=== PATIENT | female | born 1945 | race Caucasian/White ===

== ENCOUNTER 2020-04-29 17:09 | Outpatient (REF) | payer MEDICARE, SELFPAY | END 2020-04-29 17:10 | disposition home or self-care (01) | LOC: HO.LAB 17:09 | PROVIDERS: PCP Internal Medicine; Visit Provider Internal Medicine | DX: Z20.828 Contact with and (suspected) exposure to other viral communicable diseases (principal) | CPT/HCPCS: C9803; U0003 ==

== ENCOUNTER 2020-05-06 10:59 | Outpatient (REF) | payer MEDICARE, SELFPAY | END 2020-05-06 11:00 | disposition home or self-care (01) | LOC: HO.LAB 10:59 | PROVIDERS: Visit Provider Internal Medicine | DX: Z20.828 Contact with and (suspected) exposure to other viral communicable diseases (principal) | CPT/HCPCS: C9803; U0003 ==

== ENCOUNTER 2020-06-14 08:43 | Outpatient (REF) | payer MEDICARE, SELFPAY ==
[2020-06-14 09:10] LABS: MANUAL DIFF FLAG NO
[2020-06-14 09:14] LABS: Basophils Absolute Auto 0.1 X10*3/uL (0.0-0.2); Eosinophils Absolute Auto 0.2 X10*3/uL (0.0-0.4); Eosinophils Percent Auto 2.9 % (0-4); Hematocrit 40.3 % (37-47); Imm Gran Abs Auto 0.02 X10*3/uL (0.00-0.03); Imm Gran Pct Auto 0.2 % (0.0-0.4); Lymphocytes Absolute Auto 2.4 X10*3/uL (1.2-4.9); Lymphocytes Percent Auto 29.7 % (20-40); Mean Corpuscular HGB Conc 32.3 g/dl (31.0-35.0); Mean Corpuscular Hemoglobin 29.6 pg (27.0-33.0); Mean Corpuscular Volume 91.8 fL (80-98); Mean Platelet Volume 9.2 fL (9.4-12.3); Monocytes Absolute Auto 0.6 X10*3/uL (0.1-1.2); Monocytes Percent Auto 7.2 % (2-11); Neutrophils Absolute Auto 4.8 X10*3/uL (2.0-8.3); Platelet Count 314 X10*3/uL (160-400); Red Blood Count 4.39 X10*6/uL (4.20-5.50); Red Cell Distribution Width 14.6 % (11.0-16.0); White Blood Count 8.2 X10*3/uL (4.8-10.8)
[2020-06-14 09:29] LABS: Estimated Average Glucose 148 mg/dL; Hemoglobin A1c % 6.8 %
[2020-06-14 09:30] LABS: Glucose Urine UA NEG (NEG); Leukocyte Esterase Urine NEG (NEG); Nitrite Urine NEG (NEG); Urine Blood NEG (NEG); Urine Ketones NEG (NEG); Urine Protein NEG (NEG-TRACE)
[2020-06-14 09:33] LABS: Appearance Urine CLEAR; Color Urine YELLOW
[2020-06-14 09:46] LABS: Alanine Aminotransferase 21 U/L (0-31); Albumin Level 4.1 g/dL (3.5-5.0); Alkaline Phosphatase 68 U/L (39-117); Anion Gap 13 (12-20); Bilirubin Total 0.5 mg/dL (0.0-1.0); Blood Urea Nitrogen 17 mg/dL (9-16); Calcium 9.4 mg/dL (8.4-10.2); Carbon Dioxide 30 mmol/L (22-29); Chloride 103 mmol/L (96-108); Cholesterol 178 mg/dL; Estimated Glomerular Filt Rate 58; Glucose Fasting 132 mg/dL (60-99); HDL Cholesterol 36 mg/dL; LDL Cholesterol Calculated 98 mg/dl; Potassium 4.1 mmol/l (3.3-5.1); Sodium 142 mmol/L (135-145); Total Protein 6.9 g/dL (6.5-8.0); Triglycerides 222 mg/dL
[2020-06-14 09:47] LABS: Aspartate Amino Transferase 16 U/L (5-31)
[2020-06-14 09:52] LABS: Creatinine Urine 142.93 mg/dL; Microalbum/Creatinine Ratio Ur 3.4 ug/mg cr
[2020-06-14 10:12] LABS: Vitamin D 25-OH Total 60.1 ng/mL (>30)
[2020-06-14 10:44] LABS: Reflex LDLD? No
== END 2020-06-14 08:44 | disposition home or self-care (01) ==
LOC: HO.LAB 08:43
PROVIDERS: PCP Internal Medicine; Visit Provider Internal Medicine
DX: I10 Essential (primary) hypertension (principal); E78.00 Pure hypercholesterolemia, unspecified; E11.40 Type 2 diabetes mellitus with diabetic neuropathy, unspecified
CPT/HCPCS: 36415; 80053; 80061; 81003; 82043; 82306; 83036; 85025

== ENCOUNTER 2020-11-09 08:01 | Outpatient (REF) | payer MEDICARE, SELFPAY ==
--- NOTE | ~2020-11-09 | MM_ITS ---
EXAMINATION: BONE DENSITOMETRY CLINICAL INDICATION: Osteopenia. COMPARISON: Previous BD dated 11/05/2018 and baseline BD dated 06/14/2016. TECHNIQUE: Using a Magnetic DXA System (software version: 13.1) manufactured by [employer], dual-energy x-ray absorptiometry was performed of the lumbar spine and left hip. The images are of good technical quality. Summary results are attached. FINDINGS: AP SPINE L1-L4: Current: BMD 1.296 g/cm2, Z-score 1.5, T-score 1.0, normal, 3.0% decrease from previous, 0.2% decrease from baseline (<5% change is not significant). Prior: BMD 1.336 g/cm2. Baseline: BMD 1.298 g/cm2. LEFT FEMUR, NECK: Current: BMD 0.871 g/cm2, Z-score -0.1, T-score -1.2, osteopenia. Prior: BMD 0.830 g/cm2. Baseline: BMD 0.854 g/cm2. LEFT FEMUR, TOTAL: Current: BMD 1.102 g/cm2, Z-score 1.6, T-score 0.7, normal, 2.6% increase from previous, 4.6% increase from baseline (<5% change is not significant). Prior: BMD 1.074 g/cm2. Baseline: BMD 1.054 g/cm2. IDENTIFIED RISK FACTORS: Menopause, anticonvulsant, bilateral oophorectomy, hysterectomy, Thiazide. HISTORY OF FRACTURE: None listed. MEDICATIONS: Calcium or multivitamin. Vitamin D. MM/XR DEXA axial skeleton IMPRESSION: 1. DIAGNOSIS: Osteopenia based on the lowest T-score value of -1.2 in the femoral neck applying World Health Organization criteria. 2. 10-YEAR FRACTURE RISK PREDICTION, FRAX: Major osteoporotic fracture (clinical spine, forearm, hip or shoulder) 9.1%. Hip fracture 1.4%. 3. Treatment Recommendations: NOF guidelines recommend consideration for treatment in postmenopausal women and men age 50 and older presenting with the following: -A hip or vertebral (clinical or morphometric) fracture. -T-score less than or equal to -2.5 at the femoral neck or spine after appropriate evaluation to exclude secondary causes. -Low bone mass at the hip or spine and a 10-year fracture probability by FRAX of greater than or equal to 3% for hip fracture or greater than or equal to 20% for major osteoporotic fracture based on the [place] adapted WHO algorithm. 4. Other Recommendations: All treatment decisions require clinical judgment and consideration of individual patient factors, including patient preferences, comorbidities, previous drug use, risk factors not captured in the FRAX model (e.g. frailty, falls, vitamin D deficiency, increased bone turnover, interval significant decline in bone density) and possible under or overestimation of fracture risk by FRAX. Additional medical evaluation for secondary cause of low bone mineral density may be appropriate. FUTURE SCAN RECOMMENDATION: People with diagnosed cases of osteoporosis or at high risk for fracture should have regular bone mineral density tests. For patients eligible for Medicare, routine testing is allowed once every 2 years. The testing frequency can be increased to one year for patients who have rapidly progressing disease, those who are receiving or discontinuing medical therapy to restore bone mass, or have additional risk factors.
== END 2020-11-09 08:02 | disposition home or self-care (01) ==
LOC: HO.MAMMO 08:01
PROVIDERS: PCP Internal Medicine; Visit Provider Internal Medicine
DX: Z13.820 Encounter for screening for osteoporosis (principal); M85.80 Other specified disorders of bone density and structure, unspecified site; Z78.0 Asymptomatic menopausal state; Z79.899 Other long term (current) drug therapy; Z98.890 Other specified postprocedural states; Z90.722 Acquired absence of ovaries, bilateral
CPT/HCPCS: 77080

== ENCOUNTER 2020-12-21 07:42 | Outpatient (REF) | payer MEDICARE, SELFPAY ==
--- NOTE | ~2020-12-21 | MM_ITS ---
EXAMINATION: MM SCREENING DIGITAL BREAST TOMOSYNTHESIS, BILATERAL CLINICAL INFORMATION: Screening. Asymptomatic. The lifetime risk of breast cancer based on the Tyrer-Cuzick Model is 5%. COMPARISON: Mammography: 12/16/2019, 12/10/2018, 11/26/2017 TECHNIQUE: Digital breast tomosynthesis is performed in both the craniocaudal and mediolateral oblique views along with computer-aided detection (CAD). Synthesized 2D images are generated from the tomosynthesis. FINDINGS: There are scattered areas of fibroglandular density (ACR BI-RADS breast composition Category b). Parenchymal pattern is similar to prior studies. There is a stable small circumscribed nodule anterior central right breast. There are scattered bilateral benign round and rim calcifications. There is no interval mass or architectural abnormality or abnormal calcifications. No developing density. Known intradermal lesion posterior medial left breast is again noted. There are 2 dermal lesions seen overlying lower left breast. The axilla are unremarkable. MM/MM tomosynthesis screening BI IMPRESSION: No significant changes from prior studies. ASSESSMENT: BI-RADS 2: Benign RECOMMENDATION: Routine annual mammography screening. This patient's information was entered into a reminder system with a target due date for their next mammogram.
== END 2020-12-21 07:43 | disposition home or self-care (01) ==
LOC: HO.MAMMO 07:42
PROVIDERS: Visit Provider Internal Medicine
DX: Z12.31 Encounter for screening mammogram for malignant neoplasm of breast (principal)
CPT/HCPCS: 77063; 77067

== ENCOUNTER 2020-12-22 10:27 | Outpatient (REF) | payer MEDICARE, SELFPAY ==
[2020-12-22 10:57] LABS: Estimated Average Glucose 148 mg/dL; Hemoglobin A1c % 6.8 %
[2020-12-22 11:31] LABS: Alanine Aminotransferase 21 U/L (0-31); Albumin Level 3.9 g/dL (3.5-5.0); Alkaline Phosphatase 71 U/L (39-117); Aspartate Amino Transferase 16 U/L (5-31); Bilirubin Direct 0.2 mg/dL (0.0-0.5); Bilirubin Total 0.5 mg/dL (0.0-1.0); Cholesterol 176 mg/dL; Glucose Fasting 138 mg/dL (60-99); HDL Cholesterol 36 mg/dL; LDL Cholesterol Calculated 91 mg/dl; Total Protein 6.8 g/dL (6.5-8.0); Triglycerides 247 mg/dL
[2020-12-22 13:03] LABS: Reflex LDLD? No
== END 2020-12-22 10:28 | disposition home or self-care (01) ==
LOC: HO.LNP 10:27
PROVIDERS: Visit Provider Internal Medicine
DX: E78.00 Pure hypercholesterolemia, unspecified (principal); R73.03 Prediabetes
CPT/HCPCS: 80061; 80076; 82947; 83036

== ENCOUNTER 2021-05-11 08:10 | Outpatient (REF) | payer MEDICARE, SELFPAY ==
[2021-05-11 11:47] LABS: COVID-19 Test Negative (Negative)
== END 2021-05-11 08:11 | disposition home or self-care (01) ==
LOC: HO.LAB 08:10
PROVIDERS: Visit Provider Internal Medicine
DX: Z20.822 Contact with and (suspected) exposure to COVID-19 (principal)
CPT/HCPCS: 36415; 87635; C9803

== ENCOUNTER 2021-05-26 08:42 | Outpatient (REF) | payer MEDICARE, SELFPAY ==
[2021-05-26 10:19] LABS: Binax Internal Control QC Valid; Binax Now Covid-19 Ag Negative (Negative)
== END 2021-05-26 08:43 | disposition home or self-care (01) ==
LOC: HO.LAB 08:42
PROVIDERS: Visit Provider Internal Medicine
DX: Z20.822 Contact with and (suspected) exposure to COVID-19 (principal)
CPT/HCPCS: 36415; C9803

== ENCOUNTER 2021-06-26 10:47 | Outpatient (REF) | payer MEDICARE, SELFPAY ==
[2021-06-26 10:51] LABS: MANUAL DIFF FLAG NO
[2021-06-26 11:02] LABS: Basophils Absolute Auto 0.1 X10*3/uL (0.0-0.2); Basophils Percent Auto 0.8 % (0-2); Eosinophils Absolute Auto 0.2 X10*3/uL (0.0-0.4); Eosinophils Percent Auto 1.8 % (0-4); Hemoglobin 12.5 g/dl (12.0-16.0); Imm Gran Abs Auto 0.03 X10*3/uL (0.00-0.03); Imm Gran Pct Auto 0.3 % (0.0-0.4); Lymphocytes Percent Auto 34.1 % (20-40); Mean Corpuscular HGB Conc 31.3 g/dl (31.0-35.0); Mean Corpuscular Volume 92.8 fL (80.0-98.0); Mean Platelet Volume 9.6 fL (9.4-12.3); Monocytes Absolute Auto 0.6 X10*3/uL (0.1-1.2); Monocytes Percent Auto 6.4 % (2-11); Neutrophils Absolute Auto 4.9 x10*3/uL (2.0-8.3); Neutrophils Percent Auto 56.6 % (45-73); Platelet Count 354 X10*3/uL (160-400); Red Blood Count 4.31 X10*6/uL (4.20-5.50); Red Cell Distribution Width 14.7 % (11.0-16.0); White Blood Count 8.7 X10*3/uL (4.8-10.8)
[2021-06-26 11:07] LABS: Appearance Urine HAZY; Color Urine YELLOW; Glucose Urine UA NEG (NEG); Leukocyte Esterase Urine 1+ (NEG); Nitrite Urine NEG (NEG); Urine Blood NEG (NEG); Urine Ketones NEG (NEG); Urine Protein NEG (NEG-TRACE)
[2021-06-26 11:15] LABS: Alanine Aminotransferase 22 U/L (0-31); Alkaline Phosphatase 68 U/L (39-117); Anion Gap 12 (12-20); Aspartate Amino Transferase 15 U/L (5-31); Bilirubin Total 0.8 mg/dL (0.0-1.0); Blood Urea Nitrogen 14 mg/dL (9-16); Calcium 9.9 mg/dL (8.4-10.2); Carbon Dioxide 30 mmol/L (22-29); Chloride 103 mmol/L (96-108); Cholesterol 177 mg/dL; Estimated Glomerular Filt Rate 59; Glucose Fasting 125 mg/dL (60-99); HDL Cholesterol 35 mg/dL; LDL Cholesterol Calculated 100 mg/dl; Potassium 3.9 mmol/L (3.3-5.1); Sodium 141 mmol/L (135-145); Total Protein 6.8 g/dL (6.5-8.0); Triglycerides 213 mg/dL
[2021-06-26 11:40] LABS: Squamous Epithelial Cell Urine 1+ /LPF
[2021-06-26 11:41] LABS: Bacteria Urine 2+ /LPF; WBC Urine 0-2 /HPF (0-4)
[2021-06-26 11:43] LABS: RBC Urine 0-2 /HPF (0)
[2021-06-26 11:45] LABS: Creatinine Urine 163.83 mg/dL; Microalbum/Creatinine Ratio Ur 12.8 ug/mg cr; Oval Fat Bodies Urine NOTED; Renal Epithelial Cells Urine TRACE /LPF
[2021-06-26 12:10] LABS: Estimated Average Glucose 154 mg/dL
== END 2021-06-26 10:48 | disposition home or self-care (01) ==
LOC: HO.LNP 10:47
PROVIDERS: PCP Internal Medicine; Visit Provider Internal Medicine
DX: I10 Essential (primary) hypertension (principal); E78.00 Pure hypercholesterolemia, unspecified; E11.49 Type 2 diabetes mellitus with other diabetic neurological complication
CPT/HCPCS: 80053; 80061; 81001; 81003; 82043; 83036; 85025

== ENCOUNTER 2021-10-19 07:38 | Outpatient (REF) | payer MEDICARE, SELFPAY ==
[2021-10-19 08:08] LABS: COVID-19 Test Negative (Negative); IDNOW Serial# 08D9AD1C
== END 2021-10-19 07:39 | disposition home or self-care (01) ==
LOC: HO.LAB 07:38
PROVIDERS: Visit Provider Internal Medicine
DX: Z20.822 Contact with and (suspected) exposure to COVID-19 (principal)
CPT/HCPCS: 87635; C9803

== ENCOUNTER 2021-11-28 10:07 | Outpatient (REF) | payer MEDICARE, SELFPAY ==
[2021-11-28 11:03] LABS: COVID-19 Test Negative (Negative); IDNOW Serial# 08D9AD1C
== END 2021-11-28 10:08 | disposition home or self-care (01) ==
LOC: HO.LAB 10:07
PROVIDERS: Visit Provider Internal Medicine
DX: Z20.822 Contact with and (suspected) exposure to COVID-19 (principal)
CPT/HCPCS: 87635; C9803

== ENCOUNTER 2021-12-22 08:15 | Outpatient (REF) | payer MEDICARE, SELFPAY ==
--- NOTE | ~2021-12-22 | MM_ITS ---
EXAMINATION: MM SCREENING DIGITAL BREAST TOMOSYNTHESIS, BILATERAL CLINICAL INFORMATION: Screening. Asymptomatic. The lifetime risk of breast cancer based on the Tyrer-Cuzick Model is 5%. COMPARISON: Mammography: 12/21/2020, 12/16/2019, 12/10/2018 TECHNIQUE: Digital breast tomosynthesis is performed in both the craniocaudal and mediolateral oblique views along with computer-aided detection (CAD). Synthesized 2D images are generated from the tomosynthesis. FINDINGS: There are scattered areas of fibroglandular density (ACR BI-RADS breast composition Category b). Parenchymal pattern is similar to prior studies. No developing density or interval mass or architectural abnormality. No abnormal calcifications. There are dermal lesions again seen overlying the posterior upper and lower left breast. Stable circumscribed nodule again seen central retroareolar right breast. The axilla and skin contours are unremarkable. MM/MM tomosynthesis screening BI IMPRESSION: No significant changes from prior studies. ASSESSMENT: BI-RADS 2: Benign RECOMMENDATION: Routine annual mammography screening. This patient's information was entered into a reminder system with a target due date for their next mammogram.
== END 2021-12-22 08:16 | disposition home or self-care (01) ==
LOC: HO.MAMMO 08:15
PROVIDERS: Visit Provider Internal Medicine
DX: Z12.31 Encounter for screening mammogram for malignant neoplasm of breast (principal)
CPT/HCPCS: 77063; 77067

== ENCOUNTER 2021-12-26 10:38 | Outpatient (REF) | payer MEDICARE, SELFPAY ==
[2021-12-26 11:39] LABS: Estimated Average Glucose 174 mg/dL; Hemoglobin A1c % 7.7 %
[2021-12-26 11:44] LABS: Alanine Aminotransferase 42 U/L (0-31); Albumin Level 4.1 g/dL (3.5-5.0); Alkaline Phosphatase 52 U/L (39-117); Aspartate Amino Transferase 13 U/L (5-31); Bilirubin Direct 0.3 mg/dL (0.0-0.5); Bilirubin Total 0.8 mg/dL (0.0-1.0); Cholesterol 240 mg/dL; Glucose Fasting 128 mg/dL (60-99); HDL Cholesterol 58 mg/dL; LDL Cholesterol Calculated 154 mg/dl; Total Protein 6.9 g/dL (6.5-8.0); Triglycerides 141 mg/dL
[2021-12-26 11:50] LABS: Reflex LDLD? No
== END 2021-12-26 10:39 | disposition home or self-care (01) ==
LOC: HO.LNP 10:38
PROVIDERS: Visit Provider Internal Medicine
DX: E11.40 Type 2 diabetes mellitus with diabetic neuropathy, unspecified (principal); E78.00 Pure hypercholesterolemia, unspecified
CPT/HCPCS: 80061; 80076; 82947; 83036

== ENCOUNTER 2022-01-01 10:26 | Outpatient (REF) | payer MEDICARE, SELFPAY ==
--- NOTE | ~2022-01-01 | XR_ITS ---
EXAMINATION: XR CHEST CLINICAL INFORMATION: Shortness of breath COMPARISON: Shortness of breath. [place] TECHNIQUE: 2 views of the chest were obtained. FINDINGS: The lungs are well-expanded and clear of acute process. The heart size and pulmonary vascularity is normal. There is moderate spondylosis dorsal spine. No lytic process seen XR/XR chest 2V IMPRESSION: Unremarkable chest examination.
== END 2022-01-01 10:27 | disposition home or self-care (01) ==
LOC: HO.XRAY 10:26
PROVIDERS: PCP Internal Medicine; Visit Provider Internal Medicine
DX: R06.02 Shortness of breath (principal)
CPT/HCPCS: 71046

== ENCOUNTER 2022-01-03 14:54 | Outpatient (REF) | payer MEDICARE, SELFPAY ==
[2022-01-03 15:37] LABS: COVID-19 Test Positive (Negative); IDNOW Serial# 9DD0AD1C
== END 2022-01-03 14:55 | disposition home or self-care (01) ==
LOC: HO.LAB 14:54
PROVIDERS: Visit Provider Internal Medicine
DX: Z20.822 Contact with and (suspected) exposure to COVID-19 (principal)
CPT/HCPCS: 87635; C9803

== ENCOUNTER 2022-06-28 11:33 | Outpatient (REF) | payer MEDICARE, SELFPAY ==
[2022-06-28 11:39] LABS: MANUAL DIFF FLAG NO
[2022-06-28 12:05] LABS: Basophils Absolute Auto 0.1 X10*3/uL (0.0-0.2); Basophils Percent Auto 0.7 % (0-2); Eosinophils Absolute Auto 0.2 X10*3/uL (0.0-0.4); Eosinophils Percent Auto 1.9 % (0-4); Hematocrit 40.1 % (37.0-47.0); Hemoglobin 12.9 g/dl (12.0-16.0); Imm Gran Abs Auto 0.03 X10*3/uL (0.00-0.03); Imm Gran Pct Auto 0.3 % (0.0-0.4); Lymphocytes Absolute Auto 3.5 X10*3/uL (1.2-4.9); Mean Corpuscular HGB Conc 32.2 g/dl (31.0-35.0); Mean Corpuscular Hemoglobin 28.7 pg (27.0-33.0); Mean Corpuscular Volume 89.1 fL (80.0-98.0); Mean Platelet Volume 9.6 fL (9.4-12.3); Monocytes Absolute Auto 0.6 X10*3/uL (0.1-1.2); Neutrophils Absolute Auto 5.5 x10*3/uL (2.0-8.3); Neutrophils Percent Auto 56.1 % (45-73); Platelet Count 341 X10*3/uL (160-400); Red Cell Distribution Width 14.6 % (11.0-16.0); White Blood Count 9.9 X10*3/uL (4.8-10.8)
[2022-06-28 12:44] LABS: Alanine Aminotransferase 27 U/L (0-31); Albumin Level 3.8 g/dL (3.5-5.0); Alkaline Phosphatase 84 U/L (39-117); Anion Gap 13 (12-20); Aspartate Amino Transferase 18 U/L (5-31); Bilirubin Total 0.6 mg/dL (0.0-1.0); Blood Urea Nitrogen 15 mg/dL (9-16); Calcium 9.9 mg/dL (8.4-10.2); Carbon Dioxide 32 mmol/L (22-29); Chloride 103 mmol/L (96-108); Cholesterol 147 mg/dL; Estimated Glomerular Filt Rate > 60; Glucose Fasting 112 mg/dL (60-99); HDL Cholesterol 29 mg/dL; LDL Cholesterol Calculated 79 mg/dl; Potassium 4.3 mmol/L (3.3-5.1); Sodium 144 mmol/L (135-145); Total Protein 6.5 g/dL (6.5-8.0); Triglycerides 195 mg/dL
[2022-06-28 12:45] LABS: Appearance Urine Turbid; Color Urine Yellow; Glucose Urine UA Negative (Negative); Leukocyte Esterase Urine Small (1+) (Negative); Nitrite Urine Negative (Negative); PH 7.5 (5.0-9.0); UMIC TRIGGER UACC YES; Urine Blood Negative (Negative); Urine Ketones Negative (Negative); Urine Protein Negative (Neg-Trace)
[2022-06-28 12:52] LABS: Bacteria Urine None Seen (None Seen); Hyaline Casts Urine 0-2 /LPF (0-2); RBC Urine 0-2 /HPF (0-2); Squamous Epithelial Cell Urine 0-2 /HPF (0-2); UACC Culture Trigger YES
[2022-06-28 12:53] LABS: Estimated Average Glucose 146 mg/dL; Hemoglobin A1c % 6.7 %
[2022-06-28 13:10] LABS: Creatinine Urine 150.21 mg/dL; Microalbum/Creatinine Ratio Ur 5.9 ug/mg cr
[2022-06-28 13:38] LABS: Granular Casts Urine Present
== END 2022-06-28 11:34 | disposition home or self-care (01) ==
LOC: HO.LNP 11:33
PROVIDERS: Visit Provider Internal Medicine
DX: I10 Essential (primary) hypertension (principal); E78.00 Pure hypercholesterolemia, unspecified; E11.49 Type 2 diabetes mellitus with other diabetic neurological complication; E83.52 Hypercalcemia
CPT/HCPCS: 80053; 80061; 81001; 82043; 83036; 85025; 87086

== ENCOUNTER 2022-08-08 12:06 | Outpatient (REF) | payer MEDICARE, SELFPAY ==
--- NOTE | ~2022-08-08 | XR_ITS ---
EXAMINATION: XR ANKLE, LEFT CLINICAL INFORMATION: Arthritis. COMPARISON: None available. TECHNIQUE: AP, lateral, and mortise views of the left ankle. FINDINGS: Bony alignment and mineralization are normal. The ankle mortise is intact. There are chronic-appearing, well-corticated avulsion fragments noted adjacent to the medial malleolus. No dislocation or left ankle joint effusion is seen. Boehler's angle is normal. There are large posterior and plantar calcaneal spurs. There is mild generalized soft tissue swelling. No soft tissue gas or foreign body is seen. XR/XR ankle LT min 3V IMPRESSION: 1. There are chronic-appearing, well-corticated avulsion fragments noted of the medial malleolus. Please correlate clinically. 2. There is generalized soft tissue swelling of the left ankle. No joint effusion is noted. 3. There are large calcaneal spurs.
== END 2022-08-08 12:07 | disposition home or self-care (01) ==
LOC: HO.XRAY 12:06
PROVIDERS: PCP Internal Medicine; Visit Provider Psychiatry & Neurology Neurology
DX: M19.072 Primary osteoarthritis, left ankle and foot (principal)
CPT/HCPCS: 73610

== ENCOUNTER 2022-10-24 14:07 | Emergency (ER) | payer MEDICARE, SELFPAY ==
--- NOTE | ~2022-10-24 | US_ITS ---
EXAMINATION: US VENOUS ULTRASOUND WITH DOPPLER LOWER EXTREMITY, BILATERAL CLINICAL INFORMATION: Swelling. COMPARISON: None available. TECHNIQUE: Ultrasound of the deep veins is performed from the hip to the calf with compression sonography and color and pulse Doppler assessment. Spectral analysis with color-flow imaging is performed. FINDINGS: RIGHT: The visualized common femoral vein, superficial femoral vein, profunda femoral vein and popliteal vein shows no evidence of deep venous thrombosis. Limited visualization of the calf veins due to overlying soft tissue thickening.There is no significant popliteal fossa cyst. LEFT: The visualized common femoral vein, superficial femoral vein, profunda femoral vein and popliteal vein shows no evidence of deep venous thrombosis. Limited evaluation of the calf veins due to overlying soft tissue thickening. There is no significant popliteal fossa cyst. US/US venous duplex LE BI IMPRESSION: No DVT demonstrated in the bilateral lower extremities with the caveat of limited evaluation of the calf veins due to overlying soft tissue thickening. If the patient's symptoms persist, followup ultrasound in 5 days 7 days might be of value to exclude proximal propagation from a non-visualized calf vein.
[2022-10-24 14:16] VITALS: BP 156/63; PULSE 74; RESP 16; TEMP 37.2; O2SAT 95; BMI 41.1
--- NOTE | 2022-10-24 14:16 | ED.GENADULT ---
HPI - General Adult General Chief complaint: Extremity Problem Stated complaint: L leg pain/ swelling Time Seen by Provider: 10/24/22 15:36 Source: patient and RN notes reviewed Mode of arrival: ambulatory Limitations: no limitations History of Present Illness HPI narrative: This is a [id number], with a past medical history of hypertension, presenting to the emergency department with complaints of intermittent bilateral lower leg swelling and redness for the last several months, worsening over the last several days. Patient denies any fevers, chills, chest pain, shortness of breath, nausea, vomiting, or diarrhea. Patient reports that she typically gets swelling on her lower legs and has been using compression stockings which is provided her with some relief. she reports that typically the swelling in her legs resolved after laying in bed, and her legs are no longer swollen in the morning however this was not the case this morning which is why she reported to the emergency department today. She has not informed her primary care physician regarding the symptoms. No other complaints or concerns at this time. MD complaint: LE edema, redness Onset (ago): month(s) Location: lower extremity Radiation: non-radiation Quality: aching Pain Consistency: constant Relieving factors: none Exacerbating factors: none Associated symptoms: denies other symptoms Treatments prior to arrival: none Related Data Previous Rx's Medication Instructions Recorded cephalexin 500 mg capsule 500 mg PO QID 5 days #20 caps 10/24/22 Allergies Allergy/AdvReac Type Severity Reaction Status Date / Time latex [LATEX] Allergy Unknown REDNESS Verified 10/24/22 14:15 Review of Systems Review of Systems: Constitutional: No Weight loss, No Fever, No Chills ENT/Mouth: No Ear Pain, No Nasal Congestion, No Sinus Pain, No Hoarseness, No sore throat, No Rhinorrhea, No Swallowing Difficulty Cardiovascular: No Chest Pain, No SOB Respiratory: No Cough, No Sputum, No Wheezing Gastrointestinal: No Nausea, No Vomiting, No Diarrhea, No Constipation, No Abdominal pain Genitourinary: No Dysuria, No Urinary Frequency, No Hematuria, No Urinary Incontinence/retention, No Urgency, No Flank Pain Musculoskeletal: No joint pain, No Myalgias, No Joint Swelling Skin: No Skin Lesions, No rash Neuro: No Weakness, No Numbness, No Paresthesias PMFSH Social History Social History Smoked in Last 30 Days: No Use of substances other than those prescribed or required for medical reasons: No Advance Directives: No Advance Directives Information Provided: Yes Physical Exam ED Vital Signs: Vital Signs - 24 hr 10/24/22 14:16 Temperature 98.9 F Pulse Rate 74 Respiratory Rate 16 Blood Pressure 156/63 H Pulse Oximetry 95 Oxygen Delivery Method Room Air BMI result Body Mass Index 41.1 General: Awake, alert, and oriented X3. No acute distress. HEENT: Normal inspection CVS: Normal heart rate and rhythm. Pulses normal. S1-S2 regular Respiratory: No respiratory distress, lungs clear to auscultation bilaterally, no wheezes, rales, or rhonchi. Skin: Warm, dry, no rashes noted to exposed skin. Normal skin color. Normal skin turgor. Extremities: Bilateral lower extremities with 3+ pitting edema, with scant erythema, no warmth. There is a 3 cm x 3 cm circular area on the left medial aspect of the ankle that is more erythematous, no drainage, no warmth Neuro: Oriented X 3. No motor deficit. No sensory deficit. Course Course Course Narrative: 77-year-old female presents for evaluation of bilateral lower extremity swelling, left greater than right. Patient reports on and off edema to lower extremities for a few months but constant over the last 2 weeks. Denies fevers. Plan for labs, ultrasound to rule out DVT Medical Decision Making Medical Decision Making MDM Narrative: 77-year-old female with a history of hypertension, presenting to the emergency department for evaluation of lower leg edema and redness. Her symptoms have been intermittent for the last several months however reports over the last several days she has noticed increasing swelling and the swelling has not improved overnight. On examination, patient mildly hypertensive at 156/63, otherwise afebrile, 95% on room air. patient reports no shortness of breath, orthopnea or dyspnea on exertion. Lower legs with 3+ pitting edema noted bilaterally, scant erythema noted to extremities. no leukocytosis, ESR elevated at 38, CRP 1.11. BNP is 17. US negative for DVT. Symptoms likely due to dependent edema or lymphedema. Does not appear to be cellulitic however will cover for underlying infection. Given strict return precautions. Advised to follow up with her PCP. Stressed the importance of applying compression socks. Patient understand and agrees with plan. Stable for discharge. Differential Diagnosis Differential Diagnoses: The differential diagnosis associated with the presentation includes Dependent edema, cellulitis, edema, CHF - less likely Lab Data MDM Lab Attestation statement: I reviewed the patient's lab results. 10/24/22 15:31 10/24/22 15:31 Labs: Lab Results 10/24/22 10/24/22 10/24/22 Range/Units 15:31 15:31 15:31 WBC 9.9 (4.8-10.8) X10*3/uL RBC 4.37 (4.20-5.50) X10*6/uL Hgb 12.7 (12.0-16.0) g/dl Hct 39.0 (37.0-47.0) % MCV 89.2 (80.0-98.0) fL MCH 29.1 (27.0-33.0) pg MCHC 32.6 (31.0-35.0) g/dl RDW 14.8 (11.0-16.0) % Plt Count 262 (160-400) X10*3/uL MPV 9.7 (9.4-12.3) fL Immature Gran % (Auto) 0.3 (0.0-0.4) % Neut % (Auto) 70.9 (45-73) % Lymph % (Auto) 20.2 (20-40) % [place] % (Auto) 6.0 (2-11) % Eos % (Auto) 1.8 (0-4) % Baso % (Auto) 0.8 (0-2) % Lymph # (Auto) 2.0 (1.2-4.9) X10*3/uL [place] # (Auto) 0.6 (0.1-1.2) X10*3/uL Eos # (Auto) 0.2 (0.0-0.4) X10*3/uL Baso # (Auto) 0.1 (0.0-0.2) X10*3/uL Abs Immat Gran (auto) 0.03 (0.00-0.03) X10*3/uL Absolute Neuts (auto) 7.0 (2.0-8.3) x10*3/uL Absolute Nucleated RBC 0.000 (0.0-0.012) X10*3/uL Nucleated RBC % (auto) 0.0 (0.0-0.2) /100WBC ESR 38 H (0-20) MM/HR Sodium 141 (135-145) mmol/L Potassium 3.9 (3.3-5.1) mmol/L Chloride 104 (96-108) mmol/L Carbon Dioxide 28 (22-29) mmol/L Anion Gap 13 (12-20) BUN 12 (9-16) mg/dL Creatinine 0.88 (0.5-1.4) mg/dL Estim Creat Clear Calc 67.7 Estimated GFR > 60 Random Glucose 179 H (60-115) mg/dL Calcium 10.1 (8.4-10.2) mg/dL Total Bilirubin 0.5 (0.0-1.0) mg/dL AST 16 (5-31) U/L ALT 24 (0-31) U/L Alkaline Phosphatase 85 (39-117) U/L C-Reactive Protein 1.11 H (< or = 0.50) mg/dL B-Natriuretic Peptide (<100) pg/mL Total Protein 6.6 (6.5-8.0) g/dL Albumin 3.8 (3.5-5.0) g/dL 10/24/22 Range/Units 15:31 WBC (4.8-10.8) X10*3/uL RBC (4.20-5.50) X10*6/uL Hgb (12.0-16.0) g/dl Hct (37.0-47.0) % MCV (80.0-98.0) fL MCH (27.0-33.0) pg MCHC (31.0-35.0) g/dl RDW (11.0-16.0) % Plt Count (160-400) X10*3/uL MPV (9.4-12.3) fL Immature Gran % (Auto) (0.0-0.4) % Neut % (Auto) (45-73) % Lymph % (Auto) (20-40) % [place] % (Auto) (2-11) % Eos % (Auto) (0-4) % Baso % (Auto) (0-2) % Lymph # (Auto) (1.2-4.9) X10*3/uL [place] # (Auto) (0.1-1.2) X10*3/uL Eos # (Auto) (0.0-0.4) X10*3/uL Baso # (Auto) (0.0-0.2) X10*3/uL Abs Immat Gran (auto) (0.00-0.03) X10*3/uL Absolute Neuts (auto) (2.0-8.3) x10*3/uL Absolute Nucleated RBC (0.0-0.012) X10*3/uL Nucleated RBC % (auto) (0.0-0.2) /100WBC ESR (0-20) MM/HR Sodium (135-145) mmol/L Potassium (3.3-5.1) mmol/L Chloride (96-108) mmol/L Carbon Dioxide (22-29) mmol/L Anion Gap (12-20) BUN (9-16) mg/dL Creatinine (0.5-1.4) mg/dL Estim Creat Clear Calc Estimated GFR Random Glucose (60-115) mg/dL Calcium (8.4-10.2) mg/dL Total Bilirubin (0.0-1.0) mg/dL AST (5-31) U/L ALT (0-31) U/L Alkaline Phosphatase (39-117) U/L C-Reactive Protein (< or = 0.50) mg/dL B-Natriuretic Peptide 17 (<100) pg/mL Total Protein (6.5-8.0) g/dL Albumin (3.5-5.0) g/dL Independent Interpretation I performed an independent interpretation of an: Ultrasound Interpretation: EXAMINATION:? US VENOUS ULTRASOUND WITH DOPPLER LOWER EXTREMITY, BILATERAL CLINICAL INFORMATION:? Swelling. COMPARISON:? None available. TECHNIQUE: Ultrasound of the deep veins is performed from the hip to the calf with compression sonography and color and pulse Doppler assessment. Spectral analysis with color-flow imaging is performed. FINDINGS: RIGHT: The visualized common femoral vein, superficial femoral vein, profunda femoral vein and popliteal vein shows no evidence of deep venous thrombosis. Limited visualization of the calf veins due to overlying soft tissue thickening.There is no significant popliteal fossa cyst. LEFT: The visualized common femoral vein, superficial femoral vein, profunda femoral vein and popliteal vein shows no evidence of deep venous thrombosis. Limited evaluation of the calf veins due to overlying soft tissue thickening. There is no significant popliteal fossa cyst. US/US venous duplex LE BI IMPRESSION: No DVT demonstrated in the bilateral lower extremities with the caveat of limited evaluation of the calf veins due to overlying soft tissue thickening. If the patient's symptoms persist, followup ultrasound in 5 days 7 days might be of value to exclude proximal propagation from a non-visualized calf vein. ? Dictated By: Jihan Nina Discharge Plan Discharge Clinical Impression: Edema of both lower legs, Cellulitis Patient Disposition: Home, Self-Care Instructions: Cellulitis (ED), Leg Edema (ED) Additional Instructions: Your bloodwork today was reassuring today. Your US showed no blood clots. Please use compression stockings and elevate your legs to reduce the swelling. Take prescribed antibiotic as directed, finish the entire course. We are covering you for an overlying skin infection. Follow up with your primary care physician. If any new or worsening symptoms occur including worsening lower leg redness or swelling, shortness of breath, or chest pain, return for re-evaluation. Prescriptions: New cephalexin 500 mg capsule 500 mg PO QID 5 Days Qty: 20 0RF Interventions: ED Discharge Assessment Last Done: 10/24/22 17:30 Discharge Date/Time: 10/24/22 17:31
--- NOTE | 2022-10-24 15:39 | PC.NURSE ---
LABS DRAWN IN TRIAGE, PT CHANGED INTO HOSPTAL ATTIRE
[2022-10-24 15:41] LABS: MANUAL DIFF FLAG NO
[2022-10-24 15:42] LABS: Basophils Absolute Auto 0.1 X10*3/uL (0.0-0.2); Basophils Percent Auto 0.8 % (0-2); Eosinophils Absolute Auto 0.2 X10*3/uL (0.0-0.4); Eosinophils Percent Auto 1.8 % (0-4); Hemoglobin 12.7 g/dl (12.0-16.0); Imm Gran Abs Auto 0.03 X10*3/uL (0.00-0.03); Imm Gran Pct Auto 0.3 % (0.0-0.4); Lymphocytes Percent Auto 20.2 % (20-40); Mean Corpuscular HGB Conc 32.6 g/dl (31.0-35.0); Mean Corpuscular Hemoglobin 29.1 pg (27.0-33.0); Mean Corpuscular Volume 89.2 fL (80.0-98.0); Mean Platelet Volume 9.7 fL (9.4-12.3); Monocytes Absolute Auto 0.6 X10*3/uL (0.1-1.2); Neutrophils Percent Auto 70.9 % (45-73); Platelet Count 262 X10*3/uL (160-400); Red Blood Count 4.37 X10*6/uL (4.20-5.50); Red Cell Distribution Width 14.8 % (11.0-16.0); White Blood Count 9.9 X10*3/uL (4.8-10.8)
[2022-10-24 16:03] LABS: Alanine Aminotransferase 24 U/L (0-31); Albumin Level 3.8 g/dL (3.5-5.0); Alkaline Phosphatase 85 U/L (39-117); Anion Gap 13 (12-20); Aspartate Amino Transferase 16 U/L (5-31); Bilirubin Total 0.5 mg/dL (0.0-1.0); Blood Urea Nitrogen 12 mg/dL (9-16); C Reactive Protein 1.11 mg/dL (< or = 0.50); Calcium 10.1 mg/dL (8.4-10.2); Carbon Dioxide 28 mmol/L (22-29); Chloride 104 mmol/L (96-108); Creatinine Clr Calc Pharmacy 67.7; Estimated Glomerular Filt Rate > 60; Glucose Random 179 mg/dL (60-115); Potassium 3.9 mmol/L (3.3-5.1); Sodium 141 mmol/L (135-145); Total Protein 6.6 g/dL (6.5-8.0)
[2022-10-24 16:04] LABS: B Type Natriuretic Peptide 17 pg/mL (<100)
[2022-10-24 16:19] LABS: Erythrocyte Sedimentation Rate 38 MM/HR (0-20)
== END 2022-10-24 17:31 | disposition home or self-care (01) ==
PROVIDERS: Physician Assistant; Emergency Provider Emergency Medicine; PCP Internal Medicine
DX: R60.0 Localized edema (principal); L03.116 Cellulitis of left lower limb; L03.115 Cellulitis of right lower limb
CPT/HCPCS: 36415; 80053; 83880; 85025; 85652; 86140; 93970; 99284

== ENCOUNTER 2022-12-28 07:49 | Outpatient (REF) | payer MEDICARE, SELFPAY | END 2022-12-28 07:50 | disposition home or self-care (01) | LOC: HO.MAMMO 07:49 | PROVIDERS: PCP Internal Medicine; Visit Provider Internal Medicine | DX: Z12.31 Encounter for screening mammogram for malignant neoplasm of breast (principal); E78.00 Pure hypercholesterolemia, unspecified; E11.40 Type 2 diabetes mellitus with diabetic neuropathy, unspecified | CPT/HCPCS: 77063; 77067; 80061; 80076; 82947; 83036 ==

== ENCOUNTER → 2022-12-28 08:30 | Outpatient (BNV) | payer MEDICARE, SELFPAY | PROVIDERS: PCP Internal Medicine; Visit Provider Radiology Diagnostic Radiology | DX: Z12.31 Encounter for screening mammogram for malignant neoplasm of breast (principal) | CPT/HCPCS: 77063; 77067 ==

== ENCOUNTER 2022-12-28 12:01 | Outpatient (REF) | payer MEDICARE, SELFPAY ==
[2022-12-28 14:43] LABS: Alanine Aminotransferase 29 U/L (0-31); Albumin Level 3.8 g/dL (3.5-5.0); Alkaline Phosphatase 59 U/L (39-117); Aspartate Amino Transferase 15 U/L (5-31); Bilirubin Direct 0.2 mg/dL (0.0-0.5); Bilirubin Total 0.6 mg/dL (0.0-1.0); Glucose Fasting 129 mg/dL (60-99); Total Protein 7.2 g/dL (6.5-8.0)
[2022-12-28 14:56] LABS: Cholesterol 195 mg/dL; HDL Cholesterol 37 mg/dL; LDL Cholesterol Calculated 119 mg/dl; Triglycerides 198 mg/dL
[2022-12-28 15:16] LABS: Reflex LDLD? No
[2022-12-29 03:25] LABS: Estimated Average Glucose 157 mg/dL; Hemoglobin A1c % 7.1 %
== END 2022-12-28 12:02 | disposition home or self-care (01) ==
LOC: HO.LNP 12:01
PROVIDERS: Visit Provider Internal Medicine
DX: Z13.89 Encounter for screening for other disorder (principal)
CPT/HCPCS: 80061; 80076; 82947; 83036

== ENCOUNTER 2023-06-28 11:14 | Outpatient (REF) | payer MEDICARE, SELFPAY ==
[2023-06-28 11:18] LABS: MANUAL DIFF FLAG NO
[2023-06-28 11:58] LABS: Basophils Absolute Auto 0.1 X10*3/uL (0.0-0.2); Basophils Percent Auto 0.8 % (0-2); Eosinophils Absolute Auto 0.4 X10*3/uL (0.0-0.4); Eosinophils Percent Auto 4.4 % (0-4); Hematocrit 39.1 % (37.0-47.0); Hemoglobin 12.6 g/dl (12.0-16.0); Imm Gran Abs Auto 0.03 X10*3/uL (0.00-0.03); Imm Gran Pct Auto 0.3 % (0.0-0.4); Lymphocytes Percent Auto 32.6 % (20-40); Mean Corpuscular HGB Conc 32.2 g/dl (31.0-35.0); Mean Corpuscular Hemoglobin 29.9 pg (27.0-33.0); Mean Corpuscular Volume 92.9 fL (80.0-98.0); Mean Platelet Volume 10.2 fL (9.4-12.3); Monocytes Absolute Auto 0.6 X10*3/uL (0.1-1.2); Monocytes Percent Auto 6.4 % (2-11); Neutrophils Percent Auto 55.5 % (45-73); Platelet Count 341 X10*3/uL (160-400); Red Blood Count 4.21 X10*6/uL (4.20-5.50); Red Cell Distribution Width 14.3 % (11.0-16.0); White Blood Count 9.1 X10*3/uL (4.8-10.8)
[2023-06-28 12:08] LABS: Estimated Average Glucose 180 mg/dL; Hemoglobin A1c % 7.9 % (<6.0)
[2023-06-28 12:09] LABS: Appearance Urine Cloudy; Color Urine Yellow; Glucose Urine UA Negative (Negative); Leukocyte Esterase Urine Small (1+) (Negative); Nitrite Urine Negative (Negative); PH 7.5 (5.0-9.0); Specific Gravity - Urine 1.025 (1.005-1.025); UMIC TRIGGER UACC YES; Urine Blood Negative (Negative); Urine Ketones Trace mg/dL (Negative); Urine Protein Trace mg/dL (Neg-Trace)
[2023-06-28 12:13] LABS: Bacteria Urine 1+ (None Seen); Hyaline Casts Urine 0-2 /LPF (0-2); RBC Urine 0-2 /HPF (0-2); UACC Culture Trigger YES
[2023-06-28 12:30] LABS: Alanine Aminotransferase 22 U/L (0-31); Albumin Level 3.7 g/dL (3.5-5.0); Alkaline Phosphatase 79 U/L (39-117); Anion Gap 14 (12-20); Aspartate Amino Transferase 19 U/L (5-31); Bilirubin Total 0.6 mg/dL (0.0-1.0); Blood Urea Nitrogen 16 mg/dL (9-16); Calcium 9.8 mg/dL (8.4-10.2); Carbon Dioxide 32 mmol/L (22-29); Chloride 102 mmol/L (96-108); Cholesterol 165 mg/dL (<200); Estimated Glomerular Filt Rate 59; Glucose Fasting 152 mg/dL (60-99); HDL Cholesterol 33 mg/dL (>40); LDL Cholesterol Calculated 87 mg/dL (<100); Potassium 3.9 mmol/L (3.3-5.1); Sodium 144 mmol/L (135-145); Total Protein 7.1 g/dL (6.5-8.0); Triglycerides 225 mg/dL (<150)
[2023-06-28 12:42] LABS: Creatinine Urine 193.82 mg/dL; Microalbum/Creatinine Ratio Ur 9.2 ug/mg cr (<30)
== END 2023-06-28 11:15 | disposition home or self-care (01) ==
LOC: HO.LNP 11:14
PROVIDERS: Visit Provider Internal Medicine
DX: I10 Essential (primary) hypertension (principal); E78.00 Pure hypercholesterolemia, unspecified; E11.49 Type 2 diabetes mellitus with other diabetic neurological complication; R82.90 Unspecified abnormal findings in urine
CPT/HCPCS: 80053; 80061; 81001; 82043; 82570; 83036; 85025; 87086; 87147

== ENCOUNTER 2023-12-27 10:44 | Outpatient (REF) | payer MEDICARE, SELFPAY ==
[2023-12-27 11:38] LABS: Alanine Aminotransferase 35 U/L (0-31); Albumin Level 3.9 g/dL (3.5-5.0); Alkaline Phosphatase 64 U/L (39-117); Aspartate Amino Transferase 15 U/L (5-31); Bilirubin Direct 0.2 mg/dL (0.0-0.5); Bilirubin Total 0.6 mg/dL (0.0-1.0); Cholesterol 194 mg/dL (<200); Glucose Fasting 154 mg/dL (60-99); HDL Cholesterol 41 mg/dL (>40); LDL Cholesterol Calculated 111 mg/dL (<100); Total Protein 7.4 g/dL (6.5-8.0); Triglycerides 210 mg/dL (<150)
[2023-12-27 12:12] LABS: Estimated Average Glucose 212 mg/dL
[2023-12-27 12:24] LABS: Reflex LDLD? No
== END 2023-12-27 10:45 | disposition home or self-care (01) ==
LOC: HO.LNP 10:44
PROVIDERS: Visit Provider Internal Medicine
DX: E78.00 Pure hypercholesterolemia, unspecified (principal); E11.40 Type 2 diabetes mellitus with diabetic neuropathy, unspecified
CPT/HCPCS: 80061; 80076; 82947; 83036

== ENCOUNTER 2024-01-03 08:14 | Outpatient (REF) | payer MEDICARE, SELFPAY ==
--- NOTE | ~2024-01-03 | MM_ITS ---
EXAMINATION: MM SCREENING DIGITAL BREAST TOMOSYNTHESIS, BILATERAL CLINICAL INFORMATION: Screening. Asymptomatic. COMPARISON: Mammography: This study is compared with prior exams dating back to 2019. TECHNIQUE: Digital breast tomosynthesis is performed in both the craniocaudal and mediolateral oblique views along with computer-aided detection (CAD). Synthesized 2D images are generated from the tomosynthesis. FINDINGS: There are scattered areas of fibroglandular density (ACR BI-RADS breast composition Category b). There are no significant masses, abnormal calcifications, or other abnormalities. MM/MM tomosynthesis screening BI IMPRESSION: No mammographic evidence of malignancy. ASSESSMENT: BI-RADS BI-RADS 1 - Negative RECOMMENDATION: Routine annual mammography screening. 1 year F/U This examination should not preclude the clinical evaluation of a suspicious palpable abnormality. This patient's information was entered into a reminder system with a target due date for their next mammogram. Electronically signed by: Yvette Mclean MD 02/01/2024 03:23 PM EDT
== END 2024-01-03 08:15 | disposition home or self-care (01) ==
LOC: HO.MAMMO 08:14
PROVIDERS: PCP Internal Medicine; Visit Provider Internal Medicine
DX: Z12.31 Encounter for screening mammogram for malignant neoplasm of breast (principal)
CPT/HCPCS: 77063; 77067

== ENCOUNTER → 2024-01-03 08:15 | Outpatient (BNV) | payer MEDICARE, SELFPAY | PROVIDERS: PCP Internal Medicine; Visit Provider Radiology Diagnostic Radiology | DX: Z12.31 Encounter for screening mammogram for malignant neoplasm of breast (principal) | CPT/HCPCS: 77063; 77067 ==

== ENCOUNTER 2024-06-30 10:52 | Outpatient (REF) | payer MEDICARE, SELFPAY ==
[2024-06-30 10:56] LABS: MANUAL DIFF FLAG NO
[2024-06-30 11:28] LABS: Appearance Urine Clear; Color Urine Yellow; Glucose Urine UA Negative (Negative); Leukocyte Esterase Urine Moderate (2+) (Negative); Nitrite Urine Negative (Negative); PH 6.5 (5.0-9.0); UMIC TRIGGER UACC YES; Urine Blood Negative (Negative); Urine Ketones Negative (Negative); Urine Protein Negative (Neg-Trace)
[2024-06-30 11:32] LABS: Basophils Absolute Auto 0.1 X10*3/uL (0.0-0.2); Basophils Percent Auto 0.4 % (0-2); Eosinophils Absolute Auto 0.1 X10*3/uL (0.0-0.4); Eosinophils Percent Auto 0.7 % (0-4); Hematocrit 40.3 % (37.0-47.0); Hemoglobin 12.8 g/dl (12.0-16.0); Imm Gran Abs Auto 0.06 X10*3/uL (0.00-0.03); Imm Gran Pct Auto 0.4 % (0.0-0.4); Lymphocytes Absolute Auto 3.2 X10*3/uL (1.2-4.9); Lymphocytes Percent Auto 23.1 % (20-40); Mean Corpuscular HGB Conc 31.8 g/dl (31.0-35.0); Mean Corpuscular Hemoglobin 29.3 pg (27.0-33.0); Mean Corpuscular Volume 92.2 fL (80.0-98.0); Mean Platelet Volume 9.8 fL (9.4-12.3); Monocytes Absolute Auto 0.8 X10*3/uL (0.1-1.2); Monocytes Percent Auto 5.5 % (2-11); Neutrophils Absolute Auto 9.6 x10*3/uL (2.0-8.3); Neutrophils Percent Auto 69.9 % (45-73); Platelet Count 325 X10*3/uL (160-400); Red Blood Count 4.37 X10*6/uL (4.20-5.50); Red Cell Distribution Width 14.8 % (11.0-16.0); White Blood Count 13.7 X10*3/uL (4.8-10.8)
[2024-06-30 11:36] LABS: Bacteria Urine None Seen (None Seen); Hyaline Casts Urine 0-2 /LPF (0-2); RBC Urine 0-2 /HPF (0-2); UACC Culture Trigger YES
[2024-06-30 11:51] LABS: Alanine Aminotransferase 41 U/L (0-31); Albumin Level 3.7 g/dL (3.5-5.0); Alkaline Phosphatase 53 U/L (39-117); Anion Gap 15 (12-20); Aspartate Amino Transferase 22 U/L (5-31); Bilirubin Total 0.7 mg/dL (0.0-1.0); Blood Urea Nitrogen 31 mg/dL (9-16); Calcium 10.1 mg/dL (8.4-10.2); Carbon Dioxide 29 mmol/L (22-29); Chloride 103 mmol/L (96-108); Cholesterol 182 mg/dL (<200); Estimated Glomerular Filt Rate 44; Glucose Fasting 161 mg/dL (60-99); HDL Cholesterol 47 mg/dL (>40); LDL Cholesterol Calculated 112 mg/dL (<100); Potassium 4.4 mmol/L (3.3-5.1); Sodium 143 mmol/L (135-145); Total Protein 7.4 g/dL (6.5-8.0); Triglycerides 117 mg/dL (<150)
[2024-06-30 11:56] LABS: Estimated Average Glucose 180 mg/dL; Hemoglobin A1C 270.8283 umol/L; Hemoglobin A1c % 7.9 % (<6.0); Total Hemoglobin (HGBA1C) 4312.9741 umol/L
--- OUTSIDE RECORDS SUMMARY | 2024-06-30 12:11 | XMS_ITS ---
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 Name Role Phone Aaron Jung Primary Care Provider Results Component Value Reference Range Notes Complete Blood Count Auto Di ff (Not yet reviewed by provider) Interpretation: Performing Lab:[facility], [address] [place] [id number] Notes/Report: White Blood Count 13.7 4.8-10.8 X10*3/uL Red Blood Count 4.37 4.20-5.50 X10*6/uL Hemoglobin 12.8 12.0-16.0 g/dl Hematocrit 40.3 37.0-47.0 % Mean Corpuscular Volume 92.2 80.0-98.0 fL Mean Corpuscular Hemoglobin 29.3 27.0-33.0 pg Mean Corpuscular HGB Conc 31.8 31.0-35.0 g/dl Red Cell Distribution Width 14.8 11.0-16.0 % Platelet Count 325 160-400 X10*3/uL Mean Platelet Volume 9.8 9.4-12.3 fL Neutrophils Percent Auto 69.9 45-73 % Imm Gran Pct Auto 0.4 0.0-0.4 % Lymphocytes Percent Auto 23.1 20-40 % Monocytes Percent Auto 5.5 2-11 % Eosinophils Percent Auto 0.7 0-4 % Basophils Percent Auto 0.4 0-2 % NRBC Pct Auto 0.0 0.0-0.2 /100WBC Neutrophils Absolute Auto 9.6 2.0-8.3 x10*3/u L Imm Gran Abs Auto 0.06 0.00-0.03 X10*3/uL Lymphocytes Absolute Auto 3.2 1.2-4.9 X10*3/u L Monocytes Absolute Auto 0.8 0.1-1.2 X10*3/uL Eosinophils Absolute Auto 0.1 0.0-0.4 X10*3/u L Basophils Absolute Auto 0.1 0.0-0.2 X10*3/uL NRBC Abs Auto 0.000 0.0-0.012 X10*3/uL Hemoglobin A1c (Not yet revi ewed by provider) Interpretation: Performing Lab:[address] [id number] Notes/Report: Hemoglobin A1c % 7.9 <6.0 % Hemoglobin A1C Reference Range Adults: 4.8 - 6.0 % Non diabetic: < 6.0 % Goal: < 7.0 % Additional Action Suggested: > 8.0 % Note: Hemoglobin A1c results are invalid for patients with abnormal amounts of HbF. Blood transfusions may impact the HbA1c concentration in the patient sample. Estimated Average Glucose 180 eAG = Estimated average glucose which is %A1C expressed as average glucose, using the formula of the F3Z-Udwroiw Average Glucose study (ADAG), Diabetes Care, Vol.31,#8, 2007 UA ClnCatch+Micro w/rflx Cul t (Not yet reviewed by provider) Interpretation: Performing Lab:[address], [place] [address] Notes/Report: Urine, Clean Catch Color Urine Yellow Appearance Urine Clear PH 6.5 5.0-9.0 Glucose Urine UA Negative Negative mg/dL Urine Blood Negative Negative Specific [place] - Urine 1.020 1.005-1.025 Urine Protein Negative Neg-Trace mg/dL Urine Ketones Negative Negative mg/dL Nitrite Urine Negative Negative Leukocyte Esterase Urine Moderate (2+) Negative RBC Urine 0-2 0-2 /HPF WBC Urine 11-20 0-5 /HPF Squamous Epithelial Cell Urine 3-5 0-2 /HPF Bacteria Urine None Seen None Seen Hyaline Casts Urine 0-2 0-2 /LPF REASON FOR VISIT YEARLY FASTING LABS Encounters Encounter Location Date Provider Diagnosis Aaron Jung MD [address] [place] [address] [place] [phone] 06/30/2024 Aaron Jung Essential hypertension I10 and Type 2 diabetes, controlled, 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 Panel Fast 5 Lipid Panel 06/30/2024 Microalbumin, Random 06/30/2024 Hemoglobin A1c 06/30/2024 UA ClnCatch+Micro w/rflx Cult 06/30/2024 Next Appt Details Provider Name:Aaron Villarreal ier, 07/07/2024 02:30:00 PM, [address] [place] [address], Suite [facility], [place], [place], [phone], Progress Notes * Glenys JACKSONChristineOB:[birth year] (79 yo F)Acc No.[id number]:06/30/2024 Progress Note Patient:?Jeannine JACKSON Provider:?Aaron Jung MD :1945???Age:79 Y???Sex:Female D ate:06/30/2024 Address:[address] [place] [address] [place], [place] Subjective: * Chief Complaints: * ???1. YEARLY FASTING LABS. * Medical History:? Objective: * Vitals:? Assessment: * Assessment: 1.?Essential hypertension - I10 (Primary)???2.?Type 2 diabetes, controlled, with neuropathy - E11.40??? Plan: * Treatment: 2.?Type 2 diabetes, controll ed, with neuropathy?LAB: Complete Blood Count Auto Diff (Collection Date & Time - 06/30/2024 07:45 AM) ?LAB: Comprehensive [place]. Panel Fast ?LAB: Lipid Panel ?LAB: Microalbumin, Random ?LAB: Hemoglobin A1c (Collection Date & Time - 06/30/2024 07:45 AM) ?LAB: UA ClnCatch+Micro w/rflx Cult (Collection Date & Time - 06/30/2024 07:45 AM) * Procedure Codes:?01417 VENIP UNCT, ROUTINE* * * The named appointment provid er may or may not be the originator of this progress note, and it is not deemed complete until electronically signed by the appointment provider. Sign off status: Pending * Provider:?Aaron Jung MD Date:?0 06/30/2024 Generated for Jefferson verma/Whitney/eTlibbysmitting on:?06/30/2024 12:11 PM EST
--- OUTSIDE RECORDS SUMMARY | 2024-06-30 12:12 | XMS_ITS | Continuity of Care Document ---
Author Organization [facility], PAIN OFFICE Address [address] [facility] [address] [place] [address] Care Team Providers Care Rink Rat Name Role Phone CHELISNEHA Primary Care Provider JOSUÉ ABURTO Referring Provider [phone] Assessment Encounter Date Assessment Date Assessment LastModified by Organization Details LastModified Time 06/17/2024 06/17/2024 Jeannine Victor is a 79 year old woman with low back pain radiating into left lower extremity. On exam ,she has pain on flexion. Straight leg raising test is positive on the left. MRI lumbar spine shows a far right lateral disc protrusion results in mass effect on the extraforaminal right L1 nerve root. At L3-4 , L4-5 and L5-S1 , there is central canal stenosis with bilateral foraminal stenosis with mass effect on L4 and L5 nerve roots bilaterally. She has trialed physical therapy at with some pain benefit. She is here for a Lumbar epidural steroid injection under fluoroscopic guidance . The risks and benefits of the procedure were discussed in detail. She wishes to proceed. She will follow up as needed. [email or web address] Not available 06/17/2024 10:29:33 Plan of Treatment Reminders Order Date Submit Date Provider Last Modified By Organization Details Last Modified Time Details Appointments PROCEDURE 2024 10:00A M Hemant can MD Not available Not available Not available Lab None recorded. Referral None recorded. Procedures None recorded. Surgeries None recorded. Imaging None recorded. Medication Orders None recorded. Patient TargetsNo targets recorded. Patient Instructions Encounter Date Encounter Id Patient Instructions Last Modified By Organization Details Last Modified Time 06/17/2024 [id number] She was advised against bed rest lasting longer than four days and to continue activities as tolerated. [email or web address] Not available 06/17/2024 10:28:26 Reason for Referral None Reported. Problems Name Problem SNOMED Code Status Onset Date Resolution Date Notes Provider Name and Address Organization Details Recorded Time Spinal stenosis of lumbar region 12636001 Active 2016 Hemant can MD [address] , [address], [facility] [place], [address], [place] [facility] 7 08:34:01 Lumbosacral spondylosis without myelopathy 60061742 Active 2016 Hemant can MD [address] , [address], [facility] [place], [address], [place] [facility] 7 08:34:03 Lumbosacral radiculitis 60058450 Active 2016 Hemant can MD [address] , [address], [facility] [place], [address], [place] [facility] 7 08:34:04 Displacement of lumbar intervertebral disc without myelopathy 76001820 Active 2016 Hemant can MD [address] , [address], [facility] [place], [address], [place] [facility] 7 08:34:06 Problem Notes None recorded. Procedures Surgical History Date Name Laterality Status Provider Name and Address Organization Details Recorded Time 06/17/19 25 Lumbar Epidural steroid injection under fluoroscopic guidance completed Hemant Gilliland MD [address] , [address], [place], [address], [place] [facility] 06/17/2024 10:29:05 02/26/20 24 Lumbar Epidural steroid injection under fluoroscopic guidance completed Hemant Gilliland MD [address] , [address], [place], [address], [place] [facility] 02/26/2024 10:55:55 11/26/19 24 Lumbar Epidural steroid injection under fluoroscopic guidance completed Hemant Gilliland MD [address] , [address], [place], [address], [place] [facility] 11/26/2023 10:58:51 07/24/19 24 Lumbar Epidural steroid injection under fluoroscopic guidance completed Hemant Gilliland MD [address] , [address], [place], [address], [place] [facility] 07/24/2023 09:51:45 03/05/20 23 Lumbar Epidural steroid injection under fluoroscopic guidance completed Hemant Gilliland MD [address] , [address], [place], [address], [place] [facility] 03/05/2023 15:21:47 11/29/19 23 Lumbar Epidural steroid injection under fluoroscopic guidance completed Hemant Gilliland MD [address] , [address], [place], [address], [place] [facility] 11/28/2022 11:02:20 08/08/19 23 Lumbar Epidural steroid injection under fluoroscopic guidance completed Hemant Gilliland MD [address] , [address], [place], [address], [place] [facility] 08/07/2022 10:32:00 04/10/20 22 Lumbar Epidural steroid injection under fluoroscopic guidance completed Hemant Gilliland MD [address] , [address], [place], [address], [place] [facility] 04/10/2022 11:30:45 12/13/19 22 Lumbar Epidural steroid injection under fluoroscopic guidance completed Hemant Gilliland MD [address] , [address], [place], [address], [place] [facility] 12/12/2021 15:15:30 04/19/20 21 Lumbar Epidural steroid injection under fluoroscopic guidance completed Hemant Gilliland MD [address] , [address], [place], [address], [place] [facility] 04/19/2021 09:52:53 08/24/19 21 Lumbar Epidural steroid injection under fluoroscopic guidance completed Hemant Gilliland MD [address] , [address], [place], [address], [place] [facility] 08/23/2020 16:10:02 12/08/19 20 Lumbar Epidural steroid injection under fluoroscopic guidance completed Hemant Gilliland MD [address] , [address], [place], [address], [place] [facility] 12/08/2019 14:48:27 07/01/19 20 Lumbar Epidural steroid injection under fluoroscopic guidance completed Hemant Gilliland MD [address] , [address], [place], [address], [place] [facility] 07/01/2019 14:51:41 04/30/20 17 Lumbar Epidural steroid injection under fluoroscopic guidance completed Hemant Gilliland MD [address] , [address], [place], [address], [place] [facility] 04/30/2017 10:31:02 Hysterectomy completed Giulia Hernandez [place] - [facility] 04/19/2017 11:20:43 Arthroscopic Surgery completed Giulia Hernandez [place] - [facility] 04/19/2017 11:21:14 Tonsillectomy completed Giulia Hernandez [place] - [facility] 04/19/2017 11:21:31 Other completed Giulia Hernandez [place] - [facility] 04/19/2017 11:22:36 Imaging Results None recorded. Procedure Notes None recorded. Medical Equipment None Reported. Allergies Allergen ID Allergen Name Allergen Category Reaction Reaction Severity Criticality Documentation Date Start Date Code Code System Note Provider Name and Address Organization Details Recorded Time latex environme nt,medica tion Not available Not available Not available 08/07/2022 [address]5225 91 RxNorm Shahrzad middleton [place] - [facility] 3 10:06:05 Medications Name Sig Start Date Stop Date Status Note LastModified by Organization Details LastModified Time diclofenac 3% / baclofen 2% / gabapentin 6% / bupivacaine hcl 1% Apply 1-3 grams to the affected area 3-4 times daily (FEET) 07/23 completed Not Available Not Available Not Available atorvastati n 40 mg tablet TAKE 1 TABLET BY MOUTH EVERY DAY active Not Available Not Available No t Available metformin 500 mg tablet TAKE 1 TABLET BY MOUTH TWICE DAILY WITH A MEAL 11/28 completed Not Available Not Available Not Available prednisone 10 mg tablet 08/15 completed Not Available Not Available Not Available gabapentin 600 mg tablet TAKE 1 TABLET BY MOUTH THREE TIMES DAILY active Not Available Not Available No t Available doxycycline hyclate 100 mg capsule TAKE 1 CAPSULE BY MOUTH TWICE DAILY WITH FOOD AND GLASS OF WATER FOR 5 DAYS 04/19 completed Not Available Not Available Not Available azithromyci n 250 mg tablet 12/12 completed Not Available Not Available Not Available ibuprofen 800 mg tablet 01/10 completed Not Available Not Available Not Available ofloxacin 0.3 % eye drops 06/24 completed Not Available Not Available Not Available FreeStyle Lancets 28 gauge TEST BLOOD SUGAR TWICE DAILY active Not Available Not Available No t Available ropinirole 3 mg tablet TAKE 1 TABLET BY MOUTH TWICE DAILY active Not Available Not Available No t Available doxycycline hyclate 50 mg capsule 08/15 completed Not Available Not Available Not Available gabapentin 400 mg capsule TAKE 1 CAPSULE BY MOUTH THREE TIMES DAILY 08/07 completed Not Available Not Available Not Available pimecrolimu s 1 % topical cream APPLY TOPICALLY TO SKIN FOLD RASH TWICE DAILY NEEDED 08/15 completed Not Available Not Available Not Available tramadol 50 mg tablet 01/10 completed Not Available Not Available Not Available triamcinolo ne acetonide 0.1 % topical cream APPLY DAILY TO RASH WITH WET WRAP DAILY FOR 2 WEEKS active Not Available Not Available No t Available doxycycline monohydrate 50 mg capsule TAKE 1 CAPSULE BY MOUTH TWICE DAILY 08/15 completed Not Available Not Available Not Available ropinirole 2 mg tablet Take 1 tablet twice a day by oral route. 12/03 completed Not Available Not Available Not Available cephalexin 500 mg capsule TAKE 1 CAPSULE BY MOUTH FOUR TIMES DAILY FOR 5 DAYS 11/28 completed Not Available Not Available Not Available erythromyci n 5 mg/gram (0.5 %) eye ointment 06/24 completed Not Available Not Available Not Available zinc 60 mg tablet Take by oral route. active Not Available Not Available No t Available prednisone 50 mg tablet TAKE 1 TABLET BY MOUTH DAILY 12/12 completed Not Available Not Available Not Available fluorometho lone 0.1 % eye drops,suspe nsion 06/24 completed Not Available Not Available Not Available metronidazo le 0.75 % topical cream APPLY PEA SIZED AMOUNT TOPICALLY TO FACE TWICE DAILY active Not Available Not Available No t Available diclofenac sodium 75 mg tablet,gautam yed release 06/24 completed Not Available Not Available Not Available hydrochloro thiazide 25 mg tablet TAKE 1 TABLET BY MOUTH EVERY DAY IN THE MORNING active Not Available Not Available No t Available furosemide 20 mg tablet TAKE 1 TABLET BY MOUTH EVERY DAY active Not Available Not Available No t Available albuterol sulfate HFA 90 mcg/actuati on aerosol inhaler INHALE 1 TO 2 PUFFS BY MOUTH EVERY 4 HOURS 11/28 completed Not Available Not Available Not Available tobramycin 0.3 %-dexametha sone 0.1 % eye drops,suspe nsion instill 1 drop into both eyes twice a day 11/28 completed Not Available Not Available Not Available valsartan 160 mg tablet TAKE 1 TABLET BY MOUTH EVERY DAY active Not Available Not Available No t Available neomycin 3.5 mg/g-polymy drea B 10,000 unit/g-dexa meth 0.1 % eye oint APPLY A SMALL AMOUNT INTO BOTH EYES AT BEDTIME 08/15 completed Not Available Not Available Not Available fluocinolon e 0.025 % topical cream APPLY TO EAR RASH TWICE DAILY NOT TO EXCEED 14 DAYS AT A TIME 07/23 completed Not Available Not Available Not Available valsartan 160 mg-hydrochl orothiazide 25 mg tablet Take 1 tablet every day by oral route. 01/10 completed Not Available Not Available Not Available ciclopirox 0.77 % topical cream APPLY TOPICALLY TO THE AFFECTED AREA TWICE DAILY 07/23 completed Not Available Not Available Not Available cyclobenzap rine 5 mg tablet TK 1 T PO TID HS FOR 10 DAYS PRN. 08/15 completed Not Available Not Available Not Available Boostrix Tdap 2.5 Lf unit-8 mcg-5 Lf/0.5 mL intramuscul ar syringe inject 0.5 millilite r intramusc ularly 04/30 completed Not Available Not Available Not Available magnesium active Not Available Not Cheryl ilable Not Available calcium active Not Available Not Avail able Not Available Vitamin D3 active Not Available Not Av ailable Not Available multivitami n active Not Available Not Available Not Available FreeStyle Lite Meter kit USE TO TEST BLOOD SUGAR TWICE DAILY active Not Available Not Available No t Available FreeStyle Lite Strips TEST BLOOD SUGAR TWICE DAILY active Not Available Not Available No t Available krill 1,000 mg-omega-3 170 mg-dha 50 mg-epa 80 mg-phosph-a stax capsule Take by oral route. 11/28 completed Not Available Not Available Not Available [id number]-[id number] -leucov-B6- P14-J-S2 active Not Available Not Available Not Available BinaxNOW COVID-19 Ag Self Test kit FOLLOW PACKAGE DIRECTION S 11/28 completed Not Available Not Available Not Available turmeric 100 mg-lupe 150 mg-olive 50 mg-oreg 150 mg-capryl capsule Take by oral route. 07/23 completed Not Available Not Available Not Available Vitals Date Recorded Body height Heart rate Oxygen saturation Oxygen saturation in Arterial blood by Pulse oximetry Systolic blood pressure Diastolic blood pressure Provider Name and Address Organization Details Last Updated DateTime 5 165.1 cm 61 /min 98 % 98 % 153 mm[Hg] 54 mm[Hg] Swapna Dawkins [place] - [facility] 5 10:08:02 Social History Question Answer Notes LastModified by Organizat ion Details LastModified Time Tobacco Smoking Status Never Smoker Not Available [employer] 03/04/2020 03:16:10 What Is Your Level Of Alcohol Consumption? None [id number] Information not available 03/04/2020 Are You Currently Employed? No [id number] Information not available 03/04/2020 Which Illicit Or Recreational Drugs Have You Used? No [id number] Information not available 03/04/2020 Education 12 Information no t available 04/19/2017 Live Alone Or With Others? With Others Information not available 04/19/2017 Marital Status Informatio n not available 04/19/2017 What Was The Date Of Your Most Recent Tobacco Screening? 05/31/2017 [id number] Information not available 03/04/2020 Sex: Unknown Functional Status None recorded. Mental Status None recorded. Family History Relationship Description Onset Age of this Age Resolved Age Notes LastModified by Organization Details LastModified Time Mother Malignant neoplastic disease Breast Not available 2016 11:15:55 Maternal Grandmother Malignant neoplastic disease Not available 2016 11:16:29 Paternal Grandmother Malignant neoplastic disease Not available 2016 11:16:37 Medical History Condition Response Arthritis Y Hypertension Y Gynecological HistoryNo gynecological history recorded. Obstetrics History GPAL:G 0 P 0 0 0 0 Past Encounters Encounter ID Performer Location Encounter Start Date Encounter Closed Date Diagnosis/Indication Diagnosis SNOMED-CT Code Diagnosis ICD10 Code Diagnosis Note [id number] Hemant Gilliland MD PAIN OFFICE [address] [facility] [place] [address] 06/17/2024 09:26:21 06/17/2024 15:24:12 Lumbosacral radiculitis 35472507 M54.17 Spinal susie nosis of lumbar region 04781300 M48.062 Displaceme nt of lumbar intervertebral disc without myelopathy 72435994 M51.26 Health Concerns Section Related Observation LastModified by Organization Detai ls LastModified Time None Recorded Concern Status LastModified by Organization Details LastModified Time None Recorded Payers Encounter Date Sequence Insurance Name Policy Number Policy [place] Covered Member ID Ga Member ID Guarantor Name 06/17/2024 1 [place] Jeannine Mejia Parenteau [id number] Jeannine Parenteau 06/17/2024 2 [place] [id number] Jeannine A Parenteau [id number] Jeannine Parenteau Notes Date Note Type Note Provider Name and Address Organization Details Recorded Time 06/17/2024 text/html She is here for a lumbar epidural steroid injection under fluoroscopic guidance. Hemant Gilliland MD [address] , [address], [place], [address], [facility] - Pain Management 06/17/2024 15:28:10 OBGyn Episode No OBEpisode recorded.
--- OUTSIDE RECORDS SUMMARY | 2024-06-30 12:12 | XMS_ITS | Data Portability ---
Author Organization [facility] Pain Managem [facility], PAIN OFFICE Address [address] [facility] [address] [place] [address] Care Team Providers Care Java Architect Name Role Phone CHELIAVRILN Primary Care Provider [phone] JOSUÉ ABURTO Referring Provider [phone] Assessment Encounter Date Assessment Date Assessment LastModified by Organization Details LastModified Time 03/05/2023 03/05/2023 Jeannine Victor is a 77 year old woman with low back pain [...] follow up as needed. [email or web address] Not available 03/05/2023 15:20:39 07/24/2023 07/24/2023 Jeannine Victor is a 78 year old woman with low back pain [...] proceed. She will follow up as needed. [email or web address] Not available 07/24/2023 09:52:20 11/26/2023 11/26/2023 Jeannine Victor is a 78 year old woman with low back pain [...] proceed. She will follow up as needed. [email or web address] Not available 11/26/2023 10:58:17 02/26/2024 02/26/2024 Jeannine Victor is a 78 year old woman with low back pain [...] follow up as needed. [email or web address] Not available 02/26/2024 10:55:43 06/17/2024 06/17/2024 Jeannine Victor is a 79 [...] Modified By Organization Details Last Modified Time 03/05/2023 [id number] She was advised against bed rest lasting longer than four days and to continue activities as tolerated. [email or web address] Not available 03/05/2023 15:20:40 07/24/2023 [id number] She was advised against bed rest lasting longer than four days and to continue activities as tolerated. [email or web address] Not available 07/24/2023 09:50:56 11/26/2023 [id number] She was advised against bed rest lasting longer than four days and to continue activities as tolerated. [email or web address] Not available 11/26/2023 10:58:20 02/26/2024 [id number] She was advised against bed rest lasting longer than four days and to continue activities as tolerated. [email or web address] Not available 02/26/2024 10:55:47 06/17/2024 [id number] She was advised against bed rest lasting longer than four days and to continue activities as tolerated. [email or web address] Not available 06/17/2024 10:28:26 Reason for Referral None Reported. Problems Name Problem SNOMED Code Status Onset Date Resolution Date Notes Provider Name and Address Organization Details Recorded Time Spinal stenosis of lumbar region 48356286 Active 2016 Hemant can MD [facility] , [address], [facility] [place], [address] [place] [address] - [facility] 7 08:34:01 Lumbosacral spondylosis without myelopathy 81229040 Active 2016 Hemant can MD [address] , [address], [place], [address], [place] - [facility] 7 08:34:03 Lumbosacral radiculitis 23234958 Active 2016 Hemant can MD [address] , [address], [place], [address], [place] [facility] 7 08:34:04 Displacement of lumbar intervertebral disc without myelopathy 29273807 Active 2016 Hemant can MD [address] , [address], [place], [address], [place] [facility] 7 08:34:06 Problem Notes None recorded. Procedures Surgical History Date Name Laterality Status Provider Name and Address Organization Details Recorded Time 06/17/19 25 Lumbar Epidural steroid injection under fluoroscopic guidance completed Hemant Gilliland MD [address] , [address], [place], [address], [place] [facility] 06/17/2024 10:29:05 02/26/20 24 Lumbar Epidural steroid injection under fluoroscopic guidance completed Hemant Gilliland MD [address] , [address], [place], [address], [place] [facility] 02/26/2024 10:55:55 11/26/19 24 Lumbar Epidural steroid injection under fluoroscopic guidance completed Hemant Gilliland MD [address] , [address], [place], [address], [place] [facility] 11/26/2023 10:58:51 07/24/19 24 Lumbar Epidural steroid injection under fluoroscopic guidance completed Hemant Gilliland MD [address] , [address], [place], [address], [place] [facility] 07/24/2023 09:51:45 03/05/20 23 Lumbar Epidural steroid injection under fluoroscopic guidance completed Hemant Gilliland MD [address] , [address], [place], [address], [place] [facility] 03/05/2023 15:21:47 11/29/19 23 Lumbar Epidural steroid injection under fluoroscopic guidance completed Hemant Gilliland MD [address] [facility] , [address], [place], [address], [place] [facility] 11/28/2022 11:02:20 08/08/19 23 Lumbar Epidural steroid injection under fluoroscopic guidance completed Hemant Gilliland MD [address] [facility] , [address], [place], [address], [place] [facility] 08/07/2022 10:32:00 04/10/20 22 Lumbar Epidural steroid injection under fluoroscopic guidance completed Hemant Gilliland MD [address] [facility] , [address], [place], [address], [place] [facility] 04/10/2022 11:30:45 12/13/19 22 Lumbar Epidural steroid injection under fluoroscopic guidance completed Hemant Gilliland MD [address] [facility] , [address], [place], [address], [place] [facility] 12/12/2021 15:15:30 04/19/20 21 Lumbar Epidural steroid injection under fluoroscopic guidance completed Hemant Gilliland MD [address] [facility] , [address], [place], [address], [place] [facility] 04/19/2021 09:52:53 08/24/19 21 Lumbar Epidural steroid injection under fluoroscopic guidance completed Hemant Gilliland MD [address] [facility] , [address], [place], [address], [place] [facility] 08/23/2020 16:10:02 12/08/19 20 Lumbar Epidural steroid injection under fluoroscopic guidance completed Hemant Gilliland MD [address] [facility] , [address], [place], [address], [place] [facility] 12/08/2019 14:48:27 07/01/19 20 Lumbar Epidural steroid injection under fluoroscopic guidance completed Hemant Gilliland MD [address] [facility] , [address], [place], [address], [place] [facility] 07/01/2019 14:51:41 04/30/20 17 Lumbar Epidural steroid injection under fluoroscopic guidance completed Hemant Gilliland MD [address] [place] [address] , [address], [place], [address], [place] - [facility] 04/30/2017 10:31:02 Hysterectomy [...] Not available Not available Not available 08/07/2022 [id number] [facility] Shahrzad Leija [place], [place] - [facility] 3 10:06:05 Medications [...] Available No t Available neomycin 3.5 mg/g-polymy drae B 10,000 unit/g-dexa meth 0.1 % eye [...] completed Not Available Not Available Not Available B10-VGB-ctw -leucov-B6- D08-B-M0 active Not Available Not Available Not Available [...] and Address Organization Details Last Updated DateTime 3 165.1 cm 58 /min 96 % 96 % 155 mm[Hg] 61 mm[Hg] Hemant can MD [address] [facility] , [address], [place], [address], [place] - [facility] 3 14:55:22 Date Recorded Body height Heart rate Oxygen saturation Oxygen saturation in Arterial blood by Pulse oximetry Systolic blood pressure Diastolic blood pressure Provider Name and Address Organization Details Last Updated DateTime 4 165.1 cm 62 /min 95 % 95 % 156 mm[Hg] 54 mm[Hg] Swapna Reciovane [place] - [facility] 4 09:23:54 Date Recorded Body height Heart rate Oxygen saturation Oxygen saturation in Arterial blood by Pulse oximetry Provider Name and Address Organization Details Last Updated DateTime 11/26/2023 165.1 cm 61 /min 95 % 95 % Shahrzad Leija [place] - [facility] 11/26/2023 10:37:34 Date Recorded Body height Heart rate Oxygen saturation Oxygen saturation in Arterial blood by Pulse oximetry Systolic blood pressure Diastolic blood pressure Provider Name and Address Organization Details Last Updated DateTime 4 165.1 cm 58 /min 97 % 97 % 153 mm[Hg] 55 mm[Hg] Swapna Reciovane [place] - [facility] 4 10:35:28 Date Recorded Body height Heart rate Oxygen saturation Oxygen saturation in Arterial blood by Pulse oximetry Systolic blood pressure Diastolic blood pressure Provider Name and Address Organization Details Last Updated DateTime 5 165.1 cm 61 /min 98 % 98 % 153 mm[Hg] 54 mm[Hg] Swapnaryder Britoleona [place] - [facility] 5 10:08:02 Social History Question Answer Notes LastModified by Organizat ion Details LastModified Time Tobacco Smoking Status Never Smoker Not Available [employer] 03/04/2020 03:16:10 What Is Your Level Of Alcohol Consumption? None [id number] Information not available 03/04/2020 Are You Currently Employed? No [id number] Information not available 03/04/2020 Which Illicit Or Recreational Drugs Have You Used? No [id number] Information not available 03/04/2020 Education 12 Information no t available 04/19/2017 Live Alone Or With Others? With Others Information not available 04/19/2017 Marital Status Informatio n not available 04/19/2017 What Was The Date Of Your Most Recent Tobacco Screening? 05/31/2017 [id number] Information not available 03/04/2020 Sex: Unknown Functional Status None recorded. Mental Status None recorded. Family History Relationship Description Onset Age of this Age Resolved Age Notes LastModified by Organization Details LastModified Time Mother Malignant neoplastic disease Breast [email or web address] Not available 2016 11:15:55 Maternal Grandmother Malignant neoplastic disease [facility]6 Not available 2016 11:16:29 Paternal Grandmother Malignant neoplastic disease [email or web address] Not available 2016 11:16:37 Medical History Condition Response Arthritis Y Hypertension Y Gynecological HistoryNo gynecological history recorded. Obstetrics History GPAL:G 0 P 0 0 0 0 Past Encounters Encounter ID Performer Location Encounter Start Date Encounter Closed Date Diagnosis/Indication Diagnosis SNOMED-CT Code Diagnosis ICD10 Code Diagnosis Note [id number] Hemant Gilliland MD PAIN OFFICE [address] [place] [address] 04/19/2017 10:46:56 04/21/2017 08:37:37 Spinal stenosis of lumbar region 35979269 M48.062 Lumbosacra l spondylosis without myelopathy 16443889 M47.817 Lumbosacra l radiculitis 61348713 M54.17 Displaceme nt of lumbar intervertebral disc without myelopathy 67475365 M51.26 [id number] Hemant Gilliland MD PAIN OFFICE [address] [place] [address] 04/30/2017 09:34:46 05/02/2017 09:11:19 Spinal stenosis of lumbar region 99350878 M48.062 Lumbosacra l spondylosis without myelopathy 12822721 M47.817 Lumbosacra l radiculitis 83516105 M54.17 Displaceme nt of lumbar intervertebral disc without myelopathy 71786621 M51.26 [id number] Hemant Gilliland MD PAIN OFFICE [address] [place] [address] 05/31/2017 09:18:19 05/31/2017 10:10:56 Spinal stenosis of lumbar region 69689454 M48.062 Lumbosacra l spondylosis without myelopathy 68969837 M47.817 Lumbosacra l radiculitis 84881639 M54.17 Displaceme nt of lumbar intervertebral disc without myelopathy 11417481 M51.26 [id number] Hemant Gilliland MD PAIN OFFICE [address] [place] [address] 06/24/2019 13:56:18 06/24/2019 15:06:16 Spinal stenosis of lumbar region 86320268 M48.062 Lumbosacra l spondylosis without myelopathy 55147067 M47.817 Lumbosacra l radiculitis 70342078 M54.17 Displaceme nt of lumbar intervertebral disc without myelopathy 46715978 M51.26 [id number] Hemant Gilliland MD PAIN OFFICE [address] [place] [address] 07/01/2019 08:36:01 07/01/2019 14:55:31 Spinal stenosis of lumbar region 87446328 M48.062 Lumbosacra l spondylosis without myelopathy 63233335 M47.817 Lumbosacra l radiculitis 31238112 M54.17 Displaceme nt of lumbar intervertebral disc without myelopathy 28671722 M51.26 [id number] Hemant Gilliland MD PAIN OFFICE [address] [place] [address] 12/04/2019 11:34:26 12/07/2019 16:30:17 Spinal stenosis of lumbar region 38840993 M48.062 Lumbosacra l spondylosis without myelopathy 64072773 M47.817 Lumbosacra l radiculitis 83453218 M54.17 Displaceme nt of lumbar intervertebral disc without myelopathy 58498364 M51.26 [id number] Hemant Gilliland MD [facility] [address] [facility] [place] [address] 12/08/2019 14:16:05 12/08/2019 14:51:58 Spinal stenosis of lumbar region 66183850 M48.062 Lumbosacra l spondylosis without myelopathy 18763905 M47.817 Lumbosacra l radiculitis 85962271 M54.17 Displaceme nt of lumbar intervertebral disc without myelopathy 32665469 M51.26 [id number] Hemant Gilliland MD [facility] PA[facility] [address] [facility] [place] [address] 01/11/2020 11:47:55 01/11/2020 15:54:53 Spinal stenosis of lumbar region 45572130 M48.062 Lumbosacra l spondylosis without myelopathy 47462380 M47.817 Lumbosacra l radiculitis 66995206 M54.17 Displaceme nt of lumbar intervertebral disc without myelopathy 29614736 M51.26 [id number] Hemant Gilliland MD [facility] PAIN OFFICE [address] [facility] [place] [address] 08/15/2020 15:01:35 08/15/2020 15:16:39 Spinal stenosis of lumbar region 18076512 M48.062 Lumbosacra l spondylosis without myelopathy 27037825 M47.817 Lumbosacra l radiculitis 73885637 M54.17 Displaceme nt of lumbar intervertebral disc without myelopathy 58524232 M51.26 [id number] Hemant Gilliland MD [facility] PAIN OFFICE [address] [facility] [place] [address] 08/23/2020 15:15:25 08/23/2020 16:11:47 Spinal stenosis of lumbar region 94999715 M48.062 Lumbosacra l spondylosis without myelopathy 34582336 M47.817 Lumbosacra l radiculitis 75169658 M54.17 Displaceme nt of lumbar intervertebral disc without myelopathy 21523684 M51.26 [id number] Hemant Gilliland MD [facility] PAIN OFFICE [address] [facility] [place] [address] 04/19/2021 09:18:35 04/19/2021 09:55:59 Spinal stenosis of lumbar region 06653029 M48.062 Lumbosacra l spondylosis without myelopathy 14796850 M47.817 Lumbosacra l radiculitis 99701567 M54.17 Displaceme nt of lumbar intervertebral disc without myelopathy 91609936 M51.26 [id number] Hemant Gilliland MD [facility] PAIN OFFICE [address] [facility] [place] [address] 12/12/2021 11:08:42 12/12/2021 15:22:52 Spinal stenosis of lumbar region 40965883 M48.062 Lumbosacra l spondylosis without myelopathy 93170042 M47.817 Lumbosacra l radiculitis 24001291 M54.17 Displaceme nt of lumbar intervertebral disc without myelopathy 15730936 M51.26 [id number] Hemant Gilliland MD [facility] PAIN OFFICE [address] [facility] [place] [address] 04/10/2022 10:18:42 04/10/2022 12:00:16 Spinal stenosis of lumbar region 95445375 M48.062 Lumbosacra l spondylosis without myelopathy 56267848 M47.817 Lumbosacra l radiculitis 68483942 M54.17 Displaceme nt of lumbar intervertebral disc without myelopathy 22719279 M51.26 [id number] Hemant Gillialnd MD [facility] PAIN OFFICE [address] [facility] [place] [address] 08/07/2022 09:48:17 08/07/2022 11:01:44 Spinal stenosis of lumbar region 95820449 M48.062 Lumbosacra l spondylosis without myelopathy 21059946 M47.817 Lumbosacra l radiculitis 98448297 M54.17 Displaceme nt of lumbar intervertebral disc without myelopathy 95113500 M51.26 [id number] Hemant Gilliland MD [facility] PAIN OFFICE [address] [place] [address] 11/28/2022 09:40:01 11/28/2022 11:24:45 Spinal stenosis of lumbar region 60868777 M48.062 Lumbosacra l spondylosis without myelopathy 99219697 M47.817 Lumbosacra l radiculitis 74371579 M54.17 Displaceme nt of lumbar intervertebral disc without myelopathy 20217396 M51.26 [id number] Hemant Gilliland MD PAIN OFFICE [address] [facility] [place] [address] 03/05/2023 14:28:04 03/05/2023 16:16:22 Spinal stenosis of lumbar region 79865303 M48.062 Lumbosacra l spondylosis without myelopathy 97678835 M47.817 Lumbosacra l radiculitis 14941584 M54.17 Displaceme nt of lumbar intervertebral disc without myelopathy 96245521 M51.26 [id number] Hemant Gilliland MD PAIN OFFICE [address] [place] [address] 07/24/2023 09:12:23 07/24/2023 16:13:38 Spinal stenosis of lumbar region 74285067 M48.062 Lumbosacra l spondylosis without myelopathy 38376091 M47.817 Lumbosacra l radiculitis 21198605 M54.17 Displaceme nt of lumbar intervertebral disc without myelopathy 44747958 M51.26 [id number] Hemant Gilliland MD PAIN OFFICE [address] [facility] [place] [address] 11/26/2023 10:19:10 11/26/2023 11:27:52 Spinal stenosis of lumbar region 49344694 M48.062 Lumbosacra l spondylosis without myelopathy 79721404 M47.817 Lumbosacra l radiculitis 81200257 M54.17 Displaceme nt of lumbar intervertebral disc without myelopathy 55596875 M51.26 [id number] Hemant Gilliland MD PAIN OFFICE [address] [facility] [place] [address] 02/26/2024 10:07:24 02/26/2024 11:21:19 Spinal stenosis of lumbar region 26411549 M48.062 Lumbosacra l radiculitis 99581497 M54.17 Displaceme nt of lumbar intervertebral disc without myelopathy 18391341 M51.26 [id number] Hemant Gilliland MD [facility] PAIN OFFICE [address] [place] [address] 06/17/2024 09:26:21 06/17/2024 15:24:12 Lumbosacral radiculitis 51565745 M54.17 Spinal susie nosis of lumbar region 93404538 M48.062 Displaceme nt of lumbar intervertebral disc without myelopathy 67669697 M51.26 Health Concerns Section Related Observation LastModified by Organization Detai ls LastModified Time None Recorded Concern Status LastModified by Organization Details LastModified Time None Recorded Advance Directives Directive None Recorded Payers Encounter Date Sequence Insurance Name Policy Number Policy Ga Covered Member ID Ga Member ID Guarantor Name 03/05/2023 1 [place] [employer] Jeannine A Parenteau [id number] Jeannine Parenteau 03/05/2023 2 [place] [id number] Jeannine A Parenteau [id number] Jeannine Parenteau 07/24/2023 1 [place] Jeannine A Parenteau [id number] Jeannine Parenteau 07/24/2023 2 [place] [id number] Jeannine A Parenteau [id number] Jeannine Parenteau 11/26/2023 1 [place] Jeannine A Parenteau [id number] Jeannine Parenteau 11/26/2023 2 [place] [id number] Jeannine A Parenteau [id number] Jeannine Parenteau 02/26/2024 1 [place] Jeannine A Parenteau [id number] Jeannine Parenteau 02/26/2024 2 [place] [id number] Jeannine A Parenteau [id number] Jeannine Parenteau 06/17/2024 1 [place] Jeannine Mejia Parenteau [id number] Jeannine Parenteau 06/17/2024 2 [place] [id number] Jeannine Mejia Parenteau [id number] Jeannine Parenteau Notes Date Note Type Note Provider Name and Address Organization Details Recorded Time 03/05/2023 text/html She is here for a lumbar epidural steroid injection under fluoroscopic guidance. Hemant Gilliland MD [address] [facility] , [address], [place], [address], [place] [facility] 03/05/2023 16:39:42 07/24/2023 text/html She is here for a lumbar epidural steroid injection under fluoroscopic guidance. Hemant Gilliland MD [address] [facility] , [address], [place], [address], [place] [facility] 07/24/2023 16:36:09 11/26/2023 text/html She is here for a lumbar epidural steroid injection under fluoroscopic guidance. Hemant Gilliland MD [address] [facility] , [address], [place], [address], [place] [facility] 11/26/2023 16:31:36 02/26/2024 text/html She is here for a lumbar epidural steroid injection under fluoroscopic guidance. Hemant Gilliland MD [address] [facility] , [address], [place], [address], [place] [facility] 02/26/2024 13:49:44 06/17/2024 text/html She is here for a lumbar epidural steroid injection under fluoroscopic guidance. Hemant Gilliland MD [address] [facility] , [address], [place], [address], [place] [facility] 06/17/2024 15:28:10 OBGyn Episode No OBEpisode recorded.
--- OUTSIDE RECORDS SUMMARY | 2024-06-30 12:12 | XMS_ITS ---
Author Organization Aaron Jung MD Address [address] [place] [phone] Care Team Providers Care Tobacco Buyer Name Role Phone Aaron Jung Primary Care Provider [phone] Allergies Allergen (clinical drug ingredient) Drug/Non Drug Allergy documented on EMR Reaction Allergy Type Onset Date Status prednisone (uncoded) itch Allergy Active lisinopril lisinopril (uncoded) cough Allergy Active Results Component Value Reference Range Notes Hemoglobin A1c Reviewed date:05/22/2024 10:54:36 AM Interpretation: Performing Lab: Notes/Report: Hemoglobin A1c 7.3 Glucose, finger stick Reviewed date:05/22/2024 10:50:00 AM Interpretation: Performing Lab: Notes/Report: Value 148 REASON FOR VISIT 3 MO F/U, c/o right knee pain no injury x 2 weeks could not walk for a few days Medications Medication SIG (Take, Route, Frequency, Duration) Notes Start Date End Date Status Farxiga 5 mg 1 tablet Orally once a day in a.m. 07/05/2023 Active CoQ-10 50 MG 1 capsule with a meal Orally Once a day Active Vitamin D (Cholecalciferol) 400 UNIT 1 capsule Orally Once a day Active Gabapentin 600 MG TAKE 1 TABLET BY MOUTH THREE TIMES DAILY for 30 Active Furosemide 20 MG TAKE 1 TABLET BY MOUTH EVERY DAY for 90 Active Ibuprofen 800 MG 1 tablet Orally Three times a day for 30 day(s) 02/23/2014 Not-Taking Calcium + D 500-1000-40 MG-UNT-MCG 2 tablets once a day Active rOPINIRole HCl 3 MG 1 tablet Orally twice a day Active Diprolene AF 0.05 % 1 application to affected area Externally Once a day 10/14/2012 Not-Taking Betamethasone Dipropionate 0.05 % 1 application to affected area Externally Once a day for 30 days 09/26/2012 Not-Taking Atorvastatin Calcium 40 MG TAKE 1 TABLET BY MOUTH EVERY DAY for 90 Active Valsartan 160 MG TAKE 1 TABLET BY MOUTH EVERY DAY for 90 Active Tylenol Extra Strength 500 MG 2 tablets Orally every 6 hrs Not-Taking Cyclobenzaprine HCl 5 MG 1 tablet at bed time as needed Orally 3 times a day for 10 Not-Taking Januvia 50 MG as directed Orally Once a day for 30 days 01/03/2024 Not-Taking hydroCHLOROthiazide 25 MG TAKE 1 TABLET BY MOUTH EVERY DAY IN THE MORNING for 90 Active Problems Problem Type SNOMED Code ICD Code Onset Dates Problem Status W/U Status Risk Notes Problem [id number] Arthritis of right knee (M17.11) Active confirmed Vital Signs Blood pressure systolic 158 mm Hg 05/22/19 25 Blood pressure diastolic 94 mm Hg 025 Height 65.5 in 05/22/2024 Weight 226 lbs 05/22/2024 BMI 37.03 kg/m2 05/22/2024 weight is up 3 pounds since 02-07-24 Encounters Encounter Location Date Provider Diagnosis aAron Jung MD [address] [place] [address] [address] [place], [place] [phone] 05/22/2024 Aaron Jung Type 2 diabetes mellitus with other diabetic neurological complication E11.49 ; Arthritis of right knee M17.11 and Essential hypertension I10 Assessments Encounter Date Diagnosis (ICD Code) Assessment Notes Treatment Notes Treatment Clinical Notes Section Notes 05/22/2024 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) try to get her on diet. has been eating a lot [place] foods. 05/22/2024 Arthritis of right knee (ICD-10 - M17.11) is going to speak to pain management about injecting 05/22/2024 Essential hypertension (ICD-10 - I10) running a bit high today, will coninue current regiment and will continue to monitor Plan Of Treatment Medication Medication Name Sig Start Date Stop Date Notes Farxiga 5 mg 1 tablet Orally once a day in a.m. 07/05/2023 Treatment Notes Assessment Notes Type 2 diabetes mellitus wit h other diabetic neurological complication try to get her on diet. has been eating a lot uk[place] foods. Arthritis of right knee is going to spea k to pain management about injecting Essential hypertension running a bit hig h today, will coninue current regiment and will continue to monitor Next Appt Details Provider Name:Aaron posada, 07/07/2024 02:30:00 PM, [address] [place] [address], [address], [place], [place], [phone], Progress Notes * Glenys JACKSONChristineOB:[birth year] (79 yo F)Acc No.[id number]:05/22/2024 Progress Notes Patient:?Jeannine Jackson Provider:?Aaron Jung MD :1945???Age:79 Y???Sex:Female D ate:05/22/2024 Address:[address] [place], [place] [phone] Subjective: * Chief Complaints: * ???3 MO F/UC/o right knee pa in no injury x 2 weeks could not walk for a few days * HPI: ???Symptom(s):? patient is a 79 yo female here for 3 month follow up visit, having trouble with rt knee for month. trouble walking. * ROS:?General/Constitutional:?Denies?Chills.?Denies?Fatigue.?Denies?Fever.?Admits?Headache.?ENT:?Patient denies?decreased sense of smell , any loss of taste , sore throat.?Denies?Sore throat.?Respiratory:?Denies?Cough.?Denies?Shortness of breath at rest.?Denies?Shortness of breath with exertion.?Gastrointestinal:?Denies?Diarrhea.?Denies?Nausea.?Musculoskeletal:?Patient denies?muscle aches.?Peripheral Vascular:?Patient denies?red and blue toes.? * Medical History:? * Surgical History:? * Hospitalization/Major Diagno stic Procedure:? * Medications:?TakingrOPINIRol e HCl 3 MG Tablet 1 tablet Orally twice a dayCalcium + D 500-1000-40 MG-UNT-MCG Tablet Chewable 2 tablets once a dayCoQ-10 50 MG Capsule 1 capsule with a meal Orally Once a dayVitamin D (Cholecalciferol) 400 UNIT Capsule 1 capsule Orally Once a dayFurosemide 20 MG Tablet TAKE 1 TABLET BY MOUTH EVERY DAY Gabapentin 600 MG Tablet TAKE 1 TABLET BY MOUTH THREE TIMES DAILY Farxiga 5 mg Tablet 1 tablet Orally once a day in a.m.hydroCHLOROthiazide 25 MG Tablet TAKE 1 TABLET BY MOUTH EVERY DAY IN THE MORNING Valsartan 160 MG Tablet TAKE 1 TABLET BY MOUTH EVERY DAY Atorvastatin Calcium 40 MG Tablet TAKE 1 TABLET BY MOUTH EVERY DAY Taking rOPINIRole HCl 3 MG Tablet 1 tablet Orally twice a dayTaking Calcium + D 500-1000-40 MG-UNT-MCG Tablet Chewable 2 tablets once a dayTaking CoQ-10 50 MG Capsule 1 capsule with a meal Orally Once a dayTaking Vitamin D (Cholecalciferol) 400 UNIT Capsule 1 capsule Orally Once a dayTaking Furosemide 20 MG Tablet TAKE 1 TABLET BY MOUTH EVERY DAY Taking Gabapentin 600 MG Tablet TAKE 1 TABLET BY MOUTH THREE TIMES DAILY Taking Farxiga 5 mg Tablet 1 tablet Orally once a day in a.m.Taking hydroCHLOROthiazide 25 MG Tablet TAKE 1 TABLET BY MOUTH EVERY DAY IN THE MORNING Taking Valsartan 160 MG Tablet TAKE 1 TABLET BY MOUTH EVERY DAY Taking Atorvastatin Calcium 40 MG Tablet TAKE 1 TABLET BY MOUTH EVERY DAY Not-Taking/PRNJanuvia 50 MG Tablet as directed Orally Once a dayCyclobenzaprine HCl 5 MG Tablet 1 tablet at bedtime as needed Orally 3 times a dayTylenol Extra Strength 500 MG Tablet 2 tablets Orally every 6 hrsIbuprofen 800 MG Tablet 1 tablet Orally Three times a dayBetamethasone Dipropionate 0.05 % Cream 1 application to affected area Externally Once a dayDiprolene AF 0.05 % Cream 1 application to affected area Externally Once a dayMedication List reviewed and reconciled with the patientNot-Taking/PRN Januvia 50 MG Tablet as directed Orally Once a dayNot-Taking/PRN Cyclobenzaprine HCl 5 MG Tablet 1 tablet at bedtime as needed Orally 3 times a dayNot-Taking/PRN Tylenol Extra Strength 500 MG Tablet 2 tablets Orally every 6 hrsNot-Taking/PRN Ibuprofen 800 MG Tablet 1 tablet Orally Three times a dayNot-Taking/PRN Betamethasone Dipropionate 0.05 % Cream 1 application to affected area Externally Once a dayNot-Taking/PRN Diprolene AF 0.05 % Cream 1 application to affected area Externally Once a dayMedication List reviewed and reconciled with the patient * Allergies:?lisinopril: cough prednisone: itch - Side Effectsyes[Allergies Verified] Objective: * Vitals:?Ht: 65.5, Wt:226, BM I:37.03, BP:158/94, Repeat BP:160/90 weight is up 3 pounds since 02-07-24. * Examination: ???General Examination: ?GENERAL APPEARANCE:?alert, well hydrated, in no distress , female.?HEAD:?normocephalic.?SKIN:?good turgor.?HEART:?regular rate and rhythm , no murmurs, rubs, gallops.?LUNGS:?no wheezes, rales, rhonchi , good air movement , clear to auscultation bilaterally.? 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 Plan: * Treatment: ? Value Reference Range ?Hemoglobin A1c 7.3 * Kelly Moulton 5 10:54:34 AM EST > ?LAB: Glucose, finger stick* ? Value Reference Range ?Value 148 * Kelly Moulton 5 10:49:58 AM EST > Notes: try to get her on diet. has been eating a lot ukrainian foods.??2.?Arthritis of right knee? Notes: is going to speak to pain management about injecting??3.?Essential hypertension? Notes: running a bit high today, will coninue current regiment and will continue to monitor? * Procedure Codes:?70107 ASSAY , GLUCOSE, BLOOD QUANT, Modifiers: QW 65968 GLYCATED HEMOGLOBIN TEST, Modifiers: QW G2211 Complex e/m visit add on * * Sign off status: Completed true * Provider:?Aaron Jung MD Date:?0 05/22/2024 Generated for Jefferson verma/Whitney/eTlibbysmitting on:?06/30/2024 12:12 PM EST History and Physical Notes * HPI (History of Present Illness) Category Sub-Category Detail Notes Category Not es Symptom(s) patient is a 79 yo female here for 3 month follow up visit, having trouble with rt knee for month. trouble walking. Examination Category Sub-Category Detail Notes Category Not es General Examination GENERAL APPEARANCE: alert, w ell hydrated, in no distress , female HEAD: normocephalic HEART: regular rate and rhy thm , no murmurs, rubs, gallops LUNGS: no wheezes, rales, r honchi , good air movement , clear to auscultation bilaterally SKIN: good turgor
--- OUTSIDE RECORDS SUMMARY | 2024-06-30 12:12 | XMS_ITS ---
Author Organization Aaron Jung MD Address [address] [place] [phone] Care Team Providers Care Door Cutter Name Role Phone Aaron Jung Primary Care Provider REASON FOR VISIT HDF Medications Medication SIG (Take, Route, Frequency, Duration) Notes Start Date End Date Status rOPINIRole HCl 3 MG 1 tablet Orally twice a day Active Calcium + D 500-1000-40 MG-UNT-MCG 2 tablets once a day Active Atorvastatin Calcium 40 MG TAKE 1 TABLET BY MOUTH EVERY DAY for 90 Active CoQ-10 50 MG 1 capsule with a meal Orally Once a day Active Valsartan 160 MG TAKE 1 TABLET BY MOUTH EVERY DAY for 90 Active Diprolene AF 0.05 % 1 application to affected area Externally Once a day 10/14/2012 Not-Taking Farxiga 5 mg 1 tablet Orally once a day in a.m. 07/05/2023 Active Ibuprofen 800 MG 1 tablet Orally Three times a day for 30 day(s) 02/23/2014 Not-Taking Betamethasone Dipropionate 0.05 % 1 application to affected area Externally Once a day for 30 days 09/26/2012 Not-Taking hydroCHLOROthiazide 25 MG TAKE 1 TABLET BY MOUTH EVERY DAY IN THE MORNING for 90 Active Furosemide 20 MG TAKE 1 TABLET BY MOUTH EVERY DAY for 90 Active Gabapentin 600 MG TAKE 1 TABLET BY MOUTH THREE TIMES DAILY for 30 Active Januvia 50 MG as directed Orally Once a day for 30 days 01/03/2024 Not-Taking Cyclobenzaprine HCl 5 MG 1 tablet at bed time as needed Orally 3 times a day for 10 Not-Taking Tylenol Extra Strength 500 MG 2 tablets Orally every 6 hrs Not-Taking Vitamin D (Cholecalciferol) 400 UNIT 1 capsule Orally Once a day Active Immunizations Vaccine Route Administration Date Status Comme nts Influenza High Dose IM Intramuscular 2024 Administer ed Encounters Encounter Location Date Provider Diagnosis Aaron Jung MD [address] [place] [address] [place] [phone] 2024 Aaron Jung Encounter for immunization Z23 Assessments Encounter Date Diagnosis (ICD Code) Assessment Notes Treatment Notes Treatment Clinical Notes Section Notes 2024 Encounter for immunization (ICD-10 - Z23) Plan Of Treatment Next Appt Details Provider Name:Aaron Villarreal ier, 07/07/2024 02:30:00 PM, [address] [place] [address], Suite [facility], [place], [place], [phone], Progress Notes * MAUNEL LexiOB:[birth year] (79 yo F)Acc No.[id number]:2024 Progress Note Patient:?Jeannine Victor Provider:?Aaron Jung MD :1945???Age:79 Y???Sex:Female D ate:2024 Address:[address] [place], [place] [phone] Subjective: * Chief Complaints: * ???HDF * Medical History:? * Surgical History:? * [...] to affected area Externally Once a dayNot-Taking/PRN Januvia 50 MG Tablet as directed Orally [...] to affected area Externally Once a day Objective: Assessment: * Assessment: 1.?Encounter for immunizatio n - Z23 (Primary)? Plan: * Treatment: * Immunizations:? Influenza High Dose : 0.5 mL (Dose No:1) (Route: Intramuscular) given by Kelly Moulton on Left Deltoid * Procedure Codes:?36976 FLU V ACC PRSV FREE INC [id number] ADMN FLU VAC NO FEE SCHED SAME DAY * * Sign off status: Completed true * Provider:?Aaron Jung MD Date:?1 Generated for Jefferson verma/Whitney/Shiloh on:?06/30/2024 12:12 PM EST
[2024-06-30 13:09] LABS: Creatinine Urine 100.89 mg/dL; Microalbum/Creatinine Ratio Ur 9.9 ug/mg cr (<30)
== END 2024-06-30 10:53 | disposition home or self-care (01) ==
LOC: HO.LNP 10:52
PROVIDERS: Visit Provider Internal Medicine
DX: I10 Essential (primary) hypertension (principal); E11.40 Type 2 diabetes mellitus with diabetic neuropathy, unspecified
CPT/HCPCS: 80053; 80061; 81001; 82043; 82570; 83036; 85025; 87086

== ENCOUNTER 2024-07-07 15:05 | Outpatient (REF) | payer MEDICARE, SELFPAY ==
--- NOTE | ~2024-07-07 | XR_ITS ---
CLINICAL HISTORY: LEFT HIP PAIN 2 view, pelvis and left hip Comparison: None Findings: No acute fracture. Mild degenerative arthritis. Mild chronic enthesopathic changes at the greater trochanter. Intact ipsilateral pubic rami and included SI joint. Soft tissues unremarkable. IMPRESSION: Mild degenerative arthritis. This document has been electronically signed by: Mathew Bran MD on 07/08/2024 13:11:05
--- OUTSIDE RECORDS SUMMARY | 2024-07-07 16:02 | XMS_ITS ---
Author Organization Aaron Jung MD Address [address] [place] [phone] Care Team Providers Care Vamp Stitcher Name Role Phone Aaron Jung Primary Care Provider Allergies Allergen (clinical drug ingredient) Drug/Non Drug Allergy documented on EMR Reaction Allergy Type Onset Date Status prednisone (uncoded) itch Allergy Active lisinopril lisinopril (uncoded) cough Allergy Active Results Component Value Reference Range Notes Occult Blood, Stool, Guaiac Reviewed date:07/07/2024 03:27:32 PM Interpretation:Negative Performing Lab: Notes/Report: Negative Occult Blood, Stool, Guaiac Neg REASON FOR VISIT review labs/ must see BUN, c/o left inguinal pain x 1 week Medications Medication SIG (Take, Route, Frequency, Duration) Notes Start Date End Date Status Betamethasone Dipropionate 0.05 % 1 application to affected area Externally Once a day for 30 days 09/26/2012 Not-Taking Ibuprofen 800 MG 1 tablet Orally Thre e times a day for 30 day(s) 02/23/2014 Not-Taking Diprolene AF 0.05 % 1 application to affected area Externally Once a day 10/14/2012 Not-Taking Tylenol Extra Strength 500 MG 2 tablets Orally every 6 hrs Not-Taking Cyclobenzaprine HCl 5 MG 1 tablet at bed time as needed Orally 3 times a day for 10 Not-Taking Atorvastatin Calcium 40 MG TAKE 1 TABLET BY MOUTH EVERY DAY for 90 Active Valsartan 160 MG TAKE 1 TABLET BY LORIN TH EVERY DAY for 90 Active Januvia 50 MG as directed Orally Once a day for 30 days 01/03/2024 Not-Takin g Farxiga 5 mg 1 tablet Orally once a day in a.m. 07/05/2023 Active Vitamin D (Cholecalciferol) 400 UNIT 1 capsule Orally Once a day Active CoQ-10 50 MG 1 capsule with a teetee l Orally Once a day Active Gabapentin 600 MG TAKE 1 TABLET BY LORIN TH THREE TIMES DAILY for 30 Active Furosemide 20 MG TAKE 1 TABLET BY LORIN TH EVERY DAY for 90 Active Calcium + D 500-1000-40 MG-UNT-MCG 2 tablets once a day Active rOPINIRole HCl 3 MG 1 tablet Orally twic e a day Active Social History Tobacco Use: Social History Observation Description Date Details (start date - stop date) Never Smoker NA - NA Tobacco Use/Smoking Question Answer Notes Patient is a nonsmoker Additional Findings: Tobacco Non-User Cu rrent non-smoker, currently using no form of tobacco Alcohol Screen Question Answer Notes Did you have a drink containing alcohol in the p ast year? No Points 0 Interpretation Negative Vital Signs Blood pressure systolic 142 mm Hg 07/07/19 25 Blood pressure diastolic 70 mm Hg 025 Height 65.5 in 07/07/2024 Weight 221 lbs 07/07/2024 BMI 36.21 kg/m2 07/07/2024 weight is down [address] [facility] e 05-22-24 Encounters Encounter Location Date Provider Diagnosis Aaron Jung MD [address] [place] [address] [address] [place], [place] [id number] 07/07/2024 Aaron Jung Hip pain, left M25.552 ; Essential hypertension I10 ; Type 2 diabetes, controlled, 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 ; Elevated BUN R79.9 ; Colon cancer screening Z12.11 and Depression screening Z13.31 Assessments Encounter Date Diagnosis (ICD Code) Assessment Notes Treatment Notes Treatment Clinical Notes Section Notes 07/07/2024 Hip pain, left (ICD-10 - M25.552) pending diagnostic testing 07/07/2024 Essential hypertension (ICD-10 - I10) stable, will contiue current regiment 07/07/2024 Type 2 diabetes, controlled, 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) stable, will continue current regiment 07/07/2024 Elevated BUN (ICD-10 - R79.9) will continue to monitor 07/07/2024 Colon cancer screening (ICD-10 - Z12.11) guaiac cnegative 07/07/2024 Depression screening (ICD-10 - Z13.31) negative screen Plan Of Treatment Treatment Notes Assessment Notes Hip pain, left pending diagnostic t esting Essential hypertension stable, will cont iue current regiment Type 2 diabetes, controlled, with neurop athy stable, will continue current regiment Elevated BUN will continue to mon itor Colon cancer screening guaiac cnegative Depression screening negative screen Pending Test Test Name Order Date XR hip LT min 2V 07/07/2024 Future Test Test Name Order Date Blood Urea Nitrogen 08/18/2024 Creatinine 08/18/2024 Next Appt Details Follow Up: 3 Weeks, Reason: Provider Name:Aaron posada, 07/28/2024 11:00:00 AM, [address] [place] [address], [address], [phone], Provider Name:Aaron posada, 08/18/2024 07:45:00 AM, [address] [place] [address], [address], [phone], Provider Name:Aaron posada, 01/01/2025 08:00:00 AM, [address] [place] [address], [address], [phone], Provider Name:Aaron posada, 01/08/2025 01:30:00 PM, [address] [place] [address], [address], [place] Neg[place], [phone], Provider Name:Aaron Villarreal ier, 07/06/2025 07:45:00 AM, [address], [address], [place], [phone], Provider Name:Aaron Villarreal ier, 07/12/2025 02:30:00 PM, [address], [address], [place], [phone], Progress Notes * Glenys JACKSONChristineOB:[birth year] (79 yo F)Acc No.[id number]:07/07/2024 Patient:?Jeannine JACKSON Provider:?Aaron Jung MD :1945???Age:79 Y???Sex:Female D ate:07/07/2024 Address:[address] [place], [place] [id number] Subjective: * Chief Complaints: * ???1. review labs/ must see BUN. 2. C/o left inguinal pain x 1 week. * HPI: ???Depression Screening:?PHQ-9?Little interest or pleasure in doing things?Not at all,?Feeling down, depressed, or hopeless?Not at all,?Trouble falling or staying asleep, or sleeping too much?Not at all,?Feeling tired or having little energy?Not at all,?Poor appetite or overeating?Not at all,?Feeling bad about yourself or that you are a failure, or have let yourself or your family down?Not at all,?Trouble concentrating on things, such as reading the newspaper or watching television?Not at all,?Moving or speaking so slowly that other people could have noticed; or the opposite, being so fidgety or restless that you have been moving around a lot more than usual?Not at all,?Thoughts that you would be better off or of hurting yourself in some way?Not at all,?Total Score?0.?Interpretation and Intervention?Depression Screening Findings?Negative,?Follow-Up for Depression?: review of PHQ-9 found negative result, no follow-up needed.?patient is a 79 yo female pain in left groin. uses cane to walk at times. hurts to walk. hurts to get out of chair. ???Communication Needs:?Communication Needs?Does the patient have a hearing impairment?No,?Does the patient have a vision impairment??Yes,?If yes, what is the vision impairment??Glasses,?Does the patient have a cognition impairment??No.?Fall Risk:?History?Have you had any falls with injury in the past year??No,?Have you had two or more falls in the past year??No.?SDOH Questions:?SDOH Questions?In the past year have you been worried about losing housing??No,?In the past year have you or any family members you live with been unable to get any of the following when it was really needed? Check all that apply:?None.? * ROS:?General/Constitutional:?Change in appetite?denies.?Chills?denies.?Fever?denies.?Ophthalmologic:?Blurred vision?denies.?Discharge?denies.?Pain?denies.?ENT:?Decreased hearing?denies.?Sore throat?denies.?Swollen glands?denies.?Endocrine:?Cold intolerance?denies.?Excessive thirst?denies.?Heat intolerance?denies.?Weight loss?denies.?Respiratory:?Cough?denies.?Shortness of breath at rest?denies.?Shortness of breath with exertion?denies.?Wheezing?denies.?Cardiovascular:?Chest pain at rest?denies.?Chest pain with exertion?denies.?Irregular heartbeat?denies.?Shortness of breath?denies.?Gastrointestinal:?Abdominal pain?denies.?Change in bowel habits?denies.?Diarrhea?denies.?Nausea?denies.?Rectal bleeding?denies.?Vomiting?denies .?Genitourinary:?Blood in urine?denies.?Difficulty urinating?denies.?Frequent urination?denies.?Urinary incontinence?Denies.?Musculoskeletal:?Painful joints?denies.?Weakness?denies.?Skin:?Dry skin?denies.?Itching?denies.?Denies?Mole(s),? changes in moles, new moles or any lesions of concern.?Denies?Photosensitivity.?Rash?denies.?Neurologic:?Dizziness?denies.?Fainting?denies.?Headache?denies.? * Medical History:?colonoscopy 2006 due in 10 years. Colonoscopy 08/16/16 w/Dr. Turk (no further testing needed), Hip pain, right, Prediabetes, Prediabetes, Metformin gave her nausea, Farxiga had a 500 dollar copay. * Family History:?Father: dece ased 72 yrs, cardiac disease.?Mother: 89 yrs, breast cancer, cancer,stomach.?1 brother(s) , 1 sister(s) . 1 daughter(s) . .? 1 son at age 10 from drunk special needs bus driver Father- cardiac Mother breast cancer, Denies mental health/substance abuse family history, Denies mental health/substance abuse family history, No pertinent family medical history. * Social History:?Tobacco Use:?Tobacco Use/Smoking?Patient is a?nonsmoker,?Additional Findings: Tobacco Non-User?Current non-smoker, currently using no form of tobacco.?Drugs/Alcohol:?Alcohol Screen?Did you have a drink containing alcohol in the past year??No,?Points?0,?Interpretation?Negative.?Miscellaneous:?Caffeine: yes, frequency:, 1-2 cups per day. Children: yes. Exercise: no. Home smoke detector use: yes. Housing: owning. Living with: spouse. Marital status: . Occupation: retired. Pets: none. Travel outside of the [place]: no. * Medications:?Taking rOPINIRo le HCl 3 MG Tablet 1 tablet Orally twice a day , Taking Calcium + D 500-1000-40 MG-UNT-MCG Tablet Chewable 2 tablets once a day , Taking CoQ-10 50 MG Capsule 1 capsule with a meal Orally Once a day , Taking Vitamin D (Cholecalciferol) 400 UNIT Capsule 1 capsule Orally Once a day , Taking Furosemide 20 MG Tablet TAKE 1 TABLET BY MOUTH EVERY DAY , Taking Gabapentin 600 MG Tablet TAKE 1 TABLET BY MOUTH THREE TIMES DAILY , Taking Valsartan 160 MG Tablet TAKE 1 TABLET BY MOUTH EVERY DAY , Taking Atorvastatin Calcium 40 MG Tablet TAKE 1 TABLET BY MOUTH EVERY DAY , Taking Farxiga 5 mg Tablet 1 tablet Orally once a day in a.m. , Not-Taking/PRN Januvia 50 MG Tablet as directed Orally Once a day , Not- Taking/PRN Cyclobenzaprine HCl 5 MG Tablet 1 tablet at bedtime as needed Orally 3 times a day , Not-Taking/PRN Tylenol Extra Strength 500 MG Tablet 2 tablets Orally every 6 hrs , Not-Taking/PRN Ibuprofen 800 MG Tablet 1 tablet Orally Three times a day , Not-Taking/PRN Betamethasone Dipropionate 0.05 % Cream 1 application to affected area Externally Once a day , Not-Taking/PRN Diprolene AF 0.05 % Cream 1 application to affected area Externally Once a day , Discontinued hydroCHLOROthiazide 25 MG Tablet TAKE 1 TABLET BY MOUTH EVERY DAY IN THE MORNING , Medication List reviewed and reconciled with the patient * Allergies:?lisinopril: cough , prednisone: itch - Side Effects. Objective: * Vitals:?Ht: 65.5, Wt: 221, B MO:36.21, BP:142/70, Wt-k.24. weight is down 5 pounds since 05-22-24. * ???Past Orders: ???Lab:Complete Blood Count Auto Diff (Order Date - 06/30/2024) (Collection Date & Time - 06/30/2024 07:45 AM) ? Value Reference Range ?White Blood Count 13.7 H 4. 8-10.8 - X10*3/uL ?Red Blood Count 4.37 4.20 -5.50 - X10*6/uL ?Hemoglobin 12.8 12.0-16.0 - g/dl ?Hematocrit 40.3 37.0-47.0 - % ?Mean Corpuscular Volume 92.2 80.0-98.0 - fL ?Mean Corpuscular Hemoglobin 29.3 27.0-33.0 - pg ?Mean Corpuscular HGB Conc 31.8 31.0-35.0 - g/dl ?Red Cell Distribution Width 14.8 11.0-16.0 - % ?Platelet Count 325 160-4 00 - X10*3/uL ?Mean Platelet Volume 9.8 9.4-12.3 - fL ?Neutrophils Percent Auto 69.9 45-73 - % ?Imm Gran Pct Auto 0.4 0. 0-0.4 - % ?Lymphocytes Percent Auto 23.1 20-40 - % ?Monocytes Percent Auto 5.5 2-11 - % ?Eosinophils Percent Auto 0.7 0-4 - % ?Basophils Percent Auto 0.4 0-2 - % ?NRBC Pct Auto 0.0 0.0-0. 2 - /100WBC ?Neutrophils Absolute Auto 9.6 H 2.0-8.3 - x10*3/uL ?Imm Gran Abs Auto 0.06 H 0. 00-0.03 - X10*3/uL ?Lymphocytes Absolute Auto 3.2 1.2-4.9 - X10*3/uL ?Monocytes Absolute Auto 0.8 0.1-1.2 - X10*3/uL ?Eosinophils Absolute Auto 0.1 0.0-0.4 - X10*3/uL ?Basophils Absolute Auto 0.1 0.0-0.2 - X10*3/uL ?NRBC Abs Auto 0.000 0.0-0. 012 - X10*3/uL ???Lab:Microalbumin, Random (Order Date - 06/30/2024) (Collection Date & Time - 06/30/2024 07:45 AM) ? Value Reference Range ?Creatinine Urine 100.89 - m g/dL ?Microalbumin Urine 10.0 - mg/L ?Microalbum Creatinine Ratio Ur 9.9 <30 - ug/mg cr ???Lab:Hemoglobin A1c (Order Date - 06/30/2024) (Collection Date & Time - 06/30/2024 07:45 AM) ? Value Reference Range ?Hemoglobin A1c % 7.9 H <6. 0 - % ?Estimated Average Glucose 180 - mg/dL ???Lab:UA ClnCatch+Micro w/r flx Cult (Order Date - 06/30/2024) (Collection Date & Time - 06/30/2024 07:45 AM) ? Value Reference Range ?Color Urine Yellow - ?Appearance Urine Clear - ?PH 6.5 5.0-9.0 - ?Glucose Urine UA Negative Neg ative - mg/dL ?Urine Blood Negative Negative - ?Specific [place] - Urine 1.020 1.005-1.025 - ?Urine Protein Negative Neg-Tr kali - mg/dL ?Urine Ketones Negative Negati ve - mg/dL ?Nitrite Urine Negative Negati ve - ?Leukocyte Esterase Urine Moderate (2+) A Negative - ?RBC Urine 0-2 0-2 - /HPF ?WBC Urine 11-20 A 0-5 - /HPF ?Squamous Epithelial Cell Urine 3-5 0-2 - /HPF ?Bacteria Urine None Seen None Seen - ?Hyaline Casts Urine 0-2 0-2 - /LPF ???Lab:Hemoglobin A1c (Order Date - 05/22/2024) (Collection Date & Time - 05/22/2024) ? Value Reference Range ?Hemoglobin A1c 7.3 ???Lab:Urine Culture (Order Date - 06/30/2024) (Collection Date & Time - 06/30/2024) ? Value Reference Range ?Urine Culture urogenital contamination. - ???Lab:Comprehensive [place] [place] [employer] Fast (Order Date - 06/30/2024) (Collection Date & Time - 06/30/2024 07:45 AM) ? Value Reference Range ?Sodium 143 135-145 - mmo l/L ?Bilirubin Total 0.7 0.0- 1.0 - mg/dL ?Aspartate Amino Transferase 22 5-31 - U/L ?Alanine Aminotransferase 41 H 0-31 - U/L ?Total Protein 7.4 6.5-8. 0 - g/dL ?Albumin Level 3.7 3.5-5. 0 - g/dL ?Alkaline Phosphatase 53 39-117 - U/L ?Potassium 4.4 3.3-5.1 - mmol/L ?Chloride 103 96-108 - mm ol/L ?Carbon Dioxide 29 22-29 - mmol/L ?Anion Gap 15 12-20 - ?Blood Urea Nitrogen 31 H 9-16 - mg/dL ?Creatinine 1.18 0.5-1.4 - mg/dL ?Estimated Glomerular Filt Rate 44 - ?Glucose Fasting 161 H 60-9 9 - mg/dL ?Calcium 10.1 8.4-10.2 - m g/dL ???Lab:Lipid Panel (Order Da te - 06/30/2024) (Collection Date & Time - 06/30/2024 07:45 AM) ? Value Reference Range ?Triglycerides 117 <150 - mg/dL ?Cholesterol 182 <200 - m g/dL ?LDL Cholesterol Calculated 112 H <100 - mg/dL ?HDL Cholesterol 47 >40 - mg/dL * Examination: ???General Examination: ?GENERAL APPEARANCE:?well developed, well nourished, in no acute distress.?HEAD:?normocephalic, atraumatic.?EYES:?pupils equal, round, reactive to light and accommodation, sclera non-icteric.?EARS:?normal.?ORAL CAVITY:?mucosa moist.?THROAT:?clear.?NECK/THYROID:?neck supple, full range of motion, no cervical lymphadenopathy, no bruits.?SKIN:?warm and dry, no suspicious lesions, abnormal with some dermal nevi one on rt cheek that she says has been there forever.?HEART:?regular rate and rhythm, S1, S2 normal, no murmurs.?LUNGS:?clear to auscultation bilaterally.?BREASTS:?No mass, no lump.?ABDOMEN:?soft, nontender, nondistended, bowel sounds present, normal, no organomegaly , no masses palpable.?RECTAL EXAM:?stool guaiac negative, no masses palpable.?FEMALE GENITOURINARY:?done by terrazzo polisher helper.?EXTREMITIES:?no clubbing, cyanosis, or edema.?NEUROLOGIC:?nonfocal, motor strength normal upper and lower extremities, sensory exam intact.?FOOT EXAM:?.? Assessment: * Assessment: 1.?Hip pain, left - M25.552 (Primary)???2.?Essential hypertension - I10???3.?Type 2 diabetes, controlled, with neuropathy - E11.40???4.?Elevated BUN - R79.9???5.?Colon cancer screening - Z12.11???6.?Depression screening - Z13.31??? Plan: * Treatment: Notes: pending diagnostic testing??2.?Essential hypertension? Notes: stable, will contiue current regiment??3.?Type 2 diabetes, controlled, with neuropathy? Notes: stable, will continue current regiment??4.?Elevated BUN?LAB: Blood Urea Nitrogen (Ordered for 08/18/2024) ?LAB: Creatinine (Ordered for 08/18/2024) Notes: will continue to monitor??5.?Colon cancer screening?LAB: Occult Blood, Stool, Guaiac (Collection Date & Time - 07/07/2024)?Negative* ? Value Reference Range ?Occult Blood, Stool, Guaiac Neg Notes: guaiac cnegative??6.?Depression screening? Notes: negative screen?? * Procedure Codes:?48695 TEST FOR BLOOD, FECES * Preventive Medicine:? ??Counseling:?Care goal follow-up plan:?Counseling for abnormal BMI provided?Yes,?Above Normal BMI Follow-up?Giving encouragement to exercise.? ??Diabetes Care Plan:?Patient Lifestyle Goals?Needs to maintain diet control.?Treatment Goals?A1C< 7.?Barriers ?Needs better diet control.?Self- Managment Plan?Increase light exercise to 3 times a week for 30 minutes.?Expected Outcome?maintaining stable blood sugar levels within a target range.? * Follow Up:?3 Weeks * * The named appointment provid er may or may not be the originator of this progress note, and it is not deemed complete until electronically signed by the appointment provider. Sign off status: Pending * Provider:?Aaron Jung MD Date:?0 07/07/2024 Generated for Jefferson verma/Whitney/Sommeritting on:?07/07/2024 04:02 PM EST History and Physical Notes * HPI (History of Present Illness) Category Sub-Category Detail Notes Category Not es Depression Screening PHQ-9 Little inte rest or pleasure in doing things: Not at all patient is a 79 yo female pain in left groin. uses cane to walk at times. hurts to walk. hurts to get out of chair Feeling down, depressed, or hopeless: No t at all Trouble falling or staying asleep, or sl eeping too much: Not at all Feeling tired or having little energy: N ot at all Poor appetite or overeating: Not at all Feeling bad about yourself o r that you are a failure, or have let yourself or your family down: Not at all Trouble concentrating on thi ngs, such as reading the newspaper or watching television: Not at all Moving or speaking so slowly that other people could have noticed; or the opposite, being so fidgety or restless that you have been moving around a lot more than usual: Not at all Thoughts that you would be b anastasia off or of hurting yourself in some way: Not at all Total Score: 0 Interpretation and Intervention Depression Kat ash Findings: Negative Follow-Up for Depression: : review of PH Q-9 found negative result, no follow-up needed SDOH Questions SDOH Questions In the past year have you been worried about losing housing?: No In the past year have you or any family members you live with been unable to get any of the following when it was really needed? Check all that apply:: None Fall Risk History Have you had any falls with injury i n the past year?: No Have you had two or more falls in the st year?: No Communication Needs Communication Needs Does the patient have a hearing impairment: No Does the patient have a vision impairmen t?: Yes ?If yes, what is the vision impairment?: Glasses Does the patient have a cognition impair ment?: No Examination Category Sub-Category Detail Notes Category Not es General Examination GENERAL APPEARANCE: well dev eloped, well nourished, in no acute distress HEAD: normocephalic, atrau matic EYES: pupils equal, round, reactive to light and accommodation, sclera non-icteric EARS: normal THROAT: clear NECK/THYROID: neck supple, full ra nge of motion, no cervical lymphadenopathy, no bruits HEART: regular rate and rhy thm, S1, S2 normal, no murmurs LUNGS: clear to auscultatio n bilaterally ABDOMEN: soft, nontender, non distended, bowel sounds present, normal, no organomegaly , no masses palpable NEUROLOGIC: nonfocal, motor stre ngth normal upper and lower extremities, sensory exam intact SKIN: warm and dry, no maurizio picious lesions, abnormal with some dermal nevi one on rt cheek that she says has been there forever EXTREMITIES: no clubbing, cyanosi s, or edema BREASTS: No mass, no lump RECTAL EXAM: stool guaiac negativ e, no masses palpable FEMALE GENITOURINARY: done by terrazzo polisher helper ORAL CAVITY: mucosa moist FOOT EXAM: Date: 07/07/2024 no pinprick. no rmal pulse. normal light touch.
--- OUTSIDE RECORDS SUMMARY | 2024-07-07 16:02 | XMS_ITS ---
Author Organization [facility] Address [address] [place] [address] Care Team Providers Care General Forecaster Name Role Phone Aaron Jung MD Primary Care Provider Armani Guadarrama [phone] REASON FOR VISIT rs from 04/30/24 Encounters Encounter Location Date Provider Diagnosis [address] [id number] 04/29/2024 Armani Giraldo Plan Of Treatment Next Appt Details Provider Name:Armani Giraldo , 08/03/2024 02:30:00 PM, [address] [place] [address], [phone], Progress Notes * Lexi JACKSONOB:[birth year] (79 yo F)Acc No.[id number]:04/29/2024 Patient:?Jeannine JACKSON :1945???Age:79 Y???Sex:Female Address:[address] [place] [address], [phone] * true * Date:? Generated for Printi ng/Faxing/eTransmitting on:?07/07/2024 04:02 PM EST
--- OUTSIDE RECORDS SUMMARY | 2024-07-07 16:03 | XMS_ITS ---
Author Organization Aaron Jung MD Address [address] [place] [phone] Care Team Providers Care Torch Shearer Name Role Phone Aaron Jung Primary Care Provider Results Component Value Reference Range Notes Complete Blood Count Auto Di ff Reviewed date:07/03/2024 05:14:36 PM Interpretation: Performing Lab:[facility], [address] [place] [phone] Notes/Report: White Blood Count 13.7 4.8-10.8 X10*3/uL [...] X10*3/uL NRBC Abs Auto 0.000 0.0-0.012 X10*3/uL Comprehensive [place]. Panel Fa st Reviewed date:07/03/2024 05:33:55 PM Interpretation: Performing Lab:[facility], [address] [place] [phone] Notes/Report: Sodium 143 135-145 mmol/L Potassium 4.4 3.3-5.1 mmol/L Chloride 103 96-108 mmol/L Carbon Dioxide 29 22-29 mmol/L Anion Gap 15 12-20 Blood Urea Nitrogen 31 9-16 mg/dL Creatinine 1.18 0.5-1.4 mg/dL Estimated Glomerular Filt Rate 44 Chronic Kidney Disease: Estimated GFR < 60 mL/min/1.73m2 Severe Kidney Disease: Estimated GFR < 15 mL/min/1.73m2 Glucose Fasting 161 60-99 mg/dL A fasting glucose of 126 mg/dl or greater on more than one occasion is considered diagnostic of diabetes. Calcium 10.1 8.4-10.2 mg/dL Bilirubin Total 0.7 0.0-1.0 mg/dL Aspartate Amino Transferase 22 5-31 U/L Alanine Aminotransferase 41 0-31 U/L Total Protein 7.4 6.5-8.0 g/dL Albumin Level 3.7 3.5-5.0 g/dL Alkaline Phosphatase 53 39-117 U/L Lipid Panel Reviewed date:07/03/2024 05:01:21 PM Interpretation: Performing Lab:[address] [address] Notes/Report: Triglycerides 117 <150 mg/dL Desirable Triglyceride: less than 150 mg/dL Borderline High Triglyceride 150-199 mg/dL High Triglyceride: 200-499 mg/dL Very High Triglyceride: greater than or equal to 5OO mg/dL Cholesterol 182 <200 mg/dL Desirable Cholesterol: less than 200 mg/dL Borderline High Cholesterol: 200-239 mg/dL High Cholesterol: greater than 239 mg/dL LDL Cholesterol Calculated 112 <100 mg/dL Desirable LDL: less than 100 mg/dL Near Optimal/Above Optimal LDL: 110-129 mg/dL Borderline High LDL: 130-159 mg/dL High LDL: 160-189 mg/dL Very High LDL: greater than or equal to 190 mg/dL HDL Cholesterol 47 >40 mg/dL Desirable HDL: greater than 40 mg/dL Note: This HDL assay may give artificially low results in patients with liver disease. Microalbumin, Random Reviewed date:07/03/2024 05:01:14 PM Interpretation: Performing Lab:[address] [phone] Notes/Report: Creatinine Urine 100.89 Microalbumin Urine 10.0 Microalbum/Creatinine Ratio Ur 9.9 <30 ug/mg cr Albumin/Creatinine Ratio Reference Ranges: Normal: < 30 ug/mg creatinine Microalbuminuria: 30 - 300 ug/mg creatinine Clinical Albuminuria: > 300 ug/mg creatinine Hemoglobin A1c Reviewed date:07/03/2024 05:01:30 PM Interpretation: Performing Lab:[facility], [address] [place] [phone] Notes/Report: Hemoglobin A1c % 7.9 <6.0 % [...] average glucose, using the formula of the I3N-Ftyegoq Average Glucose study (ADAG), Diabetes Care, Vol.31,#8, Dec. 2007 UA ClnCatch+Micro w/rflx Cul t Reviewed date:07/07/2024 01:33:01 PM Interpretation: Performing Lab:[facility], [address] [place] [phone] Notes/Report: Urine, Clean Catch Color Urine Yellow Appearance Urine Clear PH 6.5 5.0-9.0 Glucose Urine UA Negative Negative mg/dL Urine Blood Negative Negative Specific [place] - Urine 1.020 1.005-1.025 Urine Protein Negative [...] Location Date Provider Diagnosis Aaron Jung MD [address] [place] [address] [place] [phone] 06/30/2024 Aaron Jung Essential hypertension I10 and Type 2 diabetes, controlled, 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 Assessments Encounter Date Diagnosis (ICD Code) Assessment Notes Treatment Notes Treatment Clinical Notes Section Notes 06/30/2024 Essential hypertension (ICD-10 - I10) 06/30/2024 Type 2 diabetes, controlled, 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) Plan Of Treatment Next Appt Details Provider Name:Aaron posada, 07/28/2024 11:00:00 AM, [address] [place] [address], [address], [phone], Provider Name:Aaron posada, 08/18/2024 07:45:00 AM, [address] [place] [address], [address], [phone], Provider Name:Aaron Villarreal ier, 01/01/2025 08:00:00 AM, [address], [address], [place], [phone], Provider Name:Aaron Villarreal ier, 01/08/2025 01:30:00 PM, [address], [address], [place], [phone], Provider Name:Aaron Villarreal ier, 07/06/2025 07:45:00 AM, [address], [address], [place], [phone], Provider Name:Aaron Villarreal ier, 07/12/2025 02:30:00 PM, [address], [address], [place], [phone], Progress Notes * Glenys JACKSONChristineOB:[birth year] (79 yo F)Acc No.[id number]:06/30/2024 Progress Note Patient:?Jeannine JACKSON Provider:?Aaron Jung MD :1945???Age:79 Y???Sex:Female D ate:06/30/2024 Address:[address] [place], [place] [phone] Subjective: * Chief Complaints: * ???1. YEARLY FASTING LABS. * Medical History:? Objective: * Vitals:? Assessment: * Assessment: 1.?Essential hypertension - I10 (Primary)???2.?Type 2 diabetes, controlled, with neuropathy - E11.40??? Plan: * Treatment: 2.?Type 2 diabetes, controll ed, with neuropathy?LAB: Complete Blood Count Auto Diff (Collection Date & Time - 06/30/2024 07:45 AM) ?LAB: Comprehensive [place]. Panel Fast (Collection Date & Time - 06/30/2024 07:45 AM) ?LAB: Lipid Panel (Collection Date & Time - 06/30/2024 07:45 AM) ?LAB: Microalbumin, Random (Collection Date & Time - 06/30/2024 07:45 AM) ?LAB: Hemoglobin A1c (Collection Date & Time - 06/30/2024 07:45 AM) ?LAB: UA ClnCatch+Micro w/rflx Cult (Collection Date & Time - 06/30/2024 07:45 AM) * Procedure Codes:?41584 VENIP UNCT, ROUTINE* * * The named appointment provid er may or may not be the originator of this progress note, and it is not deemed complete until electronically signed by the appointment provider. Sign off status: Pending * Provider:?Aaron Jung MD Date:?0 06/30/2024 Generated for Jefferson verma/Whitney/Shiloh on:?07/07/2024 04:02 PM EST
--- OUTSIDE RECORDS SUMMARY | 2024-07-07 16:03 | XMS_ITS | Data Portability ---
Author Organization [facility], PAIN OFFICE Address [address] [facility] [address] [place] [address] Care Team Providers Care Controller Repairer And Tester Name Role Phone CHELIAVRILN Primary Care Provider [phone] JOSUÉ ABURTO Referring Provider [phone] Assessment Encounter Date Assessment Date Assessment LastModified [...] By Organization Details Last Modified Time 03/05/2023 [id number] She was advised against bed rest lasting longer than four days and to continue activities as tolerated. [email or web address] Not available 03/05/2023 15:20:40 07/24/2023 05301 She was advised against bed rest lasting longer than four days and to continue activities as tolerated. [email or web address] Not available 07/24/2023 09:50:56 11/26/2023 [id number] She was advised against bed rest lasting longer than four days and to continue activities as tolerated. [email or web address] Not available 11/26/2023 10:58:20 02/26/2024 09318 She was advised against bed rest lasting longer than four days and to continue activities as tolerated. [email or web address] Not available 02/26/2024 10:55:47 06/17/2024 [id number] She was advised against bed rest lasting longer than four days and to continue activities as tolerated. [email or web address] Not available 06/17/2024 10:28:26 Reason for Referral None Reported. Problems Name Problem SNOMED Code Status Onset Date Resolution Date Notes Provider Name and Address Organization Details Recorded Time Spinal stenosis of lumbar region 22522490 Active 2016 Hemant can MD [facility] , [address], [facility] [place], [address] [place] [address] - [facility] 7 08:34:01 Lumbosacral spondylosis without myelopathy 53324221 Active 2016 Hemant can MD [address] , [address], [place], [address], [place] - [facility] 7 08:34:03 Lumbosacral radiculitis 38792660 Active 2016 Hemant can MD [address] , [address], [place], [address], [place] [facility] 7 08:34:04 Displacement of lumbar intervertebral disc without myelopathy 69483721 Active 2016 Hemant can MD [address] , [address], [place], [address], [place] [facility] 7 08:34:06 Problem Notes None recorded. Procedures Surgical History Date Name Laterality Status Provider Name and Address Organization Details Recorded Time 06/17/19 25 Lumbar Epidural steroid injection under fluoroscopic guidance completed Hemant Gilliland MD [address] , [address], [place], [address], [place] [facility] 06/17/2024 10:29:05 02/26/20 24 Lumbar Epidural steroid injection under fluoroscopic guidance completed Hemant Gilliland MD [address] , [address], [place], [address], [place] [facility] 02/26/2024 10:55:55 11/26/19 24 Lumbar Epidural steroid injection under fluoroscopic guidance completed Hemant Gilliland MD [address] , [address], [place], [address], [place] [facility] 11/26/2023 10:58:51 07/24/19 24 Lumbar Epidural steroid injection under fluoroscopic guidance completed Hemant Gilliland MD [address] , [address], [place], [address], [place] [facility] 07/24/2023 09:51:45 03/05/20 23 Lumbar Epidural steroid injection under fluoroscopic guidance completed Hemant Gilliland MD [address] , [address], [place], [address], [place] [facility] 03/05/2023 15:21:47 11/29/19 23 Lumbar Epidural steroid injection under fluoroscopic guidance completed Hemant Gilliland MD [address] [facility] , [address], [place], [address], [place] [facility] 11/28/2022 11:02:20 08/08/19 23 Lumbar Epidural steroid injection under fluoroscopic guidance completed Hemant Gilliland MD [address] [facility] , [address], [place], [address], [place] [facility] 08/07/2022 10:32:00 04/10/20 22 Lumbar Epidural steroid injection under fluoroscopic guidance completed Hemant Gilliland MD [address] [facility] , [address], [place], [address], [place] [facility] 04/10/2022 11:30:45 12/13/19 22 Lumbar Epidural steroid injection under fluoroscopic guidance completed Hemant Gilliland MD [address] [facility] , [address], [place], [address], [place] [facility] 12/12/2021 15:15:30 04/19/20 21 Lumbar Epidural steroid injection under fluoroscopic guidance completed Hemant Gilliland MD [address] [facility] , [address], [place], [address], [place] [facility] 04/19/2021 09:52:53 08/24/19 21 Lumbar Epidural steroid injection under fluoroscopic guidance completed Hemant Gilliland MD [address] [facility] , [address], [place], [address], [place] [facility] 08/23/2020 16:10:02 12/08/19 20 Lumbar Epidural steroid injection under fluoroscopic guidance completed Hemant Gilliland MD [address] [facility] , [address], [place], [address], [place] [facility] 12/08/2019 14:48:27 07/01/19 20 Lumbar Epidural steroid injection under fluoroscopic guidance completed Hemant Gilliland MD [address] [facility] , [address], [place], [address], [place] [facility] 07/01/2019 14:51:41 04/30/20 17 Lumbar Epidural steroid injection under fluoroscopic guidance completed Hemant Gilliland MD [address] [place] [address] , [address], [place], [address], [place] [facility] 04/30/2017 10:31:02 [...] Not available Not available Not available 08/07/2022 [id number] 91 [address] Leija em[place], [place] - [facility] 3 10:06:05 Medications [...] completed Not Available Not Available Not Available Q17-SNA-nsg -leucov-B6- V08-A-V0 active Not Available Not Available Not Available [...] mm[Hg] 61 mm[Hg] Hemant can MD [address] [facility] , [address], [place], [address], [place] - [facility] 3 [...] Is Your Level Of Alcohol Consumption? None [id number] Information not available 03/04/2020 Are You Currently Employed? No [id number] Information not available 03/04/2020 Which Illicit Or Recreational Drugs Have You Used? No [id number] Information not available 03/04/2020 Education 12 Information no t available 04/19/2017 Live Alone Or With Others? With Others Information not available 04/19/2017 Marital Status [email or web address] Informatio n not available 04/19/2017 What Was The Date Of Your Most Recent Tobacco Screening? 05/31/2017 [id number] Information not available 03/04/2020 Sex: Unknown Functional Status None recorded. Mental Status None recorded. Family History Relationship Description Onset Age of this Age Resolved Age Notes LastModified by Organization Details LastModified Time Mother Malignant neoplastic disease Breast [email or web address] Not available 2016 11:15:55 Maternal Grandmother Malignant neoplastic disease [email or web address] Not available 2016 11:16:29 Paternal Grandmother Malignant neoplastic disease [email or web address] Not available 2016 11:16:37 Medical History Condition Response Arthritis Y Hypertension Y Gynecological HistoryNo gynecological history recorded. Obstetrics History GPAL:G 0 P 0 0 0 0 Past Encounters Encounter ID Performer Location Encounter Start Date Encounter Closed Date Diagnosis/Indication Diagnosis SNOMED-CT Code Diagnosis ICD10 Code Diagnosis Note [id number] Hemant Gilliland MD PAIN OFFICE [address] [employer] [address] [place] [address] 04/19/2017 10:46:56 04/21/2017 08:37:37 Spinal stenosis of lumbar region 57930671 M48.062 Lumbosacra l spondylosis without myelopathy 56768190 M47.817 Lumbosacra l radiculitis 45357193 M54.17 Displaceme nt of lumbar intervertebral disc without myelopathy 51727816 M51.26 [id number] Hemant Gilliland MD PAIN OFFICE [address] [place] [address] 04/30/2017 09:34:46 05/02/2017 09:11:19 Spinal stenosis of lumbar region 16344723 M48.062 Lumbosacra l spondylosis without myelopathy 72314445 M47.817 Lumbosacra l radiculitis 13787555 M54.17 Displaceme nt of lumbar intervertebral disc without myelopathy 70672064 M51.26 [id number] Hemant Gilliland MD PAIN OFFICE [address] [employer] [place] [address] 05/31/2017 09:18:19 05/31/2017 10:10:56 Spinal stenosis of lumbar region 20825806 M48.062 Lumbosacra l spondylosis without myelopathy 99063720 M47.817 Lumbosacra l radiculitis 61458579 M54.17 Displaceme nt of lumbar intervertebral disc without myelopathy 21837491 M51.26 [id number] Hemant Gilliland MD PAIN OFFICE [address] [employer] [place] [address] 06/24/2019 13:56:18 06/24/2019 15:06:16 Spinal stenosis of lumbar region 91504782 M48.062 Lumbosacra l spondylosis without myelopathy 71386546 M47.817 Lumbosacra l radiculitis 30168998 M54.17 Displaceme nt of lumbar intervertebral disc without myelopathy 64794300 M51.26 [id number] Hemant Gilliland MD PAIN OFFICE [address] [employer] [place] [address] 07/01/2019 08:36:01 07/01/2019 14:55:31 Spinal stenosis of lumbar region 90970754 M48.062 Lumbosacra l spondylosis without myelopathy 93781049 M47.817 Lumbosacra l radiculitis 42613369 M54.17 Displaceme nt of lumbar intervertebral disc without myelopathy 38852728 M51.26 [id number] Hemant Gilliland MD PAIN OFFICE [address] [employer] [place] [address] 12/04/2019 11:34:26 12/07/2019 16:30:17 Spinal stenosis of lumbar region 67883369 M48.062 Lumbosacra l spondylosis without myelopathy 31646524 M47.817 Lumbosacra l radiculitis 39134197 M54.17 Displaceme nt of lumbar intervertebral disc without myelopathy 10012825 M51.26 [id number] Hemant Gilliland MD [facility] [address] [facility] [place] [address] 12/08/2019 14:16:05 12/08/2019 14:51:58 Spinal stenosis of lumbar region 89464864 M48.062 Lumbosacra l spondylosis without myelopathy 86524435 M47.817 Lumbosacra l radiculitis 03598154 M54.17 Displaceme nt of lumbar intervertebral disc without myelopathy 52729951 M51.26 [id number] Hemant Gilliland MD [facility] [address] [facility] [address] 01/11/2020 11:47:55 01/11/2020 15:54:53 Spinal stenosis of lumbar region 37801402 M48.062 Lumbosacra l spondylosis without myelopathy 57803608 M47.817 Lumbosacra l radiculitis 68225164 M54.17 Displaceme nt of lumbar intervertebral disc without myelopathy 91547629 M51.26 [id number] Hemant Gilliland MD [facility] [address] [facility] [address] 08/15/2020 15:01:35 08/15/2020 15:16:39 Spinal stenosis of lumbar region 28547795 M48.062 Lumbosacra l spondylosis without myelopathy 88868044 M47.817 Lumbosacra l radiculitis 85750911 M54.17 Displaceme nt of lumbar intervertebral disc without myelopathy 42837223 M51.26 [id number] Hemant Gilliland MD [facility] [address] [facility] [address] 08/23/2020 15:15:25 08/23/2020 16:11:47 Spinal stenosis of lumbar region 30013142 M48.062 Lumbosacra l spondylosis without myelopathy 57491870 M47.817 Lumbosacra l radiculitis 06229314 M54.17 Displaceme nt of lumbar intervertebral disc without myelopathy 43646168 M51.26 [id number] Hemant Gilliland MD [facility] [address] [facility] [address] 04/19/2021 09:18:35 04/19/2021 09:55:59 Spinal stenosis of lumbar region 67439566 M48.062 Lumbosacra l spondylosis without myelopathy 15704270 M47.817 Lumbosacra l radiculitis 36710032 M54.17 Displaceme nt of lumbar intervertebral disc without myelopathy 97707956 M51.26 [id number] Hemant Gilliland MD [facility] [address] [facility] [address] 12/12/2021 11:08:42 12/12/2021 15:22:52 Spinal stenosis of lumbar region 10697409 M48.062 Lumbosacra l spondylosis without myelopathy 69113892 M47.817 Lumbosacra l radiculitis 54899483 M54.17 Displaceme nt of lumbar intervertebral disc without myelopathy 93187847 M51.26 [id number] Hemant Gilliland MD [facility] [address] [facility] [address] 04/10/2022 10:18:42 04/10/2022 12:00:16 Spinal stenosis of lumbar region 72037138 M48.062 Lumbosacra l spondylosis without myelopathy 11755967 M47.817 Lumbosacra l radiculitis 11243469 M54.17 Displaceme nt of lumbar intervertebral disc without myelopathy 64941915 M51.26 [id number] Hemant Gilliland MD [facility] [address] [facility] [address] 08/07/2022 09:48:17 08/07/2022 11:01:44 Spinal stenosis of lumbar region 03731351 M48.062 Lumbosacra l spondylosis without myelopathy 44441031 M47.817 Lumbosacra l radiculitis 84696078 M54.17 Displaceme nt of lumbar intervertebral disc without myelopathy 10872290 M51.26 [id number] Hemant Gilliland MD [facility] [address] [place] [address] 11/28/2022 09:40:01 11/28/2022 11:24:45 Spinal stenosis of lumbar region 70446607 M48.062 Lumbosacra l spondylosis without myelopathy 12314066 M47.817 Lumbosacra l radiculitis 75112131 M54.17 Displaceme nt of lumbar intervertebral disc without myelopathy 73724945 M51.26 [id number] Hemant Gilliland MD PAIN OFFICE [address] [facility] [address] 03/05/2023 14:28:04 03/05/2023 16:16:22 Spinal stenosis of lumbar region 32134386 M48.062 Lumbosacra l spondylosis without myelopathy 15404860 M47.817 Lumbosacra l radiculitis 28962366 M54.17 Displaceme nt of lumbar intervertebral disc without myelopathy 87284909 M51.26 [id number] Hemant Gilliland MD PAIN OFFICE [address] [place] [address] 07/24/2023 09:12:23 07/24/2023 16:13:38 Spinal stenosis of lumbar region 68266213 M48.062 Lumbosacra l spondylosis without myelopathy 40303630 M47.817 Lumbosacra l radiculitis 59290866 M54.17 Displaceme nt of lumbar intervertebral disc without myelopathy 49391194 M51.26 [id number] Hemant Gilliland MD PAIN OFFICE [address] [facility] [address] 11/26/2023 10:19:10 11/26/2023 11:27:52 Spinal stenosis of lumbar region 68319679 M48.062 Lumbosacra l spondylosis without myelopathy 38612366 M47.817 Lumbosacra l radiculitis 15521795 M54.17 Displaceme nt of lumbar intervertebral disc without myelopathy 75740688 M51.26 [id number] Hemant Gilliland MD PAIN OFFICE [address] [facility] [address] 02/26/2024 10:07:24 02/26/2024 11:21:19 Spinal stenosis of lumbar region 72683991 M48.062 Lumbosacra l radiculitis 99259166 M54.17 Displaceme nt of lumbar intervertebral disc without myelopathy 04968963 M51.26 [id number] Hemant Gilliland MD [facility] PA[facility] [address] [place] [address] 06/17/2024 09:26:21 06/17/2024 15:24:12 Lumbosacral radiculitis 65645887 M54.17 Spinal susie nosis of lumbar region 47964953 M48.062 Displaceme nt of lumbar intervertebral disc without myelopathy 11064653 M51.26 Health Concerns Section Related Observation LastModified by Organization Detai ls LastModified Time None Recorded Concern Status LastModified by Organization Details LastModified Time None Recorded Advance Directives Directive None Recorded Payers Encounter Date Sequence Insurance Name Policy Number Policy Ga Covered Member ID Ga Member ID Guarantor Name 03/05/2023 1 [place] [employer] Jeannine A Parenteau [id number] Jeannine Parenteau 03/05/2023 2 [place] [id number] Jeannine A Parenteau [id number] Jeannine Parenteau 07/24/2023 1 [place] Jeannine A Parenteau [id number] Jeannine Parenteau 07/24/2023 2 [place] [id number] Jeannine A Parenteau [id number] Jeannine Parenteau 11/26/2023 1 [place] [employer] [place] Jeannine A Parenteau [id number] Jeannine Parenteau 11/26/2023 2 [place] [id number] Jeannine A Parenteau [id number] Jeannine Parenteau 02/26/2024 1 [place] [employer] Jeannine A Parenteau [id number] 31 Jeannine Parenteau 02/26/2024 2 [place] [id number] Jeannine A Parenteau [id number] Jeannine Parenteau 06/17/2024 1 [place] Jeannine Mejia Parenteau [id number] 31 Jeannine Parenteau 06/17/2024 2 [place] [id number] Jeannine Mejia Parenteau [id number] Jeannine Parenteau Notes Date Note Type Note Provider Name and Address Organization Details Recorded Time 03/05/2023 text/html She is here for a lumbar epidural steroid injection under fluoroscopic guidance. Hemant Gilliland MD [address] [facility] , [address], [place], [address], [place] [facility] 03/05/2023 16:39:42 07/24/2023 text/html She is here for a lumbar epidural steroid injection under fluoroscopic guidance. Hemant Gilliland MD [address] [facility] , [address], [place], [address], [place] [facility] 07/24/2023 16:36:09 11/26/2023 text/html She is here for a lumbar epidural steroid injection under fluoroscopic guidance. Hemant Gilliland MD [address] [facility] , [address], [place], [address], [place] [facility] 11/26/2023 16:31:36 02/26/2024 text/html She is here for a lumbar epidural steroid injection under fluoroscopic guidance. Hemant Gilliland MD [address] [facility] , [address], [place], [address], [place] [facility] 02/26/2024 13:49:44 06/17/2024 text/html She is here for a lumbar epidural steroid injection under fluoroscopic guidance. Hemant Gilliland MD [address] [facility] , [address], [place], [address], [place] [facility] 06/17/2024 15:28:10 OBGyn Episode No OBEpisode recorded.
--- OUTSIDE RECORDS SUMMARY | 2024-07-07 16:03 | XMS_ITS ---
Author Organization [facility] Address [address] [place] [address] Care Team Providers Care Lobby Porter Name Role Phone Aaron Jung MD Primary Care Provider Armani Guadarrama Unavailable [phone] Allergies Allergen (clinical drug ingredient) Drug/Non Drug Allergy documented on EMR Reaction Allergy Type Onset Date Status Latex Latex Unknown Allergy Active Encounters Encounter Location Date Provider Diagnosis [facility] [address] [place] [address] 04/30/2024 Armani Giraldo Plan Of Treatment Next Appt Details Provider Name:Armani Giraldo , 08/03/2024 02:30:00 PM, [address] [place] [address], [phone], Progress Notes * Lexi JACKSONOB:[birth year] (79 yo F)Acc No.[id number]:04/30/2024 Progress Note Patient:?Jeannine JACKSON Provider:?Armani Giraldo DPM :1945???Age:79 Y???Sex:Female D ate:04/30/2024 Address:[address] [place], [place] [address] Pcp:Aaron Jung MD Subjective: * Chief Complaints: * ??? * Medical History:?Back,Hip,an d Knee pain, High blood pressure, Numbness, Sciatica, Measles, Chicken pox. * Allergies:?Latex. Objective: * Vitals:? Assessment: Plan: * Treatment: * Images: * The named appointment provid er may or may not be the originator of this progress note, and it is not deemed complete until electronically signed by the appointment provider. Sign off status: Pending * Provider:?Armani Giraldo DPM Date:?2023 Generated for Jefferson verma/Whitney/Shiloh on:?07/07/2024 04:03 PM EST
--- OUTSIDE RECORDS SUMMARY | 2024-07-07 16:03 | XMS_ITS ---
Author Organization Aaron Jung MD Address [address] [place] [phone] Care Team Providers Care Emergency Room Specialist Name Role Phone Aaron Jung Primary Care Provider Allergies Allergen (clinical drug ingredient) Drug/Non Drug Allergy documented on EMR Reaction Allergy Type Onset Date Status prednisone (uncoded) itch Allergy Active lisinopril (uncoded) cough Allergy Active Results Component [...] Problem Status W/U Status Risk Notes Problem [id number] Arthritis of right knee (M17.11) Active confirmed Vital Signs Blood pressure systolic 158 mm Hg 05/22/19 25 Blood pressure diastolic 94 mm Hg 025 Height 65.5 in 05/22/2024 Weight 226 lbs 05/22/2024 BMI 37.03 kg/m2 05/22/2024 weight is up 3 pounds since 02-07-24 Encounters Encounter Location Date Provider Diagnosis Aaron Jung MD [address] [facility] [address] [place] [phone] 05/22/2024 Aaron Jung Type 2 diabetes mellitus with other diabetic neurological complication E11.49 ; Arthritis of right knee M17.11 and Essential hypertension I10 Assessments Encounter Date Diagnosis (ICD Code) Assessment Notes Treatment Notes Treatment Clinical Notes Section Notes 05/22/2024 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) try to get her on diet. has been eating a lot thai foods. 05/22/2024 Arthritis of right knee (ICD-10 [...] on diet. has been eating a lot thai foods. Arthritis of right knee is going to spea k to pain management about injecting Essential hypertension running a bit hig h today, will coninue current regiment and will continue to monitor Next Appt Details Provider Name:Aaron posada, 07/28/2024 11:00:00 AM, [address] [place] [address], [address], [phone], Provider Name:Aaron posada, 08/18/2024 07:45:00 AM, [address] [place] [address], [address], [phone], Provider Name:Aaron posada, 01/01/2025 08:00:00 AM, [address] [place] [address], [address], [phone], Provider Name:Aaron posada, 01/08/2025 01:30:00 PM, [address] [place] [address], [address], [phone], Provider Name:Aaron posada, 07/06/2025 07:45:00 AM, [address] [place] [address], [address], [phone], Provider Name:Aaron posada, 07/12/2025 02:30:00 PM, [address] [place] [address], [address], [phone], Progress Notes * Lexi JACKSONOB:[birth year] (79 yo F)Acc No.[id number]:05/22/2024 Progress Notes Patient:Jeannine Osuna Provider:?Aaron Jung MD :1945???Age:79 Y???Sex:Female D ate:05/22/2024 Address:[address] [place], [place] [address] Subjective: * Chief Complaints: * ???3 MO [...] Value Reference Range ?Hemoglobin A1c 7.3 * SaigeRiriKelly B 5 10:54:34 AM EST > ?LAB: Glucose, finger stick* ? Value Reference Range ?Value 148 * SaigeRiriKelly B 5 10:49:58 AM EST > Notes: try to get her on diet. has been eating a lot thai foods.??2.?Arthritis of right knee? Notes: is going to speak to pain management about injecting??3.?Essential hypertension? Notes: running a bit high today, will coninue current regiment and will continue to monitor? * Procedure Codes:?07197 ASSAY , GLUCOSE, BLOOD QUANT, Modifiers: QW 82444 GLYCATED HEMOGLOBIN TEST, Modifiers: QW G2211 Complex e/m visit add on * * Sign off status: Completed true * Provider:?Aaron Jung MD Date:?0 05/22/2024 Generated for Jefferson verma/Whitney/Shiloh on:?07/07/2024 04:03 PM EST History and Physical Notes * [...]
--- OUTSIDE RECORDS SUMMARY | 2024-07-07 16:03 | XMS_ITS | Continuity of Care Document ---
Author Organization [facility], PAIN OFFICE Address [address] [facility] [address] [place] [address] Care Team Providers Care Lead Press Operator Name Role Phone CHELISNEHA Primary Care Provider [phone] JOSUÉ ABURTO Referring Provider Assessment Encounter Date Assessment Date Assessment LastModified [...] By Organization Details Last Modified Time 06/17/2024 59021 She was advised against bed rest lasting longer than four days and to continue activities as tolerated. [email or web address] Not available 06/17/2024 10:28:26 Reason for Referral None Reported. Problems Name Problem SNOMED Code Status Onset Date Resolution Date Notes Provider Name and Address Organization Details Recorded Time Spinal stenosis of lumbar region 62984837 Active 2016 Hemant can MD [address] , [address], [facility] [place], [address], [place] [facility] 7 08:34:01 Lumbosacral spondylosis without myelopathy 60686957 Active 2016 Hemant can MD [address] , [address], [facility] [place], [address], [place] [facility] 7 08:34:03 Lumbosacral radiculitis 83848176 Active 2016 Hemant can MD [address] , [address], [facility] [place], [address], [place] [facility] 7 08:34:04 Displacement of lumbar intervertebral disc without myelopathy 73957905 Active 2016 Hemant can MD [address] , [address], [facility] [place] [place], [address], [place] [facility] 7 08:34:06 Problem Notes None recorded. Procedures Surgical History Date Name Laterality Status Provider Name and Address Organization Details Recorded Time 06/17/19 25 Lumbar Epidural steroid injection under fluoroscopic guidance completed Hemant Gilliland MD [address] , [address], [place], [address], [place] [facility] 06/17/2024 10:29:05 02/26/20 24 Lumbar Epidural steroid injection under fluoroscopic guidance completed Hemant Gilliland MD [address] , [address], [place], [address], [place] [facility] 02/26/2024 10:55:55 11/26/19 24 Lumbar Epidural steroid injection under fluoroscopic guidance completed Hemant Gilliland MD [address] , [address], [place], [address], [place] [facility] 11/26/2023 10:58:51 07/24/19 24 Lumbar Epidural steroid injection under fluoroscopic guidance completed Hemant Gilliland MD [address] , [address], [place], [address], [place] [facility] 07/24/2023 09:51:45 03/05/20 23 Lumbar Epidural steroid injection under fluoroscopic guidance completed Hemant Gilliland MD [address] , [address], [place], [address], [place] [facility] 03/05/2023 15:21:47 11/29/19 23 Lumbar Epidural steroid injection under fluoroscopic guidance completed Hemant Gilliland MD [address] , [address], [place], [address], [place] [facility] 11/28/2022 11:02:20 08/08/19 23 Lumbar Epidural steroid injection under fluoroscopic guidance completed Hemant Gilliland MD [address] , [address], [place], [address], [place] [facility] 08/07/2022 10:32:00 04/10/20 22 Lumbar Epidural steroid injection under fluoroscopic guidance completed Hemant Gilliland MD [address] , [address], [place], [address], [place] [facility] 04/10/2022 11:30:45 12/13/19 22 Lumbar Epidural steroid injection under fluoroscopic guidance completed Hemant Gilliland MD [address] , [address], [place], [address], [place] [facility] 12/12/2021 15:15:30 04/19/20 21 Lumbar Epidural steroid injection under fluoroscopic guidance completed Hemant Gilliland MD [address] , [address], [place], [address], [place] [facility] 04/19/2021 09:52:53 08/24/19 21 Lumbar Epidural steroid injection under fluoroscopic guidance completed Hemant Gilliland MD [address] , [address], [place], [address], [place] [facility] 08/23/2020 16:10:02 12/08/19 20 Lumbar Epidural steroid injection under fluoroscopic guidance completed Hemant Gilliland MD [address] , [address], [place], [address], [place] [facility] 12/08/2019 14:48:27 07/01/19 20 Lumbar Epidural steroid injection under fluoroscopic guidance completed Hemant Gilliland MD [address] , [address], [place], [address], [place] [facility] 07/01/2019 14:51:41 04/30/20 17 Lumbar Epidural steroid injection under fluoroscopic guidance completed Hemant Gilliland MD [address] , [address], [place], [address], [place] [facility] 04/30/2017 10:31:02 [...] Not available Not available Not available 08/07/2022 21617 91 RxNorm Shahrzad middleton [place] - [place] [...] completed Not Available Not Available Not Available [id number]-the -[id number]-B6- X74-I-K7 active Not Available Not Available Not Available [...] Is Your Level Of Alcohol Consumption? None [id number] Information not available 03/04/2020 Are You Currently Employed? No [id number] Information not available 03/04/2020 Which Illicit Or Recreational Drugs Have You Used? No [id number] Information not available 03/04/2020 Education 12 Information no t available 04/19/2017 Live Alone Or With Others? With Others Information not available 04/19/2017 Marital Status Informatio n not available 04/19/2017 What Was The Date Of Your Most Recent Tobacco Screening? 05/31/2017 [id number] Information not available 03/04/2020 Sex: Unknown Functional [...] SNOMED-CT Code Diagnosis ICD10 Code Diagnosis Note 96548 Hemant Gilliland MD PAIN OFFICE [address] [facility],[address] [place] [address] 06/17/2024 09:26:21 06/17/2024 15:24:12 Lumbosacral radiculitis 44078297 M54.17 Spinal susie nosis of lumbar region 14540858 M48.062 Displaceme nt of lumbar intervertebral disc without myelopathy 71812158 M51.26 Health Concerns Section Related Observation LastModified by Organization Detai ls LastModified Time None Recorded Concern Status LastModified by Organization Details LastModified Time None Recorded Payers Encounter Date Sequence Insurance Name Policy Number Policy Ga Covered Member ID Ga Member ID Guarantor Name 06/17/2024 1 [place] [employer] Jeannine Mejia Parenteau [id number] Jeannine Parenteau 06/17/2024 2 [place] [id number] Jeannine A Parenteau [id number] Jeannine Parenteau Notes Date Note Type Note Provider Name and Address Organization Details Recorded Time 06/17/2024 text/html She is here for a lumbar epidural steroid injection under fluoroscopic guidance. Hemant Gilliland MD [address] , [address], [place], [address], [facility] - [facility] 06/17/2024 15:28:10 OBGyn Episode No OBEpisode recorded.
--- OUTSIDE RECORDS SUMMARY | 2024-07-07 16:04 | XMS_ITS | Patient Health Record ---
Author Organization [facility] Address [address] [place] [address] Care Team Providers Care Drum Dyeing Machine Operator Name Role Phone Aaron Jung MD Primary Care Provider Armani Guadarrama Unavailable [phone] Allergies Allergen (clinical drug ingredient) Drug/Non Drug Allergy documented on EMR Reaction Allergy Type Onset Date Status Latex Latex Unknown Allergy Active Reason For Referral No Information Medications Medication SIG (Take, Route, Frequency, Duration) Notes Start Date End Date Status rOPINIRole HCl 3 MG 1 tablet 1 to 3 hour s before bedtime Orally Once a day Active Atorvastatin Calcium 40 MG 1 tablet Oral ly Once a day Active Valsartan 160 MG 1 tablet Orally Once a day Active hydroCHLOROthiazide 25 MG 1 tablet in th e morning Orally Once a day Active Gabapentin 600 MG 1 tablet Orally Once a day Active Ciclopirox Olamine 0.77 % 1 application Externally Twice a day for 30 days Active Furosemide 20 MG Oral for 30 Days Active Social History Tobacco Use: Social History Observation Description Date Details (start date - stop date) Never Smoker NA - NA Tobacco Use/Smoking Question Answer Notes Are you a: nonsmoker Additional Findings: Tobacco Non-User Current no n-smoker Alcohol Screen Question Answer Notes Did you have a drink containing alcohol in the p ast year? No Points 0 Interpretation Negative Tobacco use other than smoking: Question Answer Notes Are you an other tobacco user? No Problems Problem Type SNOMED Code ICD Code Onset Dates Problem Status W/U Status Risk Notes Problem 759336324 Neuropathy (G62.9) Active confirmed Problem Atherosclerosis of mi[place]kmaq arteries of the extremities (476266157534265) Atherosclerosis of mi'kmaq artery of both lower extremities, with unspecified presence of clinical manifestation (I70.203) Active confirmed Vital Signs Height 5ft 5in in 01/27/2024 Weight 223 lbs 01/27/2024 BMI 37.11 kg/m2 01/27/2024 Procedures Procedure Date Ordered Date Performed Result Body Sit e 40970-MHVFQFQ NAIL, 1-5 10/28/2023 N/A 35513-XLCE SKIN LESIONS, 2 TO 4 10/28/2023 N/A E7958-VOQKCVZH DYSTROPHIC NAILS ANY # 10/28/2023 N/A 62076-AOZWEZM NAIL, 1-5 01/27/2024 N/A 21141-LPJR SKIN LESIONS, 2 TO 4 01/27/2024 N/A H0337-EWGJXJNW DYSTROPHIC NAILS ANY # 01/27/2024 N/A Encounters Encounter Location Date Provider Diagnosis [facility] [address] 10/28/2023 Armani Giraldo Atherosclerosis of mi'kmaq artery of both lower extremities, with unspecified presence of clinical manifestation I70.203 ; Tinea unguium B35.1 ; Pain in right toe(s) M79.674 and Pain in left toe(s) M79.[address] [address] 01/27/2024 Armani Giraldo Atherosclerosis of mi'kmaq artery of both lower extremities, with unspecified presence of clinical manifestation I70.203 ; Tinea unguium B35.1 ; Pain in right toe(s) M79.674 and Pain in left toe(s) M79.[address] [address] 09/19/2023 Armani Giraldo [address] [address] 04/29/2024 Armani Giraldo Assessments Encounter Date Diagnosis (ICD Code) Assessment Notes Treatment Notes Treatment Clinical Notes Section Notes 10/28/2023 Tinea unguium (ICD-10 - B35.1) 10/28/2023 Atherosclerosis of mi'kmaq artery of both lower extremities, with unspecified presence of clinical manifestation (ICD-10 - I70.203) 01/27/2024 Tinea unguium (ICD-10 - B35.1) 01/27/2024 Atherosclerosis of mi'kmaq artery of both lower extremities, with unspecified presence of clinical manifestation (ICD-10 - I70.203) 10/28/2023 Pain in right toe(s) (ICD-10 - M79.674) 01/27/2024 Pain in right toe(s) (ICD-10 - M79.674) 01/27/2024 Pain in left toe(s) (ICD-10 - M79.675) 10/28/2023 Pain in left toe(s) (ICD-10 - M79.675) Plan Of Treatment Pending Test Test Name Order Date 42274-GBFSZHJ NAIL, -12/19/2022 25510-QOEBJBM NAIL, -03/21/2023 68463-ZDGPAHP NAIL, -06/27/2023 86487-MDFFGAY NAIL, -10/28/2023 86248-TRBDHUN NAIL, -01/27/2024 85247-OBMB SKIN LESIONS, 2 TO 4 01/27/20 24 41325-YSHS SKIN LESIONS, 2 TO 4 10/28/19 24 30667-VPKC SKIN LESIONS, 2 TO 4 06/27/19 24 63923-AOFD SKIN LESIONS, 2 TO 4 12/20/19 23 61887-LCKZ SKIN LESIONS, 2 TO 4 03/21/20 23 X6159-WPISTJYZ DYSTROPHIC NAILS ANY # A9464-LVYHUXLP DYSTROPHIC NAILS ANY # A8749-SAOCNPAK DYSTROPHIC NAILS ANY # I2445-NTVHVYAA DYSTROPHIC NAILS ANY # J0302-CLSSMBAG DYSTROPHIC NAILS ANY # Next Appt Details Provider Name:Armani Mayra Giraldo , 08/03/2024 02:30:00 PM, [address] [facility], [place] [address], [place], [address], Insurance Providers Payer Name Payer Address Payer Phone Subscriber Number Group Number Insured Name Patient Relationship to Insured Coverage Start Date Coverage End Date Medicare National [employer] [address] [place] [address] [id number] Jeannine Rg Self - patient [facility] the insured [facility] [address] [place], [place] [address] [id number] Jeannine Rg Self - patient is the insured Medical (General) History Medical History History ICD Code Back,Hip,and Knee pain High blood pressure Numbness Sciatica Measles Chicken pox Surgical History Surgery Date(Month/Year) hysterectomoy knee surgery
--- OUTSIDE RECORDS SUMMARY | 2024-07-07 16:04 | XMS_ITS ---
Author Organization [facility] Address [address] [place] [address] Care Team Providers Care Behavioral Health Care Coordinator Name Role Phone Aaron Jung MD Primary Care Provider Armani Guadarrama Unavailable [phone] Allergies Allergen (clinical drug ingredient) Drug/Non Drug Allergy documented on EMR Reaction Allergy Type Onset Date Status Latex Latex Unknown Allergy Active REASON FOR VISIT At Risk Footcare, Painful Nail(s) aggrevated by shoes and causing difficulty standing/walking. Medications Medication SIG (Take, Route, Frequency, Duration) Notes Start Date End Date Status Valsartan 160 MG 1 tablet Orally Once a day Active hydroCHLOROthiazide 25 MG 1 tablet in th e morning Orally Once a day Active Gabapentin 600 MG 1 tablet Orally Once a day Active Ciclopirox Olamine 0.77 % 1 application Externally Twice a day for 30 days Active Furosemide 20 MG Oral for 30 Days Active rOPINIRole HCl 3 MG 1 tablet 1 to 3 hour s before bedtime Orally Once a day Active Atorvastatin Calcium 40 MG 1 tablet Oral ly Once a day Active Social History Tobacco Use: [...] Are you an other tobacco user? No Vital Signs Height 5ft 5in in 01/27/2024 Weight 223 lbs 01/27/2024 BMI 37.11 kg/m2 01/27/2024 Procedures Procedure Date Ordered Date Performed Result Body Sit e 54642-MEWFUJI NAIL, 1-5 01/27/2024 N/A 83434-SPCM SKIN LESIONS, 2 TO 4 01/27/2024 N/A W8211-QUGVGMTY DYSTROPHIC NAILS ANY # 01/27/2024 N/A Encounters Encounter Location Date Provider Diagnosis [facility] [place] [address] [place] [phone] 01/27/2024 Armani Giraldo Atherosclerosis of shoshone-paiute artery of both lower extremities, with unspecified presence of clinical manifestation I70.203 ; Tinea unguium B35.1 ; Pain in right toe(s) M79.674 and Pain in left toe(s) M79.675 Assessments Encounter Date Diagnosis (ICD Code) Assessment Notes Treatment Notes Treatment Clinical Notes Section Notes 01/27/2024 Atherosclerosis of shoshone-paiute artery of both lower extremities, with unspecified presence of clinical manifestation (ICD-10 - I70.203) 01/27/2024 Tinea unguium (ICD-10 - B35.1) 01/27/2024 Pain in right toe(s) (ICD-10 - M79.674) 01/27/2024 Pain in left toe(s) (ICD-10 - M79.675) Plan Of Treatment Pending Test Test Name Order Date 07755-CWYGGOS NAIL, 1-5 01/27/2024 09923-QEDT SKIN LESIONS, 2 TO 4 01/27/20 24 A6024-IZNNMEHE DYSTROPHIC NAILS ANY # Next Appt Details Follow Up: prn, Reason: Provider Name:Armani Giraldo , 08/03/2024 02:30:00 PM, [address] [address], [place], [phone], Procedure Notes * Category Sub-Category Detail Notes Keratoma Treatment Parring or Cutting o f Benign Hyperkeratotic Lesion(s) (-56) 2-4 Lesions - The Benign hyperkeratotic lesions, as described above were pared, and/or cut utilizing a sterile 15 blade, tissue nippers, and/or dremel - 91685 , Q8 Debride Nails 1-5 Procedure: Performance of this nail treatment by a nonprofessional would put this patients foot and overall health at risk. Therefore, nail debridement was performed extensively to reduce/remove overall nail length, girth, thickness, subungual debris, and necrotic tissue, by manual and/or electrical means through the use of a nail nipper and/or dremel-type nut grinder, to a more viable healthy nail plate or bed tissue 1-5. Silver nitrate used for any petechial bleeding as necessary. Definitive antifungal treatment options have been reviewed and discussed with the patient. The patient chooses, no pharmaceutical tx - 58569 Nail Reduction Nail Reduction Trimming of dyst rophic nails performed to reduce/remove overall nail length and girth, by manual and electrical means with use of a nail nipper and/or dremel, to more viable healthy nail plate or bed tissue, any number - G0127, Q8 Progress Notes * Glenys JACKSONChristineOB:[birth year] (78 yo F)Acc No.[id number]:01/27/2024 Progress Note Patient:?Jeannine Jackson Provider:?Armani Giraldo DPM :1945???Age:78 Y???Sex:Female D ate:01/27/2024 Address:[address] [place], [place] [phone] Pcp:Aaron Jung MD Subjective: * Chief Complaints: * ???At Risk FootcarePainful N ail(s) aggrevated by shoes and causing difficulty standing/walking. * HPI: ???At Risk footcare:?Pt States Last PCP Visit:?Date?01/03/2024 * ROS:?General/Constitutional:?Nausea?denies.?Vomiting?denies.?Hunger Thirst?denies.?Loss appetite?denies.?Chills?denies.?Fatigue?denies.?Fever?denies.?Night Sweats?denies.?Unexplained weight loss?denies.?Unexplained weight gain?denies.?HEENTM:?Dentures?admits.?Dizziness?denies.?Glasses/contacts?admits.?Retinopathy?de nies.?Blurred/double vision?denies.?TMJ?denies.?Discharge/drainage?denies.?Implants?denies.?Sore throat?denies.?Dental implants?denies.?Hard of hearing ?denies.?Difficulty chewing/swallowing/speaking?denies.?Nose bleeds?denies.?Sore mouth?denies.?Respiratory:?On Oxygen?denies.?Pneumonia/pleurisy?denies.?Bronchitis?denies.?Emphysema?denies.?C oughing?denies.?Cough blood?denies.?Shortness of breath?denies.?Wheezing?denies.?Cardiovascular:?Pacemaker?denies.?MVP?denies.?WPW?denies.?CHF?denies.?Heart attack?denies.?Septal defect?denies.?Rapid beat?denies.?Chest pain ?denies.?Atrial Fib.?denies.?Murmur/Palpitations?denies.?Gastrointestinal:?Hemorrhoids?denies.?Stomach/Abdominal pain?denies.?Dark blood stool?denies.?Irritable bowel ?denies.?Constipation?denies.?Diarrhea?denies.?Hematology:?Swelling?admits.?Clots?denies.?Varicose Veins?denies.?Bruising?denies.?Bleeding problem?denies.?Genitourinary:?Blood urine?denies.?Frequent/Painfu/urination/bladder control?denies.?Kidney stones?denies.?Infection (UTI)?denies.?Nephropathy?admits.?sex trans dis (STD)?denies.?Prostate?denies.?Musculoskeletal:?Hammertoes?denies.?Bunions?denies.?Back Pain?admits.?Muscle Cramps/ Resting?denies.?Muscle cramps / walking?denies.?Generalized aches and pains?denies.?Weakness?denies.?Integ.:?Jones?denies.?Scars?denies.?Corns/calluses?admits.?Ingrown nails?admits.?Painful nails?denies.?Open Sores?denies.?Rashes?denies.?Neurologic:?Difficulty sleeping?denies.?Brain disorder?denies.?Numbness?admits.?Balance trouble?denies.?Confusion?denies.?Fainting/blackouts?denies.?Tingling?admits, bilateral lower extremities, in the toes, that is severe, which is constant.?Tremors?denies.? * Medical History:? * Surgical History:?hysterecto garrett knee surgery * Hospitalization/Major Diagno stic Procedure:?No Hospitalization History. * Family History:?Mother: dece ased, diagnosed with Family history of arthritis, Other malignant neoplasm of unspecified site.?Father: .?Spouse: alive.? * Social History:?Tobacco Use:?Tobacco Use/Smoking?Are you a:?nonsmoker ?Additional Findings: Tobacco Non-User?Current non-smoker ?Tobacco use other than smoking?Are you an other tobacco user??No ???Drugs/Alcohol:?Drugs?Have you used drugs other than those for medical reasons in the past 12 months??No ?Alcohol Screen?Did you have a drink containing alcohol in the past year??No ?Points?0 ?Interpretation?Negative ???Miscellaneous:?no Caffeine. ?Children: yes, 2. ?no Exercise. ?Marital status: . ?Occupation: Retired. * Medications:?TakingAtorvasta tin Calcium 40 MG Tablet 1 tablet Orally Once a dayFurosemide 20 MG Tablet Oral Gabapentin 600 MG Tablet 1 tablet Orally Once a dayhydroCHLOROthiazide 25 MG Tablet 1 tablet in the morning Orally Once a dayValsartan 160 MG Tablet 1 tablet Orally Once a dayrOPINIRole HCl 3 MG Tablet 1 tablet 1 to 3 hours before bedtime Orally Once a dayCiclopirox Olamine 0.77 % Cream 1 application Externally Twice a dayMedication List reviewed and reconciled with the patientTaking Atorvastatin Calcium 40 MG Tablet 1 tablet Orally Once a dayTaking Furosemide 20 MG Tablet Oral Taking Gabapentin 600 MG Tablet 1 tablet Orally Once a dayTaking hydroCHLOROthiazide 25 MG Tablet 1 tablet in the morning Orally Once a dayTaking Valsartan 160 MG Tablet 1 tablet Orally Once a dayTaking rOPINIRole HCl 3 MG Tablet 1 tablet 1 to 3 hours before bedtime Orally Once a dayTaking Ciclopirox Olamine 0.77 % Cream 1 application Externally Twice a dayMedication List reviewed and reconciled with the patient * Allergies:?Latexyes[Allergie s Verified] Objective: * Vitals:?Ht: 5ft 5in, Wt:223, BMI: 37.11, Shoe size:9.5, Ht-cm: 165.1 cm, Wt-k.15 kg. * Examination: ???Vascular: ?DP PULSES:?0/4, B/L.?PT PULSES:?0/4, B/L.?CAPILLARY FILL TIME:?3 secs. per digit, B/L.?SKIN TEMPERTURE GRADIENT OF THE LOWER EXTERMITIES:?normal, warm to cool, proximal to distal, B/L.?HAIR GROWTH/TEXTURE/ELASTICITY/TURGOR:?normal, B/L.?PIGMENTATION:?rubrous, B/L.?EDEMA:?2/4 , non-pitting , without aching pain , B/L , Leg(s) , Ankle(s) , Feet.?CLAUDICATION:?denies, B/L.?REST PAIN:?denies, B/L.?Nails: ?NAILS are:?Elongated, overgrown, dystrophic, lytic, greater than 3mm thick, discolored and friable with crumbly malodorous subungual debris , T4 , T9 , remaining nails are elongated, overgrown, dystrophic.?Dermatologic: ?SKIN FINDINGS:?Skin exam reveals Keratotic lesion(s) located at , Heel(s) , B/L.? Assessment: * Assessment: 1.?Tinea unguium - B35.1?2.? Atherosclerosis of shoshone-paiute artery of both lower extremities, with unspecified presence of clinical manifestation - I70.203?3.?Pain in right toe(s) - M79.674?4.?Pain in left toe(s) - M79.675? Plan: * Treatment: 2.?Atherosclerosis of shoshone-paiute artery of both lower extremities, with unspecified presence of clinical manifestation?Procedure: 73218-MFFK SKIN LESIONS, 2 TO 4 ?Procedure: W3895-FJUCAOJP DYSTROPHIC NAILS ANY # * Procedures:?Debride Nails 1-5:?Procedure:?Performance of this nail treatment by a nonprofessional would put this patients foot and overall health at risk. Therefore, nail debridement was performed extensively to reduce/remove overall nail length, girth, thickness, subungual debris, and necrotic tissue, by manual and/or electrical means through the use of a nail nipper and/or dremel-type nut grinder, to a more viable healthy nail plate or bed tissue 1-5. Silver nitrate used for any petechial bleeding as necessary. Definitive antifungal treatment options have been reviewed and discussed with the patient. The patient chooses, no pharmaceutical tx - 47183.?Keratoma Treatment:?Parring or Cutting of Benign Hyperkeratotic Lesion(s)?(-56) 2-4 Lesions - The Benign hyperkeratotic lesions, as described above were pared, and/or cut utilizing a sterile 15 blade, tissue nippers, and/or dremel - 11717 , Q8.?Nail Reduction:?Nail Reduction?Trimming of dystrophic nails performed to reduce/remove overall nail length and girth, by manual and electrical means with use of a nail nipper and/or dremel, to more viable healthy nail plate or bed tissue, any number - G0127, Q8.? * Procedure Codes:?12616 TRIM SKIN LESIONS, 2 TO 4, Modifiers: XS , [id number] TRIMMING DYSTROPHIC NAILS ANY #, Modifiers: XS , [id number] DEBRIDE NAIL, 1-5, Modifiers: XS * Follow Up:?prn * Images: * Sign off status: Completed true * Provider:?Armani Giraldo DPM Date:?2023 Generated for Jefferson verma/Whitney/Shiloh on:?07/07/2024 04:03 PM EST History and Physical Notes * HPI (History of Present Illness) Category Sub-Category Detail Notes Category Not es At Risk footcare Pt States Last PCP Visit: Date: Examination Category Sub-Category Detail Notes Category Not es Dermatologic SKIN FINDINGS: Skin exam reveal s Keratotic lesion(s) located at , Heel(s) , B/L Vascular DP PULSES (B): 0/4, B/L PT PULSES (B): 0/4, B/L CAPILLARY FILL TIME: 3 secs. per digit, B/L TEMPERTURE GRADIENT (C): normal, warm to cool, proximal to distal, B/L TROPHIC CONDITION-TEXTURE/ELASTICITY/TURGOR/HAIR GROWTH (B): normal, B/L EDEMA (C): 2/4 , non-pitting , without aching pain , B/L , Leg(s) , Ankle(s) , Feet CLAUDICATION (C): denies, B/L REST PAIN: denies, B/L PIGMENTATION: rubrous, B/L Nails NAILS are: Elongated, overg rown, dystrophic, lytic, greater than 3mm thick, discolored and friable with crumbly malodorous subungual debris , T4 , T9 , remaining nails are elongated, overgrown, dystrophic
== END 2024-07-07 15:06 | disposition home or self-care (01) ==
LOC: HO.XRAY 15:05
PROVIDERS: PCP Internal Medicine; Visit Provider Internal Medicine
DX: M25.552 Pain in left hip (principal)
CPT/HCPCS: 73502

== ENCOUNTER → 2024-07-07 15:13 | Outpatient (BNV) | payer MEDICARE, SELFPAY | PROVIDERS: PCP Internal Medicine; Visit Provider Radiology Diagnostic Radiology | DX: M25.552 Pain in left hip (principal) | CPT/HCPCS: 73502 ==

== ENCOUNTER 2024-08-20 13:19 | Outpatient (REF) | payer MEDICARE, SELFPAY ==
[2024-08-20 13:52] LABS: Blood Urea Nitrogen 16 mg/dL (9-16); Estimated Glomerular Filt Rate > 60
--- OUTSIDE RECORDS SUMMARY | 2024-08-20 14:32 | XMS_ITS ---
Author Organization Aaron Jung MD Address [address] [place] [phone] Care Team Providers Care Construction Area Manager Name Role Phone Aaron Jung Primary Care Provider Results Component Value Reference Range Notes Blood Urea Nitrogen (Not yet reviewed by provider) Interpretation: Performing Lab:[facility], [address] [place] [phone] Notes/Report: Blood Urea Nitrogen 16 9-16 mg/dL Creatinine (Not yet reviewe d by provider) Interpretation: Performing Lab:[facility], [address] [place] [phone] Notes/Report: Creatinine 0.87 0.5-1.4 mg/dL Estimated Glomerular Filt Rate > 60 Chronic Kidney Disease: Estimated GFR < 60 mL/min/1.73m2 Severe Kidney Disease: Estimated GFR < 15 mL/min/1.73m2 REASON FOR VISIT BUN, CREATININE Encounters Encounter Location Date Provider Diagnosis Aaron Jung MD [address] [place] [phone] 08/20/2024 Aaron Jung Elevated BUN R79.9 Assessments Encounter Date Diagnosis (ICD Code) Assessment Notes Treatment Notes Treatment Clinical Notes Section Notes 08/20/2024 Elevated BUN (ICD-10 - R79.9) Plan Of Treatment Pending Test Test Name Order Date Blood Urea Nitrogen 08/20/2024 Creatinine 08/20/2024 Next Appt Details Provider Name:Aaron Villarreal ier, 08/25/2024 11:00:00 AM, [address] [place] [address], [address], [phone], Provider Name:Aaron posada, 01/01/2025 08:00:00 AM, [address] [place] [address], [address], [phone], Provider Name:Aaron cookr, 01/08/2025 01:30:00 PM, [address] [place] [address], [address], [phone], Provider Name:Aaron posada, 07/06/2025 07:45:00 AM, [address] [place] [address], [address], [phone], Provider Name:Aaron cookr, 07/12/2025 02:30:00 PM, [address] [place] [address], [address], [phone], Progress Notes * Glenys JACKSONChristineOB:[birth year] (79 yo F)Acc No.[id number]:08/20/2024 Progress Note Patient:?Jeannine JACKSON Provider:?Aaron Jung MD :1945???Age:79 Y???Sex:Female D ate:08/20/2024 Address:[address] [place], [place] [phone] Subjective: * Chief Complaints: * ???1. BUN, CREATININE. * Medical History:? Objective: * Vitals:? Assessment: * Assessment: 1.?Elevated BUN - R79.9??? Plan: * Treatment: * * The named appointment provid er may or may not be the originator of this progress note, and it is not deemed complete until electronically signed by the appointment provider. Sign off status: Pending * Provider:?Aaron Jung MD Date:?0 08/20/2024 Generated for Jefferson verma/Whitney/eTransmitting on:?08/20/2024 02:32 PM EDT
--- OUTSIDE RECORDS SUMMARY | 2024-08-20 14:32 | XMS_ITS ---
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 Name Role Phone Aaron Jung Primary Care Provider Allergies Allergen (clinical drug ingredient) Drug/Non Drug Allergy documented on EMR Reaction Allergy Type Onset Date Status prednisone (uncoded) itch Allergy Active lisinopril lisinopril (uncoded) cough Allergy Active REASON FOR VISIT 3 WEEK F/U Medications Medication SIG (Take, Route, Frequency, Duration) Notes Start Date End Date Status Ibuprofen 800 MG 1 tablet Orally Thre e times a day for 30 day(s) 02/23/2014 Not-Taking Tylenol Extra Strength 500 MG 2 tablets Orally every 6 hrs Not-Taking Cyclobenzaprine HCl 5 MG 1 tablet at bed time as needed Orally 3 times a day for 10 Not-Taking Diprolene AF 0.05 % 1 application to affected area Externally Once a day 10/14/2012 Not-Taking Betamethasone Dipropionate 0.05 % 1 application to affected area Externally Once a day for 30 days 09/26/2012 Not-Taking Farxiga 5 mg 1 tablet Orally once a day in a.m. 07/05/2023 Active Atorvastatin Calcium 40 MG TAKE 1 TABLET BY MOUTH EVERY DAY for 90 Active Valsartan 160 MG TAKE 1 TABLET BY LORIN TH EVERY DAY for 90 Active Januvia 50 MG as directed Orally Once a day for 30 days 01/03/2024 Not-Takin g Gabapentin 600 MG TAKE 1 TABLET BY LORIN TH THREE TIMES DAILY for 30 Active Calcium + D 500-1000-40 MG-UNT-MCG 2 tablets once a day Active rOPINIRole HCl 3 MG 1 tablet Orally twic e a day Active Furosemide 20 MG TAKE 1 TABLET BY LORIN TH EVERY DAY for 90 Active Vitamin D (Cholecalciferol) 400 UNIT 1 capsule Orally Once a day Active CoQ-10 50 MG 1 capsule with a teetee l Orally Once a day Active Vital Signs Blood pressure systolic 172 mm Hg 07/29/19 25 Blood pressure diastolic 74 mm Hg 025 Height 65.5 in 07/28/2024 Weight 220 lbs 07/28/2024 BMI 36.05 kg/m2 07/28/2024 weight is down 1 pound since 07-07-24 Encounters Encounter Location Date Provider Diagnosis Aaron Jnug MD [address] [facility] [address] [place] [phone] 07/28/2024 Aaron Jung Essential hypertension I10 ; Type 2 diabetes, controlled, 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 and Shortness of breath R06.02 Assessments Encounter Date Diagnosis (ICD Code) Assessment Notes Treatment Notes Treatment Clinical Notes Section Notes 07/28/2024 Essential hypertension (ICD-10 - I10) a little high. will observe 07/28/2024 Type 2 diabetes, controlled, 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) is going to see neuro for the neuropathy 07/28/2024 Shortness of breath (ICD-10 - R06.02) lungs sound clear. is under a lot of stress Plan Of Treatment Treatment Notes Assessment Notes Essential hypertension a little high. wi ll observe Type 2 diabetes, controlled, with neurop athy is going to see neuro for the neuropathy Shortness of breath lungs sound clear. i s under a lot of stress Next Appt Details Follow Up: 4 Weeks, Reason: shortness of breath Provider Name:Aaron posada, 08/25/2024 11:00:00 AM, [address], [address], [place], [phone], Provider Name:Aaron posada, 01/01/2025 08:00:00 AM, [address], [address], [place], [place], [phone], Provider Name:Aaron posada, 01/08/2025 01:30:00 PM, [address], [address], [place], [phone], Provider Name:Aaron posada, 07/06/2025 07:45:00 AM, [address], Suite [facility], [place], [phone], Provider Name:Aaron posada, 07/12/2025 02:30:00 PM, [address], [address], [place], [phone], Progress Notes * Glenys JACKSONChristineOB:[birth year] (79 yo F)Acc No.[id number]:07/28/2024 Progress Notes Patient:Jeannine INGRAM Provider:?Aaron Jung MD :1945???Age:79 Y???Sex:Female D ate:07/28/2024 Address:[address] [place], [place] [phone] Subjective: * Chief Complaints: * ???3 WEEK F/U * HPI: ???Symptom(s):? hip is good at times and sometimes severe pain. no radiation down leg. * ROS:?General/Constitutional:?Denies?Chills.?Denies?Fatigue.?Denies?Fever.?Denies?Headache.?ENT:?Denies?Sore throat.?Respiratory:?Patient complaining of?getting short of breath since last week. not all the time but is happening more. no chest pains.?Denies?Cough.?Denies?Shortness of breath at rest.?Denies?Shortness of breath with exertion.?Gastrointestinal:?Denies?Diarrhea.?Denies?Nausea.? * Medical History:? * Surgical History:? * Hospitalization/Major Diagno stic Procedure:? * Medications:?TakingrOPINIRol e HCl 3 MG Tablet 1 tablet Orally twice a day Calcium + D 500-1000-40 MG-UNT-MCG Tablet Chewable 2 tablets once a day CoQ-10 50 MG Capsule 1 capsule with a meal Orally Once a day Vitamin D (Cholecalciferol) 400 UNIT Capsule 1 capsule Orally Once a day Furosemide 20 MG Tablet TAKE 1 TABLET BY MOUTH EVERY DAY Gabapentin 600 MG Tablet TAKE 1 TABLET BY MOUTH THREE TIMES DAILY Valsartan 160 MG Tablet TAKE 1 TABLET BY MOUTH EVERY DAY Atorvastatin Calcium 40 MG Tablet TAKE 1 TABLET BY MOUTH EVERY DAY Farxiga 5 mg Tablet 1 tablet Orally once a day in a.m. Taking rOPINIRole HCl 3 MG Tablet 1 tablet Orally twice a day Taking Calcium + D 500-1000-40 MG-UNT-MCG Tablet Chewable 2 tablets once a day Taking CoQ-10 50 MG Capsule 1 capsule with a meal Orally Once a day Taking Vitamin D (Cholecalciferol) 400 UNIT Capsule 1 capsule Orally Once a day Taking Furosemide 20 MG Tablet TAKE 1 TABLET BY MOUTH EVERY DAY Taking Gabapentin 600 MG Tablet TAKE 1 TABLET BY MOUTH THREE TIMES DAILY Taking Valsartan 160 MG Tablet TAKE 1 TABLET BY MOUTH EVERY DAY Taking Atorvastatin Calcium 40 MG Tablet TAKE 1 TABLET BY MOUTH EVERY DAY Taking Farxiga 5 mg Tablet 1 tablet Orally once a day in a.m. Not-Taking/PRNJanuvia 50 MG Tablet as directed Orally Once a day Cyclobenzaprine HCl 5 MG Tablet 1 tablet at bedtime as needed Orally 3 times a day Tylenol Extra Strength 500 MG Tablet 2 tablets Orally every 6 hrs Ibuprofen 800 MG Tablet 1 tablet Orally Three times a day Betamethasone Dipropionate 0.05 % Cream 1 application to affected area Externally Once a day Diprolene AF 0.05 % Cream 1 application to affected area Externally Once a day Medication List reviewed and reconciled with the patientNot-Taking/PRN Januvia 50 MG Tablet as directed Orally Once a day Not-Taking/PRN Cyclobenzaprine HCl 5 MG Tablet 1 tablet at bedtime as needed Orally 3 times a day Not-Taking/PRN Tylenol Extra Strength 500 MG Tablet 2 tablets Orally every 6 hrs Not-Taking/PRN Ibuprofen 800 MG Tablet 1 tablet Orally Three times a day Not-Taking/PRN Betamethasone Dipropionate 0.05 % Cream 1 application to affected area Externally Once a day Not-Taking/PRN Diprolene AF 0.05 % Cream 1 application to affected area Externally Once a day Medication List reviewed and reconciled with the patient * Allergies:?lisinopril: cough prednisone: itch - Side Effectsyes[Allergies Verified] Objective: * Vitals:?Ht: 65.5, Wt: 220, B VT:36.05, BP:172/74, Repeat BP:142/88, Wt-k.79. weight is down 1 pound since 07-07-24. * ???Past Orders: ???Lab:Comprehensive [place]. P loan Fast (Order Date - 06/30/2024) [...] mg/dL ?Calcium 10.1 8.4-10.2 - m g/dL ???Lab:Complete Blood Count Auto Diff (Order Date [...] Conc 31.8 31.0-35.0 - g/dl ?Red Cell Distributio n Width 14.8 11.0-16.0 - % ?Platelet Count [...] Abs Auto 0.000 0.0-0. 012 - X10*3/uL ???Lab:UA ClnCatch+Micro w/r flx Cult (Order Date - 06/30/2024) (Collection Date & Time - 06/30/2024 07:45 AM) ? Value Reference Range ?Color Urine Yellow - ?Appearance Urine Clear - ?PH 6.5 5.0-9.0 - ?Glucose Urine UA Negative Neg ative - mg/dL ?Urine Blood Negative Negative - ?Specific [place] - Urine 1.020 1.005-1.025 - ?Urine Protein [...] 0-2 0-2 - /LPF ???Lab:Hemoglobin A1c (Order 06/30/2024) (Collection Date & Time - 06/30/2024 07:45 AM) ? Value Reference Range ?Hemoglobin A1c % 7.9 H <6. 0 - % ?Estimated Average Glucose 180 - mg/dL ???Lab:Microalbumin, Random (Order 06/30/2024) (Collection & Time - 06/30/2024 07:45 AM) ? Value Reference Range ?Creatinine Urine 100.89 - m g/dL ?Microalbumin Urine 10.0 - mg/L ?Microalbum Creatinin e Ratio Ur 9.9 <30 - ug/mg cr ???Lab:Lipid Panel (Order Da 06/30/2024) (Collection Date & Time - 06/30/2024 07:45 AM) ? Value Reference Range ?Triglycerides 117 <150 - mg/dL ?Cholesterol 182 <200 - m g/dL ?LDL Cholesterol Calculated 112 H <100 - mg/dL ?HDL Cholesterol 47 >40 - mg/dL ???Lab:Urine Culture (Order 06/30/2024) (Collection Date & Time - 06/30/2024) ? Value Reference Range ?Urine Culture urogenital contamination. - * Examination: ???General Examination: ?GENERAL APPEARANCE:?alert, well hydrated, in no distress.?HEAD:?normocephalic.?SKIN:?good turgor.?HEART:?no murmurs, rubs, gallops, regular rate and rhythm.?LUNGS:?no wheezes, rales, rhonchi, good air movement, clear to auscultation bilaterally.?EXTREMITIES:?1+ pitting edema lower extremities.? Assessment: * Assessment: 1.?Essential hypertension - I10 (Primary)???2.?Type 2 diabetes, controlled, with neuropathy - E11.40???3.?Shortness of breath - R06.02??? Plan: * Treatment: 2.?Type 2 diabetes, controll ed, with neuropathy? Notes: is going to see neuro for the neuropathy?? 3.?Shortness of breath? Notes: lungs sound clear. is under a lot of stress?? * Procedure Codes:?[id number] Compl ex e/m visit add on * Follow Up:?4 Weeks (Reason: shortness of breath) * * Sign off status: Completed true * Provider:?Aaron Jung MD Date:?0 07/28/2024 Generated for Jefferson verma/Whitney/eTlibbysmitting on:?08/20/2024 02:31 PM EDT History and Physical Notes * HPI (History of Present Illness) Category Sub-Category Detail Notes Category Not es Symptom(s) hip is good at times and sometimes severe pain. no radiation down leg Examination Category Sub-Category Detail Notes Category Not es General Examination GENERAL APPEARANCE: alert, w ell hydrated, in no distress HEAD: normocephalic HEART: no murmurs, rubs, ga llops, regular rate and rhythm LUNGS: no wheezes, rales, r honchi, good air movement, clear to auscultation bilaterally SKIN: good turgor EXTREMITIES: 1+ pitting edema low er extremities
--- OUTSIDE RECORDS SUMMARY | 2024-08-20 14:33 | XMS_ITS | Data Portability ---
Author Organization [facility], PAIN OFFICE Address [address] [facility] [address] [place] [address] Care Team Providers Care Keg Header Name Role Phone CHELIAVRILN Primary Care Provider JOSUÉ ABURTO Referring Provider Assessment Encounter Date [...] By Organization Details Last Modified Time 03/05/2023 [id number] She was advised against bed rest lasting longer than four days and to continue activities as tolerated. [email or web address] Not available 03/05/2023 15:20:40 07/24/2023 [id number] She was advised against bed rest lasting longer than four days and to continue activities as tolerated. [email or web address] Not available 07/24/2023 09:50:56 11/26/2023 [id number] She was advised against bed rest lasting longer than four days and to continue activities as tolerated. [email or web address] Not available 11/26/2023 10:58:20 02/26/2024 [id number] She was advised against bed rest lasting longer than four days and to continue activities as tolerated. [email or web address] Not available 02/26/2024 10:55:47 06/17/2024 [id number] She was advised against bed rest lasting longer than four days and to continue activities as tolerated. [email or web address] Not available 06/17/2024 10:28:26 Reason for Referral None Reported. Problems Name Problem SNOMED Code Status Onset Date Resolution Date Notes Provider Name and Address Organization Details Recorded Time Spinal stenosis of lumbar region 45711519 Active 2016 Hemant can MD [facility] , [address], [facility] [place], [address] [place] [address] - [facility] 7 08:34:01 Lumbosacral spondylosis without myelopathy 65889731 Active 2016 Hemant can MD [address] , [address], [place], [address], [place] - [facility] 7 08:34:03 Lumbosacral radiculitis 48347360 Active 2016 Hemant can MD [address] , [address], [place], [address], [place] [facility] 7 08:34:04 Displacement of lumbar intervertebral disc without myelopathy 35091864 Active 2016 Hemant can MD [address] , [address], [place], [address], [place] [facility] 7 08:34:06 Problem Notes None recorded. Procedures Surgical History Date Name Laterality Status Provider Name and Address Organization Details Recorded Time 06/17/19 25 Lumbar Epidural steroid injection under fluoroscopic guidance completed Hemant Gilliland MD [address] , [address], [place], [address], [place] - [facility] 06/17/2024 10:29:05 02/26/20 24 Lumbar Epidural steroid injection under fluoroscopic guidance completed Hemant Gilliland MD [address] , [address], [place], [address], [place] [facility] 02/26/2024 10:55:55 11/26/19 24 Lumbar Epidural steroid injection under fluoroscopic guidance completed Hemant Gilliland MD [address] , [address], [place], [address], [place] [facility] 11/26/2023 10:58:51 07/24/19 24 Lumbar Epidural steroid injection under fluoroscopic guidance completed Hemant Gilliland MD [address] , [address], [place], [address], [place] [facility] 07/24/2023 09:51:45 03/05/20 23 Lumbar Epidural steroid injection under fluoroscopic guidance completed Hemant Gilliland MD [address] , [address], [place], [address], [place] [facility] 03/05/2023 15:21:47 11/29/19 23 Lumbar Epidural steroid injection under fluoroscopic guidance completed Hemant Gilliland MD [address] [facility] , [address], [place], [address], [place] [facility] 11/28/2022 11:02:20 08/08/19 23 Lumbar Epidural steroid injection under fluoroscopic guidance completed Hemant Gilliland MD [address] [facility] , [address], [place], [address], [place] [facility] 08/07/2022 10:32:00 04/10/20 22 Lumbar Epidural steroid injection under fluoroscopic guidance completed Hemant Gilliland MD [address] [facility] , [address], [place], [address], [place] [facility] 04/10/2022 11:30:45 12/13/19 22 Lumbar Epidural steroid injection under fluoroscopic guidance completed Hemant Gilliland MD [address] [facility] , [address], [place], [address], [place] [facility] 12/12/2021 15:15:30 04/19/20 21 Lumbar Epidural steroid injection under fluoroscopic guidance completed Hemant Gilliland MD [address] [facility] , [address], [place], [address], [place] [facility] 04/19/2021 09:52:53 08/24/19 21 Lumbar Epidural steroid injection under fluoroscopic guidance completed Hemant Gilliland MD [address] [facility] , [address], [place], [address], [place] [facility] 08/23/2020 16:10:02 12/08/19 20 Lumbar Epidural steroid injection under fluoroscopic guidance completed Hemant Gilliland MD [address] [facility] , [address], [place], [address], [place] [facility] 12/08/2019 14:48:27 07/01/19 20 Lumbar Epidural steroid injection under fluoroscopic guidance completed Hemant Gilliland MD [address] [facility] , [address], [place], [address], [place] [facility] 07/01/2019 14:51:41 04/30/20 17 Lumbar Epidural steroid injection under fluoroscopic guidance completed Hemant Gilliland MD [address] [place] [address] , [address], [place], [address], [place] - [facility] 04/30/2017 10:31:02 [...] Not available Not available Not available 08/07/2022 [id number] RxNorm Shahrzad Leija em[place], [place] - [facility] 3 10:06:05 Medications [...] completed Not Available Not Available Not Available [id number] active Not Available Not Available Not Available [...] mm[Hg] 61 mm[Hg] Hemant can MD [address] [facility] , [address], [place], [address], [place] - [facility] 3 14:55:22 Date Recorded Body height Pain severity - 0-10 verbal numeric rating [Score] - Reported Heart rate Oxygen saturation Oxygen saturation in Arterial blood by Pulse oximetry Systolic blood pressure Diastolic blood pressure Provider Name and Address Organization Details Last Updated DateTime 4 165.1 cm 3 62 /min 95 % 95 % 156 mm[Hg] 54 mm[Hg] Swapna Dawkins [place] - [facility] 4 09:23:54 Date Recorded Body height Heart rate Oxygen saturation Oxygen saturation in Arterial blood by Pulse oximetry Provider Name and Address Organization Details Last Updated DateTime 11/26/2023 165.1 cm 61 /min 95 % 95 % Shahrzad Leija [place] - [facility] 11/26/2023 10:37:34 Date Recorded Body height Heart rate Oxygen saturation Oxygen saturation in Arterial blood by Pulse oximetry Pain severity - 0-10 verbal numeric rating [Score] - Reported Systolic blood pressure Diastolic blood pressure Provider Name and Address Organization Details Last Updated DateTime 4 165.1 cm 58 /min 97 % 97 % 7 153 mm[Hg] 55 mm[Hg] Swapna Dawkins [place] [facility] 4 10:35:28 Date Recorded Body height Heart rate Oxygen saturation Oxygen saturation in Arterial blood by Pulse oximetry Pain severity - 0-10 verbal numeric rating [Score] - Reported Systolic blood pressure Diastolic blood pressure Provider Name and Address Organization Details Last Updated DateTime 5 165.1 cm 61 /min 98 % 98 % 4 153 mm[Hg] 54 mm[Hg] Swapna Dawkins [place] - [facility] 5 10:08:02 Social History Question Answer Notes LastModified by Organizat ion Details LastModified Time Tobacco Smoking Status Never Smoker Not Available [employer] 03/04/2020 03:16:10 What Is Your Level Of Alcohol Consumption? None [id number] Information not available 03/04/2020 Are You Currently Employed? No [id number] Information not available 03/04/2020 Which Illicit Or Recreational Drugs Have You Used? No [id number] Information not available 03/04/2020 Education 12 [email or web address] Information no t available 04/19/2017 Live Alone Or With Others? With Others Information not available 04/19/2017 Marital Status [email or web address] Informatio n not available 04/19/2017 What Was The Date Of Your Most Recent Tobacco Screening? 05/31/2017 [id number] Information not available 03/04/2020 Sex: Unknown Functional Status None recorded. Mental Status None recorded. Family History Relationship Description Onset Age of this Age Resolved Age Notes LastModified by Organization Details LastModified Time Mother Malignant neoplastic disease Breast [email or web address] Not available 2016 11:15:55 Maternal Grandmother Malignant [...] SNOMED-CT Code Diagnosis ICD10 Code Diagnosis Note [id number] Hemant Gilliland MD PAIN OFFICE [address] [facility] [place] [address] 04/19/2017 10:46:56 04/21/2017 08:37:37 Spinal stenosis of lumbar region 12622539 M48.062 Lumbosacra l spondylosis without myelopathy 99134359 M47.817 Lumbosacra l radiculitis 95009417 M54.17 Displaceme nt of lumbar intervertebral disc without myelopathy 18951172 M51.26 [id number] Hemant Gilliland MD PAIN OFFICE [address] [place] [address] 04/30/2017 09:34:46 05/02/2017 09:11:19 Spinal stenosis of lumbar region 56834221 M48.062 Lumbosacra l spondylosis without myelopathy 77539326 M47.817 Lumbosacra l radiculitis 42703059 M54.17 Displaceme nt of lumbar intervertebral disc without myelopathy 88487593 M51.26 [id number] Hemant Gilliland MD PAIN OFFICE [address] [place] [address] 05/31/2017 09:18:19 05/31/2017 10:10:56 Spinal stenosis of lumbar region 48387283 M48.062 Lumbosacra l spondylosis without myelopathy 36908580 M47.817 Lumbosacra l radiculitis 68577071 M54.17 Displaceme nt of lumbar intervertebral disc without myelopathy 97236723 M51.26 [id number] Hemant Gilliland MD PAIN OFFICE [address] [place] [address] 06/24/2019 13:56:18 06/24/2019 15:06:16 Spinal stenosis of lumbar region 36592286 M48.062 Lumbosacra l spondylosis without myelopathy 53474802 M47.817 Lumbosacra l radiculitis 86270146 M54.17 Displaceme nt of lumbar intervertebral disc without myelopathy 43880190 M51.26 [id number] Hemant Gilliland MD PAIN OFFICE [address] [place] [address] 07/01/2019 08:36:01 07/01/2019 14:55:31 Spinal stenosis of lumbar region 84514146 M48.062 Lumbosacra l spondylosis without myelopathy 52085437 M47.817 Lumbosacra l radiculitis 08659735 M54.17 Displaceme nt of lumbar intervertebral disc without myelopathy 42790454 M51.26 [id number] Hemant Gilliland MD PAIN OFFICE [address] [place] [address] 12/04/2019 11:34:26 12/07/2019 16:30:17 Spinal stenosis of lumbar region 90637037 M48.062 Lumbosacra l spondylosis without myelopathy 50328280 M47.817 Lumbosacra l radiculitis 63477019 M54.17 Displaceme nt of lumbar intervertebral disc without myelopathy 13442955 M51.26 [id number] Hemant Gilliland MD PAIN OFFICE [address] [place] [address] 12/08/2019 14:16:05 12/08/2019 14:51:58 Spinal stenosis of lumbar region 00801594 M48.062 Lumbosacra l spondylosis without myelopathy 44169869 M47.817 Lumbosacra l radiculitis 01557895 M54.17 Displaceme nt of lumbar intervertebral disc without myelopathy 98761843 M51.26 [id number] Hemant Gilliland MD PAIN OFFICE [address] [place] [address] 01/11/2020 11:47:55 01/11/2020 15:54:53 Spinal stenosis of lumbar region 93174739 M48.062 Lumbosacra l spondylosis without myelopathy 26485987 M47.817 Lumbosacra l radiculitis 20075351 M54.17 Displaceme nt of lumbar intervertebral disc without myelopathy 94306540 M51.26 [id number] Hemant Gilliland MD PAIN OFFICE [address] [place] [address] 08/15/2020 15:01:35 08/15/2020 15:16:39 Spinal stenosis of lumbar region 77321158 M48.062 Lumbosacra l spondylosis without myelopathy 35893037 M47.817 Lumbosacra l radiculitis 01567535 M54.17 Displaceme nt of lumbar intervertebral disc without myelopathy 44847796 M51.26 07784 Hemant Gilliland MD PAIN OFFICE [address] [place] [address] 08/23/2020 15:15:25 08/23/2020 16:11:47 Spinal stenosis of lumbar region 20667715 M48.062 Lumbosacra l spondylosis without myelopathy 25488083 M47.817 Lumbosacra l radiculitis 15274721 M54.17 Displaceme nt of lumbar intervertebral disc without myelopathy 34100529 M51.26 [id number] Hemant Gilliland MD [facility] PAIN OFFICE [address] [place] [address] 04/19/2021 09:18:35 04/19/2021 09:55:59 Spinal stenosis of lumbar region 18983500 M48.062 Lumbosacra l spondylosis without myelopathy 27076438 M47.817 Lumbosacra l radiculitis 44558152 M54.17 Displaceme nt of lumbar intervertebral disc without myelopathy 68213218 M51.26 [id number] Hemant Gilliland MD PAIN OFFICE [address] [place] [address] 12/12/2021 11:08:42 12/12/2021 15:22:52 Spinal stenosis of lumbar region 18840528 M48.062 Lumbosacra l spondylosis without myelopathy 55327419 M47.817 Lumbosacra l radiculitis 98694681 M54.17 Displaceme nt of lumbar intervertebral disc without myelopathy 07198415 M51.26 [id number] Hemant Gilliland MD PAIN OFFICE [address] [place] [address] 04/10/2022 10:18:42 04/10/2022 12:00:16 Spinal stenosis of lumbar region 14239098 M48.062 Lumbosacra l spondylosis without myelopathy 27719011 M47.817 Lumbosacra l radiculitis 05992226 M54.17 Displaceme nt of lumbar intervertebral disc without myelopathy 00825362 M51.26 [id number] Hemant Gilliland MD PAIN OFFICE [address] [place] [address] 08/07/2022 09:48:17 08/07/2022 11:01:44 Spinal stenosis of lumbar region 83202210 M48.062 Lumbosacra l spondylosis without myelopathy 60188708 M47.817 Lumbosacra l radiculitis 06401694 M54.17 Displaceme nt of lumbar intervertebral disc without myelopathy 77440297 M51.26 [id number] Hemant Gilliland MD [facility] PAIN OFFICE [address] [place] [address] 11/28/2022 09:40:01 11/28/2022 11:24:45 Spinal stenosis of lumbar region 05009164 M48.062 Lumbosacra l spondylosis without myelopathy 32091482 M47.817 Lumbosacra l radiculitis 58744589 M54.17 Displaceme nt of lumbar intervertebral disc without myelopathy 75095067 M51.26 [id number] Hemant Gilliland MD PAIN OFFICE [address] [place] [address] 03/05/2023 14:28:04 03/05/2023 16:16:22 Spinal stenosis of lumbar region 38285572 M48.062 Lumbosacra l spondylosis without myelopathy 74986751 M47.817 Lumbosacra l radiculitis 94068236 M54.17 Displaceme nt of lumbar intervertebral disc without myelopathy 64642204 M51.26 [id number] Hemant Gilliland MD PAIN OFFICE [address] [place] [address] 07/24/2023 09:12:23 07/24/2023 16:13:38 Spinal stenosis of lumbar region 18149928 M48.062 Lumbosacra l spondylosis without myelopathy 41351223 M47.817 Lumbosacra l radiculitis 22284157 M54.17 Displaceme nt of lumbar intervertebral disc without myelopathy 45388870 M51.26 [id number] Hemant Gilliland MD [facility] PAIN OFFICE [address] [place] [address] 11/26/2023 10:19:10 11/26/2023 11:27:52 Spinal stenosis of lumbar region 85432233 M48.062 Lumbosacra l spondylosis without myelopathy 47142570 M47.817 Lumbosacra l radiculitis 30058272 M54.17 Displaceme nt of lumbar intervertebral disc without myelopathy 81168451 M51.26 [id number] Hemant Gilliland MD [facility] PA[facility] [address] [place] [address] 02/26/2024 10:07:24 02/26/2024 11:21:19 Spinal stenosis of lumbar region 40492147 M48.062 Lumbosacra l radiculitis 60539386 M54.17 Displaceme nt of lumbar intervertebral disc without myelopathy 69696964 M51.26 [id number] Hemant Gilliland MD [facility] PA[facility] [address] [place] [address] 06/17/2024 09:26:21 06/17/2024 15:24:12 Lumbosacral radiculitis 89806422 M54.17 Spinal susie nosis of lumbar region 30331117 M48.062 Displaceme nt of lumbar intervertebral disc without myelopathy 13204976 M51.26 Health Concerns Section Related Observation LastModified by Organization Detai ls LastModified Time None Recorded Concern Status LastModified by Organization Details LastModified Time None Recorded Advance Directives Directive None Recorded Payers Encounter Date Sequence Insurance Name Policy Number Policy Ga Covered Member ID Ga Member ID Guarantor Name 03/05/2023 1 [place] Jeannine A Parenteau [id number] [id number] Jeannine Parenteau 03/05/2023 2 [place] [id number] Jeannine A Parenteau [id number] Jeannine Parenteau 07/24/2023 1 [place] [employer] [place] Jeannine A Parenteau [id number] P31 Jeannine Parenteau 07/24/2023 2 [place] [id number] Jeannine A Parenteau [id number] Jeannine Parenteau 11/26/2023 1 [place] [employer] Jeannine A Parenteau [id number] P31 Jeannine Parenteau 11/26/2023 2 [place] [id number] Jeannine A Parenteau [id number] Jeannine Parenteau 02/26/2024 1 [place] [employer] [place] Jeannine A Parenteau [id number] P31 Jeannine Parenteau 02/26/2024 2 [place] [id number] Jeannine A Parenteau [id number] Jeannine Parenteau 06/17/2024 1 [place] Jeannine A Parenteau [id number] P31 Jeannine Parenteau 06/17/2024 2 [place] [id number] Jeannine A Parenteau [id number] Jeannine Parenteau Notes Date Note Type Note Provider Name and Address Organization Details Recorded Time 03/05/2023 text/html She is here for a lumbar epidural steroid injection under fluoroscopic guidance. Hemant Gilliland MD [address] [address], [place], [address], [place] [facility] 03/05/2023 16:39:42 07/24/2023 text/html She is here for a lumbar epidural steroid injection under fluoroscopic guidance. Hemant Gilliland MD [address] [address], [place], [address], [place] [facility] 07/24/2023 16:36:09 11/26/2023 text/html She is here for a lumbar epidural steroid injection under fluoroscopic guidance. Hemant Gilliland MD [address] [address], [place], [address], [place] [facility] 11/26/2023 16:31:36 02/26/2024 text/html She is here for a lumbar epidural steroid injection under fluoroscopic guidance. Hemant Gilliland MD [address] [address], [place], [address], [place] [facility] 02/26/2024 13:49:44 06/17/2024 text/html She is here for a lumbar epidural steroid injection under fluoroscopic guidance. Hemant Gilliland MD [address] [facility] [address], [facility] [place], [address], [place] [facility] 06/17/2024 15:28:10 OBGyn Episode No OBEpisode recorded.
--- OUTSIDE RECORDS SUMMARY | 2024-08-20 14:33 | XMS_ITS ---
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 Name Role Phone Aaron Jung MD Primary Care Provider Armani Guadarrama Unavailable [phone] Allergies Allergen (clinical drug ingredient) Drug/Non Drug Allergy documented on EMR Reaction Allergy Type Onset Date Status Latex Latex Unknown Allergy Active REASON FOR VISIT At Risk Footcare, Toe Irritation Medications Medication SIG (Take, Route, Frequency, Duration) Notes Start Date End Date Status Gabapentin 600 MG 1 tablet Orally Once a day Active Atorvastatin Calcium 40 MG 1 tablet Oral ly Once a day Active Valsartan 160 MG 1 tablet Orally Once a day Active Furosemide 20 MG 1 tablet Orally Once a day Active Extra Depth Orthopedic Shoes (1 Pair) with Customized Heat Molded Multidensity Innersoles (3 Pair) as directed Dx: NIDDM/Polyneuropathy (E11.42), Hammertoe Foot Deformity (M20.41,M20.42), Preulcerative Skin Lesion(s) (L85.1 07/30/2024 Active hydroCHLOROthiazide 25 MG 1 tablet in th e morning Orally Once a day Not-Taking Ciclopirox Olamine 0.77 % 1 application Externally Twice a day for 30 days Active rOPINIRole HCl 3 MG 1 tablet 1 to 3 hour s before bedtime Orally Once a day Active Social History Tobacco Use: Social History Observation Description Date Details (start date - stop date) Never Smoker NA - NA Alcohol Screen Question Answer Notes Did you have a drink containing alcohol in the p ast year? No Points 0 Interpretation Negative Tobacco use other than smoking: Question Answer Notes Are you an other tobacco user? No Tobacco Control (Standard) Question Answer Notes Tobacco use: Nonsmoker Additional Findings: Tobacco non-user Current no nsmoker Problems Problem Type SNOMED Code ICD Code Onset Dates Problem Status W/U Status Risk Notes Problem Type 2 diabetes mellitus with peripheral angiopathy (863374542) Type 2 diabetes mellitus with diabetic peripheral angiopathy without gangrene (E11.51) Active confirmed Q7(A), Q8(2B), Q9(1B,2 C) Problem Acquired hammer toe of right foot (2035202973410416 ) Other hammer toe(s) (acquired), right foot (M20.41) Active confirmed Problem Acquired hammer toe of left foot (7772014149039814 ) Other hammer toe(s) (acquired), left foot (M20.42) Active confirmed Problem Polyneuropathy due to type 2 diabetes mellitus (902266117) Type 2 diabetes mellitus with diabetic polyneuropathy (E11.42) Active confirmed Vital Signs Height 5ft 5in in 07/30/2024 Weight 220 lbs 07/30/2024 BMI 36.61 kg/m2 07/30/2024 Blood pressure systolic 145 mm Hg 07/31/19 25 Blood pressure diastolic 80 mm Hg 025 Procedures Procedure Date Ordered Date Performed Result Body Sit e 75865-BGRSTOT NAIL, 1-5 07/30/2024 N/A 39203-UEEX SKIN LESIONS, 2 TO 4 07/30/2024 N/A K1690-HGEXEYBA DYSTROPHIC NAILS ANY # 07/30/2024 N/A Encounters Encounter Location Date Provider Diagnosis [facility] [address] [address] 07/30/2024 Armani Giraldo Type 2 diabetes mellitus with diabetic polyneuropathy E11.42 ; Tinea unguium B35.1 ; Type 2 diabetes mellitus with diabetic peripheral angiopathy without gangrene E11.51 ; Other hammer toe(s) (acquired), left foot M20.42 and Other hammer toe(s) (acquired), right foot M20.41 Assessments Encounter Date Diagnosis (ICD Code) Assessment Notes Treatment Notes Treatment Clinical Notes Section Notes 07/30/2024 Type 2 diabetes mellitus with diabetic polyneuropathy (ICD-10 - E11.42) 07/30/2024 Tinea unguium (ICD-10 - B35.1) 07/30/2024 Type 2 diabetes mellitus with diabetic peripheral angiopathy without gangrene (ICD-10 - E11.51) Q7(A), Q8(2B), Q9(1B,2C) 07/30/2024 Other hammer toe(s) (acquired), left foot (ICD-10 - M20.42) 07/30/2024 Other hammer toe(s) (acquired), right foot (ICD-10 - M20.41) Patient Educated with: DIABETIC FOOT CARE INSTRUCTIONS. pdf (DIABETIC FOOT CARE INSTRUCTIONS. pdf) Plan Of Treatment Medication Medication Name Sig Start Date Stop Date Notes Extra Depth Orthopedic Shoes (1 Pair) with Customized Heat Molded Multidensity Innersoles (3 Pair) as directed Dx: NIDDM/Polyneuropathy (E11.42), Hammertoe Foot Deformity (M20.41,M20.42), Preulcerative Skin Lesion(s) (L85.1 07/30/2024 Treatment Notes Assessment Notes Other hammer toe(s) (acquired), right fo ot Patient Educated with: DIABETIC FOOT CARE INSTRUCTIONS.pdf (DIABETIC FOOT CARE INSTRUCTIONS.pdf) Pending Test Test Name Order Date 61951-SBMMNHM NAIL, 1-5 07/30/2024 64207-MWMT SKIN LESIONS, 2 TO 4 07/31/19 E9361-KLOCHITE DYSTROPHIC NAILS ANY # Next Appt Details Follow Up: prn, Reason: Provider Name:Armani Giraldo , 10/29/2024 09:45:00 AM, [address], [address], [place], [address], Procedure Notes * Category Sub-Category Detail Notes Keratoma Treatment Parring or Cutting o f Benign Hyperkeratotic Lesion(s) (-56) 2-4 Lesions - Due to the at risk nature of the patients medical condition as documented in the exam findings, performance of this keratoderma treatment is medically necessary as its management by an unskilled/untrained nonprofessional would put this patients foot and overall health at risk. Therefore, the benign hyperkeratotic lesions, ( 2 ) in total, locations as stated and described in the exam ( Plantar, Heel(s) , B/L ), were pared, and/or cut utilizing a sterile 15 blade, tissue nippers, and/or power dremel instrumentation by the physician of record - 26651 Debride Nails 1-5 Procedure: Due to the cli nical pathology outlined in the exam findings, performance of this nail treatment is medically necessary as its management by an unskilled/untrained nonprofessional would put this patients foot and overall health at risk. Therefore, debridement to affected nail(s), as described in exam ( T4 , T5, T9 ), was performed exclusively by the physician of record to reduce/remove overall nail length, girth, thickness, subungual debris, and necrotic tissue, by manual and/or electrical means through the use of a nail nipper and/or dremel stylegrinder, to a more viable healthy nail plate or bed tissue 5 nails or fewer in number. Silver nitrate was used for any petechial bleeding as necessary. Definitive antifungal treatment options, both pharmaceutical and surgical, have been reviewed and discussed with the patient. The patient solely prefers the use of intermittent/as needed professional debridement services for their nail condition and understands that additional periodic treatments may be required as necessary to maintain effective symptomatic relief - 20471 Nail Reduction Nail Reduction (-27) Trimming o f all dystrophic nails - Due to the at risk nature of the patients medical condition as documented in the exam findings, performance of this nail treatment is medically necessary as its management by an unskilled/untrained nonprofessional would put this patients foot and overall health at risk. Therefore, the dystrophic nails, in locations as stated and described in the exam ( TA, T1, T2, T3, T6, T7, T8 ), were debrided by the phisician of record to reduce/remove overall nail length and girth, by manual and electrical means with use of a nail nipper and/or dremel, to more viable healthy nail plate or bed tissue - G0127 Progress Notes * Glenys JACKSONChristineOB:[birth year] (79 yo F)Acc No.[id number]:07/30/2024 Progress Note Patient:?Jeannine JACKSON Provider:?Armani Giraldo DPM :1945???Age:79 Y???Sex:Female D ate:07/30/2024 Address:[address] [place] [address] [address] [place], [place]-[id number] Pcp:Aaron Jung MD Subjective: * Chief Complaints: * ???At Risk FootcareToe Irrit ation * HPI: ???At Risk footcare:?Pt States Last PCP Visit:?Date?07/28/2024 ?Misc?States missed last appt due to going to hospital emergently.?Toe pain:?Location:?B/L feet.?Duration:?several years.?Course:?worse.?Aggravated by:?shoes, any pressure.?Treatments:?change in shoes.? * ROS:?General/Constitutional:?Nausea?denies.?Vomiting?denies.?Hunger Thirst?denies.?Loss appetite?denies.?Chills?denies.?Fatigue?denies.?Fever?denies.?Night Sweats?denies.?Unexplained weight loss?denies.?Unexplained weight gain?denies.?HEENTM:?Dentures?admits.?Dizziness?denies.?Glasses/contacts?admits.?Retinopathy?den ies.?Blurred/double vision?denies.?TMJ?denies.?Discharge/drainage?denies.?Implants?denies.?Sore throat?denies.?Dental implants?denies.?Hard of hearing ?denies.?Difficulty chewing/swallowing/speaking?denies.?Nose bleeds?denies.?Sore mouth?denies.?Respiratory:?On O xygen?denies.?Pneumonia/pleurisy?denies.?Bronchitis?denies.?Emphysema?denies.?Co ughing?denies.?Cough blood?denies.?Shortness of breath?denies.?Wheezing?denies.?Cardiovascular:?Pacemaker?denies.?MVP?denies.?WPW?denies.?CHF?denies.?Heart attack?denies.?Septal defect?denies.?Rapid beat?denies.?Chest pain ?denies.?Atrial Fib.?denies.?Murmur/Palpitations?denies.?Gastrointestinal:?Hemorrhoids?denies.?Stomach/Abdominal pain?denies.?Dark blood stool?denies.?Irritable bowel ?denies.?Constipation?denies.?Diarrhea?denies.?Hematology:?Swelling?admits.?Clots?denies.?Varicose Veins?denies.?Bruising?denies.?Bleeding problem?denies.?Genitourinary:?Blood urine?denies.?Frequent/Painfu/urination/bladder control?denies.?Kidney stones?denies.?Infection (UTI)?denies.?Nephropathy?admits.?sex trans dis (STD)?denies.?Prostate?denies.?Musculoskeletal:?Hammertoes?admits.?Bunions?denies.?Back Pain?admits.?Muscle Cramps/ Resting?denies.?Muscle cramps / walking?denies.?Generalized aches and pains?denies.?Weakness?denies.?Integ.:?Jones?denies.?Scars?denies.?Corns/calluses?admits.?Ingrown nails?admits.?Painful nails?denies.?Open Sores?denies.?Rashes?denies.?Neurologic:?Difficulty sleeping?denies.?Brain disorder?denies.?Numbness?admits.?Balance trouble?denies.?Confusion?denies.?Fainting/blackouts?denies.?Tingling?admits, bilateral lower extremities, in the toes, that is severe, which is constant.?Tremors?denies.? * Medical History:? * Surgical History:?hysterecto garrett knee surgery * Hospitalization/Major Diagno stic Procedure:?No Hospitalization History. * Family History:?Mother: dece ased, diagnosed with Other malignant neoplasm of unspecified site, Family history of arthritis.?Father: .?Spouse: alive.? * Social History:?Tobacco Use:?Tobacco use other than smoking?Are you an other tobacco user??No ?Tobacco Control (Standard)?Tobacco use:?Nonsmoker ?Additional Findings: Tobacco non-user?Current nonsmoker ???Drugs/Alcohol:?Drugs?Have you used drugs other than those for medical reasons in the past 12 months??No ?Alcohol Screen?Did you have a drink containing alcohol in the past year??No ?Points?0 ?Interpretation?Negative ???Miscellaneous:?Caffeine: no. ?Children: yes, 2. ?Exercise: no. ?Marital status: . ?Occupation: Retired. * Medications:?TakingFurosemid e 20 MG Tablet 1 tablet Orally Once a day Atorvastatin Calcium 40 MG Tablet 1 tablet Orally Once a day Gabapentin 600 MG Tablet 1 tablet Orally Once a day Valsartan 160 MG Tablet 1 tablet Orally Once a day rOPINIRole HCl 3 MG Tablet 1 tablet 1 to 3 hours before bedtime Orally Once a day Ciclopirox Olamine 0.77 % Cream 1 application Externally Twice a day Taking Furosemide 20 MG Tablet 1 tablet Orally Once a day Taking Atorvastatin Calcium 40 MG Tablet 1 tablet Orally Once a day Taking Gabapentin 600 MG Tablet 1 tablet Orally Once a day Taking Valsartan 160 MG Tablet 1 tablet Orally Once a day Taking rOPINIRole HCl 3 MG Tablet 1 tablet 1 to 3 hours before bedtime Orally Once a day Taking Ciclopirox Olamine 0.77 % Cream 1 application Externally Twice a day Not-Taking/PRNhydroCHLOROthiazide 25 MG Tablet 1 tablet in the morning Orally Once a day Medication List reviewed and reconciled with the patientNot-Taking/PRN hydroCHLOROthiazide 25 MG Tablet 1 tablet in the morning Orally Once a day Medication List reviewed and reconciled with the patient * Allergies:?Latexyes[Allergie s Verified] Objective: * Vitals:?Ht: 5ft 5in, Wt: 220 , BMI: 36.61, Shoe size: 9.5, BP: 145/80 mm Hg, Ht- cm: 165.1 cm, Wt-k.79 kg. * ???Past Orders: ???Lab:HEMOGLOBIN A1C (GLYCO HEMOGLOBIN) (Order Date - 06/30/2024) (Collection Date & Time - 06/30/2024 10:26 AM) ? Value Reference Range ?HEMOGLOBIN A1C % (HH) 7.9 * Examination: ???Ophthalmology Referral: ?DIABETES EYE EXAM?Procedure Performed:?Yes Date ?Date of Exam Performed?11/27/2023 ?Diabetic Retinopathy Screening:?Yes ?Retinal Screening Performed:?Yes ?Findings of Diabetic Eye Exam:?no retinopathy?Neurological: ?SENSORY:?Neurological exam demonstrates, reduced light touch sensation, reduced sharp/dull discrimination , reduced vibration sensation, in a stocking fashion, B/L, 5.07 monofilament test performed at plantar aspects of 5 varied sites per foot shows sensation, reduced, at Forefoot, B/L, Pt relates, paresthesia, Forefoot, B/L.?Nails: ?NAILS are:?Elongated, overgrown, dystrophic, lytic, greater than 3mm thick, discolored and friable with crumbly malodorous subungual debris , T4 , T5,?T9 , all other nails not described with characteristics as possessing mycosis are elongated, overgrown, and dystrophic ( TA, T1, T2, T3, T6, T7, T8?).?Dermatologic: ?SKIN FINDINGS:?Skin exam reveals Keratotic lesion(s) located at , Plantar, Heel(s) , B/L?.?Orthopedic: ?MUSCLE STRENGTH:?5/5 all groups in a symmetrical fashion, B/L.?FOOT MORPHOLOGY:?Pes Planus structure, (-) Charcot collapse/destruction noted at MTJ.?DIGITAL DEFORMITIES:?Digital contracture, PIPJ, 2-5 B/L, incompl-reducible to push-up test, no over, nor underlapping,?there is?evidence of shoe producing skin irritation.?FOOTWEAR:?worn, non-supportive, shoe gear properties exacerbate patient's foot/toe deformity.?Vascular: ?DP PULSES (B):?0/4, B/L.?PT PULSES (B):?0/4, B/L?.?CAPILLARY FILL TIME:?delayed, all digits, B/L.?TROPHIC CONDITION-TEXTURE/ELASTICITY/TURGOR/HAIR GROWTH (B):?decreased, fragile, thin, shiny skin, with sparse to absent hair growth, B/L.?TEMPERTURE GRADIENT (C):?decreased, cool to cool, proximal to distal, B/L?.?PIGMENTATION:?mottled, B/L?.?EDEMA (C):?2/4 , non-pitting , without aching pain , B/L , Leg(s) , Ankle(s) , Feet?.?CLAUDICATION (C):?denies, B/L.?REST PAIN:?denies, B/L?.?PARESTHESIA (C):?PRESENT, B/L.?BURNING (C):?absent, B/L.?General Examination: ?GENERAL APPEARANCE:?Reveals a pleasant, alert, well nourished, well- developed, well hydrated individual, who demonstrates proper attention to hygiene/body habitus, and is in no acute distress, Pt serves as own historian for office visit today.?ORIENTED:?person, place, and time?.?FOOT EXAM:?Lower Extremity Neurological Exam performed:?Yes Date ?Visual exam of foot performed:?Yes ?Date?07/30/2024 ?Footwear Evaluation?Footwear Evaluation performed:?Yes??? Assessment: * Assessment: 1.?Type 2 diabetes mellitus with diabetic polyneuropathy - E11.42???2.?Tinea unguium - B35.1???3.?Type 2 diabetes mellitus with diabetic peripheral angiopathy without gangrene - E11.51???Notes :Q7(A), Q8(2B), Q9(1B,2C)???4.?Other hammer toe(s) (acquired), left foot - M20.42???Specify :Chronic problem, Worse (4),Rx Management (4)???5.?Other hammer toe(s) (acquired), right foot - M20.41 (Primary)???Specify :Chronic problem, Worse (4),Rx Management (4)??? Plan: * Treatment: 2.?Type 2 diabetes mellitus with diabetic polyneuropathy?Procedure: 94396-BQKWORM NAIL, 1-5 ?Procedure: 19836-OUAZ SKIN LESIONS, 2 TO 4 ?Procedure: I6992-SEFBNYZP DYSTROPHIC NAILS ANY # * Procedures:?Debride Nails 1-5:?Procedure:?Due to the clinical pathology outlined in the exam findings, performance of this nail treatment is medically necessary as its management by an unskilled/untrained nonprofessional would put this patients foot and overall health at risk. Therefore, debridement to affected nail(s), as described in exam (?T4?, T5,?T9?), was performed exclusively by the physician of record to reduce/remove overall nail length, girth, thickness, subungual debris, and necrotic tissue, by manual and/or electrical means through the use of a nail nipper and/or dremel stylegrinder, to a more viable healthy nail plate or bed tissue 5 nails or fewer in number. Silver nitrate was used for any petechial bleeding as necessary. Definitive antifungal treatment options, both pharmaceutical and surgical, have been reviewed and discussed with the patient. The patient solely prefers the use of intermittent/as needed professional debridement services for their nail condition and understands that additional periodic treatments may be required as necessary to maintain effective symptomatic relief - 55900.?Keratoma Treatment:?Parring or Cutting of Benign Hyperkeratotic Lesion(s)?(-56) 2-4 Lesions - Due to the at risk nature of the patients medical condition as documented in the exam findings, performance of this keratoderma treatment is medically necessary as its management by an unskilled/untrained nonprofessional would put this patients foot and overall health at risk. Therefore, the benign hyperkeratotic lesions, ( 2 ) in total, locations as stated and described in the exam (?Plantar,?Heel(s)?,?B/L?), were pared, and/or cut utilizing a sterile 15 blade, tissue nippers, and/or power dremel instrumentation by the physician of record - 84804.?Nail Reduction:?Nail Reduction?(-27) Trimming of all dystrophic nails - Due to the at risk nature of the patients medical condition as documented in the exam findings, performance of this nail treatment is medically necessary as its management by an unskilled/untrained nonprofessional would put this patients foot and overall health at risk. Therefore, the dystrophic nails, in locations as stated and described in the exam (?TA, T1, T2, T3, T6, T7, T8?), were debrided by the phisician of record to reduce/remove overall nail length and girth, by manual and electrical means with use of a nail nipper and/or dremel, to more viable healthy nail plate or bed tissue - G0127.? * Procedure Codes:?05515 TRIM SKIN LESIONS, 2 TO 4, Modifiers: XS 36770 DEBRIDE NAIL, 1-5, Modifiers: XS G0127 TRIMMING DYSTROPHIC NAILS ANY #, Modifiers: XS * Preventive Medicine:? ??Counseling:?Discussion:?-14: Office or other outpatient visit for the evaluation and management of an established patient, which required a medically appropriate history and/or examination and MODERATE level of DECISION MAKING for: 1 OR MORE CHRONIC PROBLEM(S) THATS WORSENING, 2 STABLE CHRONIC PROBLEMS, A NEWLY DIAGNOSED PROBLEM WITH UNCERTAIN PROGNOSIS, AN ACUTE COMPLICATED INJURY WITH MULTIPLE TREATMENT OPTIONS, OR AN ACUTE PROBLEM WITH ACCOMPANYING SYSTEMIC SYMPTOMS, THAT POSE(S) A MODERATE RISK OF MORBIDITY. THIS CONDITION MAY ALSO INCLUDE RX DRUG MANAGEMENT, OR A DECISON FOR MINOR SURGERY. The visit on the day of the encounter encompassed interpreting the data and educating the patient as to the nature of their condition, treatment options available according to their individual PMH, meds, allergies, and overall health/living conditions, as well as any potential risks or complications that may occur from a failure to adhere to, and participate in, the recommended course of therapy. The discussion included a complete verbal, and/or written explanation of the examination results, any x-rays taken, the proposed diagnosis, and outline of the treatment plan. A schedule for future care needs was also explained. The patient verbalized an understanding of the instructions at this time and agreed to be an active participant in their treatment. If the patient should think of any questions or concerns after the visit, I have encouraged the patient to call the office.?Digital Surgery:?Digital surgery was discussed with the patient, We elected to try conservative treatment at the present time, due to the patients medical history and increased asssociated post-operative risks.?Digital Treatment:?HT- I explained to the patient the possible etiologies of Hammertoes, including genetics/foot type/shoegear/activity level/exercise routine and the risks/benefits of all the different treatment options for their pain including: No treatment at all, Rest, Ice, New/supportive/wider/deeper Shoegear, Digital Padding/Strapping/Taping/Bracing/Gel protective sleeves, Foot/Ankle AFO Bracing, Stretching exercises, Deep Tissue Massage, Arch support/shoe inserts with splay metatarsal padding, and Custom orthoses. I insisted that any digital devices be removed daily and not worn overnight for safety. The patient is to carefully examine the toes daily for any skin irritation while using any splinting or padding device. The advantages and disadvantages of each option were discussed and the patients questions re: shoegear, padding, custom vs prefabricated inserts, activity level, and consistency in home treatment regimens for optimal success were answered to their verbally confirmed satisfaction.?Shoe Gear Counseling:?SHOE Rx - The patient was counseled in great detail on their muscoloskeletal foot and toe deformities which coincided with the dermatological presentations visualized on exam. We discussed how their deformities put the integrity of their feet at risk for potential pedal complications which makes the accomidative diabetic shoes and cutomizable inserts medically necessary. We discussed the different shoe and insert treatment types and options, as well as the important advantages for adhering to regularly wearing these accomidative devices daily. The patient was made aware of the fact that a failure to abide by these recommedations may be deleterious to their foot health as they are able to prevent many pedal complications such as skin irritation, skin ulceration, infection, and even loss of toe/foot/leg/or life. Time was also spent with the patient dispensing and discussing proper diabetic footcare techniques including daily skin moisturization, daily foot inspection for any interruption in skin integrity including open lesions, or sign of infection such as redness/malodor/drainage/swelling. Also discussed and recommended were procedures regarding daily shoe inspection for the presence of internal foreign bodies as well as any visualized irregular shoe or insert wear. Patient questions re: shoes, inserts, and self foot inspections were answered to their satisfaction as the patient verbally confirmed a full understanding of the above information. A Rx for Extra Depth Orthopedic Shoes with 3 pair of custom heat-molded inserts was dispensed.? ??Screening/Special Tests:?Fall Risk?Screening:?No falls in the past year ?FALLS: Screening for Future Fall Risk?Have you had any falls with injury in the past year??No * Follow Up:?prn * Images: * Sign off status: Completed true * Provider:?Armani Giraldo DPM Date:?2024 Generated for [facility] on:?08/20/2024 02:32 PM EDT History and Physical Notes * HPI (History of Present Illness) Category Sub-Category Detail Notes Category Not es Toe pain Location: B/L feet Duration: several years Course: worse Aggravated by: shoes, any pressure Treatments: change in shoes At Risk footcare Pt States Last PCP Visit: Date: Misc States missed last a ppt due to going to hospital emergently Examination Category Sub-Category Detail Notes Category Not es Neurological SENSORY: Neurological exa m demonstrates, reduced light touch sensation, reduced sharp/dull discrimination , reduced vibration sensation, in a stocking fashion, B/L, 5.07 monofilament test performed at plantar aspects of 5 varied sites per foot shows sensation, reduced, at Forefoot, B/L, Pt relates, paresthesia, Forefoot, B/L Dermatologic SKIN FINDINGS: Skin exam reveal s Keratotic lesion(s) located at , Plantar, Heel(s) , B/L Orthopedic FOOT MORPHOLOGY: Pes Planus stru cture, (-) Charcot collapse/destruction noted at MTJ FOOTWEAR EVALUATION: worn, non-supportiv e, shoe gear properties exacerbate patient's foot/toe deformity DIGITAL DEFORMITIES: Digital contracture , PIPJ, 2-5 B/L, incompl-reducible to push-up test, no over, nor underlapping, there is evidence of shoe producing skin irritation MUSCLE STRENGTH: 5/5 all groups in a symmetrical fashion, B/L General Examination GENERAL APPEARANCE: Reveals a pleasant, alert, well nourished, well-developed, well hydrated individual, who demonstrates proper attention to hygiene/body habitus, and is in no acute distress, Pt serves as own historian for office visit today FOOT EXAM: Lower Extremity Neurological Exa m performed:: Yes Date Visual exam of foot performed:: Yes Date: 07/30/2024 ORIENTED: person, place, and t rehan Footwear Evaluation Footwear Evaluation performe d:: Yes Ophthalmology Referral DIABETES EYE EXAM Procedure Perform ed:: Yes Date ?Date of Exam Performed: 11/27/2023 Diabetic Retinopathy Screening:: Yes Retinal Screening Performed:: Yes Findings of Diabetic Eye Exam:: no retin opathy Vascular DP PULSES (B): 0/4, B/L PT PULSES (B): 0/4, B/L CAPILLARY FILL TIME: delayed, all digits , B/L TEMPERTURE GRADIENT (C): decreased, cool to cool, proximal to distal, B/L TROPHIC CONDITION-TEXTURE/ELASTICITY/TURGOR/HAIR GROWTH (B): decreased, fragile, thin, shiny skin, wi th sparse to absent hair growth, B/L EDEMA (C): 2/4 , non-pitting , without aching pain , B/L , Leg(s) , Ankle(s) , Feet CLAUDICATION (C): denies, B/L REST PAIN: denies, B/L PIGMENTATION: mottled, B/L PARESTHESIA (C): PRESENT, B/L BURNING (C): absent, B/L Nails NAILS are: Elongated, overg rown, dystrophic, lytic, greater than 3mm thick, discolored and friable with crumbly malodorous subungual debris , T4 , T5, T9 , all other nails not described with characteristics as possessing mycosis are elongated, overgrown, and dystrophic ( TA, T1, T2, T3, T6, T7, T8 )
--- OUTSIDE RECORDS SUMMARY | 2024-08-20 14:33 | XMS_ITS ---
Author Organization [facility] Address [address] [place] [address] Care Team Providers Care Die Maker Name Role Phone Aaron Jung MD Primary Care Provider Armani Guadarrama Unavailable [phone] Allergies Allergen (clinical drug ingredient) Drug/Non Drug Allergy documented on EMR Reaction Allergy Type Onset Date Status Latex Latex Unknown Allergy Active Encounters Encounter Location Date Provider Diagnosis [facility] [address] [place] [phone] 04/30/2024 Armani Giraldo Plan Of Treatment Next Appt Details Provider Name:Armani Giraldo , 10/29/2024 09:45:00 AM, Formerly [facility], [facility] [address], [address], Progress Notes * Lexi JACKSONOB:[birth year] (79 yo F)Acc No.[id number]:04/30/2024 Progress Note Patient:?Jeannine JACKSON Provider:?Armani Giraldo DPM :1945???Age:79 Y???Sex:Female D ate:04/30/2024 Address:[address] [place], [place] [address] Pcp:Aaron Jung MD Subjective: * Chief Complaints: [...] Giraldo DPM Date:?2023 Generated for [facility] verma/Whitney/Shiloh on:?08/20/2024 02:32 PM EDT
--- OUTSIDE RECORDS SUMMARY | 2024-08-20 14:33 | XMS_ITS ---
Author Organization [facility] Address [address] [place] [address] Care Team Providers Care Retreader Name Role Phone Aaron Jung MD Primary Care Provider Armani Guadarrama Unavailable [phone] Encounters Encounter Location Date Provider Diagnosis [address] [address] 08/03/2024 Armain Giraldo Plan Of Treatment Next Appt Details Provider Name:Armani Giraldo , 10/29/2024 09:45:00 AM, [address] [place] [address], [phone], Progress Notes * Lexi JACKSONOB:[birth year] (79 yo F)Acc No.[id number]:08/03/2024 Progress Note Patient:?ALBERTRoderickJeannine Provider:?Armani Giraldo DPM :1945???Age:79 Y???Sex:Female D ate:08/03/2024 Address:[address] [place], [place] [address] Pcp:Aaron Jung MD Subjective: * Chief Complaints: * ??? * Medical History:? Objective: * Vitals:? Assessment: Plan: * Treatment: * Images: * The named appointment provid er may or may not be the originator of this progress note, and it is not deemed complete until electronically signed by the appointment provider. Sign off status: Pending * Provider:Fani Giraldo DPM Date:?2024 Generated for [facility] verma/Whitney/Shiloh on:?08/20/2024 02:33 PM EDT
--- OUTSIDE RECORDS SUMMARY | 2024-08-20 14:33 | XMS_ITS | Patient Health Record ---
[facility] Address [address] [place] [address] Care Team Providers Care Coal Getter Name Role Phone Aaron Jung MD Primary Care Provider Armani Guadarrama Unavailable [phone] Allergies Allergen (clinical drug ingredient) Drug/Non Drug Allergy documented on EMR Reaction Allergy Type Onset Date Status Latex Latex Unknown Allergy Active Results Component Value Reference Range Notes HEMOGLOBIN A1C (GLYCOHEMOGLO BIN) Reviewed date:07/30/2024 10:27:09 AM Interpretation: Performing Lab: Notes/Report: HEMOGLOBIN A1C % (HH) 7.9 Reason For Referral No Information Medications Medication SIG (Take, Route, Frequency, Duration) Notes Start Date End Date Status hydroCHLOROthiazide 25 MG 1 tablet in th e morning Orally Once a day Not-Taking Ciclopirox Olamine 0.77 % 1 application Externally Twice a day for 30 days Active Gabapentin 600 MG 1 tablet Orally Once a day Active Atorvastatin Calcium 40 MG 1 tablet Oral ly Once a day Active rOPINIRole HCl 3 MG 1 tablet 1 to 3 hour s before bedtime Orally Once a day Active Valsartan 160 MG 1 tablet Orally Once a day Active Furosemide 20 MG 1 tablet Orally Once a day Active Extra Depth Orthopedic Shoes (1 Pair) with Customized Heat Molded Multidensity Innersoles (3 Pair) as directed Dx: NIDDM/Polyneuropathy (E11.42), Hammertoe Foot Deformity (M20.41,M20.42), Preulcerative Skin Lesion(s) (L85.1 07/30/2024 Active Social History Tobacco Use: Social History [...] Problem Status W/U Status Risk Notes Problem Acquired hammer toe of right foot (7461939239862361 ) Other hammer toe(s) (acquired), right foot (M20.41) Active confirmed Problem Acquired hammer toe of left foot (2836057748632543 ) Other hammer toe(s) (acquired), left foot (M20.42) Active confirmed Problem Polyneuropathy due to type 2 diabetes mellitus (824670279) Type 2 diabetes mellitus with diabetic polyneuropathy (E11.42) Active confirmed Problem Type 2 diabetes mellitus with peripheral angiopathy (554318687) Type 2 diabetes mellitus with diabetic peripheral angiopathy without gangrene (E11.51) Active confirmed Q7(A), Q8(2B), Q9(1B,2 C) Vital Signs Blood pressure diastolic 80 mm Hg 07/30/2024 Height 5ft 5in in 07/30/2024 Blood pressure systolic 145 mm Hg 07/30/2024 Weight 220 lbs 07/30/2024 BMI 36.61 kg/m2 07/30/2024 Procedures Procedure Date Ordered Date Performed Result Body Sit e 99309-IVRDVPM NAIL, 1-5 10/28/2023 N/A 13392-STXE SKIN LESIONS, 2 TO 4 10/28/2023 N/A U9974-PPHUPAGY DYSTROPHIC NAILS ANY # 10/28/2023 N/A 37683-TVNLHSZ NAIL, 1-5 01/27/2024 N/A 34086-ERKM SKIN LESIONS, 2 TO 4 01/27/2024 N/A H0761-QVFGWAQU DYSTROPHIC NAILS ANY # 01/27/2024 N/A 61360-ZTNUJTK NAIL, 1-5 07/30/2024 N/A 88757-JWNY SKIN LESIONS, 2 TO 4 07/30/2024 N/A V9467-GWRPFIZD DYSTROPHIC NAILS ANY # 07/30/2024 N/A Encounters Encounter Location Date Provider Diagnosis [address] [address] 10/28/2023 Armani Giraldo Atherosclerosis of augustine artery of both lower extremities, with unspecified presence of clinical manifestation I70.203 ; Tinea unguium B35.1 ; Pain in right toe(s) M79.674 and Pain in left toe(s) M79.[address] [address] 01/27/2024 Armani Giraldo Atherosclerosis of augustine artery of both lower extremities, with unspecified presence of clinical manifestation I70.203 ; Tinea unguium B35.1 ; Pain in right toe(s) M79.674 and Pain in left toe(s) M79.[address] [address] 07/30/2024 Armani Giraldo Type 2 diabetes mellitus with diabetic polyneuropathy E11.42 ; Tinea unguium B35.1 ; Type 2 diabetes mellitus with diabetic peripheral angiopathy without gangrene E11.51 ; Other hammer toe(s) (acquired), left foot M20.42 and Other hammer toe(s) (acquired), right foot M20.[address] [address] 09/19/2023 rAmani Giraldo [address] [address] 04/29/2024 Armani Giraldo Assessments Encounter Date Diagnosis (ICD Code) Assessment Notes Treatment Notes Treatment Clinical Notes Section Notes 10/28/2023 Tinea unguium (ICD-10 - B35.1) 10/28/2023 Atherosclerosis of augustine artery of both lower extremities, with unspecified presence of clinical manifestation (ICD-10 - I70.203) 01/27/2024 Tinea unguium (ICD-10 - B35.1) 01/27/2024 Atherosclerosis of augustine artery of both lower extremities, with unspecified presence of clinical manifestation (ICD-10 - I70.203) 07/30/2024 Type 2 diabetes mellitus with diabetic polyneuropathy (ICD-10 - E11.42) 07/30/2024 Tinea unguium (ICD-10 - B35.1) 10/28/2023 Pain in right toe(s) (ICD-10 - M79.674) 01/27/2024 Pain in right toe(s) (ICD-10 - M79.674) 01/27/2024 Pain in left toe(s) (ICD-10 - M79.675) 10/28/2023 Pain in left toe(s) (ICD-10 - M79.675) 07/30/2024 Type 2 diabetes mellitus with diabetic peripheral angiopathy without gangrene (ICD-10 - E11.51) Q7(A), Q8(2B), Q9(1B,2C) 07/30/2024 Other hammer toe(s) (acquired), left foot (ICD-10 - M20.42) 07/30/2024 Other hammer toe(s) (acquired), right foot (ICD-10 - M20.41) Patient Educated with: DIABETIC FOOT CARE INSTRUCTIONS. pdf (DIABETIC FOOT CARE INSTRUCTIONS. pdf) Plan Of Treatment Pending Test Test Name Order Date 52833-MDNHIGU NAIL, 1-5 12/19/2022 64120-UJQOKTZ NAIL, 1-5 03/21/2023 29159-MCDXBJA NAIL, 1-5 06/27/2023 96847-NUWLLVQ NAIL, 1-5 10/28/2023 64414-IYMYJTI NAIL, 1-5 01/27/2024 46565-EAYXPBQ NAIL, 1-5 07/30/2024 37955-IMAI SKIN LESIONS, 2 TO 4 07/31/19 25 42170-GYXV SKIN LESIONS, 2 TO 4 01/27/20 24 62845-DGYJ SKIN LESIONS, 2 TO 4 10/28/19 24 48759-NSKY SKIN LESIONS, 2 TO 4 06/27/19 24 82752-NMVU SKIN LESIONS, 2 TO 4 12/20/19 23 39367-RZYS SKIN LESIONS, 2 TO 4 03/21/20 23 C5849-JURIXHLL DYSTROPHIC NAILS ANY # S3850-CWVAZZCN DYSTROPHIC NAILS ANY # J1810-QHBUQVLD DYSTROPHIC NAILS ANY # B0810-WKAFPKNU DYSTROPHIC NAILS ANY # V6734-WTAZNIWQ DYSTROPHIC NAILS ANY # Z6417-GKUNGCVH DYSTROPHIC NAILS ANY # Next Appt Details Provider Name:Armani Giraldo , 10/29/2024 09:45:00 AM, [address] [facility], [address], [place], [address], Insurance Providers Payer Name Payer Address Payer Phone Subscriber Number Group Number Insured Name Patient Relationship to Insured Coverage Start Date Coverage End Date Medicare National Govt [facility] [address] [place] [address] [id number] Jeannine Rg Self - patient is the insured [employer] [address] [place] [address] [id number] Jeannine Rg Self - patient is the insured Medical (General) History Medical History History ICD Code Back,Hip,and Knee pain High blood pressure Numbness Sciatica Measles Chicken pox Diabetic Surgical History Surgery Date(Month/Year) hysterectomoy knee surgery
== END 2024-08-20 13:20 | disposition home or self-care (01) ==
LOC: HO.LNP 13:19
PROVIDERS: Visit Provider Internal Medicine
DX: R79.9 Abnormal finding of blood chemistry, unspecified (principal)
CPT/HCPCS: 82565; 84520

== ENCOUNTER 2024-12-08 06:34 | Outpatient (REF) | payer MEDICARE, SELFPAY ==
[2024-12-08 07:50] LABS: Blood Urea Nitrogen 24 mg/dL (9-16)
== END 2024-12-08 06:35 | disposition home or self-care (01) ==
LOC: HO.LAB 06:34
PROVIDERS: PCP Internal Medicine; Visit Provider Internal Medicine
DX: R93.3 Abnormal findings on diagnostic imaging of other parts of digestive tract (principal)
CPT/HCPCS: 36415; 84520

== ENCOUNTER 2024-12-16 07:34 | Outpatient (REF) | payer MEDICARE, SELFPAY ==
--- OUTSIDE RECORDS SUMMARY | 2024-12-11 23:59 | XMS_ITS | Continuity of Care Document ---
Author Organization [facility] Address [address] [place] [phone] Care Team Providers Care Metalsmith Helper Name Role Phone Fabiana MOORE, Aaron Primary Care Physician [phone] [place] [facility]11[place]24 - 12/11/24 [facility] [address] [place] [address] Encounter Type: Triage Allergies, Adverse Reactions, Alerts No Known Allergies Medications apixaban = 10 mg, By Mouth, 2 times a day, 10 mg BID until 10/26/2024 THEN starting 10/27 decrease to 5 mg BID,0 Refills, Maintenance, 10/22/24 1:22:00 PM EDT, Tablet, Partial fill upon patient request if the prescription is for a schedule II opioid drug. Start Date: 10/22/24 Status: Ordered Repeat number: 1 apixaban = 5 mg, By Mouth, 2 times a day, Start 5 mg BID on 10/27/2024, 0 Refills, Maintenance, 10/22/24 1:23:00 PM EDT, Tablet, Partial fill upon patient request if the prescription is for a schedule II opioid drug. Start Date: 10/22/24 Status: Ordered Repeat number: 1 atorvastatin 40 mg oral tablet 1 tablet = 40 mg, By Mouth, Daily, 0 Refills, Maintenance Start Date: 03/22/17 Status: Ordered Repeat number: 1 calcium (as carbonate and lactate)-vitamin D 200 mg-250 intl units oral tablet, chewable 1 tablet, 2 times a day, 0 Refills, Maintenance, 03/22/17 10:01:00 AM EDT Start Date: 03/22/17 Status: Ordered Repeat number: 1 FREESTYLE LITE BLOOD GLUCOSE SYSTEM FREESTYLE LITE BLOOD GLUCOSE SYSTEM, USE TO TEST BLOOD SUGAR TWICE DAILY Start Date: 10/19/24 Status: Ordered Repeat number: 1 furosemide 20 mg oral tablet 20 mg, 1, tablet, By Mouth, Daily, # 30 tablet, Refills 0, Maintenance, 10/19/24 5:04:00 PM EDT, Partial fill upon patient request if the prescription is for a schedule II opioid drug. Start Date: 10/19/24 Status: Ordered Quantity: 30.0 Unit: tablet Repeat number: 1 gabapentin 600 mg oral tablet 1 tablet = 600 mg, By Mouth, 3 times a day, # 270 tablet, 0 Refills, Maintenance, 10/19/24 5:04:00 PMEDT, Tablet, Partial fill upon patient request if the prescription is for a schedule II opioid drug. Start Date: 10/19/24 Status: Ordered Quantity: 270.0 Unit: tablet Repeat number: 1 Hunite's Bounty Red Krill Oil 500 mg oral capsule 2 capsule = 1,000 mg, By Mouth, 2 times a day, 0 Refills, Maintenance, 03/22/17 10:01:10 AM EDT Start Date: 03/22/17 Status: Ordered Repeat number: 1 rOPINIRole 3 mg oral tablet 1 tablet = 3 mg, By Mouth, 2 times a day, # 270 tablet, 0 Refills, Maintenance, 10/19/24 5:03:00 PM EDT, Tablet, Partial fill upon patient request if the prescription is for a schedule II opioid drug. Start Date: 10/19/24 Status: Ordered Quantity: 270.0 Unit: tablet Repeat number: 1 triamcinolone 0.1% topical cream 0 Refills, Maintenance, 10/19/24 5:03:00 PM EDT, Partial fill upon patient request if the prescription is for a schedule II opioid drug. Start Date: 10/19/24 Status: Ordered Repeat number: 1 valsartan 160 mg oral tablet 160 mg, 1, tablet, By Mouth, Daily, # 30 tablet, Refills 0, Maintenance, 10/19/24 5:03:00 PM EDT, Partial fill upon patient request if the prescription is for a schedule II opioid drug. Start Date: 10/19/24 Status: Ordered Quantity: 30.0 Unit: tablet Repeat number: 1 Problem List Condition Confirmation Course Effective Dates Status Health St atus Informant ANKIT (acute kidney injury) Confirmed Active Chronic heart failure with preserved ejection fraction (HFpEF) Confirmed Active HLD (hyperlipidemia) Confirmed Active HTN (hypertension) Confirmed Active Restless leg syndrome Confirmed Active Severe obesity (BMI 35.0-39.9) with comorbidity Confirmed Active Social History Social History Type Response Smoking Status Never (less than 100 in lifetime) entered on: 11/11/24 Sex Sex Representation Female (finding) Patient Care team information Care Team Personnel Name: Aaron Jung MD Position: Reference Physician Member Role: PCP Address: [address] [place] [address] Aaron Jung MD [place], [place] [address] Telecom: [phone] Name: Patti Antonio Position: S RN Member Role: Primary Care Nurse Name: Beni Sequeira MD Position: [facility] Renal MD Member Role: Lifetime Consulting Physician Address: [address] [facility] [place] [address]- Telecom: Name: Anjana Garcia RN Position: S RN Member Role: Primary Care Nurse Name: Ericka Martinez RN Position: S RN Member Role: Primary Care Nurse Care Team Related Persons Name: MANUELJORGE Insurance Providers Guarantor name: MONALISA JACKSON Health Plan Information #: 1 Payer: MEDICARE B Payer Identifier: NA Member Number: [id number] Group Number: Subscriber Identifier: [id number] Relationship to Subscriber: self Coverage Type: NA Coverage Verification Date: NA Telecom: NA Address: Health Plan Information #: 2 Payer: MEDEX SECONDARY ONLY Payer Identifier: NA Member Number: [id number] Group Number: [id number] Subscriber Identifier: [id number] Relationship to Subscriber: self Coverage Type: Medicare Other Coverage Verification Date: NA Telecom: Address:
--- NOTE | ~2024-12-16 | CT_ITS ---
EXAMINATION: CT ABDOMEN PELVIS WITH IV CONTRAST HISTORY: ABNORMAL FINDINGS R/O COLONIC MASS COMPARISON: There are no prior studies for available comparison. TECHNIQUE: CT scan of the abdomen and pelvis was performed following administration of 85 mL Omnipaque 350 using standard departmental protocol. Coronal and sagittal reformatted images were generated and reviewed. The patient received oral contrast material. This CT exam was performed with one or more of the following dose reduction techniques: automated exposure control, adjustment of the mA and/or kV according to patient size, use of iterative reconstruction technique. DLP: 634 mGy-cm FINDINGS: LOWER CHEST: The visualized lung bases are clear. There is no pleural effusion. CARDIOVASCULATURE: The heart is normal in size. There is no pericardial effusion. LIVER: The liver is normal in size and contour. No liver mass is identified. The hepatic and portal veins are patent. GALLBLADDER / BILE DUCTS: The gallbladder is unremarkable. There is no intra or extrahepatic biliary ductal dilatation. SPLEEN: The spleen is normal in size. No focal splenic lesion is identified. PANCREAS: The pancreas is unremarkable in appearance. ADRENAL GLANDS: Within normal limits. KIDNEYS/RETROPERITONEUM: No renal calculi are identified. There is no hydronephrosis. No renal masses are identified. LYMPH NODES: No abdominal or pelvic lymphadenopathy. VASCULATURE: The abdominal aorta is normal in caliber. MESENTERY/PERITONEUM: No free fluid. No masses. There is no free intraperitoneal gas. STOMACH: The stomach is collapsed, limiting evaluation. SMALL BOWEL: The small bowel is normal in caliber. COLON: There is a large amount of stool in the colon. There is diverticulosis of the sigmoid colon. There is mild dilatation of the pericolonic fat in this region suggestive of diverticulitis. There is no extraluminal gas or loculated fluid collection. Evaluation for masses is extremely limited. APPENDIX: Normal. URINARY BLADDER/PELVIC ORGANS: The urinary bladder is collapsed, limiting evaluation. The patient is status post hysterectomy. BONES / SOFT TISSUES: There is slight spondylolisthesis of L4 on L5. CT/CT abdomen pelvis w IV con IMPRESSION: Large amount of stool throughout the colon. Findings suggestive of mild sigmoid diverticulitis. Evaluation for masses is limited. If there is clinical concern for colonic mass, colonoscopy is recommended. Electronically signed by: Ubaldo Crane MD 12/16/2024 11:00 AM EDT RP
--- OUTSIDE RECORDS SUMMARY | 2024-12-16 07:35 | XMS_ITS | Patient Health Record ---
Author Organization [facility] Address [address] [place] [address] Care Team Providers Care Refinery Operator Helper Crude Unit Name Role Phone Fabiana MOORE, Aaron Primary Care Provider Ubaldo Spann Unavailable [phone] Allergies No Known Allergies Results Component Value Reference Range Notes Blood Urea Nitrogen Reviewed date:12/13/2024 07:53:33 PM Interpretation: Performing Lab:[facility], [address] [place] [phone] Notes/Report: Blood Urea Nitrogen 24 9-16 mg/dL Reason For Referral No Information Medications Medication SIG (Take, Route, Frequency, Duration) Notes Start Date End Date Status Eliquis 5 MG as directed Orally Active Furosemide 20 MG 1 tablet Orally Once a day Active Fish Oil 1000 MG 1 capsule Orally Onc e a day Active Gabapentin 400 MG 1 capsule Orally Thr ee times a day Active ICaps - Orally Active Calcium + D 315-200 MG-UNIT 1 tablet wit h meals Orally Twice a day Active Clifton 3 1000 MG 1 capsule Orally Thr ee times a day Active CoQ10 1 1 capsule with a teetee l Orally Once a day Active Multivitamin Adult - Orally Active Atorvastatin Calcium 40 MG 1 tablet Oral ly Once a day Active rOPINIRole HCl 2 MG Orally Active Potassium & Magnesium Aspartat 250-250 MG 1 capsule with a meal Orally Once a day Active Valsartan-hydroCHLOROthiazi de 160-25 MG 1 tablet Orally Once a day Active Immunizations Vaccine Route Administration Date Status Comme nts Influenza Unknown 02/04/2024 Administered Problems Problem Type SNOMED Code ICD Code Onset Dates Problem Status W/U Status Risk Notes Problem 241349287 Encounter for screening for malignant neoplasm of colon (Z12.11) Active confirmed Problem Encounter for screening for malignant neoplasm of rectum (Z12.12) Active confirmed Problem 88567156 Preprocedural examination (Z01.818) Active confirmed Vital Signs Temperature 98.0 degrees Fahrenheit 11/25/2024 Blood pressure diastolic 01 mm Hg 11/25/2024 Height 65 in 11/25/2024 Blood pressure systolic 001 mm Hg 11/25/2024 Weight 216.2 lbs 11/25/2024 BMI 35.97 kg/m2 11/25/2024 Procedures Procedure Date Ordered Date Performed Result Body Sit e COLONOSCOPY 11/25/2024 N/A Encounters Encounter Location Date Provider Diagnosis [facility] [address] [place] [address] 11/25/[address] scan, colon R93.3 Assessments Encounter Date Diagnosis (ICD Code) Assessment Notes Treatment Notes Treatment Clinical Notes Section Notes 11/25/[address] scan, colon (ICD-10 - R93.3) Overall, Jeannine presently appears well both in general and from a GI standpoint. She is currently not having any new or worrisome GI complaints. We did discuss the CT scan findings. I advised her that the radiologist reading of the CT scan is quite iffy at best in regard to the suspicion of any type of colonic mass. I did advise her that we could certainly have her undergo a follow-up colonoscopy as it has been over 8 years since her last exam and that would be the only way to know definitively as to whether or not there was any significant pathology in the colon. However, I will need to speak with her ball shagger at [facility] to discuss the potential brief stoppage of the Eliquis and whether or not she would need Lovenox for bridging during that time. I do not think the colonoscopy needs to be done urgently based on the questionable reading of the CT scan While we are waiting for me to speak with the ball shagger I will order another CT scan of the abdomen but with both oral and IV contrast to obtain a better inspection of the colon from that standpoint. If the colon appears basically normal with oral contrast then we might be able to hold off on the colonoscopy completely. Obviously if there remains a persistent suspicion of some colonic pathology we would then definitely proceed with a colonoscopy. Of note, to give credit where credit is due, the idea of ordering the follow-up CT scan with oral contrast was her 's idea. However, I do think it is a good idea to proceed with that such that we might be able to avoid a colonoscopy completely which might be the best thing for her given some continued breathing issues and the need for anticoagulation. Jeannine and her were very comfortable with this plan. Thank you again for allowing me to participate in Jeannine's care. I shall continue to keep you advised of her progress. Plan Of Treatment Pending Test Test Name Order Date COLONOSCOPY 11/25/2024 GI BIOPSY 08/16/2016 BUN 11/25/2024 CT ABD & PELVIS WITH CONTRAST 11/25/2024 Creatinine 11/25/2024 Future Test Test Name Order Date COLONOSCOPY 05/23/2016 Insurance Providers Payer Name Payer Address Payer Phone Subscriber Number Group Number Insured Name Patient Relationship to Insured Coverage Start Date Coverage End Date MEDICARE OF [place] [address] [place] [address] [id number] JEANNINE MAGALLANES Self - patient is the insured 1 MEDEX ATTN CLAIMS [address] [place] [address] [id number] JEANNINE MAGALLANES Self - patient is the insured Medical (General) History Medical History History ICD Code Negative screening colonosoc py --2005 except for sigmoid diverticulosis, and internal and external hemorrhoids Hyperlipidemia Denies MS,DM,CVA,Lung disease,renal dise ase Restless leg syndrome HTN Pulmonary embolism(saddle em bolus) 10/2024 with DVT's in both LE's- treated at [facility]- on Eliquis Negative colonoscopy in 07/2016 Surgical History Surgery Date(Month/Year) Left knee surgery Complete hysterectomy
[2024-12-16] MEDS: iohexoL 350 MG/ML 100 ML INFUS..BTL IV (10:50)
[2024-12-16] MEDS: Barium Sulfate Oral (Berry) 450 ML ORAL.SUSP 900 ML PO (10:51)
[2024-12-16 12:30] LABS: Creatinine POC 1.0 mg/dL (0.5-1.4); GFR POC 59
--- OUTSIDE RECORDS SUMMARY | 2024-12-28 20:00 | XMS_ITS | Clinical Summary ---
Author Organization Unknown Care Team Providers Care Decontamination Worker Name Role Phone CHELI MOORE, SNEHA Unavailable Unavailable POLO BENJAMIN, YOVANNY Unavailable Unavailable HECTOR NASH, SALINA Unavailable Unavailabl e CONDINO SKINNY/BAÑUELOS, RODOLFO Unavailable Unav ailable [place] OT, LOUIE Unavailable Unavailable Payers Payer Name Policy Type Policy Number Effective Date Expira tion Date MEDICARE.NGS.PDGM [id number] Problems Condition Name Condition Details Condition Category Status Onset Date Resolution Date Last Treatment Date Treating Clinician Comments OTHER PULMONARY EMBOLISM WITH ACUTE COR PULMONALE Active 10-26 00:00: 00 ACUTE EMBOLISM AND THOMBOS UNSP DEEP VEINS OF LOW EXTRM, BI Active 10-26 00:00: 00 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 CHR KDNY Active 10-26 00:00: 00 CHRONIC DIASTOLIC (CONGESTIVE) HEART FAILURE Active 10-26 00:00: 00 CHRONIC KIDNEY DISEASE, STAGE 3A Active 10-26 00:00: 00 DORSALGIA, UNSPECIFIED Active 10-26 00:00: 00 HYPERLIPIDEM IA, UNSPECIFIED Active 10-26 00:00: 00 OBESITY, UNSPECIFIED Active 10-26 00:00: 00 RESTLESS LEGS SYNDROME Active 10-26 00:00: 00 SOLITARY PULMONARY NODULE Active 10-26 00:00: 00 SENIOR CARE (CURRENT) USE OF ANTICOAGULAN TS Active 10-26 00:00: 00 Allergies, Adverse Reactions, Alerts Allergy Name Allergy Type Status Severity Reaction(s) Onset Date Inactive Date Treating Clinician Comments LATEX ANYTHING Propensity to adverse reactions Active 2024-10 09:52:4 2 Medications Ordered Medication Name Filled Medication Name Start Date Stop Date Current Medication? Ordering Clinician Indication Dosage Frequency Signature (SIG) Comments Components gabapentin 600 mg tablet 10-15 00:00: 00 Yes [id number] NEUROPATHY 1 tablet 3 TIMES DAILY 1 tablet 3 TIMES DAILY (route: oral) Med Classific ation: Central Nervous System Agents triamcinolo ne acetonide 0.1 % topical cream 10-06 00:00: 00 Yes [id number] RASH Per instruc tions DAILY Per instructio ns DAILY (route: topical) Med Classific ation: Dermatolo gical acetaminoph en 500 mg tablet 10-31 00:00: 00 Yes [id number] PAIN 2 tablet 3 TIMES DAILY 2 tablet 3 TIMES DAILY (route: oral) Med Classific ation: Analgesic , Anti-infl ammatory or Antipyret ic atorvastati n 40 mg tablet 10-31 00:00: 00 Yes [id number] CHOLESTEROL 1 tablet DAILY 1 tablet DAILY (route: oral) Med Classific ation: Cardiovas cular Therapy Agents furosemide 20 mg tablet 10-31 00:00: 00 Yes [id number] EDEMA 1 tablet DAILY 1 tablet DAILY (route: oral) Med Classific ation: Cardiovas cular Therapy Agents omega 3-dha 100 mg-epa 400 mg-fish oil 1,000 mg capsule 10-31 00:00: 00 Yes [id number] SUPPLEMENT 1 capsule 2 TIMES DAILY 1 capsule 2 TIMES DAILY (route: oral) Med Classific ation: Cardiovas cular Therapy Agents ropinirole 1 mg tablet 10-31 00:00: 00 Yes [id number] RESTLESS LEGS 3 tablet 2 TIMES DAILY 3 tablet 2 TIMES DAILY (route: oral) Med Classific ation: Central Nervous System Agents valsartan 160 mg tablet 10-31 00:00: 00 Yes [id number] HTN 1 tablet DAILY 1 tablet DAILY (route: oral) Med Classific ation: Cardiovas cular Therapy Agents Eliquis 5 mg tablet 10-31 00:00: 00 Yes [id number] blood thiinner 1 tablet 2 TIMES DAILY 1 tablet 2 TIMES DAILY (route: oral) Med Classific ation: Hematolog ical Agents Vital Signs Vital Name Observation Time Observation Value Commen ts Temperature 2024-12-02 11:50:00.000 97.7 [degF] Temperature 2024-11-30 16:29:00.000 97.4 [degF] Temperature 2024-11-25 09:14:00.000 97.9 [degF] Temperature 2024-11-19 22:02:00.000 97 [degF] Temperature 2024-11-18 12:56:00.000 97.8 [degF] Temperature 2024-11-11 11:24:00.000 97 [degF] Temperature 2024-11-10 14:06:00.000 97 [degF] Temperature 2024-11-06 17:00:00.000 97.7 [degF] Temperature 2024-11-06 09:02:00.000 97.7 [degF] Temperature 2024-11-06 08:55:00.000 97.7 [degF] Temperature 2024-11-02 14:11:00.000 97.5 [degF] Temperature 2024-10-31 09:51:00.000 97.4 [degF] BMI (%) 2024-10-31 09:31:46.000 35 kg/m2 Height 2024-10-31 09:31:38.000 65 [in_us] Pulse 2024-12-02 11:50:00.000 62 /min Pulse 2024-11-30 16:29:00.000 70 /min Pulse 2024-11-25 09:14:00.000 67 /min Pulse 2024-11-19 22:02:00.000 80 /min Pulse 2024-11-18 12:56:00.000 66 /min Pulse 2024-11-11 11:24:00.000 72 /min Pulse 2024-11-10 14:06:00.000 70 /min Pulse 2024-11-06 17:00:00.000 76 /min Pulse 2024-11-06 09:02:00.000 66 /min Pulse 2024-11-06 08:55:00.000 66 /min Pulse 2024-11-02 14:11:00.000 61 /min Pulse 2024-10-31 09:51:00.000 60 /min O2 Saturation (%) 2024-12-02 11:50:00.000 98 % O2 Saturation (%) 2024-11-30 16:29:00.000 96 % O2 Saturation (%) 2024-11-25 09:14:00.000 96 % O2 Saturation (%) 2024-11-18 12:56:00.000 97 % O2 Saturation (%) 2024-11-11 11:24:00.000 96 % O2 Saturation (%) 2024-11-06 17:00:00.000 97 % O2 Saturation (%) 2024-11-06 09:02:00.000 98 % O2 Saturation (%) 2024-11-06 08:55:00.000 98 % O2 Saturation (%) 2024-11-02 14:11:00.000 97 % Respirations 2024-12-02 11:50:00.000 16 /min Respirations 2024-11-30 16:29:00.000 16 /min Respirations 2024-11-25 09:14:00.000 18 /min Respirations 2024-11-19 22:02:00.000 18 /min Respirations 2024-11-18 12:56:00.000 18 /min Respirations 2024-11-11 11:24:00.000 16 /min Respirations 2024-11-10 14:06:00.000 18 /min Respirations 2024-11-06 17:00:00.000 16 /min Respirations 2024-11-06 09:02:00.000 18 /min Respirations 2024-11-06 08:55:00.000 18 /min Respirations 2024-11-02 14:11:00.000 18 /min Respirations 2024-10-31 09:51:00.000 18 /min Weight (lbs) 2024-12-02 11:53:00.000 215 [lb_av] Weight (lbs) 2024-11-25 09:26:00.000 215 [lb_av] Weight (lbs) 2024-11-18 12:57:00.000 214 [lb_av] Weight (lbs) 2024-11-11 11:38:00.000 214 [lb_av] Weight (lbs) 2024-11-10 14:06:00.000 214 [lb_av] Weight (lbs) 2024-11-06 17:05:00.000 214 [lb_av] Weight (lbs) 2024-11-06 09:04:00.000 214 [lb_av] Weight (lbs) 2024-11-06 08:55:00.000 214 [lb_av] Weight (lbs) 2024-10-31 09:31:46.000 213 [lb_av] Systolic Blood Pressure 2024-12-02 11:50:00.000 148 mm [Hg] Systolic Blood Pressure 2024-11-30 16:32:00.000 150 mm [Hg] Systolic Blood Pressure 2024-11-25 09:14:00.000 152 mm [Hg] Systolic Blood Pressure 2024-11-19 22:02:00.000 110 mm [Hg] Systolic Blood Pressure 2024-11-18 12:56:00.000 145 mm [Hg] Systolic Blood Pressure 2024-11-11 11:24:00.000 120 mm [Hg] Systolic Blood Pressure 2024-11-10 14:06:00.000 110 mm [Hg] Systolic Blood Pressure 2024-11-06 17:00:00.000 140 mm [Hg] Systolic Blood Pressure 2024-11-06 09:02:00.000 154 mm [Hg] Systolic Blood Pressure 2024-11-06 08:55:00.000 154 mm [Hg] Systolic Blood Pressure 2024-11-02 14:11:00.000 146 mm [Hg] Systolic Blood Pressure 2024-10-31 09:51:00.000 132 mm [Hg] Diastolic Blood Pressure 2024-12-02 11:50:00.000 70 mm [Hg] Diastolic Blood Pressure 2024-11-30 16:32:00.000 90 mm [Hg] Diastolic Blood Pressure 2024-11-25 09:14:00.000 84 mm [Hg] Diastolic Blood Pressure 2024-11-19 22:02:00.000 62 mm [Hg] Diastolic Blood Pressure 2024-11-18 12:56:00.000 80 mm [Hg] Diastolic Blood Pressure 2024-11-11 11:24:00.000 70 mm [Hg] Diastolic Blood Pressure 2024-11-10 14:06:00.000 62 mm [Hg] Diastolic Blood Pressure 2024-11-06 17:00:00.000 81 mm [Hg] Diastolic Blood Pressure 2024-11-06 09:02:00.000 84 mm [Hg] Diastolic Blood Pressure 2024-11-06 08:55:00.000 84 mm [Hg] Diastolic Blood Pressure 2024-11-02 14:11:00.000 94 mm [Hg] Diastolic Blood Pressure 2024-10-31 09:51:00.000 84 mm [Hg] Plan of Treatment Planned Activity Planned Date Details Comments Future Scheduled Test PHYSICAL T HERAPIST TO EVALUATE FOR HEP STRENGTH TRAINING [code = PHYSICAL THERAPIST TO EVALUATE FOR HEP STRENGTH TRAINING] Future Scheduled Test FALL REDUC TION MANAGEMENT; RN TO ASSESS AND OBSERVE, FISHER TROLL LINE/GAS ENGINE OPERATOR GENERATORS TO OBSERVE FALL RISK FACTORS AND EDUCATE PATIENT/CAREGIVER ON STRATEGIES TO MINIMIZE THE RISK OF FALLING. [code = FALL REDUCTION MANAGEMENT; RN TO ASSESS AND OBSERVE, FISHER TROLL LINE/GAS ENGINE OPERATOR GENERATORS TO OBSERVE FALL RISK FACTORS AND EDUCATE PATIENT/CAREGIVER ON STRATEGIES TO MINIMIZE THE RISK OF FALLING.] Future Scheduled Test RN TO OBSE RVE, ASSESS, EVALUATE, AND DEVELOP AN INDIVIDUALIZED PLAN OF CARE. AGENCY MAY ACCEPT ORDERS FROM CONSULTING PHYSICIANS RN TO OBSERVE AND ASSESS, FISHER TROLL LINE/GAS ENGINE OPERATOR GENERATORS TO OBSERVE FOR RISK FOR FALLS AND INSTRUCT IN FALL PREVENTION, HOME SAFETY, MEDICATION MANAGEMENT, INFECTION PREVENTION, AND NUTRITION MANAGEMENT. RN/FISHER TROLL LINE/GAS ENGINE OPERATOR GENERATORS NURSE MAY PERFORM O2 SATURATION LEVEL ON ADMISSION AND PRN FOR RESP STATUS CHANGES FOR RN TO ASSESS/FISHER TROLL LINE TO OBSERVE PATIENT, WITH NOTIFICATION TO THE PHYSICIAN IF SATURATION IS 90% IN THE ABSENCE OF MORE SPECIFIC PARAMETERS FROM THE PHYSICIAN. AGENCY MAY PERFORM A RESUMPTION OF CARE VISIT FOLLOWING ANY HOSPITAL ADMISSION. RN/FISHER TROLL LINE/GAS ENGINE OPERATOR GENERATORS TO MONITOR CO-MORBID CONDITIONS LISTED ON THE PLAN OF CARE AND ANY NEW CONDITIONS THAT PRESENT THEMSELVES DURING THIS EPISODE TO IDENTIFY CHANGES AND INTERVENE TO MINIMIZE COMPLICATIONS. [code = RN TO OBSERVE, ASSESS, EVALUATE, AND DEVELOP AN INDIVIDUALIZED PLAN OF CARE. AGENCY MAY ACCEPT ORDERS FROM CONSULTING PHYSICIANS RN TO OBSERVE AND ASSESS, FISHER TROLL LINE/GAS ENGINE OPERATOR GENERATORS TO OBSERVE FOR RISK FOR FALLS AND INSTRUCT IN FALL PREVENTION, HOME SAFETY, MEDICATION MANAGEMENT, INFECTION PREVENTION, AND NUTRITION MANAGEMENT. RN/FISHER TROLL LINE/GAS ENGINE OPERATOR GENERATORS NURSE MAY PERFORM O2 SATURATION LEVEL ON ADMISSION AND PRN FOR RESP STATUS CHANGES FOR RN TO ASSESS/FISHER TROLL LINE TO OBSERVE PATIENT, WITH NOTIFICATION TO THE PHYSICIAN IF SATURATION IS 90% IN THE ABSENCE OF MORE SPECIFIC PARAMETERS FROM THE PHYSICIAN. AGENCY MAY PERFORM A RESUMPTION OF CARE VISIT FOLLOWING ANY HOSPITAL ADMISSION. RN/FISHER TROLL LINE/GAS ENGINE OPERATOR GENERATORS TO MONITOR CO-MORBID CONDITIONS LISTED ON THE PLAN OF CARE AND ANY NEW CONDITIONS THAT PRESENT THEMSELVES DURING THIS EPISODE TO IDENTIFY CHANGES AND INTERVENE TO MINIMIZE COMPLICATIONS.] Future Scheduled Test RISK FOR H OSPITALIZATION; RN TO ASSESS/TEACH, GAS ENGINE OPERATOR GENERATORS/FISHER TROLL LINE TO OBSERVE/TEACH PATIENT/CAREGIVER ON RISK FOR HOSPITALIZATION/EMERGENCY ROOM VISITS, TEACH SIGNS AND SYMPTOMS THAT PUT PATIENT AT RISK, WHEN TO NOTIFY NURSE/PHYSICIAN OF COMPLICATIONS/DECLINE, AND WHEN TO CALL 911. [code = RISK FOR HOSPITALIZATION; RN TO ASSESS/TEACH, GAS ENGINE OPERATOR GENERATORS/FISHER TROLL LINE TO OBSERVE/TEACH PATIENT/CAREGIVER ON RISK FOR HOSPITALIZATION/EMERGENCY ROOM VISITS, TEACH SIGNS AND SYMPTOMS THAT PUT PATIENT AT RISK, WHEN TO NOTIFY NURSE/PHYSICIAN OF COMPLICATIONS/DECLINE, AND WHEN TO CALL 911.] Future Scheduled Test CARDIOVASC ULAR SYSTEM; RN TO ASSESS/TEACH, FISHER TROLL LINE/GAS ENGINE OPERATOR GENERATORS TO OBSERVE/TEACH RELATED TO ALTERED CARDIOVASCULAR STATUS TO MINIMIZE COMPLICATIONS AND REDUCE HOSPITALIZATION. [code = CARDIOVASCULAR SYSTEM; RN TO ASSESS/TEACH, FISHER TROLL LINE/GAS ENGINE OPERATOR GENERATORS TO OBSERVE/TEACH RELATED TO ALTERED CARDIOVASCULAR STATUS TO MINIMIZE COMPLICATIONS AND REDUCE HOSPITALIZATION.] Future Scheduled Test HEART FAIL URE; RN TO ASSESS/TEACH, FISHER TROLL LINE/GAS ENGINE OPERATOR GENERATORS TO OBSERVE/TEACH CARDIOPULMONARY SYSTEM TO IDENTIFY SIGNS OF DECOMPENSATION AND INTERVENE TO MINIMIZE THE SEVERITY OF FLUID OVERLOAD. OBSERVE PATIENT ABILITY TO MONITOR AND RECORD DAILY WEIGHTS AND VITAL SIGNS, INCLUDING PULSE AND BLOOD PRESSURE; RECORD PATIENT REPORTED WEIGHT, OR WEIGH PATIENT NEEDED. REPORT INCREASED EDEMA OR WEIGHT GAIN OF >2 LBS IN 1 DAY OR >5 LBS IN 1 WEEK OR 5LBS OR MORE OVER TARGET WEIGHT. MAY MEASURE ABDOMINAL GIRTH IF UNABLE TO WEIGH. SCALES AND BP MONITOR TO BE PROVIDED IF NEEDED. [code = HEART FAILURE; RN TO ASSESS/TEACH, FISHER TROLL LINE/GAS ENGINE OPERATOR GENERATORS TO OBSERVE/TEACH CARDIOPULMONARY SYSTEM TO IDENTIFY SIGNS OF DECOMPENSATION AND INTERVENE TO MINIMIZE THE SEVERITY OF FLUID OVERLOAD. OBSERVE PATIENT ABILITY TO MONITOR AND RECORD DAILY WEIGHTS AND VITAL SIGNS, INCLUDING PULSE AND BLOOD PRESSURE; RECORD PATIENT REPORTED WEIGHT, OR WEIGH PATIENT NEEDED. REPORT INCREASED EDEMA OR WEIGHT GAIN OF >2 LBS IN 1 DAY OR >5 LBS IN 1 WEEK OR 5LBS OR MORE OVER TARGET WEIGHT. MAY MEASURE ABDOMINAL GIRTH IF UNABLE TO WEIGH. SCALES AND BP MONITOR TO BE PROVIDED IF NEEDED. ] Future Scheduled Test HYPERTENSI ON MANAGEMENT; RN TO ASSESS AND TEACH, FISHER TROLL LINE/GAS ENGINE OPERATOR GENERATORS TO OBSERVE AND TEACH WARNING SIGNS AND SYMPTOMS TO AVOID HOSPITALIZATION. [code = HYPERTENSION MANAGEMENT; RN TO ASSESS AND TEACH, FISHER TROLL LINE/GAS ENGINE OPERATOR GENERATORS TO OBSERVE AND TEACH WARNING SIGNS AND SYMPTOMS TO AVOID HOSPITALIZATION.] Future Scheduled Test BLOOD CLOT MANAGEMENT; RN TO ASSESS AND TEACH/ FISHER TROLL LINE /GAS ENGINE OPERATOR GENERATORS TO OBSERVE AND TEACH AND PROVIDE EDUCATION ON BLOOD CLOT MANAGEMENT. [code = BLOOD CLOT MANAGEMENT; RN TO ASSESS AND TEACH/ FISHER TROLL LINE /GAS ENGINE OPERATOR GENERATORS TO OBSERVE AND TEACH AND PROVIDE EDUCATION ON BLOOD CLOT MANAGEMENT.] Future Scheduled Test MEDICATION MANAGEMENT; RN/FISHER TROLL LINE/GAS ENGINE OPERATOR GENERATORS TO REVIEW MEDICATIONS FOR INTERACTIONS, EFFECTIVENESS OF DRUG THERAPY, AND SIGNS/SYMPTOMS OF ADVERSE REACTIONS. MAY INSTRUCT AND REINFORCE MEDICATION TEACHING RELATED TO THE USE OF MEDICATIONS, DOSAGE, FREQUENCY, PURPOSE, SIDE EFFECTS, AND TO REPORT COMPLICATIONS. [code = MEDICATION MANAGEMENT; RN/FISHER TROLL LINE/GAS ENGINE OPERATOR GENERATORS TO REVIEW MEDICATIONS FOR INTERACTIONS, EFFECTIVENESS OF DRUG THERAPY, AND SIGNS/SYMPTOMS OF ADVERSE REACTIONS. MAY INSTRUCT AND REINFORCE MEDICATION TEACHING RELATED TO THE USE OF MEDICATIONS, DOSAGE, FREQUENCY, PURPOSE, SIDE EFFECTS, AND TO REPORT COMPLICATIONS.] Future Scheduled Test ANTITHROMB OTIC MANAGEMENT; RN TO ASSESS AND TEACH, FISHER TROLL LINE/GAS ENGINE OPERATOR GENERATORS TO OBSERVE/TEACH/MONITOR EFFECTIVENESS OF ANTITHROMBOTIC THERAPY. RN/FISHER TROLL LINE/GAS ENGINE OPERATOR GENERATORS TO INSTRUCT ON SIGNS AND SYMPTOMS OF BLEEDING/ADVERSE REACTIONS TO REPORT TO PHYSICIAN. [code = ANTITHROMBOTIC MANAGEMENT; RN TO ASSESS AND TEACH, FISHER TROLL LINE/GAS ENGINE OPERATOR GENERATORS TO OBSERVE/TEACH/MONITOR EFFECTIVENESS OF ANTITHROMBOTIC THERAPY. RN/FISHER TROLL LINE/GAS ENGINE OPERATOR GENERATORS TO INSTRUCT ON SIGNS AND SYMPTOMS OF BLEEDING/ADVERSE REACTIONS TO REPORT TO PHYSICIAN. ] Goal Patient Goal - TO WALK AURELIA R Goal Provider Goal - Goal Provider Goal - PATIENT/CAREGIVER WILL VERBALIZE/DEMONSTRATE UNDERSTANDING OF FALL RISK FACTORS AND IMPLEMENT STRATEGIES TO MINIMIZE FALL RISK. PATIENT/CAREGIVER WILL VERBALIZE/DEMONSTRATE AN ABILITY TO ADHERE TO FALL REDUCTION SELF-MANAGEMENT AND LIFE-STYLE CHANGES BY 12/29/24 Goal Provider Goal - A PLAN OF CARE WILL BE ESTABLISHED THAT MEETS THE PATIENTS NEEDS. PATIENT WILL DEMONSTRATE OXYGEN SATURATION WITHIN NORMAL LIMITS OR PATIENTS OPTIMAL LEVEL ESTABLISHED BY THE PHYSICIAN THROUGHOUT CARE. CHANGES TO CO-MORBID CONDITIONS AND ANY NEW CONDITIONS WILL BE IDENTIFIED AND REPORTED TO THE PHYSICIAN. Goal Provider Goal - PATIENT/CAREGIVER WILL VERBALIZE UNDERSTANDING OF SIGNS AND SYMPTOMS THAT PUT THE PATIENT AT RISK FOR HOSPITALIZATION /EMERGENCY ROOM VISITS, WHEN TO NOTIFY NURSE/PHYSICIAN OF COMPLICATIONS/DECLINE AND WHEN TO CALL 911. Goal Provider Goal - PATIENT / CAREGIVER WILL VERBALIZE/DEMONSTRATE UNDERSTANDING OF MEASURES TO MANAGE ALTERED CARDIOVASCULAR STATUS BY 12/29/24 Goal Provider Goal - PATIENT / CAREGIVER WILL VERBALIZE/DEMONSTRATE AN ABILITY TO ADHERE TO SELF-MANAGEMENT OF HF TO MINIMIZE COMPLICATIONS AND AVOID HOSPITALIZATION BY END OF EPISODE. Goal Provider Goal - PATIENT / CAREGIVER WILL VERBALIZE/DEMONSTRATE AN ABILITY TO ADHERE TO SELF-MANAGEMENT OF HTN TO MINIMIZE COMPLICATIONS AND AVOID HOSPITALIZATION BY END OF EPISODE. Goal Provider Goal - PATIENT/CAREGIVER WILL VERBALIZE UNDERSTANDING OF CARE AND MANAGEMENT OF BLOOD CLOT BY END OF EPISODE. Goal Provider Goal - PATIENT/CAREGIVER TO VERBALIZE, AND CONSISTENTLY DEMONSTRATE EFFECTIVE, SAFE MANAGEMENT OF MEDICATION INCLUDING KNOWLEDGE OF EFFECTIVENESS, POTENTIAL SIDE EFFECTS AND DRUG REACTIONS AND WHEN TO CONTACT THE APPROPRIATE CARE PROVIDER. PATIENT/CAREGIVER WILL BE ABLE TO VERBALIZE UNDERSTANDING OF MEDICATION REGIMEN AND ACCURATELY TAKE MEDICATIONS PRESCRIBED WITHOUT ADVERSE EFFECTS BY 12/29/24 Goal Provider Goal - PATIENT / CAREGIVER WILL PROMPTLY REPORT SIGNS AND SYMPTOMS OF BLEEDING OR ADVERSE REACTIONS TO THE PHYSICIAN. PATIENT/CAREGIVER WILL VERBALIZE UNDERSTANDING OF ANTITHROMBOTIC THERAPY MANAGEMENT BY END OF EPISODE. Encounters Start Date/Time End Date/Time Encounter Type Admission Type Attending [facility] Care Department Encounter ID Discharge Date Discharge Status Discharge Condition Discharge Reason Percent Goals Met 2024-10-31 00:00:00 2024-12-29 00:00:00 Outpatient NEW ADMISSION [facility] [id number] [phone]
== END 2024-12-16 07:35 | disposition home or self-care (01) ==
LOC: HO.CT 07:34
PROVIDERS: PCP Internal Medicine; Visit Provider Internal Medicine
DX: R93.3 Abnormal findings on diagnostic imaging of other parts of digestive tract (principal)
CPT/HCPCS: 74177; 82565; Q9967

== ENCOUNTER → 2024-12-16 07:35 | Outpatient (BNV) | payer MEDICARE, SELFPAY | PROVIDERS: PCP Internal Medicine; Visit Provider Radiology Diagnostic Radiology | DX: K57.30 Diverticulosis of large intestine without perforation or abscess without bleeding (principal) | CPT/HCPCS: 74177 ==

== ENCOUNTER 2024-12-21 09:31 | Outpatient (AMB) | payer MEDICARE, SELFPAY ==
--- OUTSIDE RECORDS SUMMARY | 2024-08-03 10:30 | XMS_ITS ---
Author Organization [facility] Address [address] [place] [address] Care Team Providers Care Mash Tub Cooker Operator Name Role Phone Aaron Jung MD Primary Care Provider Armani Guadarrama Unavailable [phone] Encounters Encounter Location Date Provider Diagnosis [address] [address] 08/03/2024 Armani Giraldo Plan Of Treatment Next Appt Details Provider Name:Armani Giraldo , 12/30/2024 10:15:00 AM, [address] [place] [address], [phone], Provider Name:Armani Giraldo , 03/29/2025 09:15:00 AM, [address] [place] [address], [phone], Progress Notes * Lexi JACKSONOB:[birth year] (79 yo F)Acc No.[id number]:08/03/2024 Progress Note Patient: Jeannine SILVA Provider: Skyler Giraldo DPM :1945 A ge:79 Y S ex:Female Date:08/03/2024 Address:[address] [place], [place] [phone] Pcp:Aaron Jung MD Subjective: * Chief Complaints: [...] DPM Date: 0 08/03/2024 Generated for Jefferson Alvarez on: 0 12/21/2024 10:02 AM EDT
--- OUTSIDE RECORDS SUMMARY | 2024-12-08 07:15 | XMS_ITS ---
Author Organization Aaron Jung MD Address [address] [place] [phone] Care Team Providers Care Mobile Paint Specialist Name Role Phone Aaron Jung Primary [...] Date Provider Diagnosis Aaron Jung MD [address] [facility] [address] [place], [place] [phone] 12/08/2024 Aaron Jung Essential hypertension I10 ; [...] 4 Weeks, Reason: Provider Name:Aaron Villarreal ier, 01/01/2025 08:00:00 AM, [address], [address], [place], [place], [phone], Provider Name:Aaron Villarreal ier, 01/08/2025 01:30:00 PM, [address], [address], [place], [place], [phone], Provider Name:Aaron Villarreal ier, 07/06/2025 07:45:00 AM, [address], [address], [place], [place], [phone], Provider Name:aAron Villarreal ier, 07/12/2025 02:30:00 PM, [address] [facility], Suite [facility], [place], [place], [phone], Provider Name:Aaron Villarreal ier, 08/30/2025 10:30:00 AM, [address] [place] [address], Suite [facility], [place], [place], [phone], Progress Notes * Lexi JACKSONOB:[birth year] (79 yo F)Acc No.[id number]:12/08/2024 Progress Notes Patient: Jeannine SILVA Provider: Sara Jung MD :1945 A ge:79 Y S ex:Female Date:12/08/2024 Address:[address] [place], [place] [phone] Subjective: * Chief Complaints: * 3 week [...] repeat cat scan next week? 4. O thers Clinical Notes: Total time spent on the date of the encounter is 35 minutes including both face to face time spent and time spent reviewing documentation and counseling the patient. * Procedure Codes: * Follow Up: 4 Weeks * * Sign off status: Completed true * Provider: Sara Jung MD Date: 0 12/08/2024 Generated for Jefferson verma/Whitney/Sommeritting on: 0 12/21/2024 10:02 AM EDT History and Physical Notes * [...]
--- NOTE | 2024-12-21 09:41 | MHC.OFFVIS ---
Intake Visit Reasons: 6 month f/u Allergies latex (LATEX) Allergy (Unknown, Verified 12/21/24 09:47) REDNESS Medication List - Last Reconciled 12/21/24 by Meme Wells CNP apixaban (Eliquis) 5 mg PO BID atorvastatin 40 mg PO DAILY furosemide 20 mg PO DAILY gabapentin 600 mg PO TID ropinirole 3 mg PO BID valsartan 160 mg PO DAILY HPI Comments Details: She was hospitalized at [facility] in 10/2024 for DVT and PE. Peripheral neuropathy pain was not bad. She was still sometimes getting throbbing pain to arch of left foot, especially if she over did it. Occasionally misses evening dose of gabapentin. She was using frankincense and helichrysum cream twice a day and wearing HF shoes which seemed to help. Her left ankle felt stiff at times, worse with colder outside. No falls. RLS symptoms controlled with medication. Low back pain has been okay, following with [facility]. Was having more LBP with pain occasionally radiating down left leg to knee and had epidural injection in 02/2024. Previously, was having pain in bottoms of feet and occasionally instep throbs. Story like walking on jn. Gets LBP radiating into left groin. RLS symptoms are better with medication. MRI LS spine for LBP showed some bulging disc. [facility] Medical History (Updated 12/21/24 @ 09:46 by Meme Wells CNP) Extrapyramidal and movement disorder Hip arthritis Arthritis Peripheral neuropathy Lumbar disc disease Hypertension Low back pain Carpal tunnel syndrome RLS (restless legs syndrome) Review of Systems Const Denies chills, Denies daytime sleepiness, Denies difficulty sleeping, Denies fatigue, Denies fever(s), Denies frequent falls, Denies headache(s), Denies increased appetite, Denies poor appetite, Denies snoring, Denies weakness, Denies weight gain and Denies weight loss Eyes Denies loss of vision ENT Denies vertigo, Denies dizziness, Denies headache(s) and Denies neck pain Card Denies chest pain at rest, Denies chest pain with activity, Denies syncope, Reports leg edema, Denies palpitations, Denies dyspnea and Denies dyspnea on exertion Resp Denies cough, Denies dyspnea, Denies dyspnea on exertion and Denies snoring GI Denies abdominal pain, Denies constipation, Denies heartburn, Denies diarrhea and Denies nausea Denies urinary frequency, Denies urinary incontinence and Denies urinary urgency Musc Denies abnormal gait, Reports back pain, Denies myalgias, Denies arthralgias, Denies neck pain, Denies numbness and Denies tingling Neuro Denies abnormal gait, Denies vertigo, Denies dizziness, Denies syncope, Denies frequent falls, Denies headache(s), Denies lack of coordination, Denies loss of vision, Denies memory loss, Denies numbness, Denies Other visual disturbances, Reports restless legs, Denies seizure-like activity, Denies tingling, Reports paresthesias, Denies tremor(s) and Denies weakness Psych Denies anxiety, Denies depression, Denies auditory hallucinations, Denies memory loss and Denies visual hallucinations Endo Denies fatigue and Denies palpitations Physical Exam Const Other: General Appearance:? normal, in no acute distress. Heart:? S1, S2 normal, no murmurs. Lungs:? clear anteriorly and posteriorly. Musculoskeletal:? normal. Extremities:? BLE edema L > R Psych:? alert, oriented, cognitive function intact, cooperative with exam. Neuro Other: Abnormal Neurological Findings: Absent AJ, plantars neutral. Impaired vibrtory, pinprick, and joint position sensation. Mental Status: alert and oriented X 3. Normal attention, orientation, memory, and affect. Cranial Nerves: Pupils are equal, round, and reactive to light. External ocular muscles are intact. Visual da silva are full, no ptosis. Face is symmetrical, no facial weakness or droop. Facial sensations are normal. Tongue protrudes in midline. Palate elevates symmetrically. Shoulder shrugging is normal Motor Examination: Normal muscle tone, bulk and strength. No atrophy or fasciculations. No drift of the extended upper extremities. DTR 2+ with absent AJs. Plantars are neutral. Sensory Exam: As above. Coordination: No ataxia. No titubation. Laciwz-gx-qdlv, agmj-ucmw-maik test, and rapid alternating movements were normal. Gait Exam: Within normal limits. Cerebellar Signs: Rxfncr-aj-kenu is okay. Extrapyramidal System: No tremor, rigidity with normal facial expressions. No bradykinesia. No bradyphrenia. Normal arm swing and posture. No propulsion or retropulsion. Speech: Normal. No dysphasia or dysarthria. Assessment & Plan Assessment & Plan (1) Peripheral neuropathy: Code(s): G62.9 - Polyneuropathy, unspecified Category: Medical Qualifiers: Peripheral neuropathy type: polyneuropathy, unspecified Qualified Code(s): G62.9 - Polyneuropathy, unspecified Plan: Continue gabapentin 600mg 1 tablet three times a day. (2) RLS (restless legs syndrome): Code(s): G25.81 - Restless legs syndrome Category: Medical Plan: Continue ropinirole 3mg 1 tablet twice a day. (3) Lumbar disc disease: Code(s): M51.9 - Unspecified thoracic, thoracolumbar and lumbosacral intervertebral disc disorder Category: Medical Plan: Following with [facility]. Coding Level of Care Code Est Pt Level 4 (06030) Diagnoses Peripheral polyneuropathy G62.9 Peripheral neuropathy type: polyneuropathy, unspecified RLS (restless legs syndrome) G25.81 Lumbar disc disease M51.9
--- OUTSIDE RECORDS SUMMARY | 2024-12-21 10:02 | XMS_ITS | Patient Health Record ---
Author Organization [facility] Address [address] [place] [address] Care Team Providers Care Numerical Tool Programmer Name Role Phone Aaron Jung MD Primary Care Provider Ubaldo Sp[facility] [phone] Allergies No Known Allergies Results Component Value Reference Range Notes Blood Urea Nitrogen Reviewed date:12/13/2024 07:53:33 PM Interpretation: Performing Lab:[facility], [address] [place] [id number] Notes/Report: Blood Urea Nitrogen 24 9-16 mg/dL CT abdomen pelvis w con (Not yet reviewed by provider) Interpretation: Performing Lab: Notes/Report: [address] [address] [address] Scan Report Signed Patient: Jeannine Jackson MR#: [id number] : 1945 Acct:[id number] Age/Sex: 79 / F ADM Date: 12/16/24 Loc: HO.CT Attending Dr: Ubaldo Turk MD Ordering Physician: Ubaldo Turk MD Date of Service: 12/16/24 Procedure(s): CT abdomen pelvis w IV con Accession Number(s): [id number] cc: Aaron Jung MD; Ubaldo Turk MD Report Number: [id number]: Total DLP = 634.00 mGy-cm EXAMINATION: CT ABDOMEN PELVIS WITH IV CONTRAST HISTORY: ABNORMAL FINDINGS R/O COLONIC MASS COMPARISON: There are no prior studies for available comparison. TECHNIQUE: CT scan of the abdomen and pelvis was performed following administration of 85 mL Omnipaque 350 using standard departmental protocol. Coronal and sagittal reformatted images were generated and reviewed. The patient received oral contrast material. This CT exam was performed with one or more of the following dose reduction techniques: automated exposure control, adjustment of the mA and/or kV according to patient size, use of iterative reconstruction technique. DLP: 634 mGy-cm FINDINGS: LOWER CHEST: The visualized lung bases are clear. There is no pleural effusion. CARDIOVASCULATURE: The heart is normal in size. There is no pericardial effusion. LIVER: The liver is normal in size and contour. No liver mass is identified. The hepatic and portal veins are patent. GALLBLADDER / BILE DUCTS: The gallbladder is unremarkable. There is no intra or extrahepatic biliary ductal dilatation. SPLEEN: The spleen is normal in size. No focal splenic lesion is identified. PANCREAS: The pancreas is unremarkable in appearance. ADRENAL GLANDS: Within normal limits. KIDNEYS/RETROPERITONEUM: No renal calculi are identified. There is no hydronephrosis. No renal masses are identified. LYMPH NODES: No abdominal or pelvic lymphadenopathy. VASCULATURE: The abdominal aorta is normal in caliber. MESENTERY/PERITONEUM: No free fluid. No masses. There is no free intraperitoneal gas. STOMACH: The stomach is collapsed, limiting evaluation. SMALL BOWEL: The small bowel is normal in caliber. COLON: There is a large amount of stool in the colon. There is diverticulosis of the sigmoid colon. There is mild dilatation of the pericolonic fat in this region suggestive of diverticulitis. There is no extraluminal gas or loculated fluid collection. Evaluation for masses is extremely limited. APPENDIX: Normal. URINARY BLADDER/PELVIC ORGANS: The urinary bladder is collapsed, limiting evaluation. The patient is status post hysterectomy. BONES / SOFT TISSUES: There is slight spondylolisthesis of L4 on L5. CT/CT abdomen pelvis w IV con IMPRESSION: Large amount of stool throughout the colon. Findings suggestive of mild sigmoid diverticulitis. Evaluation for masses is limited. If there is clinical concern for colonic mass, colonoscopy is recommended. Electronically signed by: Ubaldo Crane MD 12/16/2024 11:00 AM EDT Dictated By: Ubaldo Crane MD Signed By: <Electronically signed by Ubaldo Crane MD in OV> 12/16/24 1100 DD/ 1031 TD/TT: 12/16/24 1047 Medical Field Representative: Creatinine GFR POC Reviewed date:12/16/2024 05:58:12 PM Interpretation: Performing Lab:[facility], [address] [place] [id number] Notes/Report: [id number] 0.97 59 1027 HOSAL Creatinine POC 1.0 0.5-1.4 mg/dL GFR POC 59 Chronic Kidney Disease: Estimated GFR < 60 mL/min/1.73m2 Severe Kidney Disease: Estimated GFR < 15 mL/min/1.73m2 Reason For Referral No Information Medications Medication [...] h meals Orally Twice a day Active Castell 3 1000 MG 1 capsule Orally Thr [...] Problem Status W/U Status Risk Notes Problem 523261467 Encounter for screening for malignant neoplasm of colon (Z12.11) Active confirmed Problem Screening for malignant neoplasm of rectum (544190685) Encounter for screening for malignant neoplasm of rectum (Z12.12) Active confirmed Problem 27015730 Preprocedural examination (Z01.818) Active confirmed Vital Signs Temperature 98.0 degrees Fahrenheit 11/25/2024 Blood pressure diastolic 01 mm Hg 11/25/2024 Height 65 in 11/25/2024 Blood pressure systolic 001 mm Hg 11/25/2024 Weight 216.2 lbs 11/25/2024 BMI 35.97 kg/m2 11/25/2024 Procedures Procedure Date Ordered Date Performed Result Body Sit e COLONOSCOPY 11/25/2024 N/A Encounters Encounter Location Date Provider Diagnosis [facility] [address] [place] [address] 11/25/[address] scan, colon [...] I will need to speak with her dining chair seat cushion trimmer at [facility] to discuss the potential brief stoppage of the Eliquis and whether or not she would need Lovenox for bridging during that time. I do not think the colonoscopy needs to be done urgently based on the questionable reading of the CT scan While we are waiting for me to speak with the dining chair seat cushion trimmer I will order another CT scan of [...] & PELVIS WITH CONTRAST 11/25/2024 Creatinine 11/25/2024 CT abdomen pelvis w con 12/16/2024 Future Test Test Name Order Date COLONOSCOPY 05/23/2016 Insurance Providers Payer Name Payer Address Payer Phone Subscriber Number Group Number Insured Name Patient Relationship to Insured Coverage Start Date Coverage End Date MEDICARE OF [place] [address] [place] [address] [id number] JEANNINE MAGALLANES Self - patient is the insured 1 [employer] ATT[employer] CLAIMS [address] [place] [address] [phone] [id number] JEANNINE MAGALLANES Self - patient is the insured Medical (General) History Medical History History ICD Code Negative screening colonosoc py 2-2-2005 except for sigmoid diverticulosis, and internal and external hemorrhoids Hyperlipidemia Denies MO,DM,CVA,Lung disease,renal dise ase Restless leg syndrome HTN Pulmonary embolism(saddle em bolus) 10/2024 with DVT's in both LE's- treated at [facility]- on Eliquis Negative colonoscopy in 07/2016 Surgical History Surgery Date(Month/Year) Left knee surgery Complete hysterectomy
== END 2024-12-21 10:22 | disposition home or self-care (01) ==
LOC: HO.HSM 09:31
PROVIDERS: PCP Internal Medicine; Referring Provider Internal Medicine; Visit Provider Registered Nurse
DX: G62.9 Polyneuropathy, unspecified (principal); G25.81 Restless legs syndrome; M51.9 Unspecified thoracic, thoracolumbar and lumbosacral intervertebral disc disorder
CPT/HCPCS: 99214

== ENCOUNTER → 2024-12-21 09:31 | Outpatient (BNVA) | payer MEDICARE, SELFPAY | PROVIDERS: PCP Internal Medicine; Referring Provider Internal Medicine; Visit Provider Registered Nurse | DX: G25.81 Restless legs syndrome (principal); G62.9 Polyneuropathy, unspecified; M51.9 Unspecified thoracic, thoracolumbar and lumbosacral intervertebral disc disorder; Z79.01 Long term (current) use of anticoagulants; Z79.899 Other long term (current) drug therapy | CPT/HCPCS: 99212 ==

== ENCOUNTER 2025-01-01 10:44 | Outpatient (REF) | payer MEDICARE, SELFPAY ==
--- OUTSIDE RECORDS SUMMARY | 2024-12-08 07:15 | XMS_ITS ---
Author Organization Aaron Jung MD Address [address] [place] [phone] Care Team Providers Care Oval Or Circular Glass Cutter Name Role Phone Aaron Jung Primary Care Provider Allergies Allergen (clinical drug ingredient) Drug/Non Drug Allergy documented on EMR Reaction Allergy Type Onset Date Status prednisone (uncoded) itch Allergy Active lisinopril lisinopril (uncoded) cough Allergy Active REASON FOR VISIT 3 week Medications Medication SIG (Take, Route, Frequency, Duration) Notes Start Date End Date Status Farxiga 5 mg 1 tablet Orally once a day in a.m. 07/05/2023 Not-Taking Valsartan 160 MG TAKE 1 TABLET BY LORIN TH EVERY DAY Active Furosemide 20 MG TAKE 1 TABLET BY LORIN TH EVERY DAY Active Apixaban 5 MG as directed Orally twice a day for 60 days Active Atorvastatin Calcium 40 MG TAKE 1 TABLET BY MOUTH EVERY DAY for 90 Active rOPINIRole HCl 3 MG 1 tablet Orally twic e a day Active Calcium + D 500-1000-40 MG-UNT-MCG 2 tablets once a day Active Gabapentin 600 MG TAKE 1 TABLET BY LORIN TH THREE TIMES DAILY for 30 Active Vital Signs Blood pressure systolic 162 mm Hg 12/09/19 25 Blood pressure diastolic 84 mm Hg 025 Height 65.5 in 12/08/2024 Weight 220 lbs 12/08/2024 BMI 36.05 kg/m2 12/08/2024 weight is up 3 pounds since 11-17-24 Encounters Encounter Location Date Provider Diagnosis Aaron Jung MD [address] [facility] [address] [place], [place] [phone] 12/08/2024 Aaron Jung Essential hypertension I10 ; Pulmonary emboli I26.99 and Rectal mass K62.9 Assessments Encounter Date Diagnosis (ICD Code) Assessment Notes Treatment Notes Treatment Clinical Notes Section Notes 12/08/2024 Essential hypertension (ICD-10 - I10) running a little high 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 have spoken with dr mejia. / is getting a repeat cat scan next week 12/08/2024 Other Total time spe nt on the date of the encounter is 35 minutes including both face to face time spent and time spent reviewing documentation and counseling the patient. 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 have spoken with dr mejia. / is getting a repeat cat scan next week Next Appt Details Follow Up: 4 Weeks, Reason: Provider Name:Aaron Villarreal ier, 01/08/2025 01:30:00 PM, [address], [address], [place], [place], [phone], Provider Name:Aaron Villarreal ier, 07/06/2025 07:45:00 AM, [address], [address], [place], [place], [phone], Provider Name:Aaron Villarreal ier, 07/12/2025 02:30:00 PM, [address], [address], [place], [place], [phone], Provider Name:Aaron Villarreal ier, 08/30/2025 10:30:00 AM, [address] [facility], [address], [place], [place], [phone], Progress Notes * Glenys JACKSONChristineOB:[birth year] (79 yo F)Acc No.[id number]:12/08/2024 Progress Notes Patient: Jeannine SILVA Provider: Sara Jung MD :1945 A ge:79 Y S ex:Female Date:12/08/2024 Address:[address] [place], [place] [phone] Subjective: * Chief Complaints: * 3 week * HPI: S ymptom(s): patient is a 79 yo female here for 3 week follow up visit. * ROS: G eneral/Constitutional: Denies C hills. D enies F atigue. D enies F ever. D enies H eadache. E NT: Denies S ore throat. R espiratory: Denies C ough. D enies S hortness of breath at rest. D enies S hortness of breath with exertion. G astrointestinal: Denies D iarrhea. D enies N ausea. * Medical History: * Surgical History: * Hospitalization/Major Diagno stic Procedure: * Medications: T akingrOPINIRole HCl 3 MG Tablet 1 tablet Orally twice a day Calcium + D 500-1000-40 MG-UNT-MCG Tablet Chewable 2 tablets once a day Gabapentin 600 MG Tablet TAKE 1 TABLET BY MOUTH THREE TIMES DAILY Valsartan 160 MG Tablet TAKE 1 TABLET BY MOUTH EVERY DAY Atorvastatin Calcium 40 MG Tablet TAKE 1 TABLET BY MOUTH EVERY DAY Furosemide 20 MG Tablet TAKE 1 TABLET BY MOUTH EVERY DAY Apixaban 5 MG Tablet as directed Orally twice a day Taking rOPINIRole HCl 3 MG Tablet 1 tablet Orally twice a day Taking Calcium + D 500-1000-40 MG-UNT-MCG Tablet Chewable 2 tablets once a day Taking Gabapentin 600 MG Tablet TAKE 1 TABLET BY MOUTH THREE TIMES DAILY Taking Valsartan 160 MG Tablet TAKE 1 TABLET BY MOUTH EVERY DAY Taking Atorvastatin Calcium 40 MG Tablet TAKE 1 TABLET BY MOUTH EVERY DAY Taking Furosemide 20 MG Tablet TAKE 1 TABLET BY MOUTH EVERY DAY Taking Apixaban 5 MG Tablet as directed Orally twice a day Not-Taking/PRNFarxiga 5 mg Tablet 1 tablet Orally once a day in a.m. Medication List reviewed and reconciled with the patientNot-Taking/PRN Farxiga 5 mg Tablet 1 tablet Orally once a day in a.m. Medication List reviewed and reconciled with the patient * Allergies: l isinopril: coughprednisone: itch - Side Effectsyes[Allergies Verified] Objective: * Vitals: H t: 65.5, Wt: 220, BMI:36.05, BP:162/84, Repeat BP:148/84, Wt-k.79. weight is up 3 pounds since 11-17-24. * Examination: G eneral Examination: GENERAL APPEARANCE: w ell developed, well nourished. HEAD: n ormocephalic. SKIN: g ood turgor. HEART: r egular rate and rhythm, no murmurs, rubs, gallops.? LUNGS: n o wheezes, rales, rhonchi, good air movement, clear to auscultation bilaterally. Assessment: * Assessment: 1. E ssential hypertension - I10 (Primary) 2 . P ulmonary emboli - I26.99? 3. R ectal mass - K62.9 Plan: * Treatment: 2. P ulmonary emboli Notes: not short of breath presently 3. R ectal mass Notes: spoke to oncology pa and she felt that we should wait 3 to 4 months after the pulmonary emboli before stopping the apixabon. have spoken with dr mejia. / is getting a repeat cat scan next week? 4. O kade Clinical Notes: Total time spent on the date of the encounter is 35 minutes including both face to face time spent and time spent reviewing documentation and counseling the patient. * Procedure Codes: * Follow Up: 4 Weeks * * Sign off status: Completed true * Provider: Sara Jung MD Date: 0 12/08/2024 Generated for Jefferson verma/Whitney/Sommeritting on: 0 01/01/2025 10:50 AM EDT History and Physical Notes * HPI (History of Present Illness) Category Sub-Category Detail Notes Category Not es Symptom(s) patient is a 79 yo female here for 3 week follow up visit Examination Category Sub-Category Detail Notes Category Not es General Examination GENERAL APPEARANCE: well developed , well nourished HEAD: normocephalic HEART: regular rate and rhy thm, no murmurs, rubs, gallops LUNGS: no wheezes, rales, r honchi, good air movement, clear to auscultation bilaterally SKIN: good turgor
--- OUTSIDE RECORDS SUMMARY | 2024-12-28 20:00 | XMS_ITS | Clinical Summary ---
Author Organization Unknown Care Team Providers Care Roller Helper Name Role Phone CHELI MOORE, SNEHA Unavailable Unavailable POLO BENJAMIN, YOVANNY Unavailable Unavailable HECTOR NASH, SALINA Unavailable Unavailabl e CONDINO SKINNY/BAÑUELOS, RODOLFO Unavailable Unav ailable [place] OT, LOUIE Unavailable Unavailable Payers Payer Name Policy Type Policy Number Effective Date Expira tion Date MEDICARE.NGS.PDGM [id number] Problems Condition Name Condition Details Condition Category [...] SOLITARY PULMONARY NODULE Active 10-26 00:00: 00 SHELTER (CURRENT) USE OF ANTICOAGULAN TS Active 10-26 [...] 600 mg tablet 10-15 00:00: 00 Yes [id number] NEUROPATHY 1 tablet 3 TIMES DAILY 1 tablet 3 TIMES DAILY (route: oral) Med Classific ation: Central Nervous System Agents triamcinolo ne acetonide 0.1 % topical cream 10-06 00:00: 00 Yes [id number] RASH Per instruc tions DAILY Per instructio ns DAILY (route: topical) Med Classific ation: Dermatolo gical acetaminoph en 500 mg tablet 10-31 00:00: 00 Yes [id number] PAIN 2 tablet 3 TIMES DAILY 2 tablet 3 TIMES DAILY (route: oral) Med Classific ation: Analgesic , Anti-infl ammatory or Antipyret ic atorvastati n 40 mg tablet 10-31 00:00: 00 Yes [id number] CHOLESTEROL 1 tablet DAILY 1 tablet DAILY (route: oral) Med Classific ation: Cardiovas cular Therapy Agents furosemide 20 mg tablet 10-31 00:00: 00 Yes [id number] EDEMA 1 tablet DAILY 1 tablet DAILY (route: oral) Med Classific ation: Cardiovas cular Therapy Agents omega 3-dha 100 mg-epa 400 mg-fish oil 1,000 mg capsule 10-31 00:00: 00 Yes [id number] SUPPLEMENT 1 capsule 2 TIMES DAILY 1 capsule 2 TIMES DAILY (route: oral) Med Classific ation: Cardiovas cular Therapy Agents ropinirole 1 mg tablet 10-31 00:00: 00 Yes [id number] RESTLESS LEGS 3 tablet 2 TIMES DAILY 3 tablet 2 TIMES DAILY (route: oral) Med Classific ation: Central Nervous System Agents valsartan 160 mg tablet 10-31 00:00: 00 Yes [id number] HTN 1 tablet DAILY 1 tablet DAILY (route: oral) Med Classific ation: Cardiovas cular Therapy Agents Eliquis 5 mg tablet 10-31 00:00: 00 Yes [id number] blood thiinner 1 tablet 2 TIMES DAILY 1 tablet 2 TIMES DAILY (route: oral) Med Classific ation: Hematolog ical Agents Vital Signs Vital Name Observation Time Observation Value Commen ts Temperature 2024-12-29 09:15:00.000 97.9 [degF] Temperature 2024-12-17 11:07:00.000 97.9 [degF] Temperature 2024-12-02 11:50:00.000 97.7 [degF] Temperature 2024-11-30 [...] kg/m2 Height 2024-10-31 09:31:38.000 65 [in_us] Pulse 2024-12-29 09:15:00.000 60 /min Pulse 2024-12-17 11:07:00.000 67 /min Pulse 2024-12-02 11:50:00.000 62 /min Pulse 2024-11-30 16:29:00.000 70 /min Pulse 2024-11-25 09:14:00.000 67 /min Pulse 2024-11-19 22:02:00.000 80 /min Pulse 2024-11-18 12:56:00.000 66 /min Pulse 2024-11-11 11:24:00.000 72 /min Pulse 2024-11-10 14:06:00.000 70 /min Pulse 2024-11-06 17:00:00.000 76 /min Pulse 2024-11-06 09:02:00.000 66 /min Pulse 2024-11-06 08:55:00.000 66 /min Pulse 2024-11-02 14:11:00.000 61 /min Pulse 2024-10-31 09:51:00.000 60 /min O2 Saturation (%) 2024-12-29 09:15:00.000 97 % O2 Saturation (%) 2024-12-17 11:07:00.000 97 % O2 Saturation (%) 2024-12-02 11:50:00.000 98 % [...] Saturation (%) 2024-11-02 14:11:00.000 97 % Respirations 2024-12-29 09:15:00.000 16 /min Respirations 2024-12-17 11:07:00.000 18 /min Respirations 2024-12-02 11:50:00.000 16 /min Respirations 2024-11-30 16:29:00.000 16 /min Respirations 2024-11-25 09:14:00.000 18 /min Respirations 2024-11-19 22:02:00.000 18 /min Respirations 2024-11-18 12:56:00.000 18 /min Respirations 2024-11-11 11:24:00.000 16 /min Respirations 2024-11-10 14:06:00.000 18 /min Respirations 2024-11-06 17:00:00.000 16 /min Respirations 2024-11-06 09:02:00.000 18 /min Respirations 2024-11-06 08:55:00.000 18 /min Respirations 2024-11-02 14:11:00.000 18 /min Respirations 2024-10-31 09:51:00.000 18 /min Weight (lbs) 2024-12-29 09:15:00.000 218 [lb_av] Weight (lbs) 2024-12-17 11:07:00.000 117 [lb_av] Weight (lbs) 2024-12-02 11:53:00.000 215 [lb_av] Weight (lbs) 2024-11-25 09:26:00.000 215 [lb_av] Weight (lbs) 2024-11-18 12:57:00.000 214 [lb_av] Weight (lbs) 2024-11-11 11:38:00.000 214 [lb_av] Weight (lbs) 2024-11-10 14:06:00.000 214 [lb_av] Weight (lbs) 2024-11-06 17:05:00.000 214 [lb_av] Weight (lbs) 2024-11-06 09:04:00.000 214 [lb_av] Weight (lbs) 2024-11-06 08:55:00.000 214 [lb_av] Weight (lbs) 2024-10-31 09:31:46.000 213 [lb_av] Systolic Blood Pressure 2024-12-29 09:15:00.000 148 mm [Hg] Systolic Blood Pressure 2024-12-17 11:07:00.000 110 mm [Hg] Systolic Blood Pressure 2024-12-02 11:50:00.000 148 mm [...] 09:51:00.000 132 mm [Hg] Diastolic Blood Pressure 2024-12-29 09:15:00.000 88 mm [Hg] Diastolic Blood Pressure 2024-12-17 11:07:00.000 60 mm [Hg] Diastolic Blood Pressure 2024-12-02 11:50:00.000 [...] TION MANAGEMENT; RN TO ASSESS AND OBSERVE, CONSUMER LOAN OFFICER/SOFTWARE ENGINEERING ASSOCIATE MANAGER TO OBSERVE FALL RISK FACTORS AND EDUCATE PATIENT/CAREGIVER ON STRATEGIES TO MINIMIZE THE RISK OF FALLING. [code = FALL REDUCTION MANAGEMENT; RN TO ASSESS AND OBSERVE, CONSUMER LOAN OFFICER/SOFTWARE ENGINEERING ASSOCIATE MANAGER TO OBSERVE FALL RISK FACTORS AND EDUCATE PATIENT/CAREGIVER ON STRATEGIES TO MINIMIZE THE RISK OF FALLING.] Future Scheduled Test RN TO OBSE RVE, ASSESS, EVALUATE, AND DEVELOP AN INDIVIDUALIZED PLAN OF CARE. AGENCY MAY ACCEPT ORDERS FROM CONSULTING PHYSICIANS RN TO OBSERVE AND ASSESS, CONSUMER LOAN OFFICER/SOFTWARE ENGINEERING ASSOCIATE MANAGER TO OBSERVE FOR RISK FOR FALLS AND INSTRUCT IN FALL PREVENTION, HOME SAFETY, MEDICATION MANAGEMENT, INFECTION PREVENTION, AND NUTRITION MANAGEMENT. RN/CONSUMER LOAN OFFICER/SOFTWARE ENGINEERING ASSOCIATE MANAGER NURSE MAY PERFORM O2 SATURATION LEVEL ON ADMISSION AND PRN FOR RESP STATUS CHANGES FOR RN TO ASSESS/CONSUMER LOAN OFFICER TO OBSERVE PATIENT, WITH NOTIFICATION TO THE PHYSICIAN IF SATURATION IS 90% IN THE ABSENCE OF MORE SPECIFIC PARAMETERS FROM THE PHYSICIAN. AGENCY MAY PERFORM A RESUMPTION OF CARE VISIT FOLLOWING ANY HOSPITAL ADMISSION. RN/CONSUMER LOAN OFFICER/SOFTWARE ENGINEERING ASSOCIATE MANAGER TO MONITOR CO-MORBID CONDITIONS LISTED ON THE PLAN OF CARE AND ANY NEW CONDITIONS THAT PRESENT THEMSELVES DURING THIS EPISODE TO IDENTIFY CHANGES AND INTERVENE TO MINIMIZE COMPLICATIONS. [code = RN TO OBSERVE, ASSESS, EVALUATE, AND DEVELOP AN INDIVIDUALIZED PLAN OF CARE. AGENCY MAY ACCEPT ORDERS FROM CONSULTING PHYSICIANS RN TO OBSERVE AND ASSESS, CONSUMER LOAN OFFICER/SOFTWARE ENGINEERING ASSOCIATE MANAGER TO OBSERVE FOR RISK FOR FALLS AND INSTRUCT IN FALL PREVENTION, HOME SAFETY, MEDICATION MANAGEMENT, INFECTION PREVENTION, AND NUTRITION MANAGEMENT. RN/CONSUMER LOAN OFFICER/SOFTWARE ENGINEERING ASSOCIATE MANAGER NURSE MAY PERFORM O2 SATURATION LEVEL ON ADMISSION AND PRN FOR RESP STATUS CHANGES FOR RN TO ASSESS/CONSUMER LOAN OFFICER TO OBSERVE PATIENT, WITH NOTIFICATION TO THE PHYSICIAN IF SATURATION IS 90% IN THE ABSENCE OF MORE SPECIFIC PARAMETERS FROM THE PHYSICIAN. AGENCY MAY PERFORM A RESUMPTION OF CARE VISIT FOLLOWING ANY HOSPITAL ADMISSION. RN/CONSUMER LOAN OFFICER/SOFTWARE ENGINEERING ASSOCIATE MANAGER TO MONITOR CO-MORBID CONDITIONS LISTED ON THE PLAN OF CARE AND ANY NEW CONDITIONS THAT PRESENT THEMSELVES DURING THIS EPISODE TO IDENTIFY CHANGES AND INTERVENE TO MINIMIZE COMPLICATIONS.] Future Scheduled Test RISK FOR H OSPITALIZATION; RN TO ASSESS/TEACH, SOFTWARE ENGINEERING ASSOCIATE MANAGER/CONSUMER LOAN OFFICER TO OBSERVE/TEACH PATIENT/CAREGIVER ON RISK FOR HOSPITALIZATION/EMERGENCY ROOM VISITS, TEACH SIGNS AND SYMPTOMS THAT PUT PATIENT AT RISK, WHEN TO NOTIFY NURSE/PHYSICIAN OF COMPLICATIONS/DECLINE, AND WHEN TO CALL 911. [code = RISK FOR HOSPITALIZATION; RN TO ASSESS/TEACH, SOFTWARE ENGINEERING ASSOCIATE MANAGER/CONSUMER LOAN OFFICER TO OBSERVE/TEACH PATIENT/CAREGIVER ON RISK FOR HOSPITALIZATION/EMERGENCY ROOM VISITS, TEACH SIGNS AND SYMPTOMS THAT PUT PATIENT AT RISK, WHEN TO NOTIFY NURSE/PHYSICIAN OF COMPLICATIONS/DECLINE, AND WHEN TO CALL 911.] Future Scheduled Test CARDIOVASC ULAR SYSTEM; RN TO ASSESS/TEACH, CONSUMER LOAN OFFICER/SOFTWARE ENGINEERING ASSOCIATE MANAGER TO OBSERVE/TEACH RELATED TO ALTERED CARDIOVASCULAR STATUS TO MINIMIZE COMPLICATIONS AND REDUCE HOSPITALIZATION. [code = CARDIOVASCULAR SYSTEM; RN TO ASSESS/TEACH, CONSUMER LOAN OFFICER/SOFTWARE ENGINEERING ASSOCIATE MANAGER TO OBSERVE/TEACH RELATED TO ALTERED CARDIOVASCULAR STATUS TO MINIMIZE COMPLICATIONS AND REDUCE HOSPITALIZATION.] Future Scheduled Test HEART FAIL URE; RN TO ASSESS/TEACH, CONSUMER LOAN OFFICER/SOFTWARE ENGINEERING ASSOCIATE MANAGER TO OBSERVE/TEACH CARDIOPULMONARY SYSTEM TO IDENTIFY SIGNS [...] [code = HEART FAILURE; RN TO ASSESS/TEACH, CONSUMER LOAN OFFICER/SOFTWARE ENGINEERING ASSOCIATE MANAGER TO OBSERVE/TEACH CARDIOPULMONARY SYSTEM TO IDENTIFY SIGNS [...] ON MANAGEMENT; RN TO ASSESS AND TEACH, CONSUMER LOAN OFFICER/SOFTWARE ENGINEERING ASSOCIATE MANAGER TO OBSERVE AND TEACH WARNING SIGNS AND SYMPTOMS TO AVOID HOSPITALIZATION. [code = HYPERTENSION MANAGEMENT; RN TO ASSESS AND TEACH, CONSUMER LOAN OFFICER/SOFTWARE ENGINEERING ASSOCIATE MANAGER TO OBSERVE AND TEACH WARNING SIGNS AND SYMPTOMS TO AVOID HOSPITALIZATION.] Future Scheduled Test BLOOD CLOT MANAGEMENT; RN TO ASSESS AND TEACH/ CONSUMER LOAN OFFICER /SOFTWARE ENGINEERING ASSOCIATE MANAGER TO OBSERVE AND TEACH AND PROVIDE EDUCATION ON BLOOD CLOT MANAGEMENT. [code = BLOOD CLOT MANAGEMENT; RN TO ASSESS AND TEACH/ CONSUMER LOAN OFFICER /SOFTWARE ENGINEERING ASSOCIATE MANAGER TO OBSERVE AND TEACH AND PROVIDE EDUCATION ON BLOOD CLOT MANAGEMENT.] Future Scheduled Test MEDICATION MANAGEMENT; RN/CONSUMER LOAN OFFICER/SOFTWARE ENGINEERING ASSOCIATE MANAGER TO REVIEW MEDICATIONS FOR INTERACTIONS, EFFECTIVENESS OF DRUG THERAPY, AND SIGNS/SYMPTOMS OF ADVERSE REACTIONS. MAY INSTRUCT AND REINFORCE MEDICATION TEACHING RELATED TO THE USE OF MEDICATIONS, DOSAGE, FREQUENCY, PURPOSE, SIDE EFFECTS, AND TO REPORT COMPLICATIONS. [code = MEDICATION MANAGEMENT; RN/CONSUMER LOAN OFFICER/SOFTWARE ENGINEERING ASSOCIATE MANAGER TO REVIEW MEDICATIONS FOR INTERACTIONS, EFFECTIVENESS OF DRUG THERAPY, AND SIGNS/SYMPTOMS OF ADVERSE REACTIONS. MAY INSTRUCT AND REINFORCE MEDICATION TEACHING RELATED TO THE USE OF MEDICATIONS, DOSAGE, FREQUENCY, PURPOSE, SIDE EFFECTS, AND TO REPORT COMPLICATIONS.] Future Scheduled Test ANTITHROMB OTIC MANAGEMENT; RN TO ASSESS AND TEACH, CONSUMER LOAN OFFICER/SOFTWARE ENGINEERING ASSOCIATE MANAGER TO OBSERVE/TEACH/MONITOR EFFECTIVENESS OF ANTITHROMBOTIC THERAPY. RN/CONSUMER LOAN OFFICER/SOFTWARE ENGINEERING ASSOCIATE MANAGER TO INSTRUCT ON SIGNS AND SYMPTOMS OF BLEEDING/ADVERSE REACTIONS TO REPORT TO PHYSICIAN. [code = ANTITHROMBOTIC MANAGEMENT; RN TO ASSESS AND TEACH, CONSUMER LOAN OFFICER/SOFTWARE ENGINEERING ASSOCIATE MANAGER TO OBSERVE/TEACH/MONITOR EFFECTIVENESS OF ANTITHROMBOTIC THERAPY. RN/CONSUMER LOAN OFFICER/SOFTWARE ENGINEERING ASSOCIATE MANAGER TO INSTRUCT ON SIGNS AND SYMPTOMS OF BLEEDING/ADVERSE REACTIONS TO REPORT TO PHYSICIAN. ] Goal 2024-12-29 Patient Goal - TO WALK AURELIA R Goal Patient Goal - TO WALK AURELIA [...] End Date/Time Encounter Type Admission Type Attending [facility] Facility Care Department Encounter ID Discharge Date Discharge Status Discharge Condition Discharge Reason Percent Goals Met 2024-10-31 00:00:00 2024-12-29 00:00:00 Outpatient NEW ADMISSION YOVANNY CUELLAR [facility] [id number]
--- OUTSIDE RECORDS SUMMARY | 2024-12-30 06:15 | XMS_ITS ---
Author Organization [facility] Address [address] [place] [address] Care Team Providers Care Drug Clerk Name Role Phone Aaron Jung MD Primary Care Provider Armani Guadarrama Unavailable [phone] Justina cade Encounters Encounter Location Date Provider Diagnosis [address] [address] 12/30/2024 Armani Giraldo Plan Of Treatment Next Appt Details Provider Name:Armani Giraldo , 03/29/2025 09:15:00 AM, [address] [place] [address], [phone], Progress Notes * Lexi JACKSONOB:[birth year] (79 yo F)Acc No.[id number]:12/30/2024 Progress Note Patient: Jeannine SILVA Provider: Skyler Giraldo DPM :1945 A ge:79 Y S ex:Female Date:12/30/2024 Address:[address] [place], [place] [phone] Pcp:Aaron Jung MD Subjective: * Chief Complaints: * [address] Justina cade. * Medical History: Objective: * Vitals: Assessment: Plan: * Treatment: * Images: * The named appointment provid er may or may not be the originator of this progress note, and it is not deemed complete until electronically signed by the appointment provider. Sign off status: Pending * Provider: Skyler Giraldo DPM Date: 12/30/2024 Generated for Jefferson Alvarez on: 01/01/2025 10:50 AM EDT
--- OUTSIDE RECORDS SUMMARY | 2025-01-01 10:50 | XMS_ITS | Patient Health Record ---
Author Organization [facility] Address [address] [place] [address] Care Team Providers Care Barge Engineer Name Role Phone Aaron Jung MD Primary Care Provider Ubaldo Spann [facility] [phone] Allergies No Known Allergies Results Component Value Reference Range Notes Blood Urea Nitrogen Reviewed date:12/13/2024 07:53:33 PM Interpretation: Performing Lab:[facility], [address] [place] [phone] Notes/Report: Blood Urea Nitrogen 24 9-16 mg/dL CT abdomen pelvis w con (Not yet reviewed by provider) Interpretation: Performing Lab: Notes/Report: [address] [address] [address] Scan Report Signed Patient: Jeannine Jackson MR#: [id number] : 1945 Acct:[id number] Age/Sex: 79 / F ADM Date: 12/16/24 Loc: HO.CT Attending Dr: Ubaldo Turk MD Ordering Physician: Ubaldo Turk MD Date of Service: 12/16/24 Procedure(s): CT abdomen pelvis w IV con Accession Number(s): [id number] cc: Aaron Jung MD; Ubaldo Turk MD Report Number: [id number]: Total DLP = 634.00 mGy-cm EXAMINATION: CT [...] 12/16/24 1100 DD/ 1031 TD/TT: 12/16/24 1047 Extruding Press Adjuster: Creatinine GFR POC Reviewed date:12/16/2024 05:58:12 PM Interpretation: Performing Lab:[facility], [address] [place] [phone] Notes/Report: [id number] 0.97 59 1027 HOSAL Creatinine POC 1.0 [...] h meals Orally Twice a day Active Pemberton 3 1000 MG 1 capsule Orally Thr [...] Problem Status W/U Status Risk Notes Problem 281221827 Encounter for screening for malignant neoplasm of colon (Z12.11) Active confirmed Problem Screening for malignant neoplasm of rectum (765915279) Encounter for screening for malignant neoplasm of rectum (Z12.12) Active confirmed Problem [id number] Preprocedural examination (Z01.818) Active confirmed Vital Signs Temperature 98.0 degrees Fahrenheit 11/25/2024 Blood pressure diastolic 01 mm Hg 11/25/2024 Height 65 in 11/25/2024 Blood pressure systolic 001 mm Hg 11/25/2024 Weight 216.2 lbs 11/25/2024 BMI 35.97 kg/m2 11/25/2024 Procedures Procedure Date Ordered Date Performed Result Body Sit e COLONOSCOPY 11/25/2024 N/A Encounters Encounter Location Date Provider Diagnosis [facility] [address] [place] [address] 11/25/[address] scan, colon [...] I will need to speak with her retail key holder at [facility] to discuss the potential brief stoppage of the Eliquis and whether or not she would need Lovenox for bridging during that time. I do not think the colonoscopy needs to be done urgently based on the questionable reading of the CT scan While we are waiting for me to speak with the retail key holder I will order another CT scan of [...] [place] [address] [place] [address] [id number] JEANNINE MAGALLANES Self - patient is the insured 1 [employer] CLAIM[employer] [address] [place] [phone] [id number] JEANNINE MAGALLANES Self - patient is the insured Medical (General) History Medical History History ICD Code Negative screening colonosoc py 2-2-2005 except for sigmoid diverticulosis, and internal and external hemorrhoids Hyperlipidemia Denies [place],DM,CVA,Lung disease,renal dise ase Restless leg syndrome HTN Pulmonary embolism(saddle em bolus) 10/2024 with DVT's in both LE's- treated at [facility]- on Eliquis Negative colonoscopy in 07/2016 Surgical History Surgery Date(Month/Year) Left knee surgery Complete hysterectomy
[2025-01-01 11:11] LABS: Alanine Aminotransferase 12 U/L (0-31); Albumin Level 3.9 g/dL (3.5-5.0); Alkaline Phosphatase 57 U/L (39-117); Aspartate Amino Transferase 26 U/L (5-31); Cholesterol 197 mg/dL (<200); HDL Cholesterol 36 mg/dL (>40); Hemoglobin A1C 192.9488 umol/L; Total Hemoglobin (HGBA1C) 3454.0591 umol/L; Total Protein 7.0 g/dL (6.5-8.0); Triglycerides 289 mg/dL (<150)
[2025-01-01 11:13] LABS: Reflex LDLD? No
== END 2025-01-01 10:45 | disposition home or self-care (01) ==
LOC: HO.LNP 10:44
PROVIDERS: Visit Provider Internal Medicine
DX: E78.00 Pure hypercholesterolemia, unspecified (principal); E11.40 Type 2 diabetes mellitus with diabetic neuropathy, unspecified
CPT/HCPCS: 80061; 80076; 82947; 83036

== ENCOUNTER 2025-01-08 08:06 | Outpatient (REF) | payer MEDICARE, SELFPAY ==
--- OUTSIDE RECORDS SUMMARY | 2024-12-08 07:15 | XMS_ITS ---
Author Organization Aaron Jung MD Address [address] [place] [phone] Care Team Providers Care Management Intern Name Role Phone Aaron Jung Primary Care Provider [phone] Allergies Allergen (clinical drug ingredient) Drug/Non Drug [...] Date Provider Diagnosis Aaron Jung MD [address] [facility] [address] [place], [place] [phone] 12/08/2024 Aaron Jung Essential hypertension I10 ; [...] Name:Aaron Villarreal ier, 01/08/2025 01:30:00 PM, [address] [facility] [address], [address], [place], [place], [phone], Provider Name:Aaron Villarreal ier, 07/06/2025 07:45:00 AM, [address] [facility] [address], [address], [place], [place], [phone], Provider Name:Aaron Villarreal ier, 07/12/2025 02:30:00 PM, [address], [address], [place], [place], [phone], Provider Name:Aaron Villarreal ier, 08/30/2025 10:30:00 AM, [address] [facility], [address], [place], [place], [phone], Progress Notes * Glenys JACKSONChristineOB:[birth year] (79 yo F)Acc No.[id number]:12/08/2024 Progress Notes Patient: Jeannine SILVA Provider: Sara Jung MD :1945 A ge:79 Y S ex:Female Date:12/08/2024 Address:[address] [place], [place] [phone] Subjective: * Chief Complaints: * 3 week [...] true * Provider: Sara Jung MD Date: 12/08/2024 Generated for Jefferson verma/Whitney/Sommeritting on: 01/08/2025 08:10 AM EDT History and Physical Notes * [...]
--- OUTSIDE RECORDS SUMMARY | 2024-12-30 06:15 | XMS_ITS ---
Author Organization [facility] Address [address] [place] [address] Care Team Providers Care Health Insurance Adjuster Name Role Phone Aaron Jung MD Primary Care Provider Armani Guadarrama Unavailable [phone] Justina cade Encounters Encounter Location Date Provider Diagnosis [address] [address] 12/30/2024 Armani Giraldo Plan Of Treatment Next Appt Details Provider Name:Armani Giraldo , 03/29/2025 09:15:00 AM, [address] [place] [address], [phone], Progress Notes * Lexi JACKSONOB:[birth year] (79 yo F)Acc No.[id number]:12/30/2024 Progress Note Patient: Jeannine SILVA Provider: Skyler Giraldo DPM :1945 A ge:79 Y S ex:Female Date:12/30/2024 Address:[address] [place], [place] [phone] Pcp:Aaron Jung MD Subjective: * Chief Complaints: [...] Date: 12/30/2024 Generated for Jefferson Alvarez on: 01/08/2025 08:10 AM EDT
--- NOTE | ~2025-01-08 | MM_ITS ---
EXAMINATION: MM SCREENING DIGITAL BREAST TOMOSYNTHESIS, BILATERAL CLINICAL INFORMATION: Screening. Asymptomatic. COMPARISON: Mammography: Comparison is made with available priors TECHNIQUE: Digital breast mammography with tomosynthesis is performed in both the craniocaudal and mediolateral oblique views along with computer-aided detection (CAD). FINDINGS: There are scattered areas of fibroglandular density (ACR BI-RADS breast composition Category b). Bilateral skin moles. There are no significant masses, abnormal calcifications, or other abnormalities. MM/MM tomosynthesis screening BI IMPRESSION: No mammographic evidence of malignancy. ASSESSMENT: BI-RADS BI-RADS 2 - Benign Findings RECOMMENDATION: Routine annual mammography screening. 1 year F/U This examination should not preclude the clinical evaluation of a suspicious palpable abnormality. This patient's information was entered into a reminder system with a target due date for their next mammogram. Electronically signed by: Sophia Carey DO 01/12/2025 12:49 PM EDT
--- OUTSIDE RECORDS SUMMARY | 2025-01-08 08:11 | XMS_ITS | Patient Health Record ---
Author Organization [facility] Address [address] [place] [address] Care Team Providers Care Scaling Machine Operator Name Role Phone Aaron Jung MD Primary Care Provider Ubaldo Spann [facility] [phone] Allergies No Known Allergies Results Component Value Reference Range Notes Blood Urea Nitrogen Reviewed date:12/13/2024 07:53:33 PM Interpretation: Performing Lab:[facility], [address] [place] [id number] Notes/Report: Blood Urea Nitrogen 24 9-16 mg/dL CT abdomen pelvis w con (Not yet reviewed by provider) Interpretation: Performing Lab: Notes/Report: [address] [address] [address] Scan Report Signed Patient: Jeannien Jackson MR#: [id number] : 1945 Acct:[id number] Age/Sex: 79 / F ADM Date: 12/16/24 Loc: HO.CT Attending Dr: Ubaldo Turk MD Ordering Physician: Ubaldo Turk MD Date of Service: 12/16/24 Procedure(s): CT abdomen pelvis w IV con Accession Number(s): [id number] cc: Aaron Jung MD; Ubaldo Turk MD Report Number: [id number]: Total DLP = 634.00 mGy-cm EXAMINATION: CT [...] 12/16/24 1100 DD/ 1031 TD/TT: 12/16/24 1047 Railcar Brake Operator: Creatinine GFR POC Reviewed date:12/16/2024 05:58:12 PM Interpretation: Performing Lab:[facility], [address] [place] [id number] Notes/Report: [id number] 0.97 59 1027 HOSAL Creatinine POC 1.0 [...] h meals Orally Twice a day Active Swisher 3 1000 MG 1 capsule Orally Thr [...] Problem Status W/U Status Risk Notes Problem [id number] Encounter for screening for malignant neoplasm of colon (Z12.11) Active confirmed Problem Screening for malignant neoplasm of rectum ([id number]) Encounter for screening for malignant neoplasm of rectum (Z12.12) Active confirmed Problem [id number] Preprocedural examination (Z01.818) Active confirmed Vital Signs Temperature 98.0 degrees Fahrenheit 11/25/2024 Blood pressure diastolic 01 mm Hg 11/25/2024 Height 65 in 11/25/2024 Blood pressure systolic 001 mm Hg 11/25/2024 Weight 216.2 lbs 11/25/2024 BMI 35.97 kg/m2 11/25/2024 Procedures Procedure Date Ordered Date Performed Result Body Sit e COLONOSCOPY 11/25/2024 N/A Encounters Encounter Location Date Provider Diagnosis [facility] [address] [place] [address] 11/25/[address] scan, colon R93.3 [facility] [address] [place] [address] 01/06/2025 Ubaldo Turk Assessments Encounter Date Diagnosis (ICD Code) Assessment [...] I will need to speak with her electrician 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 I do not think the colonoscopy needs to be done urgently based on the questionable reading of the CT scan While we are waiting for me to speak with the electrician crane maintenance I will order another CT scan of [...] Date MEDICARE OF [place] [address] [place] [address] [id number] JEANNINE MAGALLANES Self - patient is the insured 1 [employer] ATT[employer] CLAIMS [address] [place] [address] [id number] JEANNINE MAGALLANES Self - patient is the insured Medical (General) History Medical History History ICD Code Negative screening colonosoc py 2-2-2005 except for sigmoid diverticulosis, and internal and external hemorrhoids Hyperlipidemia Denies CT,DM,CVA,Lung disease,renal dise ase Restless leg syndrome HTN Pulmonary embolism(saddle em bolus) 10/2024 with DVT's in both LE's- treated at [facility]- on Eliquis Negative colonoscopy in 07/2016 Surgical History Surgery Date(Month/Year) Left knee surgery Complete hysterectomy
--- OUTSIDE RECORDS SUMMARY | 2025-02-26 20:00 | XMS_ITS | Clinical Summary ---
Author Organization Unknown Care Team Providers Care Honing Machine Operator Name Role Phone CHELI MOORE, SNEHA Unavailable Unavailable [place] OT, LOUIE Unavailable Unavailable [employer] SAL[employer] ACCOUNT DIRECTOR/BAÑUELOS, RODOLFO Unavailable Unav ailable HECTOR PERINATAL DIRECTOR, SALINA Unavailable Unavailnemo CUELLAR RN, YOVANNY Unavailable Unavailable Payers Payer Name Policy Type Policy Number Effective Date Expira tion Date MEDICARE.NGS.PDGM [id number] Problems Condition Name Condition Details Condition Category [...] SOLITARY PULMONARY NODULE Active 10-26 00:00: 00 DETENTION (CURRENT) USE OF ANTICOAGULAN TS Active 10-26 [...] 600 mg tablet 10-15 00:00: 00 Yes [id number] NEUROPATHY 1 tablet 3 TIMES DAILY 1 tablet 3 TIMES DAILY (route: oral) Med Classific ation: Central Nervous System Agents triamcinolo ne acetonide 0.1 % topical cream 10-06 00:00: 00 Yes [id number] RASH Per instruc tions DAILY Per instructio ns DAILY (route: topical) Med Classific ation: Dermatolo gical acetaminoph en 500 mg tablet 10-31 00:00: 00 Yes [id number] PAIN 2 tablet 3 TIMES DAILY 2 tablet 3 TIMES DAILY (route: oral) Med Classific ation: Analgesic , Anti-infl ammatory or Antipyret ic atorvastati n 40 mg tablet 10-31 00:00: 00 Yes [id number] CHOLESTEROL 1 tablet DAILY 1 tablet DAILY (route: oral) Med Classific ation: Cardiovas cular Therapy Agents furosemide 20 mg tablet 10-31 00:00: 00 Yes [id number] EDEMA 1 tablet DAILY 1 tablet DAILY (route: oral) Med Classific ation: Cardiovas cular Therapy Agents omega 3-dha 100 mg-epa 400 mg-fish oil 1,000 mg capsule 10-31 00:00: 00 Yes [id number] SUPPLEMENT 1 capsule 2 TIMES DAILY 1 capsule 2 TIMES DAILY (route: oral) Med Classific ation: Cardiovas cular Therapy Agents ropinirole 1 mg tablet 10-31 00:00: 00 Yes [id number] RESTLESS LEGS 3 tablet 2 TIMES DAILY 3 tablet 2 TIMES DAILY (route: oral) Med Classific ation: Central Nervous System Agents valsartan 160 mg tablet 10-31 00:00: 00 Yes [id number] HTN 1 tablet DAILY 1 tablet DAILY (route: oral) Med Classific ation: Cardiovas cular Therapy Agents Eliquis 5 mg tablet 10-31 00:00: 00 Yes [id number] blood thiinner 1 tablet 2 TIMES DAILY 1 tablet 2 TIMES DAILY (route: oral) Med Classific ation: Hematolog ical Agents Vital Signs Vital Name Observation Time Observation Value Commen ts Temperature 2025-01-06 10:06:00.000 97.8 [degF] Pulse 2025-01-06 10:06:00.000 64 /min O2 Saturation (%) 2025-01-06 10:06:00.000 99 % Respirations 2025-01-06 10:06:00.000 16 /min Weight (lbs) 2025-01-06 10:06:00.000 218 [lb_av] Systolic Blood Pressure 2025-01-06 10:06:.000 120 mm [Hg] Diastolic Blood Pressure 2025-01-06 10:06:.000 80 mm [Hg] Plan of Treatment Planned Activity Planned Date Details Comments Future Scheduled Test RN TO OBSE RVE, ASSESS, EVALUATE, AND DEVELOP AN INDIVIDUALIZED PLAN OF CARE. AGENCY MAY ACCEPT ORDERS FROM CONSULTING PHYSICIANS RN TO OBSERVE AND ASSESS, PERINATAL DIRECTOR/QUILL REAMER TO OBSERVE FOR RISK FOR FALLS AND INSTRUCT IN FALL PREVENTION, HOME SAFETY, MEDICATION MANAGEMENT, INFECTION PREVENTION, AND NUTRITION MANAGEMENT. RN/PERINATAL DIRECTOR/QUILL REAMER NURSE MAY PERFORM O2 SATURATION LEVEL ON ADMISSION AND PRN FOR RN TO ASSESS/PERINATAL DIRECTOR TO OBSERVE PATIENT, WITH NOTIFICATION TO THE PHYSICIAN IF SATURATION IS 90% IN THE ABSENCE OF MORE SPECIFIC PARAMETERS FROM THE PHYSICIAN. AGENCY MAY PERFORM A RESUMPTION OF CARE VISIT FOLLOWING ANY HOSPITAL ADMISSION. RN/PERINATAL DIRECTOR/QUILL REAMER TO MONITOR CO-MORBID CONDITIONS LISTED ON THE PLAN OF CARE AND ANY NEW CONDITIONS THAT PRESENT THEMSELVES DURING THIS EPISODE TO IDENTIFY CHANGES AND INTERVENE TO MINIMIZE COMPLICATIONS. [code = RN TO OBSERVE, ASSESS, EVALUATE, AND DEVELOP AN INDIVIDUALIZED PLAN OF CARE. AGENCY MAY ACCEPT ORDERS FROM CONSULTING PHYSICIANS RN TO OBSERVE AND ASSESS, PERINATAL DIRECTOR/QUILL REAMER TO OBSERVE FOR RISK FOR FALLS AND INSTRUCT IN FALL PREVENTION, HOME SAFETY, MEDICATION MANAGEMENT, INFECTION PREVENTION, AND NUTRITION MANAGEMENT. RN/PERINATAL DIRECTOR/QUILL REAMER NURSE MAY PERFORM O2 SATURATION LEVEL ON ADMISSION AND PRN FOR RN TO ASSESS/PERINATAL DIRECTOR TO OBSERVE PATIENT, WITH NOTIFICATION TO THE PHYSICIAN IF SATURATION IS 90% IN THE ABSENCE OF MORE SPECIFIC PARAMETERS FROM THE PHYSICIAN. AGENCY MAY PERFORM A RESUMPTION OF CARE VISIT FOLLOWING ANY HOSPITAL ADMISSION. RN/PERINATAL DIRECTOR/QUILL REAMER TO MONITOR CO-MORBID CONDITIONS LISTED ON THE PLAN OF CARE AND ANY NEW CONDITIONS THAT PRESENT THEMSELVES DURING THIS EPISODE TO IDENTIFY CHANGES AND INTERVENE TO MINIMIZE COMPLICATIONS.] Future Scheduled Test MEDICATION MANAGEMENT; RN/PERINATAL DIRECTOR/QUILL REAMER TO REVIEW MEDICATIONS FOR INTERACTIONS, EFFECTIVENESS OF DRUG THERAPY, AND SIGNS/SYMPTOMS OF ADVERSE REACTIONS. MAY INSTRUCT AND REINFORCE MEDICATION TEACHING RELATED TO THE USE OF MEDICATIONS, DOSAGE, FREQUENCY, PURPOSE, SIDE EFFECTS, AND TO REPORT COMPLICATIONS. [code = MEDICATION MANAGEMENT; RN/PERINATAL DIRECTOR/QUILL REAMER TO REVIEW MEDICATIONS FOR INTERACTIONS, EFFECTIVENESS OF DRUG THERAPY, AND SIGNS/SYMPTOMS OF ADVERSE REACTIONS. MAY INSTRUCT AND REINFORCE MEDICATION TEACHING RELATED TO THE USE OF MEDICATIONS, DOSAGE, FREQUENCY, PURPOSE, SIDE EFFECTS, AND TO REPORT COMPLICATIONS.] Future Scheduled Test ANTITHROMB OTIC MANAGEMENT; RN TO ASSESS AND TEACH, PERINATAL DIRECTOR/QUILL REAMER TO OBSERVE/TEACH/MONITOR EFFECTIVENESS OF ANTITHROMBOTIC THERAPY. RN/PERINATAL DIRECTOR/QUILL REAMER TO INSTRUCT ON SIGNS AND SYMPTOMS OF BLEEDING/ADVERSE REACTIONS TO REPORT TO PHYSICIAN. [code = ANTITHROMBOTIC MANAGEMENT; RN TO ASSESS AND TEACH, PERINATAL DIRECTOR/QUILL REAMER TO OBSERVE/TEACH/MONITOR EFFECTIVENESS OF ANTITHROMBOTIC THERAPY. RN/PERINATAL DIRECTOR/QUILL REAMER TO INSTRUCT ON SIGNS AND SYMPTOMS OF BLEEDING/ADVERSE REACTIONS TO REPORT TO PHYSICIAN. ] Future Scheduled Test RISK FOR H OSPITALIZATION; RN TO ASSESS/TEACH, QUILL REAMER/PERINATAL DIRECTOR TO OBSERVE/TEACH PATIENT/CAREGIVER ON RISK FOR HOSPITALIZATION/EMERGENCY ROOM VISITS, TEACH SIGNS AND SYMPTOMS THAT PUT PATIENT AT RISK, WHEN TO NOTIFY NURSE/PHYSICIAN OF COMPLICATIONS/DECLINE, AND WHEN TO CALL 911. [code = RISK FOR HOSPITALIZATION; RN TO ASSESS/TEACH, QUILL REAMER/PERINATAL DIRECTOR TO OBSERVE/TEACH PATIENT/CAREGIVER ON RISK FOR HOSPITALIZATION/EMERGENCY ROOM VISITS, TEACH SIGNS AND SYMPTOMS THAT PUT PATIENT AT RISK, WHEN TO NOTIFY NURSE/PHYSICIAN OF COMPLICATIONS/DECLINE, AND WHEN TO CALL 911.] Future Scheduled Test CARDIOVASC ULAR SYSTEM; RN TO ASSESS/TEACH, PERINATAL DIRECTOR/QUILL REAMER TO OBSERVE/TEACH RELATED TO ALTERED CARDIOVASCULAR STATUS TO MINIMIZE COMPLICATIONS AND REDUCE HOSPITALIZATION. [code = CARDIOVASCULAR SYSTEM; RN TO ASSESS/TEACH, PERINATAL DIRECTOR/QUILL REAMER TO OBSERVE/TEACH RELATED TO ALTERED CARDIOVASCULAR STATUS TO MINIMIZE COMPLICATIONS AND REDUCE HOSPITALIZATION.] Future Scheduled Test HEART FAIL URE; RN TO ASSESS/TEACH, PERINATAL DIRECTOR/QUILL REAMER TO OBSERVE/TEACH CARDIOPULMONARY SYSTEM TO IDENTIFY SIGNS [...] [code = HEART FAILURE; RN TO ASSESS/TEACH, PERINATAL DIRECTOR/QUILL REAMER TO OBSERVE/TEACH CARDIOPULMONARY SYSTEM TO IDENTIFY SIGNS [...] SYSTEM MANAGEMENT; RN TO ASSESS AND TEACH, PERINATAL DIRECTOR/QUILL REAMER TO OBSERVE AND TEACH RELATED TO ALTERED RESPIRATORY STATUS TO MINIMIZE COMPLICATIONS AND REDUCE HOSPITALIZATION. [code = RESPIRATORY SYSTEM MANAGEMENT; RN TO ASSESS AND TEACH, PERINATAL DIRECTOR/QUILL REAMER TO OBSERVE AND TEACH RELATED TO ALTERED RESPIRATORY STATUS TO MINIMIZE COMPLICATIONS AND REDUCE HOSPITALIZATION.] Future Scheduled Test PAIN MANAG EMENT; RN TO ASSESS AND TEACH, QUILL REAMER/PERINATAL DIRECTOR TO OBSERVE AND TEACH AND PROVIDE EDUCATION ON PAIN MANAGEMENT TECHNIQUES. [code = PAIN MANAGEMENT; RN TO ASSESS AND TEACH, QUILL REAMER/PERINATAL DIRECTOR TO OBSERVE AND TEACH AND PROVIDE EDUCATION ON PAIN MANAGEMENT TECHNIQUES.] Future Scheduled Test BLOOD CLOT MANAGEMENT; RN TO ASSESS AND TEACH/ PERINATAL DIRECTOR /QUILL REAMER TO OBSERVE AND TEACH AND PROVIDE EDUCATION ON BLOOD CLOT MANAGEMENT. [code = BLOOD CLOT MANAGEMENT; RN TO ASSESS AND TEACH/ PERINATAL DIRECTOR /QUILL REAMER TO OBSERVE AND TEACH AND PROVIDE EDUCATION ON BLOOD CLOT MANAGEMENT.] Future Scheduled Test FALL REDUC TION MANAGEMENT; RN TO ASSESS AND OBSERVE, PERINATAL DIRECTOR/QUILL REAMER TO OBSERVE FALL RISK FACTORS AND EDUCATE PATIENT/CAREGIVER ON STRATEGIES TO MINIMIZE THE RISK OF FALLING. [code = FALL REDUCTION MANAGEMENT; RN TO ASSESS AND OBSERVE, PERINATAL DIRECTOR/QUILL REAMER TO OBSERVE FALL RISK FACTORS AND EDUCATE [...] End Date/Time Encounter Type Admission Type Attending [facility] Care Department Encounter ID Discharge Date Discharge Status Discharge Condition Discharge Reason Percent Goals Met 2024-12-30 00:00:00 2025-02-27 00:00:00 [facility] YOVANNY [facility] [id number] 26.6 7
== END 2025-01-08 08:07 | disposition home or self-care (01) ==
LOC: HO.MAMMO 08:06
PROVIDERS: PCP Internal Medicine; Visit Provider Internal Medicine
DX: Z12.31 Encounter for screening mammogram for malignant neoplasm of breast (principal)
CPT/HCPCS: 77063; 77067

== ENCOUNTER → 2025-01-08 08:30 | Outpatient (BNV) | payer MEDICARE, SELFPAY | PROVIDERS: PCP Internal Medicine; Visit Provider Internal Medicine | DX: Z12.31 Encounter for screening mammogram for malignant neoplasm of breast (principal) | CPT/HCPCS: 77063; 77067 ==

== ENCOUNTER 2025-01-19 09:03 | Outpatient (AMB) | payer MEDICARE, SELFPAY ==
--- OUTSIDE RECORDS SUMMARY | 2024-08-03 10:30 | XMS_ITS ---
Author Organization [facility] Address [address] [place] [address] Care Team Providers Care Cloud Developer Name Role Phone Aaron Jung MD Primary Care Provider Armani Guadarrama Unavailable [phone] Encounters Encounter Location Date Provider Diagnosis [address] [address] 08/03/2024 Armani Giraldo Plan Of Treatment Next Appt Details Provider Name:Armani Giraldo , 03/29/2025 09:15:00 AM, [address] [place] [address], [phone], Progress Notes * Lexi JACKSONOB:[birth year] (79 yo F)Acc No.[id number]:08/03/2024 Progress Note Patient: Jeannine SILVA Provider: Skyler Giraldo DPM :1945 A ge:79 Y S ex:Female Date:08/03/2024 Address:[address] [place], [place] [phone] Pcp:Aaron Jung MD Subjective: * Chief Complaints: * * Medical History: Objective: * Vitals: Assessment: Plan: * Treatment: * Images: * The named appointment provid er may or may not be the originator of this progress note, and it is not deemed complete until electronically signed by the appointment provider. Sign off status: Pending * Provider: Skyler Giraldo DPM Date: 0 08/03/2024 Generated for Jefferson verma/Whitney/Shiloh on: 0 01/19/2025 09:54 AM EDT
--- OUTSIDE RECORDS SUMMARY | 2024-10-29 05:45 | XMS_ITS ---
Author Organization [facility] Address [address] [place] [address] Care Team Providers Care Parimutuel Cashier Name Role Phone Aaron Jung MD Primary Care Provider Armani Guadarrama Unavailable [phone] Encounters Encounter Location Date Provider Diagnosis [address] [address] 10/29/2024 Armani Giraldo Plan Of Treatment Next Appt Details Provider Name:Armani Giraldo , 03/29/2025 09:15:00 AM, [address] [place] [address], [address], Progress Notes * Lexi JACKSONOB:[birth year] (79 yo F)Acc No.[id number]:10/29/2024 Progress Note Patient: Jeannine SILVA Provider: Skyler Giraldo DPM :1945 A ge:79 Y S ex:Female Date:10/29/2024 Address:[address] [place], [place] [address] Pcp:Aaron Jung MD Subjective: * Chief Complaints: * * Medical History: Objective: * Vitals: Assessment: Plan: * Treatment: * Images: * The named appointment provid er may or may not be the originator of this progress note, and it is not deemed complete until electronically signed by the appointment provider. Sign off status: Pending * Provider: Skyler Giraldo DPM Date: 0 10/29/2024 Generated for [facility] verma/Marito on: 0 01/19/2025 09:55 AM EDT
--- OUTSIDE RECORDS SUMMARY | 2024-12-01 07:00 | XMS_ITS ---
Author Organization Aaron Jung MD Address [address] [place] [phone] Care Team Providers Care Senior Java Ui Developer Name Role Phone Aaron Jung Primary Care Provider REASON FOR VISIT refill Apixaban Medications Medication SIG (Take, Route, Frequency, Duration) Notes Start Date End Date Status Apixaban 5 MG as directed Orally t wice a day for 60 days Active Encounters Encounter Location Date Provider Diagnosis Aaron Jung MD [address] [place] [phone] 12/01/2024 Aaron Jung Pulmonary emboli I26.99 Assessments Encounter Date Diagnosis (ICD Code) Assessment Notes Treatment Notes Treatment Clinical Notes Section Notes 12/01/2024 Pulmonary emboli (ICD-10 - I26.99) Plan Of Treatment Medication Medication Name Sig Start Date Stop Date Notes Apixaban 5 MG as directed Orally twice a day for 60 days Next Appt Details Provider Name:Aaron Villarreal ier, 04/08/2025 01:45:00 PM, [address] [place] [address], Suite [facility], [place], [place], [phone], Provider Name:Aaron Villarreal ier, 07/06/2025 07:45:00 AM, [address] [place] [address], Suite [facility], [place], [place], [phone], Provider Name:Aaron Villarreal ier, 07/12/2025 02:30:00 PM, [address] [place] [address], Suite [facility], [place], [place], [phone], Provider Name:Aaron Villarreal joeyr, 08/30/2025 10:30:00 AM, [address] [place] [address], [place] [address], [place], [place], [phone], Progress Notes * Lexi JACKSONOB:[birth year] (79 yo F)Acc No.[id number]:12/01/2024 Patient: Jeannine SILVA :1945 A ge:79 Y S ex:Female Address:[address] [place] [address] * Refills Refill Apixaban Tablet, 5 MG, Orally, 120, as directed, twice a day, 60 days, Refills=3 * true * Date: Generated for [facility] verma/Whitney/Ronismitting on: 0 01/19/2025 09:55 AM EDT
--- OUTSIDE RECORDS SUMMARY | 2024-12-01 08:51 | XMS_ITS ---
Author Organization Aaron Jung MD Address [address] [place] [phone] Care Team Providers Care Field Services Manager Name Role Phone Aaron Jung Primary Care Provider Encounters Encounter Location Date Provider Diagnosis Aaron Jung MD [address] [place] [phone] 12/01/2024 Aaron Jung Plan Of Treatment Next Appt Details Provider Name:Aaron posada, 04/08/2025 01:45:00 PM, [address] [place] [address], [address], [phone], Provider Name:Aaron posada, 07/06/2025 07:45:00 AM, [address] [place] [address], [address], [place], [place], [phone], Provider Name:Aaron Villarreal ier, 07/12/2025 02:30:00 PM, [address], [address], [place], [phone], Provider Name:Aaron Villarreal ier, 08/30/2025 10:30:00 AM, [address], [address], [place], [phone], Progress Notes * Lexi JACKSONOB:[birth year] (79 yo F)Acc No.[id number]:12/01/2024 Patient: Glenys SILVAne :1945 A ge:79 Y S ex:Female Address:[address] [place] [address] * true * Date: Generated for Jefferson verma/Whitney/eTransmitting on: 0 01/19/2025 09:54 AM EDT
--- OUTSIDE RECORDS SUMMARY | 2024-12-08 07:15 | XMS_ITS ---
Author Organization Aaron Jung MD Address [address] [place] [phone] Care Team Providers Care Emergency Planner Name Role Phone Aaron Jung Primary Care [...] Date Provider Diagnosis Aaron Jung MD 10 [facility] [address] [place], [place] [phone] 12/08/2024 Aaron Jung Essential hypertension I10 ; [...] 4 Weeks, Reason: Provider Name:Aaron Villarreal ier, 04/08/2025 01:45:00 PM, [address] [facility] [address], [address], [place], [place], [phone], Provider Name:Aaron Villarreal ier, 07/06/2025 07:45:00 AM, [address] [facility], [address], [place], [place], [phone], Provider Name:Aaron Villarreal ier, 07/12/2025 02:30:00 PM, [address], [address], [place], [place], [phone], Provider Name:Aaron Villarreal ier, 08/30/2025 10:30:00 AM, [address] [facility], [address], [place], [place], [phone], Progress Notes * Glenys JACKSONChristineOB:[birth year] (79 yo F)Acc No.[id number]:12/08/2024 Progress Notes Patient: Jeannine SILVA Provider: Sara Jung MD :1945 A ge:79 Y S ex:Female Date:12/08/2024 Address:[address] [place], [place] [phone] Subjective: * Chief Complaints: * 3 week [...] 12/08/2024 Generated for Jefferson verma/Whitney/Sommeritting on: 0 01/19/2025 09:54 AM EDT History and Physical Notes * [...]
--- OUTSIDE RECORDS SUMMARY | 2024-12-30 06:15 | XMS_ITS ---
Author Organization [facility] Address [address] [place] [address] Care Team Providers Care Mechanical Sound Technician Name Role Phone Aaron Jung MD Primary Care Provider Armani Guadarrama Unavailable [phone] Justina cade Encounters Encounter Location Date Provider Diagnosis [address] [address] 12/30/2024 Armani Giraldo Plan Of Treatment Next Appt Details Provider Name:Armani Giraldo , 03/29/2025 09:15:00 AM, [address] [place] [address], [phone], Progress Notes * Lexi JACKSONOB:[birth year] (79 yo F)Acc No.[id number]:12/30/2024 Progress Note Patient: Jeannine SILVA Provider: Skyler Giraldo DPM :1945 A ge:79 Y S ex:Female Date:12/30/2024 Address:[address] [place], [place] [phone] Pcp:Aaron Jung MD Subjective: * Chief Complaints: [...] Date: 12/30/2024 Generated for Jefferson Alvarez on: 01/19/2025 09:55 AM EDT
--- OUTSIDE RECORDS SUMMARY | 2025-01-01 04:00 | XMS_ITS ---
Author Organization Aaron Jung MD Address [address] [place] [phone] Care Team Providers Care Cover Seamer Name Role Phone Aaron Jung Primary Care Provider Results Component Value Reference Range Notes Liver Panel Reviewed date:01/01/2025 12:33:20 PM Interpretation: Performing Lab:[facility], [address] [place] [phone] Notes/Report: Bilirubin Total 0.8 0.0-1.0 mg/dL Bilirubin Direct 0.3 0.0-0.5 mg/dL Aspartate Amino Transferase 26 5-31 U/L Alanine Aminotransferase 12 0-31 U/L Total Protein 7.0 6.5-8.0 g/dL Albumin Level 3.9 3.5-5.0 g/dL Alkaline Phosphatase 57 39-117 U/L Glucose Fasting Reviewed date:01/01/2025 12:33:12 PM Interpretation: Performing Lab:[address] [address] Notes/Report: Glucose Fasting 133 60-99 mg/dL A fasting glucose of 126 mg/dl or greater on more than one occasion is considered diagnostic of diabetes. Lipid Panel with Reflex Reviewed date:01/01/2025 12:41:01 PM Interpretation: Performing Lab:[facility], [address] [place] [phone] Notes/Report: Triglycerides 289 <150 mg/dL Desirable Triglyceride: less than 150 mg/dL Borderline High Triglyceride 150-199 mg/dL High Triglyceride: 200-499 mg/dL Very High Triglyceride: greater than or equal to 5OO mg/dL Cholesterol 197 <200 mg/dL Desirable Cholesterol: less than 200 mg/dL Borderline High Cholesterol: 200-239 mg/dL High Cholesterol: greater than 239 mg/dL LDL Cholesterol Calculated 104 <100 mg/dL Desirable LDL: less than 100 mg/dL Near Optimal/Above Optimal LDL: 110-129 mg/dL Borderline High LDL: 130-159 mg/dL High LDL: 160-189 mg/dL Very High LDL: greater than or equal to 190 mg/dL HDL Cholesterol 36 >40 mg/dL Desirable HDL: greater than 40 mg/dL Note: This HDL assay may give artificially low results in patients with liver disease. Hemoglobin A1c Reviewed date:01/01/2025 12:33:04 PM Interpretation: Performing Lab:[address] [address] Notes/Report: Hemoglobin A1c % 7.3 <6.0 % Hemoglobin A1C Reference Range Adults: 4.8 - 6.0 % Non diabetic: < 6.0 % Goal: < 7.0 % Additional Action Suggested: > 8.0 % Note: Hemoglobin A1c results are invalid for patients with abnormal amounts of HbF. Blood transfusions may impact the HbA1c concentration in the patient sample. 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, [place], [place], [phone], Provider Name:Aaron posada, 07/06/2025 07:45:00 AM, [address] [place] [address], [address] [place] [address], [phone], Provider Name:Aaron posada, 07/12/2025 02:30:00 PM, [address] [place] [address], [address] [facility], [place], [place], [phone], Provider Name:Aaron posada, 08/30/2025 10:30:00 AM, [address] [place] [address], [address] [facility], [place], [place], [phone], Progress Notes * Lexi JACKSONOB:[birth year] (79 yo F)Acc No.[id number]:01/01/2025 Progress Note Patient: Jeannine SILVA Provider: Sara Jung MD :1945 A ge:79 Y S ex:Female Date:01/01/2025 Address:[address] [place], [place] [phone] Subjective: * Chief Complaints: * 1 . FASTING LIPIDS. * Medical History: Objective: * Vitals: Assessment: * Assessment: 1. P ure hypercholesterolemia - E78.00 (Primary) 2 . T ype 2 diabetes, controlled, with neuropathy - E11.40 Plan: * Treatment: 2. T ype 2 diabetes, controlled, with neuropathy L AB: Liver Panel (Collection Date & Time - 01/01/2025 08:00 AM) L AB: Glucose Fasting (Collection Date & Time - 01/01/2025 08:00 AM) L AB: Lipid Panel with Reflex (Collection Date & Time - 01/01/2025 08:00 AM) L AB: Hemoglobin A1c (Collection Date & Time - 01/01/2025 08:00 AM) * Procedure Codes: 3 6415 VENIPUNCT, ROUTINE* * * The named appointment provid er may or may not be the originator of this progress note, and it is not deemed complete until electronically signed by the appointment provider. Sign off status: Pending * Provider: Sara Jung MD Date: 0 01/01/2025 Generated for Jefferson verma/Whitney/Sommeritting on: 0 01/19/2025 09:54 AM EDT
--- OUTSIDE RECORDS SUMMARY | 2025-01-08 09:30 | XMS_ITS ---
Author Organization Aaron Jung MD Address [address] [place] [phone] Care Team Providers Care Peanut Shaker Name Role Phone Aaron Jung Primary Care Provider Allergies Allergen (clinical drug ingredient) Drug/Non Drug Allergy documented on EMR Reaction Allergy Type Onset Date Status prednisone (uncoded) itch Allergy Active lisinopril lisinopril (uncoded) cough Allergy Active REASON FOR VISIT 6 MO F/U Medications Medication SIG (Take, Route, Frequency, Duration) Notes Start Date End Date Status Valsartan 160 MG TAKE 1 TABLET BY LORIN TH EVERY DAY Active Farxiga 5 mg 1 tablet Orally once a day in a.m. 07/05/2023 Not-Taking Furosemide 20 MG TAKE 1 TABLET BY LORIN TH EVERY DAY Active Apixaban 5 MG as directed Orally twice a day for 60 days Active Atorvastatin Calcium 40 MG TAKE 1 TABLET BY MOUTH EVERY DAY for 90 Active Gabapentin 600 MG TAKE 1 TABLET BY LORIN TH THREE TIMES DAILY for 30 Active rOPINIRole HCl 3 MG 1 tablet Orally twic e a day Active Calcium + D 500-1000-40 MG-UNT-MCG 2 tablets once a day Active Vital Signs Blood pressure systolic 144 mm Hg 01/09/20 25 Blood pressure diastolic 72 mm Hg 025 Height 65.5 in 01/08/2025 Weight 219 lbs 01/08/2025 BMI 35.89 kg/m2 01/08/2025 Encounters Encounter Location Date Provider Diagnosis Aaron Jung MD [address] [place] [address] [place] [phone] 01/08/2025 Aaron Jung 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.49 ; Essential hypertension I10 and Pure hypercholesterolemia E78.00 Assessments Encounter Date Diagnosis (ICD Code) Assessment Notes Treatment Notes Treatment Clinical Notes Section Notes 01/08/2025 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 (ICD-10 - E11.49) a1c is a little high 01/08/2025 Essential hypertensi on (ICD-10 - I10) well controlled 01/08/2025 Pure hypercholesterolemia (ICD-10 - E78.00) a little high for a diabetic Plan Of Treatment Treatment Notes Assessment Notes Type 2 diabetes mellitus wit h other diabetic neurological complication a1c is a little high Essential hypertension well controlled Pure hypercholesterolemia a little high for a diabetic Next Appt Details Follow Up: 3 Months, Reason: Provider Name:Aaron posada, 04/08/2025 01:45:00 PM, [address] [place] [address], [address] [place] [address], [phone], Provider Name:Aaron posada, 07/06/2025 07:45:00 AM, [address] [place] [address], [address], [phone], Provider Name:Aaron posada, 07/12/2025 02:30:00 PM, [address] [place] [address], [address], [phone], Provider Name:Aaron posada, 08/30/2025 10:30:00 AM, [address], [address], [place], [place], [phone], Progress Notes * Lexi JACKSONOB:[birth year] (79 yo F)Acc No.[id number]:01/08/2025 Progress Notes Patient: Jeannine SILVA Provider: Sara Jung MD :1945 A ge:79 Y S ex:Female Date:01/08/2025 Address:[address] [place], [place] [phone] Subjective: * Chief Complaints: * 6 MO F/U * HPI: S ymptom(s): patient is a 79 yo female here for 6 month follow up visit. her for follow up. * ROS: G eneral/Constitutional: Denies C hills. D enies F atigue. D enies F ever. D enies H eadache. E NT: Denies S ore throat. R espiratory: Admits C ough. D enies S hortness of breath at rest. A dmits S hortness of breath with exertion. C ardiovascular: Denies C hest pain at rest. D enies C hest pain with exertion. D enies P alpitations. A dmits S hortness of breath. G astrointestinal: Denies D iarrhea. D enies N ausea. * Medical History: * Surgical History: * Hospitalization/Major Diagno stic Procedure: * Medications: T akingrOPINIRole HCl 3 MG Tablet 1 tablet Orally twice a day Calcium + D 500-1000-40 MG-UNT-MCG Tablet Chewable 2 tablets once a day Gabapentin 600 MG Tablet TAKE 1 TABLET BY MOUTH THREE TIMES DAILY Atorvastatin Calcium 40 MG Tablet TAKE 1 TABLET BY MOUTH EVERY DAY Furosemide 20 MG Tablet TAKE 1 TABLET BY MOUTH EVERY DAY Apixaban 5 MG Tablet as directed Orally twice a day Valsartan 160 MG Tablet TAKE 1 TABLET BY MOUTH EVERY DAY Taking rOPINIRole HCl 3 MG Tablet 1 tablet Orally twice a day Taking Calcium + D 500-1000-40 MG-UNT-MCG Tablet Chewable 2 tablets once a day Taking Gabapentin 600 MG Tablet TAKE 1 TABLET BY MOUTH THREE TIMES DAILY Taking Atorvastatin Calcium 40 MG Tablet TAKE 1 TABLET BY MOUTH EVERY DAY Taking Furosemide 20 MG Tablet TAKE 1 TABLET BY MOUTH EVERY DAY Taking Apixaban 5 MG Tablet as directed Orally twice a day Taking Valsartan 160 MG Tablet TAKE 1 TABLET BY MOUTH EVERY DAY Not-Taking/PRNFarxiga 5 mg Tablet 1 tablet Orally once a day in a.m. Medication List reviewed and reconciled with the patientNot-Taking/PRN Farxiga 5 mg Tablet 1 tablet Orally once a day in a.m. Medication List reviewed and reconciled with the patient * Allergies: l isinopril: coughprednisone: itch - Side Effectsyes[Allergies Verified] Objective: * Vitals: H t: 65.5, Wt: 219, BMI:35.89, BP:144/72, Repeat BP:124/70, Wt-k.34. * P ast Orders: L ab:Liver Panel (Order Date - 01/01/2025) (Collection Date & Time - 01/01/2025 08:00 AM) Value Reference Range Bilirubin Total 0.8 0.0-1.0 - mg/dL Bilirubin Direct 0.3 0.0-0.5 - mg/dL Aspartate Amino Transferase 26 5-31 - U/L Alanine Aminotransferase 12 0-31 - U/L Total Protein 7.0 6.5-8.0 - g/dL Albumin Level 3.9 3.5-5.0 - g/dL Alkaline Phosphatase 57 39-117 - U/L L ab:Glucose Fasting (Order Date - 01/01/2025) (Collection Date & Time - 01/01/2025 08:00 AM) Value Reference Range Glucose Fasting 133 H 60-99 - mg/dL L ab:Lipid Panel with Reflex (Order Date - 01/01/2025) (Collection Date & Time - 01/01/2025 08:00 AM) Value Reference Range Triglycerides 289 H <150 - mg/dL Cholesterol 197 <200 - mg/dL LDL Cholesterol Calculated 104 H <100 - mg/dL HDL Cholesterol 36 L >40 - mg/dL L ab:Hemoglobin A1c (Order Date - 01/01/2025) (Collection Date & Time - 01/01/2025 08:00 AM) Value Reference Range Hemoglobin A1c % 7.3 H <6.0 - % Estimated Average Glucose 163 - mg/dL * Examination: G eneral Examination: GENERAL APPEARANCE: a lert, well hydrated, in no distress.? HEAD: n ormocephalic. SKIN: g ood turgor. HEART: n o murmurs, rubs, gallops, regular rate and rhythm.? LUNGS: g ood air movement, clear to auscultation bilaterally, no wheezes, rales, rhonchi. Assessment: * Assessment: 1. 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 2. E ssential hypertension - I10 3 . P ure hypercholesterolemia - E78.00 Plan: * Treatment: 2. E ssential hypertension Notes: well controlled 3. P ure hypercholesterolemia Notes: a little high for a diabetic * Procedure Codes: * Follow Up: 3 Months * * Sign off status: Completed true * Provider: Sara Jung MD Date: 0 01/08/2025 Generated for Jefferson verma/Whitney/Sommeritting on: 0 01/19/2025 09:54 AM EDT History and Physical Notes * HPI (History of Present Illness) Category Sub-Category Detail Notes Category Not es Symptom(s) patient is a 79 yo female here for 6 month follow up visit. her for follow up Examination Category Sub-Category Detail Notes Category Not es General Examination GENERAL APPEARANCE: alert, w ell hydrated, in no distress HEAD: normocephalic HEART: no murmurs, rubs, ga llops, regular rate and rhythm LUNGS: good air movement, c lear to auscultation bilaterally, no wheezes, rales, rhonchi SKIN: good turgor
--- NOTE | 2025-01-19 09:25 | MHC.OFFVIS ---
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 She was actually referred in August of this year. However, in October she was admitted to [facility] in diagnosed with acute pulmonary embolism which is most likely the reason for her shortness of breath. After that, it seems that she has been put on anticoagulation. Now her shortness of breath is much improved but still not back to normal self. From the cardiac standpoint, she does not have any anginal-type symptoms. No known cardiac issues otherwise. [facility] Medical History (Updated 01/19/25 @ 11:09 by Cesar Nicholas MD) Extrapyramidal and movement disorder Hip arthritis Arthritis Peripheral neuropathy Lumbar disc disease Hypertension Low back pain Carpal tunnel syndrome RLS (restless legs syndrome) Family History (Updated 01/19/25 @ 09:33 by Maya [place] CMA) Father No problems noted. Mother No problems noted. Social History (Updated 01/19/25 @ 09:33 by Maya [place] CMA) Alcohol intake: never Patient Tobacco Use Status: Never used Tobacco Review of Systems Const Denies chills, Denies fatigue, Denies fever(s), Denies frequent falls, Denies weakness, Denies weight gain and Denies weight loss ENT Denies dizziness Card Denies chest pain, Denies leg edema, Denies lightheadedness, Denies palpitations, Denies dyspnea, Denies dyspnea on exertion and Denies orthopnea Resp Denies cough, Denies dyspnea and Denies dyspnea on exertion GI Denies bloating and Denies change in bowel habits Musc Denies muscle weakness, Denies numbness and Denies tingling Neuro Denies dizziness, Denies frequent falls, Denies numbness, Denies tingling and Denies weakness Endo Denies fatigue and Denies palpitations Physical Exam Vital Signs: Last Vital Signs Pulse 59 01/19/25 09:30 BP 120/62 01/19/25 09:30 BMI result Body Mass Index 36.5 Const General: comfortable and no acute distress Orientation/consciousness: patient oriented x3 HEENT Other: Unremarkable Head: Yes normal to inspection Neck Neck: Yes normal visual inspection Chest Chest palpation & inspection: normal inspection of the chest Resp Auscultation: clear to auscultation bilaterally Cardio Palpation: normal PMI Heart sounds: S1 normal heart sound present, S2 normal heart sound present, no gallops, no murmurs and no rubs GI Palpation (GI): Soft to palpation Back/Spine/Pelvis Other: unremarkable Skin General skin exam: no rashes or lesions noted Neuro General: patient oriented x3 Extrem General: Yes normal to inspection Psych Mental Status: mental status grossly normal Office Procedures EKG Details: EKG with underlying sinus rhythm at 59/Min; nonspecific ST-T changes; [place] [id number], Complete Assessment & Plan Assessment & Plan (1) Shortness of breath: Code(s): R06.02 - Shortness of breath Category: Medical (2) Pulmonary embolism: Code(s): I26.99 - Other pulmonary embolism without acute cor pulmonale Category: Medical Plan [facility] records reviewed. Chest CTA reported to have extensive clot burden with saddle embolus. Echocardiogram then with LVEF of 60-65%. Right ventricle moderately dilated. Flattening of interventricular septum thought to be from RV pressure overload. RV function mildly reduced. Mild pulmonary hypertension. Overall, shortness of breath most likely related to the pulmonary embolism and she is already on anticoagulation for that. We will repeat her echocardiogram to look for any worsening of pulmonary hypertension. Per discharge summary at [facility], there was recommendation for follow-up with Hematology and Pulmonary Medicine and she can keep up those appointments. Orders: Orders CA echo transthoracic complete Today R06.02 - Shortness of breath Coding Level of Care Code New Pt Level 4 (40381) Diagnoses Shortness of breath R06.02 Pulmonary embolism I26.99 CPT Codes EKG - CPT: 82533-Tolprkqwbomysibhp, Complete ([id number])
[2025-01-19 09:30] VITALS: BP 120/62; PULSE 59; BMI 36.5
--- OUTSIDE RECORDS SUMMARY | 2025-01-19 09:55 | XMS_ITS | Patient Health Record ---
Author Organization Aaron Jung MD Address [address] [place], [place] [id number] Care Team Providers Care Car Trimmer Name Role Phone Aaron Jung Primary Care Provider Allergies Allergen (clinical drug ingredient) Drug/Non Drug Allergy documented on EMR Reaction Allergy Type Onset Date Status prednisone (uncoded) itch Allergy Active lisinopril lisinopril (uncoded) cough Allergy Active Results Component Value Reference Range Notes Hemoglobin A1c Reviewed date:05/22/2024 10:54:36 AM Interpretation: Performing Lab: Notes/Report: Hemoglobin A1c 7.3 Hemoglobin A1c Reviewed date:11/17/2024 09:05:43 AM Interpretation: Performing Lab: Notes/Report: Hemoglobin A1c 7.4 Complete Blood Count Auto Di ff Reviewed date:07/03/2024 05:14:36 PM Interpretation: Performing Lab:[facility], [address] [place] [phone] Notes/Report: White Blood Count 13.7 4.8-10.8 X10*3/uL [...] NRBC Abs Auto 0.000 0.0-0.012 X10*3/uL Comprehensive [place]. Panel Fa st Reviewed date:07/03/2024 05:33:55 PM Interpretation: Performing Lab:[facility], [address] [place] [phone] Notes/Report: Sodium 143 135-145 mmol/L Potassium 4.4 [...] Panel Reviewed date:07/03/2024 05:01:21 PM Interpretation: Performing Lab:[address] [phone] Notes/Report: Triglycerides 117 <150 mg/dL Desirable Triglyceride: [...] Random Reviewed date:07/03/2024 05:01:14 PM Interpretation: Performing Lab:[address] [phone] Notes/Report: Creatinine Urine 100.89 Microalbumin Urine 10.0 Microalbum/Creatinine Ratio Ur 9.9 <30 ug/mg cr Albumin/Creatinine Ratio Reference Ranges: Normal: < 30 ug/mg creatinine Microalbuminuria: 30 - 300 ug/mg creatinine Clinical Albuminuria: > 300 ug/mg creatinine Hemoglobin A1c Reviewed date:07/03/2024 05:01:30 PM Interpretation: Performing Lab:[facility], [address] [place] [phone] Notes/Report: Hemoglobin A1c % 7.9 <6.0 % [...] average glucose, using the formula of the U7A-Dcyeqxj Average Glucose study (ADAG), Diabetes Care, Vol.31,#8, Dec. 2007 UA ClnCatch+Micro w/rflx Cul t Reviewed date:07/07/2024 01:33:01 PM Interpretation: Performing Lab:[facility], [address] [place] [phone] Notes/Report: Urine, Clean Catch Color Urine Yellow Appearance Urine Clear PH 6.5 5.0-9.0 Glucose Urine UA Negative Negative mg/dL Urine Blood Negative Negative Specific [place] - Urine 1.020 1.005-1.025 Urine Protein Negative Neg-Trace mg/dL Urine Ketones Negative Negative mg/dL Nitrite Urine Negative Negative Leukocyte Esterase Urine Moderate (2+) Negative RBC Urine 0-2 0-2 /HPF WBC Urine 11-20 0-5 /HPF Squamous Epithelial Cell Urine 3-5 0-2 /HPF Bacteria Urine None Seen None Seen Hyaline Casts Urine 0-2 0-2 /LPF Blood Urea Nitrogen Reviewed date:08/20/2024 04:21:58 PM Interpretation: Performing Lab:[facility], [address] [place] [phone] Notes/Report: Blood Urea Nitrogen 16 9-16 mg/dL Creatinine Reviewed date:08/20/2024 04:21:27 PM Interpretation: Performing Lab:[facility], [address] [place] [phone] Notes/Report: Creatinine 0.87 0.5-1.4 mg/dL Estimated Glomerular Filt Rate > 60 Chronic Kidney Disease: Estimated GFR < 60 mL/min/1.73m2 Severe Kidney Disease: Estimated GFR < 15 mL/min/1.73m2 Liver Panel Reviewed date:01/01/2025 12:33:20 PM Interpretation: Performing Lab:[facility], [address] [place] [phone] Notes/Report: Bilirubin Total 0.8 0.0-1.0 mg/dL Bilirubin Direct 0.3 0.0-0.5 mg/dL Aspartate Amino Transferase 26 5-31 U/L Alanine Aminotransferase 12 0-31 U/L Total Protein 7.0 6.5-8.0 g/dL Albumin Level 3.9 3.5-5.0 g/dL Alkaline Phosphatase 57 39-117 U/L Glucose Fasting Reviewed date:01/01/2025 12:33:12 PM Interpretation: Performing Lab:[facility], [address] [place] [phone] Notes/Report: Glucose Fasting 133 60-99 mg/dL A fasting glucose of 126 mg/dl or greater on more than one occasion is considered diagnostic of diabetes. Lipid Panel with Reflex Reviewed date:01/01/2025 12:41:01 PM Interpretation: Performing Lab:[facility], [address] [place] [phone] Notes/Report: Triglycerides 289 <150 mg/dL Desirable Triglyceride: [...] A1c Reviewed date:01/01/2025 12:33:04 PM Interpretation: Performing Lab:[facility], [address] [place] [phone] Notes/Report: Hemoglobin A1c % 7.3 <6.0 % [...] average glucose, using the formula of the X0S-Nkragog Average Glucose study (ADAG), Diabetes Care, Vol.31,#8, 2007 Glucose, finger stick Reviewed date:02/07/2024 10:32:45 AM Interpretation: Performing Lab: Notes/Report: Value 134 Glucose, finger stick Reviewed date:05/22/2024 10:50:00 AM Interpretation: Performing Lab: Notes/Report: Value 148 Occult Blood, Stool, Guaiac Reviewed date:07/07/2024 03:27:32 PM Interpretation:Negative Performing Lab: Notes/Report: Negative Occult Blood, Stool, Guaiac Neg XR hip LT min 2V Reviewed date:07/09/2024 12:54:04 PM Interpretation: Performing Lab: Notes/Report: [address] [address] XRay Report Signed Patient: Jeannine Victor MR#: [id number] : 1945 Acct:[id number] Age/Sex: 79 / F ADM Date: 07/07/24 Loc: HO.CHAR Attending Dr: Aaron Jung MD Ordering Physician: Aaron Jung MD Date of Service: 07/07/24 Procedure(s): XR hip LT min 2V Accession Number(s): [id number] cc: Aaron Jung MD CLINICAL HISTORY: LEFT HIP PAIN 2 view, pelvis and left hip Comparison: None Findings: No acute fracture. Mild degenerative arthritis. Mild chronic enthesopathic changes at the greater trochanter. Intact ipsilateral pubic rami and included SI joint. Soft tissues unremarkable. IMPRESSION: Mild degenerative arthritis. This document has been electronically signed by: Mathew Bran MD on 07/08/2024 13:11:05 Dictated By: Mathew Bran MD Signed By: <Electronically signed by Mathew Bran MD in OV> 07/08/241310 DD/ 10 TD/TT: 07/08/241310 Student Support Services Director: [address] [address] XRay Report Signed Patient: Joseph Victor MR#: [id number] : 1945 Acct:[id number] Age/Sex: 79 / F ADM Date: 07/07/24 Loc: HO.XRAY Attending Dr: Aaron Jung MD Ordering Physician: Aaron Jung MD Date of Service: 07/07/24 Procedure(s): XR hip LT min 2V Accession Number(s): [id number] cc: Aaron Jung MD CLINICAL HISTORY: LE FT HIP PAIN 2 view, pelvis and l eft hip Comparison: None Findings: No acute fracture. M ild degenerative arthritis. Mild chronic enthesopathic changes at the greater trochanter. Intact ipsilateral p ubic rami and included SI joint. Soft tissues unremarkable. IMPRESSION: Mild degenerative arthritis. This document has be en electronically signed by: Mathew Bran MD on 07/08/2024 13:11:05 Dictated By: Mathew Bran MD Signed By: <Electronically signed by Mathew Bran MD in OV> 07/08/241310 DD/ 10 TD/TT: 07/08/241310 Student Support Services Director: Glucose, finger stick Reviewed date:11/17/2024 08:58:31 AM Interpretation: Performing Lab: Notes/Report: Value 153 Hold Gold Reviewed date:07/03/2024 05:00:33 PM Interpretation: Performing Lab:[facility], [address] [place] [phone] Notes/Report: Hold Gold See Note Specimen held untested for 24 hours; Call to request Chemistry testing. Urine Culture Reviewed date:07/03/2024 05:01:06 PM Interpretation: Performing Lab:[facility], [address] [place] [phone] Notes/Report: Urine Culture Report Result Urine Culture 10,000 to 50,000 cfu/ml Urine Culture Mixed bacterial willy a characteristic of Urine Culture urogenital contamination. Creatinine GFR POC Reviewed date:12/16/2024 02:19:14 PM Interpretation: Performing Lab:[facility], [address] [place] [phone] Notes/Report: [id number] 0.97 59 1027 HO.ALINE Creatinine POC 1.0 0.5-1.4 mg/dL GFR POC 59 Chronic Kidney Disease: Estimated GFR < 60 mL/min/1.73m2 Severe Kidney Disease: Estimated GFR < 15 mL/min/1.73m2 CT abdomen pelvis w con Reviewed date:12/16/2024 02:20:50 PM Interpretation: Performing Lab: Notes/Report: [address] [address] [address] Scan Report Signed Patient: Jeannine Victor MR#: [id number] : 1945 Acct:[id number] Age/Sex: 79 / F ADM Date: 12/16/24 Loc: HO.CT Attending Dr: Ubaldo Mejia MD Ordering Physician: Ubaldo Mejia MD Date of Service: 12/16/24 Procedure(s): CT abdomen pelvis w IV con Accession Number(s): [id number] cc: Aaron Jung MD; Ubaldo Mejia MD Report Number: [id number]: Total DLP = 634.00 mGy-cm EXAMINATION: CT [...] 12/16/24 1100 DD/ 1031 TD/TT: 12/16/24 1047 Student Support Services Director: [address] [address] [address] Scan Report Signed Patient: Joseph Victor MR#: [id number] : 1945 Acct:[id number] Age/Sex: 79 / F ADM Date: 12/16/24 Loc: HO.CT Attending Dr: Ubaldo Mejia MD Ordering Physician: Ubaldo Mejia MD Date of Service: 12/16/24 Procedure(s): CT abd omen pelvis w IV con Accession Number(s): [id number] cc: Aaron Jung MD; Ubaldo Mejia MD Report Number: [id number]: Total DLP = 634.00 mGy-cm EXAMINATION: CT ABDO MEN PELVIS WITH IV CONTRAST HISTORY: ABNORMAL FINDINGS R/O COLONIC MASS COMPARISON: There ar e no prior studies for available comparison. TECHNIQUE: CT scan o f the abdomen and pelvis was performed following administration of 85 mL Omnipaque 350 using standard departmental protocol. Coronal an d sagittal reformatted images were generated and reviewed. The patien t received oral contrast material. This CT exam was performed with one or more of the following dose reduction techniques : automated exposure control, adjustment of the mA and/or kV according to patient size, use of iterative reconstruction technique. DLP: 634 mGy-cm FINDINGS: LOWER CHEST: The visualized lung bases are clear. There is no pleural effusion. CARDIOVASCULATURE: T he heart is normal in size. There is no pericardial effusion. LIVER: The liver is normal in size and contour. No liver mass is identified. The hepa tic and portal veins are patent. GALLBLADDER / BILE DUCTS: The gallbladder is unremarkable. There is no intra or extrahepati c biliary ductal dilatation. SPLEEN: The spleen i s normal in size. No focal splenic lesion is identified. PANCREAS: The pancre as is unremarkable in appearance. ADRENAL GLANDS: With in normal limits. KIDNEYS/RETROPERITON EUM: No renal calculi are identified. There is no hydronephrosis. No r enal masses are identified. LYMPH NODES: No abdominal or pelvic lymphadenopathy. VASCULATURE: The abdominal aorta is normal in caliber. MESENTERY/PERITONEUM : No free fluid. No masses. There is no free intraperitoneal gas. STOMACH: The stomach is collapsed, limiting evaluation. SMALL BOWEL: The sma ll bowel is normal in caliber. COLON: There is a la rge amount of stool in the colon. There is diverticulosis of th e sigmoid colon. There is mild dilatation of the pericolonic fat in t his region suggestive of diverticulitis. There is no extraluminal gas or loculated fluid collection. Evaluation for masses is extremely limited. APPENDIX: Normal. URINARY BLADDER/PELV IC ORGANS: The urinary bladder is collapsed, limiting evaluation. The patient is status post hysterectomy. BONES / SOFT TISSUES : There is slight spondylolisthesis of L4 on L5. ____ ___ C T/CT abdomen pelvis w IV con IMPRESSION: Large amount of stoo l throughout the colon. Findings suggestive of mild sigmoid diverticulit is. Evaluation for masses is limited. If there is clinical concern for colonic mass, colonoscopy is recommended. Electronically jacqueline d by: Ubaldo Crane MD 12/16/2024 11:00 AM EDT RP Dictated By: Ubaldo Crane MD Signed By: <Electronically signed by Ubaldo Crane MD in OV> 12/16/24 1100 DD/ 1031 TD/TT: 12/16/24 1047 Student Support Services Director: Alcira Ryan Reviewed date:01/01/2025 12:41:17 PM Interpretation: Performing Lab:[facility], [address] [place] [phone] Notes/Report: Alcira Ryan See Note Specimen held untested for 24 hours; Call to request Chemistry testing. MM tomosynthesis screening B I Reviewed date:01/12/2025 04:50:20 PM Interpretation: Performing Lab: Notes/Report: [facility] [address] [place] [address] Mammography Report Signed Patient: Jeannine Victor MR#: [id number] : 1945 Acct:[id number] Age/Sex: 79 / F ADM Date: 01/08/25 Loc: HO.MAMMO Attending Dr: Aaron Jung MD Ordering Physician: Aaron Jung MD Results: 2Be nign Findings Date of Service: 01/08/25 Follow Up: 1 Year From Orig inal Mammogram Procedure(s): MM tomosynthesis screening BI Accession Number(s): [id number] cc: Aaron Jung MD EXAMINATION: MM SCREENING DIGITAL BREAST TOMOSYNTHESIS, BILATERAL CLINICAL INFORMATION: Screening. Asymptomatic. COMPARISON: Mammography: Comparison is made with available priors TECHNIQUE: Digital breast mammography with tomosynthesis is performed in both the craniocaudal and mediolateral oblique views along with computer-aided detection (CAD). FINDINGS: There are scattered areas of fibroglandular density (ACR BI-RADS breast composition Category b). Bilateral skin moles. There are no significant masses, abnormal calcifications, or other abnormalities. MM/MM tomosynthesis screening BI IMPRESSION: No mammographic evidence of malignancy. ASSESSMENT: BI-RADS BI-RADS 2 - Benign Findings RECOMMENDATION: Routine annual mammography screening. 1 year F/U This examination should not preclude the clinical evaluation of a suspicious palpable abnormality. This patient's information was entered into a reminder system with a target due date for their next mammogram. Electronically signed by: Sophia Carey DO 01/12/2025 12:49 PM EDT RP Dictated By: Sophia Carey DO Signed By: <Electronically signed by Sophia Carey DO in OV> 01/12/25 1249 DD/ 0810 TD/TT: 01/08/25 0825 Student Support Services Director: [place] [facility] [address] [place] [address] Mammography Report Signed Patient: Joseph Victor MR#: [id number] : 1945 Acct:[id number] Age/Sex: 79 / F ADM Date: 01/08/25 Loc: HO.MAMMO Attending Dr: Aaron Jung MD Ordering Physician: Aaron Jung MD Results: 2Be nign Findings Date of Service: 01/08/25 Follow Up: 1 Year From Orig inal Mammogram Procedure(s): MM tomosynthesis screening BI Accession Number(s): [id number] cc: Aaron Jung MD EXAMINATION: MM SCREENING DIGITAL BREAST TOMOSYNTHESIS, BILATERAL CLINICAL INFORMATION: Screening. Asymptomatic. COMPARISON: Mammography: Compari son is made with available priors TECHNIQUE: Digital breast mammography with tomosynthesis is performed in both the craniocaudal and mediolateral oblique views along with computer-aided detection (CAD). FINDINGS: There are scattered areas of fibroglandular density (ACR BI-RADS breast composition Category b). Bilateral skin moles. There are no signifi cant masses, abnormal calcifications, or other abnormalities. M M/MM tomosynthesis screening BI IMPRESSION: No mammographic evid ence of malignancy. ASSESSMENT: BI-RADS BI-RADS 2 - Benign Findings RECOMMENDATION: Routine annual mammography screening. 1 year F/U This examination dionne uld not preclude the clinical evaluation of a suspicious palpable abnormality. This patient's information was entered into a reminder system with a target due date for their next mammogram. Electronically jacqueline d by: Sophia Carey DO 01/12/2025 12:49 PM EDT Dictated By: Sophia Carey DO Signed By: <Electronically signed by Sophia Carey DO in OV> 01/12/25 1249 DD/ 9 TD/TT: 01/08/25824 Student Support Services Director: Reason For Referral Reason shortness of beath Diagnosis 1 Shortness of breath (R06.02) Referral Organization Aaron Jung MD Referring Provider First Name Aaron Referring Provider Last Name Fabiana Referring Provider Speciality Internal edicine Referred Provider SHELIA PARIS Referred Provider Specialty Cardiology General Notes Julia Ramsey 0 08/27/2024 02:01:36 PM >info faxedRoxy Annette 09/11/2024 01:06:28 PM > was told being worked on, Julia Ramsey 09/25/2024 01:47:24 PM >was told on the wait list Referral Priority Routine Referral Appointment Date 01/19/2025 Reason abnormal CAT scan needs colonoscopy done Diagnosis 1 Abnormal CAT scan (R 93.89) Referral Organization Aaron Jung MD Referring Provider First Name Aaron Referring Provider Last Name Fabiana Referring Provider Speciality Internal edicine Referred Provider Ubaldo Mejia Referred Provider Specialty Gastroentero logy General Notes Julia Ramsey 0 11/19/2024 09:29:22 AM >info faxed Referral Priority Routine Referral Appointment Date 11/25/2024 Medications Medication SIG (Take, Route, Frequency, Duration) Notes Start Date End Date Status Valsartan 160 MG TAKE 1 TABLET BY LORIN TH EVERY DAY Active Farxiga 5 mg 1 tablet Orally once a day in a.m. 07/05/2023 Not-Taking Furosemide 20 MG TAKE 1 TABLET BY LORIN TH EVERY DAY Active Apixaban 5 MG as directed Orally twice a day for 60 days Active Gabapentin 600 MG TAKE 1 TABLET BY LORIN TH THREE TIMES DAILY for 30 Active Atorvastatin Calcium 40 MG TAKE 1 TABLET BY MOUTH EVERY DAY for 90 Active rOPINIRole HCl 3 MG 1 tablet Orally twic e a day Active Calcium + D 500-1000-40 MG-UNT-MCG 2 tablets once a day Active Immunizations Vaccine Route Administration Date Status Comme nts Flu Vaccine IM Intramuscular 01/23/2011 Administered Flu Vaccine Unknown 01/29/2012 Administered [facility] PPSV23 (Pnemovax) IM Intramuscular 03/17/2012 Administered Tetanus Unknown 01/29/2007 Administered Prevnar 13 IM Intramuscular 09/15/2012 Administered Flu Vaccine IM Intramuscular 04/06/2013 Administered Fluarix Quadrivalent IM Intramuscular 02/23/2014 Administered Flu Vaccine IM Intramuscular 03/05/2015 Administered pt wa s given the high dose Flu, at the [facility] in [facility] Fluarix Quadrivalent IM Intramuscular 01/20/2016 Administered Fluarix Quadrivalent IM Intramuscular 02/11/2017 Administered TDaP Unknown 04/22/2017 Administered [facility] F[place]ot t [place] PPSV23 (Pnemovax) IM Intramuscular 05/30/2017 Administered Influenza High Dose IM Intramuscular 03/15/2018 Administered Pt was given th e vaccine at [facility]. Fluarix Quadrivalent IM Intramuscular 01/26/2019 Administered Influenza High Dose IM Intramuscular 01/28/2020 Administered Influenza High Dose IM Intramuscular 04/18/2021 Administered Influenza High Dose IM Intramuscular 04/03/2022 Administered Influenza High Dose IM Intramuscular 02/14/2023 Administered Influenza High Dose IM Intramuscular 2024 Administered Shingles Unknown 11/29/2016 Refused Covid Vaccine Unknown 01/17/2021 Refused Flu Vaccine Unknown 02/23/2014 Pending Social History Tobacco Use: Social History Observation [...] ast year? No Points 0 Interpretation Negative Problems Problem Type SNOMED Code ICD Code Onset Dates Problem Status W/U Status Risk Notes Problem 69452036 Type 2 diabetes mellitus with other diabetic neurological complication (E11.49) Active confirmed Problem 51093662 Restless leg syn drome (G25.81) Active confirmed Problem 80165242 Hypercalcemia (E83.52) Active confirme d Problem 81054549 Lumbar disc dise ase (M51.9) Active confirmed Problem 34428689 Essential hypert ension (I10) Active confirmed Problem 548963027 Low HDL (under 4 0) (E78.6) Active confirmed Problem 501671841 Non morbid obesi ty due to excess calories (E66.09) Active confirmed Problem Solitary nodule of lung (684253642) Lung nodule (R91.1) Active confirmed Problem 60371046 Type 2 diabetes, controlled, with neuropathy (E11.40) Active confirmed Problem 869050474 Abnormal mammogr am of left breast (R92.8) Active confirmed Problem 641653183712587 Sciatica of left side (M54.32) Active confirmed Problem 58925616 Sciatic leg pain (M54.30) Active confirmed Problem 636100201 Pure hypercholesterolemia (E78.00) Active confirmed Problem 86085398 Chronic allergic rhinitis, unspecified seasonality, unspecified trigger (J30.9) Active confirmed Problem 111718523 Osteopenia deter mined by x-ray (M85.80) Active confirmed Problem Computed tomography result abnormal (004800912) Abnormal CAT scan (R93.89) Active confirmed Problem 443787698 Arthritis of ank le (M19.079) Active confirmed Problem 21949605 Stasis dermatiti s (I87.2) Active confirmed Problem 1597348158269664 Arthritis of ri ght knee (M17.11) Active confirmed Problem 385848706 Mammogram abnorm al (R92.8) Active confirmed Vital Signs Blood pressure diastolic 72 mm Hg 01/08/2025 Height 65.5 in 01/08/2025 Blood pressure systolic 144 mm Hg 01/08/2025 Weight 219 lbs 01/08/2025 BMI 35.89 kg/m2 01/08/2025 Encounters Encounter Location Date Provider Diagnosis Aaron Jung MD [address] [place], [place] [id number] 06/30/2024 Aaron Jung Essential hypertensi on I10 and Type 2 diabetes, controlled, 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 Aaron Jung MD [address] [place] [id number] 08/20/2024 Aaron Jung Elevated BUN R79.9 Aaron Jung MD [address] [place] [id number] 01/01/2025 Aaron Jung Pure hypercholestero lemia E78.00 and Type 2 diabetes, controlled, 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 Aaron Jung MD [address] [place] [id number] 02/07/2024 Aaron Jung Type 2 diabetes, controlled, 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 ; Sciatica of left side M54.32 and Mammogram abnormal R92.8 Aaron Jung MD [address] [place] [address] [id number] 2024 Aaron Jung Encounter for immuni zation Z23 Aaron Jung MD [address] [place] [id number] 05/22/2024 Aaron Jung 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.49 ; Arthritis of right knee M17.11 and Essential hypertension I10 Aaron Jung MD [address] [place] [id number] 07/07/2024 Aaron Jung Hip pain, left M25.5 52 ; Essential hypertension I10 ; Type 2 diabetes, controlled, 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 ; Elevated BUN R79.9 ; Colon cancer screening Z12.11 and Depression screening Z13.31 Aaron Jung MD [address] [place] [id number] 07/28/2024 Aaron Jung Essential hypertensi on I10 ; Type 2 diabetes, controlled, 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 and Shortness of breath R06.02 Aaron Jung MD [address] [place] [id number] 08/25/2024 Aaron Jung 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.49 ; Encounter for general adult medical examination with abnormal findings Z00.01 ; Eyelid lesion H02.9 and Shortness of breath R06.02 Aaron Jung MD [address] [place] [id number] 11/03/2024 Aaron Jung Pulmonary emboli I26 .99 ; Phlebitis and thrombophlebitis of femoral vein, bilateral I80.13 ; Abnormal CAT scan R93.89 and Lung nodule R91.1 Aaron Jung MD [address] [place] [id number] 11/17/2024 Aaron Jung Type 2 diabetes, controlled, 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 ; Type 2 diabetes mellitus with other diabetic neurological complication E11.49 and Abnormal CAT scan R93.89 Aaron Jung MD [address] [place] [address] [id number] 12/08/2024 Aaron Jung Essential hypertensi on I10 ; Pulmonary emboli I26.99 and Rectal mass K62.9 Aaron Jung MD [address] [place] [id number] 01/08/2025 Aaron Jung 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.49 ; Essential hypertension I10 and Pure hypercholesterolemia E78.00 Aaron Jung MD [address] [place] [id number] 02/17/2024 Aaron Jung MD [address] [place] [id number] 02/21/2024 Aaron Jung MD [address] [place] [address] [id number] 10/20/2024 Aaron Jung MD [address] [place] [id number] 10/23/2024 Aaron Jung MD [address] [place] [address] [id number] 11/30/2024 Aaron Jung Pulmonary emboli I26 .99 Aaron Jung MD [address] [place] [id number] 12/01/2024 Aaron Jung Pulmonary emboli I26 .99 Aaron Jung MD [address] [place] [phone] 12/01/2024 Aaron Jung Assessments Encounter Date Diagnosis (ICD Code) Assessment Notes Treatment Notes Treatment Clinical Notes Section Notes 06/30/2024 Essential hypertensi on (ICD-10 - I10) 08/20/2024 Elevated BUN (ICD-10 - R79.9) 01/01/2025 Pure hypercholesterolemia (ICD-10 - E78.00) 02/07/2024 Type 2 diabetes, controlled, 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) blood sugar doing better never started on januvia, will continue current regiment 02/07/2024 Sciatica of left nir e (ICD-10 - M54.32) is going to get injected 2024 Encounter for immunization (ICD-10 - Z23) 05/22/2024 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) try to get her on diet. has been eating a lot albanian foods. 05/22/2024 Arthritis of right rik morris (ICD-10 - M17.11) is going to speak to pain management about injecting 07/07/2024 Hip pain, left (ICD- 10 - M25.552) pending diagnostic testing 07/07/2024 Essential hypertensi on (ICD-10 - I10) stable, will contiue current regiment 07/28/2024 Essential hypertensi on (ICD-10 - I10) a little high. will observe 07/28/2024 Type 2 diabetes, controlled, 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) is going to see neuro for the neuropathy 08/25/2024 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) doing well , will continue to monitor 08/25/2024 Encounter for genera l adult medical examination with abnormal findings (ICD-10 - Z00.01) Review of risks and HRA 11/03/2024 Pulmonary emboli (ICD-10 - I26.99) is on blood thinner 11/03/2024 Phlebitis and thrombophlebitis of femoral vein, bilateral (ICD-10 - I80.13) is going to see hematology next 11/17/2024 Type 2 diabetes, controlled, 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) 12/08/2024 Essential hypertensi on (ICD-10 - I10) running a little high 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, will continue current regiment and will continue to monitor 12/08/2024 Pulmonary emboli (ICD-10 - I26.99) not short of breath presently 01/08/2025 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) a1c is a little high 11/30/2024 Pulmonary emboli (ICD-10 - I26.99) 12/01/2024 Pulmonary emboli (ICD-10 - I26.99) 06/30/2024 Type 2 diabetes, controlled, 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 is under a lot of stress 08/25/2024 Eyelid lesion (ICD-1 0 - H02.9) have her go back to her ophthalmologi st/ patient will be calling to make her own appt 11/03/2024 Abnormal CAT scan (ICD-10 - R93.89) question of a tumor in signoid colon but will have to wait until she is stable for a longer time. 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 suing some creams with improvemnt 12/08/2024 Rectal mass (ICD-10 - K62.9) spoke to oncology pa and she felt that we should wait 3 to 4 months after the pulmonary emboli before stopping the apixabon. have spoken with dr mejia. / is getting a repeat cat scan next week 01/08/2025 Essential hypertensi on (ICD-10 - I10) well controlled 07/07/2024 Elevated BUN (ICD-10 - R79.9) will continue to monitor 08/25/2024 Shortness of breath (ICD-10 - R06.02) referral to cardiology at [facility], will continue current regiment 11/03/2024 Lung nodule (ICD-10 - R91.1) is small and in low risk patient no need for any followup 11/17/2024 Abnormal CAT scan (ICD-10 - R93.89) need notes from mira vu at the [facility]/ referral to dr mejia/ will send request for records 01/08/2025 Pure hypercholesterolemia (ICD-10 - E78.00) a little high for a diabetic 07/07/2024 Colon cancer screeni ng (ICD-10 - Z12.11) guaiac cnegative 07/07/2024 Depression screening (ICD-10 - Z13.31) negative screen 12/08/2024 Other Total time spent on the date of the encounter is 35 minutes including both face to face time spent and time spent reviewing documentation and counseling the patient. Plan Of Treatment Pending Test Test Name Order Date Electrocardiogram (EKG) 06/01/2016 Electrocardiogram (EKG) 06/06/2018 Electrocardiogram (EKG) 06/12/2019 XR CHEST 2 VIEW PA & LAT 04/10/2013 XR CHEST 2 VIEW PA & LAT 01/01/2022 BONE DENSITY DEXA 06/24/2020 Next Appt Details Provider Name:Aaron posada, 04/08/2025 01:45:00 PM, [address] [place] [address], [address] [place] [address], [phone], Provider Name:Aaron Villarreal ier, 07/06/2025 07:45:00 AM, [address] [place] [address], Suite [facility] [place], [phone], Provider Name:Aaron Villarreal ier, 07/12/2025 02:30:00 PM, [address] [place] [address], [place] [address], ELLEN Negrete, [phone], Provider Name:Aaron cookr, 08/30/2025 10:30:00 AM, [address] [place] [address], [place] [address], [place], [phone], Insurance Providers Payer Name Payer Address Payer Phone Subscriber Number Group Number Insured Name Patient Relationship to Insured Coverage Start Date Coverage End Date [employer] [address] [place] [address] [id number] Jeannine Rg Self - patient is the insured MEDEX BC OF [facility] [address] [place] [phone] [id number] Jeannine Rg Self - patient is the insured Medical (General) History Medical History History ICD Code colonoscopy 2005 due in 10 y ears. Colonoscopy 08/16/16 w/Dr. Mejia (no further testing needed) Hip pain, right Prediabetes R73.09 Prediabetes metformin gave her nausea farxiga had a 500 dollar copay lung nodule on ct 2024 less than .3 cm n o need for further follow up
--- OUTSIDE RECORDS SUMMARY | 2025-01-19 09:55 | XMS_ITS | Patient Health Record ---
Author Organization [facility] Address [address] [place] [address] Care Team Providers Care Traffic Reporter Name Role Phone Aaron Jung MD Primary Care Provider Ubaldo Spann [facility] [phone] Allergies No Known Allergies Results Component Value Reference Range Notes Blood Urea Nitrogen Reviewed date:12/13/2024 07:53:33 PM Interpretation: Performing Lab:[facility], [address] [place] [phone] Notes/Report: Blood Urea Nitrogen 24 9-16 mg/dL CT abdomen pelvis w con (Not yet reviewed by provider) Interpretation: Performing Lab: Notes/Report: [address] [address] [address] Scan Report Signed Patient: Jeannine Jackson MR#: [id number] : 1945 Acct:[id number] Age/Sex: 79 / F ADM Date: 12/16/24 Loc: HO.CT Attending Dr: Ubaldo Turk MD Ordering Physician: Ubaldo Turk MD Date of Service: 12/16/24 Procedure(s): CT abdomen pelvis w IV con Accession Number(s): [id number] cc: Aaron Jung MD; Ubaldo Turk MD Report Number: [id number]: Total DLP = 634.00 mGy-cm EXAMINATION: CT [...] 12/16/24 1100 DD/ 1031 TD/TT: 12/16/24 1047 Microsoft Dynamics Developer: Creatinine GFR POC Reviewed date:12/16/2024 05:58:12 PM Interpretation: Performing Lab:[facility], [address] [place] [phone] Notes/Report: [id number] 0.97 59 1027 HOSAL Creatinine POC 1.0 [...] h meals Orally Twice a day Active [place] 3 1000 MG 1 capsule Orally Thr [...] Problem Status W/U Status Risk Notes Problem [id number] Encounter for screening for malignant neoplasm of colon (Z12.11) Active confirmed Problem Encounter for screening for malignant neoplasm of rectum (Z12.12) Active confirmed Problem [id number] Preprocedural examination (Z01.818) Active confirmed Vital Signs Temperature 98.0 degrees Fahrenheit 11/25/2024 Blood pressure diastolic 01 mm Hg 11/25/2024 Height 65 in 11/25/2024 Blood pressure systolic 001 mm Hg 11/25/2024 Weight 216.2 lbs 11/25/2024 BMI 35.97 kg/m2 11/25/2024 Procedures Procedure Date Ordered Date Performed Result Body Sit e COLONOSCOPY 11/25/2024 N/A Encounters Encounter Location Date Provider Diagnosis [facility] [address] [place] [address] 11/25/[address] scan, colon R93.3 [facility] [address] [place] [address] 01/06/2025 Ubaldo uTrk Assessments Encounter Date Diagnosis (ICD Code) Assessment [...] I will need to speak with her administrative services coordinator at [facility] to discuss the potential brief stoppage of the Eliquis and whether or not she would need Lovenox for bridging during that time. I do not think the colonoscopy needs to be done urgently based on the questionable reading of the CT scan While we are waiting for me to speak with the administrative services coordinator I will order another CT scan of [...] [place] [address] [place] [address] [phone] [id number] JEANNINE MAGALLANES Self - patient is the insured 1 [employer] CLAIM[employer] [address] [place] [address] [id number] JEANNINE MAGALLANES Self - patient is the insured Medical (General) History Medical History History ICD Code Negative screening colonosoc py 2--2005 except for sigmoid diverticulosis, and internal and external hemorrhoids Hyperlipidemia Denies HI,DM,CVA,Lung disease,renal dise ase Restless leg syndrome HTN Pulmonary embolism(saddle em bolus) 10/2024 with DVT's in both LE's- treated at [facility]- on Eliquis Negative colonoscopy in 07/2016 Surgical History Surgery Date(Month/Year) Left knee surgery Complete hysterectomy
--- OUTSIDE RECORDS SUMMARY | 2025-01-19 09:56 | XMS_ITS | Patient Health Record ---
Author Organization [facility] Address [address] [place] [address] Care Team Providers Care Tube Cutter Operator Name Role Phone Aaron Jung MD Primary Care Provider Armani Guadarrama Unavailable [phone] Allergies Allergen (clinical drug ingredient) Drug/Non Drug Allergy documented on EMR Reaction Allergy Type Onset Date Status Latex Latex Unknown Allergy Active Results Component Value Reference Range Notes HEMOGLOBIN A1C (GLYCOHEMOGLO BIN) Reviewed date:07/30/2024 10:27:09 AM Interpretation: Performing Lab: Notes/Report: HEMOGLOBIN A1C % (HH) 7.9 HEMOGLOBIN A1C (GLYCOHEMOGLO BIN) Reviewed date:12/23/2024 11:39:17 AM Interpretation: Performing Lab: Notes/Report: HEMOGLOBIN A1C % (HH) 7.9 Reason For Referral No Information Medications Medication SIG (Take, Route, Frequency, Duration) Notes Start Date End Date Status hydroCHLOROthiazide 25 MG 1 tablet in th e morning Orally Once a day Not-Taking Furosemide 20 MG 1 tablet Orally Once a day Active Atorvastatin Calcium 40 MG 1 tablet Oral ly Once a day Active Gabapentin 600 MG 1 tablet Orally Once a day Active Valsartan 160 MG 1 tablet Orally Once a day Active rOPINIRole HCl 3 MG 1 tablet 1 to 3 hour s before bedtime Orally Once a day Active Ciclopirox Olamine 0.77 % 1 application Externally Twice a day; Duration: 30 days Active Extra Depth Orthopedic Shoes (1 Pair) with Customized Heat Molded Multidensity Innersoles (3 Pair) as directed Dx: NIDDM/Polyneuropathy (E11.42), Hammertoe Foot Deformity (M20.41,M20.42), Preulcerative Skin Lesion(s) (L85.1 07/30/2024 Active Immunizations Vaccine Route Administration Date Status Comme nts Influenza Unknown 01/20/2024 Administered Social History Tobacco Use: Social History Observation Description Date Details (start date - stop date) Never Smoker NA - NA Tobacco use other than smoking: Question Answer Notes Are you an other tobacco user? No Tobacco Control (Standard) Question Answer Notes Tobacco use: Nonsmoker Additional Findings: Tobacco non-user Current no nsmoker AUDIT-C (Standard) Question Answer Notes Did you have a drink containing alcohol in the p ast year? No Points 0 Interpretation Negative Problems Problem Type SNOMED Code ICD Code Onset Dates Problem Status W/U Status Risk Notes Problem Acquired hammer toe of right foot (7316237224944507 ) Other hammer toe(s) (acquired), right foot (M20.41) Active confirmed Problem Acquired hammer toe of left foot (4643165031395294 ) Other hammer toe(s) (acquired), left foot (M20.42) Active confirmed Problem Polyneuropathy due to type 2 diabetes mellitus (511317624) Type 2 diabetes mellitus with diabetic polyneuropathy (E11.42) Active confirmed Problem Type 2 diabetes mellitus with diabetic peripheral angiopathy without gangrene (E11.51) Active confirmed Q7(A), Q8(2B), Q9(1B,2 C) Vital Signs Blood pressure diastolic 80 mm Hg 12/23/2024 Height 5ft 5in in 12/23/2024 Blood pressure systolic 145 mm Hg 12/23/2024 Weight 220 lbs 12/23/2024 BMI 36.61 kg/m2 12/23/2024 Procedures Procedure Date Ordered Date Performed Result Body Sit e 26070-XSZBSXV NAIL, 1-5 01/27/2024 N/A 19993-KGMV SKIN LESIONS, 2 TO 4 01/27/2024 N/A N9661-OMMSIQQB DYSTROPHIC NAILS ANY # 01/27/2024 N/A 22641-DUQEDGE NAIL, 1-5 07/30/2024 N/A 47036-CDPN SKIN LESIONS, 2 TO 4 07/30/2024 N/A P5702-PDHJBQBS DYSTROPHIC NAILS ANY # 07/30/2024 N/A 70211-ZRFSXLG NAIL, 1-5 12/23/2024 N/A 88230-SMEA SKIN LESIONS, 2 TO 4 12/23/2024 N/A A6762-ZPVDTVWY DYSTROPHIC NAILS ANY # 12/23/2024 N/A Encounters Encounter Location Date Provider Diagnosis [address] [address] 01/27/2024 Armani Giraldo Atherosclerosis of [place] artery of both lower extremities, with unspecified presence of clinical manifestation I70.203 ; Tinea unguium B35.1 ; Pain in right toe(s) M79.674 and Pain in left toe(s) M79.[address] [address] 07/30/2024 Armani Giraldo Type 2 diabetes mellitus with diabetic polyneuropathy E11.42 ; Tinea unguium B35.1 ; Type 2 diabetes mellitus with diabetic peripheral angiopathy without gangrene E11.51 ; Other hammer toe(s) (acquired), left foot M20.42 and Other hammer toe(s) (acquired), right foot M20.[address] [address] 12/23/2024 Armani Giraldo Type 2 diabetes mellitus with diabetic polyneuropathy E11.42 and Tinea unguium B35.[address] [address] 04/29/2024 Armani Giraldo [address] [address] 10/27/2024 Armani Giraldo Assessments Encounter Date Diagnosis (ICD Code) Assessment Notes Treatment Notes Treatment Clinical Notes Section Notes 01/27/2024 Tinea unguium (ICD-10 - B35.1) 01/27/2024 Atherosclerosis of [place] artery of both lower extremities, with unspecified presence of clinical manifestation (ICD-10 - I70.203) 07/30/2024 Type 2 diabetes mellitus with diabetic polyneuropathy (ICD-10 - E11.42) 12/23/2024 Tinea unguium (ICD-10 - B35.1) 12/23/2024 Type 2 diabetes mellitus with diabetic polyneuropathy (ICD-10 - E11.42) 07/30/2024 Tinea unguium (ICD-10 - B35.1) 01/27/2024 Pain [...] Treatment Pending Test Test Name Order Date 82729-TCNNFLO NAIL, -12/19/2022 59352-MNHCYPF NAIL, -03/21/2023 10263-HILWDRB NAIL, -06/27/2023 16377-CBUWUEJ NAIL, -10/28/2023 71277-TOIFGTF NAIL, -01/27/2024 47381-NIPWRZD NAIL, -07/30/2024 44069-CFDFYZG NAIL, -12/23/2024 80970-AWBX SKIN LESIONS, 2 TO 4 12/24/19 25 43176-QTPX SKIN LESIONS, 2 TO 4 01/27/20 24 51325-IJZJ SKIN LESIONS, 2 TO 4 10/28/19 24 91386-KJBD SKIN LESIONS, 2 TO 4 06/27/19 24 05961-MCTV SKIN LESIONS, 2 TO 4 12/20/19 23 83765-QMPJ SKIN LESIONS, 2 TO 4 03/21/20 23 40883-OHUC SKIN LESIONS, 2 TO 4 07/31/19 25 S6084-AOTGHQOT DYSTROPHIC NAILS ANY # X0349-LHYSWYEL DYSTROPHIC NAILS ANY # K3245-GCYEAXNB DYSTROPHIC NAILS ANY # P2176-JIPUTSVI DYSTROPHIC NAILS ANY # Y2009-SMAEGVWM DYSTROPHIC NAILS ANY # A5937-QVQQOWJT DYSTROPHIC NAILS ANY # W9964-LFZEVQXL DYSTROPHIC NAILS ANY # Next Appt Details Provider Name:Armani Giraldo , 03/29/2025 09:15:00 AM, [address] [facility], [address], [place], [address], Insurance Providers Payer Name Payer Address Payer Phone Subscriber Number Group Number Insured Name Patient Relationship to Insured Coverage Start Date Coverage End Date Medicare National Govt [employer] [address] [place] [address] [id number] Tristan uJeannine Self - patient is the insured [employer] [address] [place] [address] [phone] [id number] Jeannine Rg Self - patient is the insured Medical (General) History Medical History History ICD Code Back,Hip,and Knee pain High blood pressure Numbness Sciatica Measles Chicken pox Diabetic Surgical History Surgery Date(Month/Year) hysterectomoy knee surgery Hospitalization History Reason Date(Month/Year) [facility]- trouble breathing, diag nosed with blood clots in legs and lungs, [facility] 10 days 10/2024
--- OUTSIDE RECORDS SUMMARY | 2025-02-26 20:00 | XMS_ITS | Clinical Summary ---
Author Organization Unknown Care Team Providers Care Counter Clerk [employer] Name Role Phone CHELI MOORE, SNEHA Unavailable Unavailable [place] OT, LOUIE Unavailable Unavailable CONDINO LAB COORDINATOR/BAÑUELOS, RODOLFO Unavailable Unav ailable HECTOR AGILE TESTER, SALINA Unavailable Unavailnemo CUELLAR RN, YOVANNY Unavailable Unavailable Payers Payer Name Policy Type Policy Number Effective Date Expira tion Date MEDICARE.NGS.PDGM [id number] Problems Condition Name Condition Details Condition Category Status Onset Date Resolution Date Last Treatment Date Treating Clinician Comments 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 CHR KDNY Active 10-31 00:00: 00 CHRONIC DIASTOLIC (CONGESTIVE) HEART FAILURE Active 10-31 00:00: 00 CHRONIC KIDNEY DISEASE, STAGE 3A Active 10-26 00:00: 00 OTHER PULMONARY EMBOLISM WITH ACUTE COR PULMONALE Active 10-26 00:00: 00 ACUTE EMBOLISM AND THOMBOS UNSP DEEP VEINS OF LOW EXTRM, BI Active 10-26 00:00: 00 DORSALGIA, UNSPECIFIED Active 10-26 00:00: 00 HYPERLIPIDEM IA, UNSPECIFIED Active 10-26 00:00: 00 RESTLESS LEGS SYNDROME Active 10-26 00:00: 00 SOLITARY PULMONARY NODULE Active 10-26 00:00: 00 OBESITY, UNSPECIFIED Active 10-26 00:00: 00 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 Active 10-26 [...] 600 mg tablet 10-15 00:00: 00 Yes [id number] NEUROPATHY 1 tablet 3 TIMES DAILY 1 tablet 3 TIMES DAILY (route: oral) Med Classific ation: Central Nervous System Agents triamcinolo ne acetonide 0.1 % topical cream 10-06 00:00: 00 Yes [id number] RASH Per instruc tions DAILY Per instructio ns DAILY (route: topical) Med Classific ation: Dermatolo gical acetaminoph en 500 mg tablet 10-31 00:00: 00 Yes [id number] PAIN 2 tablet 3 TIMES DAILY 2 tablet 3 TIMES DAILY (route: oral) Med Classific ation: Analgesic , Anti-infl ammatory or Antipyret ic atorvastati n 40 mg tablet 10-31 00:00: 00 Yes [id number] CHOLESTEROL 1 tablet DAILY 1 tablet DAILY (route: oral) Med Classific ation: Cardiovas cular Therapy Agents furosemide 20 mg tablet 10-31 00:00: 00 Yes [id number] EDEMA 1 tablet DAILY 1 tablet DAILY (route: oral) Med Classific ation: Cardiovas cular Therapy Agents omega 3-dha 100 mg-epa 400 mg-fish oil 1,000 mg capsule 10-31 00:00: 00 Yes [id number] SUPPLEMENT 1 capsule 2 TIMES DAILY 1 capsule 2 TIMES DAILY (route: oral) Med Classific ation: Cardiovas cular Therapy Agents ropinirole 1 mg tablet 10-31 00:00: 00 Yes [id number] RESTLESS LEGS 3 tablet 2 TIMES DAILY 3 tablet 2 TIMES DAILY (route: oral) Med Classific ation: Central Nervous System Agents valsartan 160 mg tablet 10-31 00:00: 00 Yes [id number] HTN 1 tablet DAILY 1 tablet DAILY (route: oral) Med Classific ation: Cardiovas cular Therapy Agents Eliquis 5 mg tablet 10-31 00:00: 00 Yes [id number] blood thiinner 1 tablet 2 TIMES DAILY 1 tablet 2 TIMES DAILY (route: oral) Med Classific ation: Hematolog ical Agents Vital Signs Vital Name Observation Time Observation Value Commen ts Temperature 2025-01-14 12:24:00.000 97.9 [degF] Temperature 2025-01-06 10:06:00.000 97.8 [degF] Pulse 2025-01-14 12:24:00.000 65 /min Pulse 2025-01-06 10:06:00.000 64 /min O2 Saturation (%) 2025-01-14 12:24:00.000 97 % O2 Saturation (%) 2025-01-06 10:06:00.000 99 % Respirations 2025-01-14 12:24:00.000 16 /min Respirations 2025-01-06 10:06:00.000 16 /min Weight (lbs) 2025-01-14 12:24:00.000 217 [lb_av] Weight (lbs) 2025-01-06 10:06:00.000 218 [lb_av] Systolic Blood Pressure 2025-01-14 12:24:00.000 148 mm [Hg] Systolic Blood Pressure 2025-01-06 10:06:00.000 120 mm [Hg] Diastolic Blood Pressure 2025-01-14 12:24:00.000 74 mm [Hg] Diastolic Blood Pressure 2025-01-06 10:06:00.000 80 mm [Hg] Plan of Treatment Planned Activity Planned Date Details Comments Future Scheduled Test RN TO OBSE RVE, ASSESS, EVALUATE, AND DEVELOP AN INDIVIDUALIZED PLAN OF CARE. AGENCY MAY ACCEPT ORDERS FROM CONSULTING PHYSICIANS RN TO OBSERVE AND ASSESS, AGILE TESTER/ORNAMENTAL PLASTER STICKER TO OBSERVE FOR RISK FOR FALLS AND INSTRUCT IN FALL PREVENTION, HOME SAFETY, MEDICATION MANAGEMENT, INFECTION PREVENTION, AND NUTRITION MANAGEMENT. RN/AGILE TESTER/ORNAMENTAL PLASTER STICKER NURSE MAY PERFORM O2 SATURATION LEVEL ON ADMISSION AND PRN FOR RN TO ASSESS/AGILE TESTER TO OBSERVE PATIENT, WITH NOTIFICATION TO THE PHYSICIAN IF SATURATION IS 90% IN THE ABSENCE OF MORE SPECIFIC PARAMETERS FROM THE PHYSICIAN. AGENCY MAY PERFORM A RESUMPTION OF CARE VISIT FOLLOWING ANY HOSPITAL ADMISSION. RN/AGILE TESTER/ORNAMENTAL PLASTER STICKER TO MONITOR CO-MORBID CONDITIONS LISTED ON THE PLAN OF CARE AND ANY NEW CONDITIONS THAT PRESENT THEMSELVES DURING THIS EPISODE TO IDENTIFY CHANGES AND INTERVENE TO MINIMIZE COMPLICATIONS. [code = RN TO OBSERVE, ASSESS, EVALUATE, AND DEVELOP AN INDIVIDUALIZED PLAN OF CARE. AGENCY MAY ACCEPT ORDERS FROM CONSULTING PHYSICIANS RN TO OBSERVE AND ASSESS, AGILE TESTER/ORNAMENTAL PLASTER STICKER TO OBSERVE FOR RISK FOR FALLS AND INSTRUCT IN FALL PREVENTION, HOME SAFETY, MEDICATION MANAGEMENT, INFECTION PREVENTION, AND NUTRITION MANAGEMENT. RN/AGILE TESTER/ORNAMENTAL PLASTER STICKER NURSE MAY PERFORM O2 SATURATION LEVEL ON ADMISSION AND PRN FOR RN TO ASSESS/AGILE TESTER TO OBSERVE PATIENT, WITH NOTIFICATION TO THE PHYSICIAN IF SATURATION IS 90% IN THE ABSENCE OF MORE SPECIFIC PARAMETERS FROM THE PHYSICIAN. AGENCY MAY PERFORM A RESUMPTION OF CARE VISIT FOLLOWING ANY HOSPITAL ADMISSION. RN/AGILE TESTER/ORNAMENTAL PLASTER STICKER TO MONITOR CO-MORBID CONDITIONS LISTED ON THE PLAN OF CARE AND ANY NEW CONDITIONS THAT PRESENT THEMSELVES DURING THIS EPISODE TO IDENTIFY CHANGES AND INTERVENE TO MINIMIZE COMPLICATIONS.] Future Scheduled Test MEDICATION MANAGEMENT; RN/AGILE TESTER/ORNAMENTAL PLASTER STICKER TO REVIEW MEDICATIONS FOR INTERACTIONS, EFFECTIVENESS OF DRUG THERAPY, AND SIGNS/SYMPTOMS OF ADVERSE REACTIONS. MAY INSTRUCT AND REINFORCE MEDICATION TEACHING RELATED TO THE USE OF MEDICATIONS, DOSAGE, FREQUENCY, PURPOSE, SIDE EFFECTS, AND TO REPORT COMPLICATIONS. [code = MEDICATION MANAGEMENT; RN/AGILE TESTER/ORNAMENTAL PLASTER STICKER TO REVIEW MEDICATIONS FOR INTERACTIONS, EFFECTIVENESS OF DRUG THERAPY, AND SIGNS/SYMPTOMS OF ADVERSE REACTIONS. MAY INSTRUCT AND REINFORCE MEDICATION TEACHING RELATED TO THE USE OF MEDICATIONS, DOSAGE, FREQUENCY, PURPOSE, SIDE EFFECTS, AND TO REPORT COMPLICATIONS.] Future Scheduled Test ANTITHROMB OTIC MANAGEMENT; RN TO ASSESS AND TEACH, AGILE TESTER/ORNAMENTAL PLASTER STICKER TO OBSERVE/TEACH/MONITOR EFFECTIVENESS OF ANTITHROMBOTIC THERAPY. RN/AGILE TESTER/ORNAMENTAL PLASTER STICKER TO INSTRUCT ON SIGNS AND SYMPTOMS OF BLEEDING/ADVERSE REACTIONS TO REPORT TO PHYSICIAN. [code = ANTITHROMBOTIC MANAGEMENT; RN TO ASSESS AND TEACH, AGILE TESTER/ORNAMENTAL PLASTER STICKER TO OBSERVE/TEACH/MONITOR EFFECTIVENESS OF ANTITHROMBOTIC THERAPY. RN/AGILE TESTER/ORNAMENTAL PLASTER STICKER TO INSTRUCT ON SIGNS AND SYMPTOMS OF BLEEDING/ADVERSE REACTIONS TO REPORT TO PHYSICIAN.] Future Scheduled Test RISK FOR H OSPITALIZATION; RN TO ASSESS/TEACH, ORNAMENTAL PLASTER STICKER/AGILE TESTER TO OBSERVE/TEACH PATIENT/CAREGIVER ON RISK FOR HOSPITALIZATION/EMERGENCY ROOM VISITS, TEACH SIGNS AND SYMPTOMS THAT PUT PATIENT AT RISK, WHEN TO NOTIFY NURSE/PHYSICIAN OF COMPLICATIONS/DECLINE, AND WHEN TO CALL 911. [code = RISK FOR HOSPITALIZATION; RN TO ASSESS/TEACH, ORNAMENTAL PLASTER STICKER/AGILE TESTER TO OBSERVE/TEACH PATIENT/CAREGIVER ON RISK FOR HOSPITALIZATION/EMERGENCY ROOM VISITS, TEACH SIGNS AND SYMPTOMS THAT PUT PATIENT AT RISK, WHEN TO NOTIFY NURSE/PHYSICIAN OF COMPLICATIONS/DECLINE, AND WHEN TO CALL 911.] Future Scheduled Test CARDIOVASC ULAR SYSTEM; RN TO ASSESS/TEACH, AGILE TESTER/ORNAMENTAL PLASTER STICKER TO OBSERVE/TEACH RELATED TO ALTERED CARDIOVASCULAR STATUS TO MINIMIZE COMPLICATIONS AND REDUCE HOSPITALIZATION. [code = CARDIOVASCULAR SYSTEM; RN TO ASSESS/TEACH, AGILE TESTER/ORNAMENTAL PLASTER STICKER TO OBSERVE/TEACH RELATED TO ALTERED CARDIOVASCULAR STATUS TO MINIMIZE COMPLICATIONS AND REDUCE HOSPITALIZATION.] Future Scheduled Test HEART FAIL URE; RN TO ASSESS/TEACH, AGILE TESTER/ORNAMENTAL PLASTER STICKER TO OBSERVE/TEACH CARDIOPULMONARY SYSTEM TO IDENTIFY SIGNS [...] [code = HEART FAILURE; RN TO ASSESS/TEACH, AGILE TESTER/ORNAMENTAL PLASTER STICKER TO OBSERVE/TEACH CARDIOPULMONARY SYSTEM TO IDENTIFY SIGNS [...] AND BP MONITOR TO BE PROVIDED IF NEEDED.] Future Scheduled Test RESPIRATOR Y SYSTEM MANAGEMENT; RN TO ASSESS AND TEACH, AGILE TESTER/ORNAMENTAL PLASTER STICKER TO OBSERVE AND TEACH RELATED TO ALTERED RESPIRATORY STATUS TO MINIMIZE COMPLICATIONS AND REDUCE HOSPITALIZATION. [code = RESPIRATORY SYSTEM MANAGEMENT; RN TO ASSESS AND TEACH, AGILE TESTER/ORNAMENTAL PLASTER STICKER TO OBSERVE AND TEACH RELATED TO ALTERED RESPIRATORY STATUS TO MINIMIZE COMPLICATIONS AND REDUCE HOSPITALIZATION.] Future Scheduled Test PAIN MANAG EMENT; RN TO ASSESS AND TEACH, ORNAMENTAL PLASTER STICKER/AGILE TESTER TO OBSERVE AND TEACH AND PROVIDE EDUCATION ON PAIN MANAGEMENT TECHNIQUES. [code = PAIN MANAGEMENT; RN TO ASSESS AND TEACH, ORNAMENTAL PLASTER STICKER/AGILE TESTER TO OBSERVE AND TEACH AND PROVIDE EDUCATION ON PAIN MANAGEMENT TECHNIQUES.] Future Scheduled Test BLOOD CLOT MANAGEMENT; RN TO ASSESS AND TEACH/ AGILE TESTER /ORNAMENTAL PLASTER STICKER TO OBSERVE AND TEACH AND PROVIDE EDUCATION ON BLOOD CLOT MANAGEMENT. [code = BLOOD CLOT MANAGEMENT; RN TO ASSESS AND TEACH/ AGILE TESTER /ORNAMENTAL PLASTER STICKER TO OBSERVE AND TEACH AND PROVIDE EDUCATION ON BLOOD CLOT MANAGEMENT.] Future Scheduled Test FALL REDUC TION MANAGEMENT; RN TO ASSESS AND OBSERVE, AGILE TESTER/ORNAMENTAL PLASTER STICKER TO OBSERVE FALL RISK FACTORS AND EDUCATE PATIENT/CAREGIVER ON STRATEGIES TO MINIMIZE THE RISK OF FALLING. [code = FALL REDUCTION MANAGEMENT; RN TO ASSESS AND OBSERVE, AGILE TESTER/ORNAMENTAL PLASTER STICKER TO OBSERVE FALL RISK FACTORS AND EDUCATE PATIENT/CAREGIVER ON STRATEGIES TO MINIMIZE THE RISK OF FALLING.] Goal 2024-12-29 Patient Goal - TO WALK AURELIA R Goal Patient Goal - TO WALK AURELIA R Goal Provider Goal - A PLAN OF CARE WILL BE ESTABLISHED THAT MEETS THE PATIENT S NEEDS. PATIENT WILL DEMONSTRATE OXYGEN SATURATION WITHIN NORMAL LIMITS OR PATIENT S OPTIMAL LEVEL ESTABLISHED BY THE PHYSICIAN THROUGHOUT CARE. CHANGES TO CO-MORBID CONDITIONS AND ANY NEW CONDITIONS WILL BE IDENTIFIED AND REPORTED TO THE PHYSICIAN. Goal Provider Goal - PATIENT/CAREGIVER TO VERBALIZE, AND CONSISTENTLY DEMONSTRATE EFFECTIVE, SAFE MANAGEMENT OF MEDICATION INCLUDING KNOWLEDGE OF EFFECTIVENESS, POTENTIAL SIDE EFFECTS AND DRUG REACTIONS AND WHEN TO CONTACT THE APPROPRIATE CARE PROVIDER. PATIENT/CAREGIVER WILL BE ABLE TO VERBALIZE UNDERSTANDING OF MEDICATION REGIMEN AND ACCURATELY TAKE MEDICATIONS PRESCRIBED WITHOUT ADVERSE EFFECTS BY EOE Goal Provider Goal - PATIENT / CAREGIVER WILL PROMPTLY REPORT SIGNS AND SYMPTOMS OF BLEEDING OR ADVERSE REACTIONS TO THE PHYSICIAN. PATIENT/CAREGIVER WILL VERBALIZE UNDERSTANDING OF ANTITHROMBOTIC THERAPY MANAGEMENT BY END OF EPISODE. Goal Provider Goal - PATIENT/CAREGIVER WILL VERBALIZE UNDERSTANDING OF SIGNS AND SYMPTOMS THAT PUT THE PATIENT AT RISK FOR HOSPITALIZATION /EMERGENCY ROOM VISITS, WHEN TO NOTIFY NURSE/PHYSICIAN OF COMPLICATIONS/DECLINE AND WHEN TO CALL 911. Goal Provider Goal - PATIENT / CAREGIVER WILL VERBALIZE/DEMONSTRATE UNDERSTANDING OF MEASURES TO MANAGE ALTERED CARDIOVASCULAR STATUS BY EOE Goal Provider Goal - PATIENT / CAREGIVER WILL VERBALIZE/DEMONSTRATE AN ABILITY TO ADHERE TO SELF-MANAGEMENT OF HF TO MINIMIZE COMPLICATIONS AND AVOID HOSPITALIZATION BY END OF EPISODE. Goal Provider Goal - PATIENT / CAREGIVER WILL VERBALIZE/DEMONSTRATE UNDERSTANDING OF MEASURES TO MANAGE ALTERED RESPIRATORY STATUS BY END OF EPISODE. Goal Provider Goal - PATIENT / CAREGIVER WILL VERBALIZE / DEMONSTRATE UNDERSTANDING OF PAIN CONTROL MEASURES BY EOE Goal Provider Goal - PATIENT/CAREGIVER WILL VERBALIZE UNDERSTANDING OF CARE AND MANAGEMENT OF BLOOD CLOT BY END OF EPISODE. Goal Provider Goal - PATIENT/CAREGIVER WILL VERBALIZE/DEMONSTRATE UNDERSTANDING OF FALL RISK FACTORS AND IMPLEMENT STRATEGIES TO MINIMIZE FALL RISK. PATIENT/CAREGIVER WILL VERBALIZE/DEMONSTRATE AN ABILITY TO ADHERE TO FALL REDUCTION SELF-MANAGEMENT AND LIFE-STYLE CHANGES BY EOE Encounters Start Date/Time End Date/Time Encounter Type Admission Type Attending Clinicians Care Facility Care Department Encounter ID Discharge Date Discharge Status Discharge Condition Discharge Reason Percent Goals Met 2024-12-30 00:00:00 2025-02-27 00:00:00 Outpatient RECERTIFIC YOVANNY YEAGER [facility] [id number] 21.4 3
--- OUTSIDE RECORDS SUMMARY | 2025-02-26 20:00 | XMS_ITS | Clinical Summary ---
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 TS Active 10-26 [...] 600 mg tablet 10-15 00:00: 00 Yes [id number] NEUROPATHY 1 tablet 3 TIMES DAILY 1 tablet 3 TIMES DAILY (route: oral) Med Classific ation: Central Nervous System Agents triamcinolo ne acetonide 0.1 % topical cream 10-06 00:00: 00 Yes [id number] RASH Per instruc tions DAILY Per instructio ns DAILY (route: topical) Med Classific ation: Dermatolo gical acetaminoph en 500 mg tablet 10-31 00:00: 00 Yes [id number] PAIN 2 tablet 3 TIMES DAILY 2 tablet 3 TIMES DAILY (route: oral) Med Classific ation: Analgesic , Anti-infl ammatory or Antipyret ic atorvastati n 40 mg tablet 10-31 00:00: 00 Yes [id number] CHOLESTEROL 1 tablet DAILY 1 tablet DAILY (route: oral) Med Classific ation: Cardiovas cular Therapy Agents furosemide 20 mg tablet 10-31 00:00: 00 Yes [id number] EDEMA 1 tablet DAILY 1 tablet DAILY (route: oral) Med Classific ation: Cardiovas cular Therapy Agents omega 3-dha 100 mg-epa 400 mg-fish oil 1,000 mg capsule 10-31 00:00: 00 Yes [id number] SUPPLEMENT 1 capsule 2 TIMES DAILY 1 capsule 2 TIMES DAILY (route: oral) Med Classific ation: Cardiovas cular Therapy Agents ropinirole 1 mg tablet 10-31 00:00: 00 Yes [id number] RESTLESS LEGS 3 tablet 2 TIMES DAILY 3 tablet 2 TIMES DAILY (route: oral) Med Classific ation: Central Nervous System Agents valsartan 160 mg tablet 10-31 00:00: 00 Yes [id number] HTN 1 tablet DAILY 1 tablet DAILY (route: oral) Med Classific ation: Cardiovas cular Therapy Agents Eliquis 5 mg tablet 10-31 00:00: 00 Yes [id number] blood thiinner 1 tablet 2 TIMES DAILY [...] CONSULTING PHYSICIANS RN TO OBSERVE AND ASSESS, BRASS POLISHER/CORPORATE DIRECTOR OF HUMAN RESOURCES TO OBSERVE FOR RISK FOR FALLS AND INSTRUCT IN FALL PREVENTION, HOME SAFETY, MEDICATION MANAGEMENT, INFECTION PREVENTION, AND NUTRITION MANAGEMENT. RN/BRASS POLISHER/CORPORATE DIRECTOR OF HUMAN RESOURCES NURSE MAY PERFORM O2 SATURATION LEVEL ON ADMISSION AND PRN FOR RN TO ASSESS/BRASS POLISHER TO OBSERVE PATIENT, WITH NOTIFICATION TO THE PHYSICIAN IF SATURATION IS 90% IN THE ABSENCE OF MORE SPECIFIC PARAMETERS FROM THE PHYSICIAN. AGENCY MAY PERFORM A RESUMPTION OF CARE VISIT FOLLOWING ANY HOSPITAL ADMISSION. RN/BRASS POLISHER/CORPORATE DIRECTOR OF HUMAN RESOURCES TO MONITOR CO-MORBID CONDITIONS LISTED ON THE PLAN OF CARE AND ANY NEW CONDITIONS THAT PRESENT THEMSELVES DURING THIS EPISODE TO IDENTIFY CHANGES AND INTERVENE TO MINIMIZE COMPLICATIONS. [code = RN TO OBSERVE, ASSESS, EVALUATE, AND DEVELOP AN INDIVIDUALIZED PLAN OF CARE. AGENCY MAY ACCEPT ORDERS FROM CONSULTING PHYSICIANS RN TO OBSERVE AND ASSESS, BRASS POLISHER/CORPORATE DIRECTOR OF HUMAN RESOURCES TO OBSERVE FOR RISK FOR FALLS AND INSTRUCT IN FALL PREVENTION, HOME SAFETY, MEDICATION MANAGEMENT, INFECTION PREVENTION, AND NUTRITION MANAGEMENT. RN/BRASS POLISHER/CORPORATE DIRECTOR OF HUMAN RESOURCES NURSE MAY PERFORM O2 SATURATION LEVEL ON ADMISSION AND PRN FOR RN TO ASSESS/BRASS POLISHER TO OBSERVE PATIENT, WITH NOTIFICATION TO THE PHYSICIAN IF SATURATION IS 90% IN THE ABSENCE OF MORE SPECIFIC PARAMETERS FROM THE PHYSICIAN. AGENCY MAY PERFORM A RESUMPTION OF CARE VISIT FOLLOWING ANY HOSPITAL ADMISSION. RN/BRASS POLISHER/CORPORATE DIRECTOR OF HUMAN RESOURCES TO MONITOR CO-MORBID CONDITIONS LISTED ON THE PLAN OF CARE AND ANY NEW CONDITIONS THAT PRESENT THEMSELVES DURING THIS EPISODE TO IDENTIFY CHANGES AND INTERVENE TO MINIMIZE COMPLICATIONS.] Future Scheduled Test MEDICATION MANAGEMENT; RN/BRASS POLISHER/CORPORATE DIRECTOR OF HUMAN RESOURCES TO REVIEW MEDICATIONS FOR INTERACTIONS, EFFECTIVENESS OF DRUG THERAPY, AND SIGNS/SYMPTOMS OF ADVERSE REACTIONS. MAY INSTRUCT AND REINFORCE MEDICATION TEACHING RELATED TO THE USE OF MEDICATIONS, DOSAGE, FREQUENCY, PURPOSE, SIDE EFFECTS, AND TO REPORT COMPLICATIONS. [code = MEDICATION MANAGEMENT; RN/BRASS POLISHER/CORPORATE DIRECTOR OF HUMAN RESOURCES TO REVIEW MEDICATIONS FOR INTERACTIONS, EFFECTIVENESS OF DRUG THERAPY, AND SIGNS/SYMPTOMS OF ADVERSE REACTIONS. MAY INSTRUCT AND REINFORCE MEDICATION TEACHING RELATED TO THE USE OF MEDICATIONS, DOSAGE, FREQUENCY, PURPOSE, SIDE EFFECTS, AND TO REPORT COMPLICATIONS.] Future Scheduled Test ANTITHROMB OTIC MANAGEMENT; RN TO ASSESS AND TEACH, BRASS POLISHER/CORPORATE DIRECTOR OF HUMAN RESOURCES TO OBSERVE/TEACH/MONITOR EFFECTIVENESS OF ANTITHROMBOTIC THERAPY. RN/BRASS POLISHER/CORPORATE DIRECTOR OF HUMAN RESOURCES TO INSTRUCT ON SIGNS AND SYMPTOMS OF BLEEDING/ADVERSE REACTIONS TO REPORT TO PHYSICIAN. [code = ANTITHROMBOTIC MANAGEMENT; RN TO ASSESS AND TEACH, BRASS POLISHER/CORPORATE DIRECTOR OF HUMAN RESOURCES TO OBSERVE/TEACH/MONITOR EFFECTIVENESS OF ANTITHROMBOTIC THERAPY. RN/BRASS POLISHER/CORPORATE DIRECTOR OF HUMAN RESOURCES TO INSTRUCT ON SIGNS AND SYMPTOMS OF BLEEDING/ADVERSE REACTIONS TO REPORT TO PHYSICIAN.] Future Scheduled Test RISK FOR H OSPITALIZATION; RN TO ASSESS/TEACH, CORPORATE DIRECTOR OF HUMAN RESOURCES/BRASS POLISHER TO OBSERVE/TEACH PATIENT/CAREGIVER ON RISK FOR HOSPITALIZATION/EMERGENCY ROOM VISITS, TEACH SIGNS AND SYMPTOMS THAT PUT PATIENT AT RISK, WHEN TO NOTIFY NURSE/PHYSICIAN OF COMPLICATIONS/DECLINE, AND WHEN TO CALL 911. [code = RISK FOR HOSPITALIZATION; RN TO ASSESS/TEACH, CORPORATE DIRECTOR OF HUMAN RESOURCES/BRASS POLISHER TO OBSERVE/TEACH PATIENT/CAREGIVER ON RISK FOR HOSPITALIZATION/EMERGENCY ROOM VISITS, TEACH SIGNS AND SYMPTOMS THAT PUT PATIENT AT RISK, WHEN TO NOTIFY NURSE/PHYSICIAN OF COMPLICATIONS/DECLINE, AND WHEN TO CALL 911.] Future Scheduled Test CARDIOVASC ULAR SYSTEM; RN TO ASSESS/TEACH, BRASS POLISHER/CORPORATE DIRECTOR OF HUMAN RESOURCES TO OBSERVE/TEACH RELATED TO ALTERED CARDIOVASCULAR STATUS TO MINIMIZE COMPLICATIONS AND REDUCE HOSPITALIZATION. [code = CARDIOVASCULAR SYSTEM; RN TO ASSESS/TEACH, BRASS POLISHER/CORPORATE DIRECTOR OF HUMAN RESOURCES TO OBSERVE/TEACH RELATED TO ALTERED CARDIOVASCULAR STATUS TO MINIMIZE COMPLICATIONS AND REDUCE HOSPITALIZATION.] Future Scheduled Test HEART FAIL URE; RN TO ASSESS/TEACH, BRASS POLISHER/CORPORATE DIRECTOR OF HUMAN RESOURCES TO OBSERVE/TEACH CARDIOPULMONARY SYSTEM TO IDENTIFY SIGNS [...] [code = HEART FAILURE; RN TO ASSESS/TEACH, BRASS POLISHER/CORPORATE DIRECTOR OF HUMAN RESOURCES TO OBSERVE/TEACH CARDIOPULMONARY SYSTEM TO IDENTIFY SIGNS [...] SYSTEM MANAGEMENT; RN TO ASSESS AND TEACH, BRASS POLISHER/CORPORATE DIRECTOR OF HUMAN RESOURCES TO OBSERVE AND TEACH RELATED TO ALTERED RESPIRATORY STATUS TO MINIMIZE COMPLICATIONS AND REDUCE HOSPITALIZATION. [code = RESPIRATORY SYSTEM MANAGEMENT; RN TO ASSESS AND TEACH, BRASS POLISHER/CORPORATE DIRECTOR OF HUMAN RESOURCES TO OBSERVE AND TEACH RELATED TO ALTERED RESPIRATORY STATUS TO MINIMIZE COMPLICATIONS AND REDUCE HOSPITALIZATION.] Future Scheduled Test PAIN MANAG EMENT; RN TO ASSESS AND TEACH, CORPORATE DIRECTOR OF HUMAN RESOURCES/BRASS POLISHER TO OBSERVE AND TEACH AND PROVIDE EDUCATION ON PAIN MANAGEMENT TECHNIQUES. [code = PAIN MANAGEMENT; RN TO ASSESS AND TEACH, CORPORATE DIRECTOR OF HUMAN RESOURCES/BRASS POLISHER TO OBSERVE AND TEACH AND PROVIDE EDUCATION ON PAIN MANAGEMENT TECHNIQUES.] Future Scheduled Test BLOOD CLOT MANAGEMENT; RN TO ASSESS AND TEACH/ BRASS POLISHER /CORPORATE DIRECTOR OF HUMAN RESOURCES TO OBSERVE AND TEACH AND PROVIDE EDUCATION ON BLOOD CLOT MANAGEMENT. [code = BLOOD CLOT MANAGEMENT; RN TO ASSESS AND TEACH/ BRASS POLISHER /CORPORATE DIRECTOR OF HUMAN RESOURCES TO OBSERVE AND TEACH AND PROVIDE EDUCATION ON BLOOD CLOT MANAGEMENT.] Future Scheduled Test FALL REDUC TION MANAGEMENT; RN TO ASSESS AND OBSERVE, BRASS POLISHER/CORPORATE DIRECTOR OF HUMAN RESOURCES TO OBSERVE FALL RISK FACTORS AND EDUCATE PATIENT/CAREGIVER ON STRATEGIES TO MINIMIZE THE RISK OF FALLING. [code = FALL REDUCTION MANAGEMENT; RN TO ASSESS AND OBSERVE, BRASS POLISHER/CORPORATE DIRECTOR OF HUMAN RESOURCES TO OBSERVE FALL RISK FACTORS AND EDUCATE [...] 00:00:00 2025-02-27 00:00:00 Outpatient RECERTIFIC YOVANNY YEAGER [facility] [id number] 21.4 3
== END 2025-01-19 09:54 | disposition home or self-care (01) ==
LOC: HO.HCS 09:03
PROVIDERS: PCP Internal Medicine; Visit Provider Internal Medicine
DX: R06.02 Shortness of breath (principal); I26.99 Other pulmonary embolism without acute cor pulmonale
CPT/HCPCS: 93010; 99204

== ENCOUNTER → 2025-01-19 09:03 | Outpatient (BNVA) | payer MEDICARE, SELFPAY | PROVIDERS: PCP Internal Medicine; Visit Provider Internal Medicine | DX: I26.99 Other pulmonary embolism without acute cor pulmonale (principal); R06.02 Shortness of breath | CPT/HCPCS: 93005; 99202 ==

== ENCOUNTER → 2025-02-24 13:22 | Outpatient (REF) | payer MEDICARE, SELFPAY ==
--- NOTE | 2025-02-24 13:25 | CA_ITS ---
Transthoracic Echocardiogram Patient (Last, First, Middle): Jeannine Victor Ann Gender: Female Date of : 1945 Age: 79 Procedure Date: 02/24/2025 Procedure Type: Transthoracic Echocardiogram Location: OP Height: 165.1 cm Weight: 99.34 kg BSA: 2.06 m2 Heart Rate: 55 bpm BP: 120 / 62 mmHg Rewinder Operator Helper: SB Referring MD: Cesar Nicholas MD Housecleaner: Pa Landin MD Symptoms: R06.02 - Shortness of breath Study Quality: Fair ECG Rhythm: Bradycardia Conclusions: - 1. Normal LV ejection fraction of 60 65% with suggestive of elevated left ventricular end-diastolic pressure 2. Calcific aortic valve changes noted with early mild aortic stenosis 3. Normal RV systolic pressure 4. No gross pericardial effusion Findings Procedure Information The quality of the study was technically difficult. The study quality is limited by patients body habitus and lung artifact. Left Ventricle Normal left ventricular size, thickness, and systolic function. The visually estimated ejection fraction is between 60-65%. Spectral Doppler is indicative of an impaired relaxation filling pattern. Elevated left ventricular end diastolic pressure. Right Ventricle Normal right ventricular cavity size and systolic function. Atria The left atrium is likely dilated. There is lipomatous hypertrophy of the interatrial septum. There is no evidence of interatrial shunt. The right atrium is normal in size. Aortic Valve There is mild calcification of the aortic valve. The peak aortic gradient is 10 mmHg.The mean gradient is 6 mmHg. There is no aortic valve regurgitation. Mitral Valve There is mild anterior and posterior mitral leaflet thickening. There is trace mitral valve regurgitation. There is no mitral valve stenosis. Pulmonic Valve The pulmonic valve was not well visualized. Tricuspid Valve Likely normal tricuspid valve structure and function. There is trace tricuspid valve regurgitation. The right ventricular systolic pressure is normal. The right ventricular systolic pressure is 26 mmHg. Normal right atrial pressure. There is no evidence of pulmonary hypertension. Great Vessels All visible segments of the aorta are normal in size. The pulmonary artery was not well visualized. There is no dilatation of the ascending aorta measuring 3.40 cm. Venous The inferior vena cava is normal in size and collapses greater than 50% with inspiration. Pericardium/Pleural There is no evidence of pericardial effusion. Prior Study Comparison No prior study available for comparison. Measurements 2D Linear Measurements IVSd: 1.10 0.6-0.9/0.6-1.0 cm LVIDd: 4.88 3.9-5.3/4.2-5.9 cm LVIDd Index: 2.37 2.4-3.2/2.2-3.1 cm/m2 LVIDs: 3.24 2.0-3.6 cm LVPWd: 0.83 0.7-1.1 cm LA Diam: 3.60 2.7-3.8/3.0-4.0 cm LAIDs Index: 1.75 1.5-2.3 cm/m2 LV Mass: 207.16 67-162/88-224 g LV Mass Index: 100.56 43-95/49-115 g/m2 LVOT Diam: 2.00 3.0+(-)1.3 cm 2D Systolic Function EF 4C: 56.50 >55% EF 2C: 68.90 >55% EF BiP: 63.00 >55% Mitral Valve MV Pk E: 0.65 MV PK A: 0.79 MV Decel Time: 158.00 E/A: 0.80 E'Lateral: 7.07 E'Medial: 4.57 E/E' Med: 14.20 E/E' Lat: 9.20 PHT: 46.00 MVA PHT: 4.78 Decel [place]: 4.11 Aortic Valve AoV Pk Shay: 1.62 AoV Mn Shay: 1.21 AoV VTI: 0.40 AoV Pk Grad: 10.00 Aov Mn Grad: 6.00 ED Cont.VTI: 1.42 LVOT LVOT Pk Shay: 0.69 LVOT Mn Shay: 0.49 LVOT VTI: 0.18 LVOT Pk Grad: 2.00 LVOT Mn Grad: 1.00 LVOT Diam: 2.00 LVOT Area: 3.14 Diastolic Function MV Pk E: 0.65 MV Pk A: 0.79 E/A: 0.80 E'Medial: 4.57 E/E' Med: 14.20 E' Laterial: 7.07 E/E' Lat: 9.20 Right Ventricle TAPSE (mm): 28.00 TVS' Shay: 9.70 Tricuspid Valve TR Pk Shay: 2.40 TR Pk Grad: 23.00 RA Press: 3.00 RVSP: 26.00 Great Vessels Aorta Sinus of Valsalva: 3.10 2.0-3.5 cm Ao Asc: 3.40 2.1-3.4 cm Pulmonary Veins Pulm Vein S/D 1.40 Pulmonary Valve PV Pk Shay: 0.68 Peak PV Grad: 2.00 Updated in Other Vendor System with Status of Final Pa Landin MD electronically signed on 02/24/2025 5:18:36 PM with status of Final
== END ==
LOC: HO.CARD 13:22
PROVIDERS: PCP Internal Medicine; Visit Provider Internal Medicine
DX: R06.02 Shortness of breath (principal)
CPT/HCPCS: 93306

== ENCOUNTER → 2025-02-24 13:25 | Outpatient (BNV) | payer MEDICARE, SELFPAY | PROVIDERS: PCP Internal Medicine; Visit Provider Internal Medicine Cardiovascular Disease | DX: I35.0 Nonrheumatic aortic (valve) stenosis (principal); I35.8 Other nonrheumatic aortic valve disorders | CPT/HCPCS: 93306 ==

== ENCOUNTER 2025-03-23 08:37 | Outpatient (AMB) | payer MEDICARE, SELFPAY ==
--- NOTE | 2025-03-23 08:44 | A.OFFVIS_ITS ---
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 However, prior to the actual visit she was admitted to [facility] with acute pulmonary embolism which should be the reason for her shortness of breath. After that hospitalization, started on anticoagulation. Seems much improved. She does not have any history of cardiac problems otherwise. She states she is slowly getting better. Still on anticoagulation. [facility] Medical History Extrapyramidal and movement disorder Hip arthritis Arthritis Peripheral neuropathy Lumbar disc disease Hypertension Low back pain Carpal tunnel syndrome RLS (restless legs syndrome) Family History Father No problems noted. Mother No problems noted. Social History Alcohol intake: never Patient Tobacco Use Status: Never used Tobacco Review of Systems Const Denies chills, Denies fatigue, Denies fever(s), Denies frequent falls, Denies weakness, Denies weight gain and Denies weight loss ENT Denies dizziness Card Denies chest pain, Denies leg edema, Denies lightheadedness, Denies palpitations, Reports dyspnea and Reports dyspnea on exertion Resp Denies cough, Reports dyspnea and Reports dyspnea on exertion GI Denies hematochezia Musc Denies abnormal gait, Denies muscle weakness, Denies numbness, Denies radiating pain into limb and Denies tingling Neuro Denies abnormal gait, Denies dizziness, Denies frequent falls, Denies numbness, Denies tingling and Denies weakness Endo Denies fatigue and Denies palpitations Physical Exam Vital Signs: Last Vital Signs Pulse 71 03/23/25 08:45 BP 122/70 03/23/25 08:45 BMI result Body Mass Index 37.0 Const General: comfortable and no acute distress Orientation/consciousness: patient oriented x3 HEENT Other: Unremarkable Head: Yes normal to inspection Neck Neck: Yes normal visual inspection Chest Chest palpation & inspection: normal inspection of the chest Resp Auscultation: clear to auscultation bilaterally Cardio Palpation: normal PMI Heart sounds: S1 normal heart sound present, S2 normal heart sound present, no gallops, Murmur heart sound present systolic I/ and at the right sternal border and no rubs GI Palpation (GI): Soft to palpation Back/Spine/Pelvis Other: unremarkable Skin General skin exam: no rashes or lesions noted Neuro General: patient oriented x3 Extrem General: Yes normal to inspection Psych Mental Status: mental status grossly normal Assessment & Plan Assessment & Plan (1) Shortness of breath: Code(s): R06.02 - Shortness of breath Category: Medical (2) Pulmonary embolism: Code(s): I26.99 - Other pulmonary embolism without acute cor pulmonale Category: Medical (3) Aortic valve calcification: Code(s): I35.9 - Nonrheumatic aortic valve disorder, unspecified Category: Medical Plan [facility] records reviewed. Chest CTA reported to have extensive clot burden with saddle embolus. Echocardiogram then with LVEF of 60-65%. Right ventricle moderately dilated. Flattening of interventricular septum thought to be from RV pressure overload. RV function mildly reduced. Mild pulmonary hypertension. In the repeat echocardiogram, LVEF is 60-65%. Reported increased LVEDP but based on E/E' ratios, doubt that is the case. Right ventricular described to be of normal size and function. No evidence of pulmonary hypertension. Aortic valve described to be mildly calcified. No overt stenosis. Overall, shortness of breath most likely related to the pulmonary embolism and she is already on anticoagulation for that. Currently, there is no evidence of any pulmonary hypertension and hopefully will remain that way. With regard to the aortic valve calcification, increased chance of aortic stenosis in the future and she may need a repeat study in 2-3 years. We will check her back in a year or so. Coding Level of Care Code Est Pt Level 3 (20467) Diagnoses Shortness of breath R06.02 Pulmonary embolism I26.99 Aortic valve calcification I35.9
[2025-03-23 08:45] VITALS: BP 122/70; PULSE 71; BMI 37.0
== END 2025-03-23 08:57 | disposition home or self-care (01) ==
LOC: HO.HCS 08:37
PROVIDERS: PCP Internal Medicine; Visit Provider Internal Medicine
DX: R06.02 Shortness of breath (principal); I26.99 Other pulmonary embolism without acute cor pulmonale; I35.9 Nonrheumatic aortic valve disorder, unspecified
CPT/HCPCS: 99213

== ENCOUNTER → 2025-03-23 08:37 | Outpatient (BNVA) | payer MEDICARE, SELFPAY | PROVIDERS: PCP Internal Medicine; Visit Provider Internal Medicine | DX: R06.02 Shortness of breath (principal); I26.99 Other pulmonary embolism without acute cor pulmonale; I35.9 Nonrheumatic aortic valve disorder, unspecified | CPT/HCPCS: 99212 ==